=== PATIENT | female | born 1955 | race Asian ===

== ENCOUNTER 2018-01-29 03:28 | Inpatient (IN) | payer MEDICAID, SELFPAY ==
[~2018-01-29] VITALS: Ht 167.6 cm; Wt 48.1 kg
[2018-01-29] VITALS (7 sets, daily range): BP systolic 131–184; BP diastolic 51–85
[~2018-01-29 03:28] MED LIST: GLIPIZIDE5 MG ORAL; IBUPROFEN600 MG ORAL; LANTUS5 UNITS SUBQ; NORCO 5-325 TA1 EACH ORAL; NORVASC2.5 MG ORAL; TENORMIN25 MG ORAL
[2018-01-29] MEDS ORDERED: NS 250 ML IVPB ONE (03:30)
[2018-01-29] MEDS ORDERED: BISACODYL5 MG ORAL (04:06)
[2018-01-29] MEDS ORDERED: LISINOPRIL20 MG ORAL (04:06)
[2018-01-29] MEDS ORDERED: FAMOTIDINE20 MG ORAL (04:06)
[2018-01-29] MEDS ORDERED: ASPIR 8181 MG ORAL (04:06)
[2018-01-29] MEDS ORDERED: TRAMADOL HCL50 MG ORAL (04:06)
[2018-01-29] MEDS ORDERED: GLIPIZIDE5 MG ORAL (04:06)
[2018-01-29] MEDS ORDERED: LIPITOR80 MG ORAL (04:06)
[2018-01-29] MEDS ORDERED: DOCUSATE SODIU100 MG ORAL (04:06)
[2018-01-29] MEDS ORDERED: RENAGEL800 MG ORAL (04:06)
[2018-01-29] MEDS ORDERED: METOPROLOL-HCT1 EAC3 ORAL (04:06)
[2018-01-29] MEDS ORDERED: WARFARIN SODIUM1 MG ORAL (04:06)
[2018-01-29] MEDS ORDERED: CLOPIDOGREL75 MG ORAL (04:06)
[2018-01-29] MEDS ORDERED: SENSIPAR30 MG ORAL (04:06)
[2018-01-29] MEDS ORDERED: ZOFRAN4 M3 ORAL (04:06)
[2018-01-29] MEDS ORDERED: TYLENOL EXTRA500 MG ORAL (04:06)
[2018-01-29] MEDS ORDERED: ZOLPIDEM TARTRAT5 MG ORAL (04:06)
[2018-01-29 04:32] LABS: HEMATOCRIT 25.8 % (37.0-47.0); HEMOGLOBIN 8.1 G/DL (12.0-16.0); MEAN CORPUSCULAR VOLUME 93 FL (80-99); PLATELET COUNT 325 K/UL (150-450); RED BLOOD COUNT 2.77 M/UL (4.20-5.40); RED CELL DISTRIBUTION WIDTH 14.9 % (11.6-14.8)
[2018-01-29 04:33] LABS: WHITE BLOOD COUNT 31.3 K/UL (4.8-10.8)
--- NOTE | 2018-01-29 04:36 | Diagnostic Imaging Report ---
EXAM: XR Chest, 1 View CLINICAL HISTORY: COUGH TECHNIQUE: Frontal view of the chest. COMPARISON: No relevant prior studies available. FINDINGS: Lungs: Pulmonary vessel markings are mildly prominent. No acute consolidation. Pleural space: Unremarkable. No pneumothorax. Heart: Cardiac size is enlarged. The thoracic aorta is mildly tortuous. Mediastinum: Unremarkable. Bones/joints: Unremarkable. IMPRESSION: Cardiomegaly with prominence of pulmonary interstitial markings. Findings may represent underlying mild pulmonary vascular congestion.
[2018-01-29 04:43] LABS: ANION GAP 16 mmol/L (5-15); BLOOD UREA NITROGEN 49 mg/dL (7-18); CALCIUM 8.3 MG/DL (8.5-10.1); CARBON DIOXIDE 23 MMOL/L (21-32); CHLORIDE 96 MMOL/L (98-107); CREATININE 8.5 MG/DL (0.55-1.30); POTASSIUM 5.4 MMOL/L (3.5-5.1); SODIUM 135 MMOL/L (136-145)
[2018-01-29 04:45] LABS: INR 1.3 (0.9-1.1)
[2018-01-29] MEDS ORDERED: Morphine Sulfate 4mg/ml Inj (IV/IM USE ONLY) IVP ONE (04:45)
[2018-01-29] MEDS ORDERED: Acetaminophen 500mg (ES) tab ORAL ONE (04:45)
[2018-01-29 04:56] LABS: ALANINE AMINOTRANSFERASE 11 U/L (12-78); ALBUMIN 2.9 G/DL (3.4-5.0); ALBUMIN/GLOBULIN RATIO 0.6 (1.0-2.7); ALKALINE PHOSPHATASE 205 U/L (46-116); ASPARTATE AMINO TRANSFERASE 61 U/L (15-37); BILIRUBIN,TOTAL 0.6 MG/DL (0.2-1.0); CKMB 0.5 NG/ML (0.0-3.6); CREATINE KINASE 58 U/L (26-308)
--- NOTE | 2018-01-29 04:56 | Emergency Room Report ---
History of Present Illness General Chief Complaint: Fever Source: Patient Present Illness HPI 62-year-old female presents ED for evaluation. Patient brought in by EMS for fever. Started today. Temp 103.1 per EMS. Patient is tremulous. Patient denies cough. Denies sore throat or earache. She was recently discharged from [facility] for treatment of a infection. Patient is unclear where the infection was. history of end-stage renal disease gets dialysis Wednesday. Got dialysis on . Denies chest pain or shortness of breath. No other aggravating relieving factors. Denies any other associated symptoms Allergies: Coded Allergies: NO KNOWN DRUG ALLERGIES (Verified Allergy, Unknown, 01/29/18) Patient History Past Medical History: DM, HTN, renal disease, dialysis Past Surgical History: none Pertinent Family History: none Social History: Denies: smoking, alcohol use, drug use Last Menstrual Period: 2 decades ago Now: No Immunizations: UTD Reviewed Nursing Documentation: PMH: Agreed; PSxH: Agreed Nursing Documentation-PMH Hx Cardiac Problems: No Hx Hypertension: Yes Hx Pacemaker: No Hx Asthma: No Hx COPD: No Hx Diabetes: Yes Hx Cancer: No Hx Gastrointestinal Problems: No Hx Dialysis: Yes - wed, , wed Hx Neurological Problems: No Hx Cerebrovascular Accident: No Hx Seizures: No Review of Systems All Other Systems: negative except mentioned in HPI Physical Exam Vital Signs Date Time Temp Pulse Resp B/P (MAP) Pulse Ox O2 Delivery O2 Flow Rate FiO2 01/29/18 03:18 103.1 118 34 202/100 97 Room Air Sp02 EP Interpretation: reviewed, normal General Appearance: no apparent distress, alert, GCS 15, non-toxic Head: normocephalic, atraumatic Eyes: bilateral eye normal inspection, bilateral eye PERRL ENT: hearing grossly normal, normal pharynx, no angioedema, normal voice Neck: full range of motion, supple/symm/no masses Respiratory: chest non-tender, lungs clear, normal breath sounds, speaking full sentences Cardiovascular #1: regular rate, rhythm, no edema Cardiovascular #2: 2+ carotid (R), 2+ carotid (L), 2+ radial (R), 2+ radial (L) , 2+ dorsalis pedis (R), 2+ dorsalis pedis (L) Gastrointestinal: normal bowel sounds, non tender, soft, non-distended, no guarding, no rebound Rectal: deferred Genitourinary: normal inspection, no CVA tenderness Musculoskeletal: back normal, gait/station normal, normal range of motion, non- tender Neurologic: alert, oriented x3, responsive, motor strength/tone normal, sensory intact, speech normal Psychiatric: judgement/insight normal, memory normal, mood/affect normal, no suicidal/homicidal ideation Reflexes: 3+ bicep (R), 3+ bicep (L), 3+ tricep (R), 3+ tricep (L), 3+ knee (R) , 3+ knee (L) Skin: normal color, no rash, warm/dry, well hydrated, other - AV Fistula LUE with bruit. Lymphatic: no adenopathy Procedures Critical Care Time Critical Care Time i. I feel this is a highly complex case requiring extensive working including EKG/Rhythm strip, Xray/CT/US, Blood/urine lab work, repeat exams while in ED, and administration of strong opiates/narcotics for pain control, admission to hospital or close patient follow up. Total time: 30 min bedside evaluation and treatment excludes procedures (EKG). Reason for critical care: sepsis, high WBC. Possible complications: hypotension, hypertension, DE, shock, arrhythmias, metabolic acidosis, end organ damage, respiratory failure. Interventions: labs, EKG, CXR tylenol, pain meds. IVFs. broad spectrum abx Course: Patient presenting with fever. Tachycardic. History of end-stage renal disease on dialysis. WBC > 30. Troponin is indeterminate. BNP high. lactate > 3. given small bolus NS. given tylenol. given pain meds. given broad spectrum abx Consultations: nursing staff, EMS, family Performed by: Dr Aquino Tolerated well condition = serious j. because of unstable vital signs this patient had a condition that could potentially threaten life or limb. I feel this is a critical patient who required my full attention while patient was considered critical. Total Critical Care Time excluding procedures was greater than 35 minutes Medical Decision Making Diagnostic Impression: Primary Impression: Fever Qualified Codes: R50.9 - Fever, unspecified Additional Impressions: Sepsis Qualified Codes: A41.9 - Sepsis, unspecified organism ESRD (end stage renal disease) on dialysis ER Course Hospital Course 62 yo F presents with fever Differential diagnoses include: Pneumonia, UTI, sepsis, dehydration, DE/ unstable angina Clinical course Patient placed on stretcher. 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 After initial history and physical, I ordered labs, EKG, chest x-ray, blood cultures, UA. Labs - BUN/Cr elevated, signficant leukocytosis, troponins 0.089, K 5.4 EKG - sinus tachycardia, no acute ischemic changes interpreted by me CXR - cardiomegaly, no acute process Given Tylenol. Given broad-spectrum Abx. Patient cannot be given 30 mL per KG fluid bolus as patient is a dialysis patient Patient came with paperwork [facility] but unable to determine source of infection during recent hospitalization. Tachycardia resolving after Tylenol and small fluid bolus. maintenance fluid ordered Case discussed with Dr Warren and they agreed to admit patient to their service for further care and support I feel this is a highly complex case requiring extensive working including EKG/ Rhythm strip, Xray/CT/US, Blood/urine lab work, repeat exams while in ED, and administration of strong opiates/narcotics for pain control, admission to hospital or close patient follow up. Diagnosis - fever, sepsis, ESRD on dialysis Patient admitted to telemetry in serious condition Labs Test 01/29/18 04:25 White Blood Count 31.3 K/UL (4.8-10.8) Red Blood Count 2.77 M/UL (4.20-5.40) Hemoglobin 8.1 G/DL (12.0-16.0) Hematocrit 25.8 % (37.0-47.0) Mean Corpuscular Volume 93 FL (80-99) Mean Corpuscular Hemoglobin 29.1 PG (27.0-31.0) Mean Corpuscular Hemoglobin Concent 31.3 G/DL (32.0-36.0) Red Cell Distribution Width 14.9 % (11.6-14.8) Platelet Count 325 K/UL (150-450) Mean Platelet Volume 6.3 FL (6.5-10.1) Neutrophils (%) (Auto) % (45.0-75.0) Lymphocytes (%) (Auto) % (20.0-45.0) Monocytes (%) (Auto) % (1.0-10.0) Eosinophils (%) (Auto) % (0.0-3.0) Basophils (%) (Auto) % (0.0-2.0) Prothrombin Time 13.7 SEC (9.30-11.50) Prothromb Time International Ratio 1.3 (0.9-1.1) Activated Partial Thromboplast Time 25 SEC (23-33) Sodium Level 135 MMOL/L (136-145) Potassium Level 5.4 MMOL/L (3.5-5.1) Chloride Level 96 MMOL/L (98-107) Carbon Dioxide Level 23 MMOL/L (21-32) Anion Gap 16 mmol/L (5-15) Blood Urea Nitrogen 49 mg/dL (7-18) Creatinine 8.5 MG/DL (0.55-1.30) Estimat Glomerular Filtration Rate 4.7 mL/min (>60) Glucose Level 242 MG/DL (74-106) Lactic Acid Level 3.50 mmol/L (0.4-2.0) Calcium Level 8.3 MG/DL (8.5-10.1) Total Bilirubin 0.6 MG/DL (0.2-1.0) Aspartate Amino Transf (AST/SGOT) 61 U/L (15-37) Alanine Aminotransferase (ALT/SGPT) 11 U/L (12-78) Alkaline Phosphatase 205 U/L (46-116) Total Creatine Kinase 58 U/L (26-308) Creatine Kinase MB 0.5 NG/ML (0.0-3.6) Creatine Kinase MB Relative Index 0.8 Troponin I 0.089 ng/mL (0.000-0.056) Pro-B-Type Natriuretic Peptide > 25392 pg/mL (0-125) Total Protein 7.8 G/DL (6.4-8.2) Albumin 2.9 G/DL (3.4-5.0) Globulin 4.9 g/dL Albumin/Globulin Ratio 0.6 (1.0-2.7) EKG Diagnostic Results Rate: tachycardiac Rhythm: NSR ST Segments: no acute changes ASA given to the pt in ED: No Rhythm Strip Diag. Results EP Interpretation: yes Rhythm: NSR, no PVC's, no ectopy Chest X-Ray Diagnostic Results Chest X-Ray Diagnostic Results : Chest X-Ray Ordered: Yes # of Views/Limited/Complete: 1 View Indication: Other - fever EP Interpretation: Yes Interpretation: no consolidation, no effusion, no pneumothorax, no acute cardiopulmonary disease Impression: Other - bilateral interstitial congestion Electronically Signed by: Electronically signed by Ricco Aquino MD Last Vital Signs Date Time Temp Pulse Resp B/P (MAP) Pulse Ox O2 Delivery O2 Flow Rate FiO2 01/29/18 03:18 103.1 118 34 202/100 97 Room Air Status: improved Disposition: ADMITTED INPATIENT Condition: Serious Referrals: NOT CHOSEN IPA/,REFERRING (PCP) Ricco Aquino MD Jan 29, 2018 04:56
[2018-01-29] MEDS ORDERED: Piperacillin/Tazobactam 3.375 GM in NS 110 ML IVPB ONE (05:00)
[2018-01-29] MEDS ORDERED: Vancomycin 1 GM in NS 275 ML IV ONE (05:00)
[2018-01-29] MEDS ORDERED: Vancomycin 1gm inj IVPB ONE (06:05)
[2018-01-29] MEDS: Atenolol 25mg tab ORAL SCH (09:15)
[2018-01-29] MEDS ORDERED: Lisinopril 20mg tab ORAL SCH (09:15)
[2018-01-29] MEDS ORDERED: Aspirin EC 81mg tab ORAL SCH (09:15)
--- NOTE | 2018-01-29 09:19 | History and Physical ---
History of Present Illness General Date patient seen: Jan 29, 2018 Time patient seen: 09:03 Reason for Hospitalization: Fever Present Illness HPI 62 yo female with h/o dm, htn, cad, esrd on hd ,sat presents with complaints of fever. Noted to have temp of 103.1 per EMS. Patient denies any chest pain, sob, coughs, headaches, sore throat, earaches. Admits to fevers but no chills. Feels very weak. Patient states she was recently at [facility] for treatment of an infection, does not know where the infection was from. Patient noted to be in septic shock, ID and nephro consulted and started on broad spectrum abx Social hx reviewed, denies smoking, alcohol use, drug use fam hx reviewed, denies any sig past fam hx code status FULL Allergies: Coded Allergies: NO KNOWN DRUG ALLERGIES (Verified Allergy, Unknown, 01/29/18) Medication History Scheduled Amlodipine Besylate (Norvasc), 2.5 MG ORAL DAILY, (Reported) Aspirin* (Aspir 81*), 81 MG ORAL DAILY, (Reported) Atenolol (Tenormin), 25 MG ORAL DAILY, (Reported) Atorvastatin (Lipitor), 80 MG ORAL BEDTIME, (Reported) Bisacodyl* (Dulcolax*), 5 MG ORAL DAILY, (Reported) Cinacalcet* (Sensipar*), 30 MG ORAL DAILY, (Reported) Clopidogrel* (Clopidogrel*), 75 MG ORAL DAILY, (Reported) Docusate Sodium* (Docusate Sodium*), 100 MG ORAL TWICE A DAY, (Reported) Famotidine (Famotidine), 20 MG ORAL DAILY, (Reported) Glipizide* (Glipizide*), 5 MG ORAL BIDAC, (Reported) Glipizide* (Glipizide*), 5 MG ORAL BIDAC, (Reported) Ibuprofen* (Motrin*), 600 MG ORAL THREE TIMES A DAY Insulin Glargine (Lantus), 0 SUBQ BEDTIME, (Reported) Lisinopril (Lisinopril*), 20 MG ORAL DAILY, (Reported) Metoprolol/Hydrochlorothiazide (Metoprolol-Hctz 50-25 Mg Tab), 1 TAB ORAL DAILY, (Reported) Sevelamer Hcl (Renagel), 800 MG ORAL THREE TIMES A DAY, (Reported) Warfarin Sod* (Warfarin Sod*), 0.5 MG ORAL DAILY, (Reported) Scheduled PRN Acetaminophen* (Tylenol Extra Strength*), 500 MG ORAL Q6H PRN for Mild Pain/ Temp > 100.5, (Reported) Hydrocodone Bit/Acetaminophen 5-325* ([place] 5-325*), 1 TAB ORAL Q6H PRN for For Pain Ondansetron* (Zofran*), 4 MG ORAL Q6H PRN for Nausea & Vomiting, (Reported) Tramadol Hcl* (Ultram*), 50 MG ORAL Q6H PRN for For Pain, (Reported) Zolpidem Tartrate* (Zolpidem Tartrate*), 5 MG ORAL BEDTIME PRN for Insomnia, ( Reported) Patient History Healthcare decision maker Resuscitation status Advanced Directive on File Review of Systems ROS Narrative 14 point ros negative except per documented in HPI Physical Exam General Appearance: no apparent distress, alert Lines, tubes and drains: peripheral HEENT: normocephalic, atraumatic Neck: non-tender, normal alignment, supple, normal inspection Respiratory/Chest: chest wall non-tender, lungs clear, normal breath sounds, no respiratory distress, no accessory muscle use Cardiovascular/Chest: normal peripheral pulses, normal rate, regular rhythm Abdomen: normal bowel sounds, non tender, soft Extremities: normal range of motion, non-tender, normal inspection, no calf tenderness Skin Exam: normal pigmentation, warm/dry 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, no motor/sensory deficits, alert, oriented x 3, responsive, normal mood/affect Last 24 Hour Vital Signs Date Time Temp Pulse Resp B/P (MAP) Pulse Ox O2 Delivery O2 Flow Rate FiO2 01/29/18 07:48 99.1 90 18 134/59 98 Room Air 01/29/18 06:30 99.1 95 21 137/53 96 Room Air 01/29/18 05:30 99.6 97 26 131/51 96 Room Air 01/29/18 05:22 103.1 01/29/18 05:20 103.1 01/29/18 04:00 103.1 113 26 184/81 97 Room Air 01/29/18 03:45 118 34 Room Air 01/29/18 03:18 103.1 118 34 202/100 97 Room Air Laboratory Tests Test 01/29/18 04:25 01/29/18 05:35 White Blood Count 31.3 K/UL (4.8-10.8) *H Red Blood Count 2.77 M/UL (4.20-5.40) L Hemoglobin 8.1 G/DL (12.0-16.0) L Hematocrit 25.8 % (37.0-47.0) L Mean Corpuscular Volume 93 FL (80-99) Mean Corpuscular Hemoglobin 29.1 PG (27.0-31.0) Mean Corpuscular Hemoglobin Concent 31.3 G/DL (32.0-36.0) L Red Cell Distribution Width 14.9 % (11.6-14.8) H Platelet Count 325 K/UL (150-450) Mean Platelet Volume 6.3 FL (6.5-10.1) L Neutrophils (%) (Auto) % (45.0-75.0) Lymphocytes (%) (Auto) % (20.0-45.0) Monocytes (%) (Auto) % (1.0-10.0) Eosinophils (%) (Auto) % (0.0-3.0) Basophils (%) (Auto) % (0.0-2.0) Neutrophils % (Manual) Pending Lymphocytes % (Manual) Pending Platelet Estimate Pending Platelet Morphology Pending Prothrombin Time 13.7 SEC (9.30-11.50) H Prothromb Time International Ratio 1.3 (0.9-1.1) H Activated Partial Thromboplast Time 25 SEC (23-33) Sodium Level 135 MMOL/L (136-145) L Potassium Level 5.4 MMOL/L (3.5-5.1) H Chloride Level 96 MMOL/L (98-107) L Carbon Dioxide Level 23 MMOL/L (21-32) Anion Gap 16 mmol/L (5-15) H Blood Urea Nitrogen 49 mg/dL (7-18) H Creatinine 8.5 MG/DL (0.55-1.30) H Estimat Glomerular Filtration Rate 4.7 mL/min (>60) Glucose Level 242 MG/DL (74-106) H Lactic Acid Level 3.50 mmol/L (0.4-2.0) H 2.40 mmol/L (0.66-2.22) H Calcium Level 8.3 MG/DL (8.5-10.1) L Total Bilirubin 0.6 MG/DL (0.2-1.0) Aspartate Amino Transf (AST/SGOT) 61 U/L (15-37) H Alanine Aminotransferase (ALT/SGPT) 11 U/L (12-78) L Alkaline Phosphatase 205 U/L (46-116) H Total Creatine Kinase 58 U/L (26-308) Creatine Kinase MB 0.5 NG/ML (0.0-3.6) Creatine Kinase MB Relative Index 0.8 Troponin I 0.089 ng/mL (0.000-0.056) Pro-B-Type Natriuretic Peptide > 16997 pg/mL (0-125) H Total Protein 7.8 G/DL (6.4-8.2) Albumin 2.9 G/DL (3.4-5.0) L Globulin 4.9 g/dL Albumin/Globulin Ratio 0.6 (1.0-2.7) L Microbiology Date/Time Source Procedure Growth Status 01/29/18 04:30 Nasal Nares Influenza Types A,B Antigen (TORIBIO) - Final Complete 01/29/18 05:45 Rectum Received Height (Feet): 5 Height (Inches): 6.00 Weight (Pounds): 110 Medications Current Medications Medications (Trade) Dose Ordered Sig/Juliocesar Route PRN Reason Start Time Stop Time Status Last Admin Dose Admin Sodium Chloride 1,000 ml @ 100 mls/hr Q10H IV 01/29/18 05:00 02/28/18 04:59 01/29/18 06:46 Assessment/Plan Problem List: (1) Septic shock Assessment & Plan: wbc 31.3, temp 103.1, HR 103 esrd elevated trop with concerns for nstemi LA 3.5 on admit bolus IVF given, caution with hydration vanco, zosyn started bcx x 2 sent cxr reviewed, pulm edema noted, no consolidations ID consulted Nephro consulted recheck LA tele ICD Codes: A41.9 - Sepsis, unspecified organism; R65.21 - Severe sepsis with septic shock SNOMED: 51551223 (2) NSTEMI (non-ST elevated myocardial infarction) Assessment & Plan: type II nstemi demand ischemia due to esrd and septic shock no chest pain ekg reviewed, nsr no acut st t wave changes noted ICD Codes: I21.4 - Non-ST elevation (NSTEMI) myocardial infarction SNOMED: 243356295 (3) ESRD (end stage renal disease) on dialysis Assessment & Plan: Nephro consulted HD per nephro usualy T, Th, St ICD Codes: N18.6 - End stage renal disease; Z99.2 - Dependence on renal dialysis SNOMED: 468555621 (4) Poor historian Assessment & Plan: very poor historian does not know much of her medical history of medications ICD Codes: Z78.9 - Other specified health status SNOMED: 175358231 (5) CAD (coronary artery disease) Assessment & Plan: asa plavix resume home meds patient unsure of what procedures shes underwent however seems like she's had stents in the past statin tele stable ICD Codes: I25.10 - Atherosclerotic heart disease of [place] coronary artery without angina pectoris SNOMED: 17234901 Qualifiers: (6) Diabetes type 2, controlled Assessment & Plan: iss accuchecks [id number] ICD Codes: E11.9 - Type 2 diabetes mellitus without complications SNOMED: 44770779 Qualifiers: Qualified Codes: E11.22 - Type 2 diabetes mellitus with diabetic chronic kidney disease; N18.6 - End stage renal disease; Z99.2 - Dependence on renal dialysis Status: stable, unchanged Assessment/Plan Diet: renal diet DVT Prophylaxis: SCD, continue home coumadin Code Status: Full Admit to Inpatient Hospital Classification Declaration: Based on this initial evaluation, and depending on the patient's clinical course, I anticipate that this patient will require hospitalization for 2-3midnights for septic shock and close respiratory/ hemodynamic monitoring. Disposition: Once the patient is stable to leave the hospital, I anticipate the patient will likely be discharged to the following environment: home with HH vs SNF I spent 77 minutes on this patient's case, and 39 minutes were dedicated to counseling and/or care coordination. Discussed with patient/family, nursing staff, SW/CM regarding clinical status, treatment course, and disposition planning. Time of note may not reflect time of encounter. Jesús Low MD Jan 29, 2018 09:19
--- NOTE | 2018-01-29 11:24 | Consultation ---
Consult Note Consult Note asked to eval for dialysis management HPI 62-year-old female presents ED for evaluation. Patient brought in by EMS for fever. Started today. Temp 103.1 per EMS. Patient is tremulous. Patient denies cough. Denies sore throat or earache. She was recently discharged from [facility] for treatment of a infection. Patient is unclear where the infection was. history of end-stage renal disease gets dialysis Wednesday. Got dialysis on . Denies chest pain or shortness of breath. No other aggravating relieving factors. 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
[2018-01-29] MEDS ORDERED: Sodium Polystyrene Sulfonate 15gm Powder ORAL SCH (11:45)
[2018-01-29] MEDS: NovoLOG Insulin Flexpen SUBQ SCH ×3 (12:05→22:21)
--- NOTE | 2018-01-29 13:48 | Cardiology Report ---
APPROVED REPORT EXAM: Two-dimensional and M-mode echocardiogram with Doppler and color Doppler. INDICATION Congestive Heart Failure M-Mode DIMENSIONS IVSd1.2 (0.7-1.1cm)Left Atrium (MM)3.2 (1.6-4.0cm) LVDd6.3 (3.5-5.6cm)Aortic Root3.4 (2.0-3.7cm) PWd0.8 (0.7-1.1cm)Aortic Cusp Exc.1.7 (1.5-2.0cm) IVSs1.6 cm LVDs5.4 (2.5-4.0cm) PWs1.2 cm Mild left ventricular enlargement . Global LV hypokinesis. Anterior septum basal to distal hypokinesis . Left ventricular ejection fraction estimated to be 20-25 %. No evidencce of left ventricular hypertrophy. No evidence of pericardial effusion. All other cardiac chamber sizes are within normal limits. Focal aortic valve sclerosis with adequate cusp excursion. Thickened mitral valve leaflets with normal excursion. Mitral annulus and aortic root calcification. Pulmonic valve not well visualized. Normal tricuspid valve structure. IVC dilated at 2.2 cm without physiologic collapse suggestive of increased RA pressure. A color flow and spectral Doppler study was performed and revealed: Mild aortic regurgitation. Moderate mitral regurgitation. Mitral diastolic velocities suggest reduced left ventricular relaxation c/w mild LV diastolic dysfunction (Grade I ). Mild tricuspid regurgitation. Tricuspid systolic velocities suggests peak right ventricular systolic pressure of 49 mmHg,consistent with moderate pulmonary hypertension. Mild pulmonic regurgitation present.
[2018-01-29] MEDS: Piperacillin/Tazobactam 2.25 GM in NS 55 ML IV SCH ×2 (14:24→22:19)
[2018-01-29] MEDS ORDERED: Warfarin Sodium 3mg ORAL SCH (17:00)
--- NOTE | 2018-01-29 18:19 | Infectious Diseases Prog Note ---
Assessment/Plan Assessment/Plan Full consult dictated: A) 1) sepsis, fevers, leukocytosis, hx mssa infection, + c.diff. risk 2) pmh noted 3) allergies - nkda P) 1) vancomycin and zosyn, po vancomycin 2) check cultures, labs, ct scan, c.diff. 3) thank you Subjective Allergies: Coded Allergies: NO KNOWN DRUG ALLERGIES (Verified Allergy, Unknown, 01/29/18) Objective Vital Signs Last 24 Hour Vital Signs Date Time Temp Pulse Resp B/P (MAP) Pulse Ox O2 Delivery O2 Flow Rate FiO2 01/29/18 17:15 89 142/77 01/29/18 16:00 97.9 89 20 142/77 (98) 99 01/29/18 16:00 83 01/29/18 12:00 97.7 85 20 154/85 (108) 100 01/29/18 12:00 89 01/29/18 09:22 Room Air 01/29/18 09:15 139/72 01/29/18 09:15 92 139/72 01/29/18 09:15 92 139/72 01/29/18 08:00 88 01/29/18 08:00 98.6 91 20 139/72 (94) 98 01/29/18 07:48 99.1 90 18 134/59 98 Room Air 01/29/18 06:30 99.1 95 21 137/53 96 Room Air 01/29/18 05:30 99.6 97 26 131/51 96 Room Air 01/29/18 05:22 103.1 01/29/18 05:20 103.1 01/29/18 04:00 103.1 113 26 184/81 97 Room Air 01/29/18 03:45 118 34 Room Air 01/29/18 03:18 103.1 118 34 202/100 97 Room Air Height (Feet): 5 Height (Inches): 6.00 Weight (Pounds): 110 Microbiology Date/Time Source Procedure Growth Status 01/29/18 04:30 Nasal Nares Influenza Types A,B Antigen (TORIBIO) - Final Complete 01/29/18 05:45 Rectum Received Laboratory Tests Test 01/29/18 04:25 01/29/18 05:35 01/29/18 09:54 01/29/18 12:02 White Blood Count 31.3 K/UL (4.8-10.8) *H Red Blood Count 2.77 M/UL (4.20-5.40) L Hemoglobin 8.1 G/DL (12.0-16.0) L Hematocrit 25.8 % (37.0-47.0) L Mean Corpuscular Volume 93 FL (80-99) Mean Corpuscular Hemoglobin 29.1 PG (27.0-31.0) Mean Corpuscular Hemoglobin Concent 31.3 G/DL (32.0-36.0) L Red Cell Distribution Width 14.9 % (11.6-14.8) H Platelet Count 325 K/UL (150-450) Mean Platelet Volume 6.3 FL (6.5-10.1) L Neutrophils (%) (Auto) % (45.0-75.0) Lymphocytes (%) (Auto) % (20.0-45.0) Monocytes (%) (Auto) % (1.0-10.0) Eosinophils (%) (Auto) % (0.0-3.0) Basophils (%) (Auto) % (0.0-2.0) Differential Total Cells Counted 100 Neutrophils % (Manual) 93 % (45-75) H Lymphocytes % (Manual) 1 % (20-45) L Monocytes % (Manual) 5 % (1-10) Eosinophils % (Manual) 0 % (0-3) Basophils % (Manual) 0 % (0-2) Band Neutrophils 1 % (0-8) Platelet Estimate Adequate Platelet Morphology Normal Polychromasia 1+ Hypochromasia 1+ Anisocytosis 1+ Prothrombin Time 13.7 SEC (9.30-11.50) H Prothromb Time International Ratio 1.3 (0.9-1.1) H Activated Partial Thromboplast Time 25 SEC (23-33) Sodium Level 135 MMOL/L (136-145) L Potassium Level 5.4 MMOL/L (3.5-5.1) H Chloride Level 96 MMOL/L (98-107) L Carbon Dioxide Level 23 MMOL/L (21-32) Anion Gap 16 mmol/L (5-15) H Blood Urea Nitrogen 49 mg/dL (7-18) H Creatinine 8.5 MG/DL (0.55-1.30) H Estimat Glomerular Filtration Rate 4.7 mL/min (>60) Glucose Level 242 MG/DL (74-106) H Lactic Acid Level 3.50 mmol/L (0.4-2.0) H 2.40 mmol/L (0.66-2.22) H 2.40 mmol/L (0.4-2.0) H 3.00 mmol/L (0.66-2.22) H Calcium Level 8.3 MG/DL (8.5-10.1) L Total Bilirubin 0.6 MG/DL (0.2-1.0) Aspartate Amino Transf (AST/SGOT) 61 U/L (15-37) H Alanine Aminotransferase (ALT/SGPT) 11 U/L (12-78) L Alkaline Phosphatase 205 U/L (46-116) H Total Creatine Kinase 58 U/L (26-308) Creatine Kinase MB 0.5 NG/ML (0.0-3.6) Creatine Kinase MB Relative Index 0.8 Troponin I 0.089 ng/mL (0.000-0.056) Pro-B-Type Natriuretic Peptide > 23508 pg/mL (0-125) H Total Protein 7.8 G/DL (6.4-8.2) Albumin 2.9 G/DL (3.4-5.0) L Globulin 4.9 g/dL Albumin/Globulin Ratio 0.6 (1.0-2.7) L C-Reactive Protein, Quantitative 5.7 mg/dL (0.00-0.90) H Test 01/29/18 17:35 Lactic Acid Level Pending Current Medications Medications (Trade) Dose Ordered Sig/Juliocesar Route PRN Reason Start Time Stop Time Status Last Admin Dose Admin Amlodipine Besylate (Norvasc) 2.5 mg BID ORAL 01/29/18 18:00 02/28/18 09:14 01/29/18 17:15 Aspirin (Ecotrin) 81 mg DAILY ORAL 01/29/18 09:15 02/28/18 09:14 01/29/18 10:06 Atenolol (Tenormin) 25 mg DAILY ORAL 01/29/18 09:15 02/28/18 09:14 Atorvastatin Calcium (Lipitor) 80 mg BEDTIME ORAL 01/29/18 21:00 02/28/18 20:59 Clonidine HCl (Catapres Tab) 0.1 mg Q4H PRN ORAL bp over 165 syst 01/29/18 11:45 02/28/18 11:44 Clopidogrel Bisulfate (Plavix) 75 mg DAILY ORAL 01/29/18 09:15 02/28/18 09:14 01/29/18 10:06 Dextrose (Dextrose 50%) 25 ml Q30M PRN IV Hypoglycemia 01/29/18 10:00 02/28/18 09:59 Dextrose (Dextrose 50%) 50 ml Q30M PRN IV Hypoglycemia 01/29/18 10:00 02/28/18 09:59 Insulin Aspart (NovoLOG) BEFORE MEALS AND HS SUBQ 01/29/18 11:30 02/28/18 11:29 01/29/18 17:16 Ondansetron HCl (Zofran) 4 mg Q6H PRN IVP Nausea & Vomiting 01/29/18 09:30 02/28/18 09:29 01/29/18 14:53 Pantoprazole (Protonix) 40 mg BID ORAL 01/29/18 11:30 02/28/18 11:29 01/29/18 17:18 Piperacillin Sod/ Tazobactam Sod 2.25 gm/Sodium Chloride 55 ml @ 110 mls/hr EVERY 8 HOURS IV 01/29/18 14:00 02/05/18 13:59 01/29/18 14:24 Vancomycin HCl (Firvanq) 125 mg FOUR TIMES A DAY ORAL 01/29/18 21:00 02/05/18 20:59 Vancomycin HCl (Vanco rx to dose) 1 ea DAILY PRN MISC Per rx protocol 01/29/18 09:00 02/28/18 08:59 Warfarin Sodium (Coumadin per pharmacy) 1 ea DAILY PRN MISC Per rx protocol 01/29/18 09:15 02/28/18 09:14 Yudy Obando MD Jan 29, 2018 18:19
[2018-01-29] MEDS: Atorvastatin 80mg tab ORAL SCH (20:11)
[2018-01-29] MEDS: Vancomycin oral 125mg/2.5ml ORAL SCH (22:18)
[2018-01-30] VITALS (7 sets, daily range): BP systolic 120–153; BP diastolic 57–81
--- NOTE | 2018-01-30 01:30 | Consultation ---
DATE OF CONSULTATION: 01/29/2018 INFECTIOUS DISEASE CONSULTATION CONSULTING PHYSICIAN: Yudy Obando M.D. ATTENDING PHYSICIAN: Jaime Levine M.D. REFERRING PHYSICIAN: Dr. Jesús Low. REASON FOR CONSULTATION: Sepsis, leukocytosis, and fevers. CHIEF COMPLAINT: The patient's chief complaint coming in to the hospital is sepsis, leukocytosis, and fevers. HISTORY OF PRESENT ILLNESS: This is a 62-year-old female, who comes in to [facility] with white count of over 30,000, febrile to 103, and sepsis. The patient meets SIRS criteria and also had elevated lactic acid level. The patient was started on broad-spectrum antibiotics, vancomycin and Zosyn. The patient was recently at [facility] and it looks like, was treated for a Staph aureus infection. I do not know the details of that treatment, modality, or course. Infectious Disease consultation is requested for antibiotic management. The patient is at high risk for C. diff, because I believe she has been on recent antibiotics based on the records for these infection treatment at [facility]. The patient has multiple medical problems that will be outlined. The patient will be continued on vancomycin and Zosyn. It is questionable, she has loose stools. I will add p.o. vancomycin. CT scan, cultures, and C. diff have been ordered. The patient does produce some that the CT scan will be without contrast. MAR was noted. Orders were noted. Notes and records were reviewed. REVIEW OF SYSTEMS: CONSTITUTIONAL: The patient comes in with generalized fatigue, but no focal weakness. She is alert and responsive. She has fever and chills. HEAD AND NECK: No head pain or neck pain. No neck stiffness or change in vision. CARDIAC: No chest pain. GASTROINTESTINAL: Possible loose stools and diarrhea. May be some abdominal discomfort. GENITOURINARY: No Cabrera. She is on hemodialysis. The patient has left arm fistula. No Cabrera. No CVA tenderness per se. SKIN: No rash. EXTREMITIES: No extremity pain. NEUROLOGIC: No seizures. Again, she does have some loose stools. She has had abdominal discomfort. PULMONARY: No cough, congestion, or shortness of breath. No secretions. PAST MEDICAL HISTORY: The patient's past medical history includes the following. The patient has a past history of sepsis, history of diabetes, history of hyperlipidemia, hypertension, end-stage renal disease, history of MSSA bacteremia, past history of infection treated at [facility] in the past per the records, history of anticoagulation, history of anemia, history of pancreatitis in the past, history of non-STEMI myocardial infarction. She has a left arm fistula for end-stage renal disease, hemodialysis. MEDICATIONS: Upon reviewing the MAR, she is on following medications. She is on atorvastatin, vancomycin, and Zosyn. I put her on p.o. and intravenous vancomycin. She is on amlodipine. She is on intravenous Zosyn, clonidine, insulin, and pantoprazole. She is on Zofran, aspirin, atenolol, Clopidogrel, and warfarin. Outside medications noted and reconciliated. ALLERGIES: No known drug allergies. SOCIAL HISTORY: Negative for smoking, alcohol, or drug abuse. FAMILY DOCTOR: Noncontributory and negative for tuberculosis or cancer. PHYSICAL EXAM: VITAL SIGNS: Temperature 97.9, pulse rate 89, respiratory rate 20, blood pressure 142/77, and saturation 99%. T-max 103.1. Heart rate has been as high as 118 and respiratory rate as high as 34 on admission. GENERAL: Alert and responsive. She looks weak, but is responsive and oriented x3. HEAD AND NECK: Oral exam, no thrush. Eye exam, no icterus. Neck is supple. No JVD. Normocephalic. HEART: Regular. No gallop or murmur. ABDOMEN: Soft. Positive bowel sounds. Some discomfort. No rebound. LUNGS: Fairly clear. Bilateral possible rhonchi, rales, and crackles. SKIN: No rash or dermatitis. MUSCULOSKELETAL: No effusion or contractures. Septic arthritis. EXTREMITIES: Lower extremities are without cellulitis PERIPHERAL VASCULAR: No cyanosis or gangrene. GENITOURINARY: No Cabrera. No CVA tenderness. She has left arm fistula site, which looks clean and dry. No CVA tenderness. NEUROLOGIC: Intact and nonfocal. LABORATORY DATA: Laboratory data is as follows. Lactic acid level is 2.4 now and most recently, it was 1.7. It has as been as high as 3.5. CBC, white count 31.3, hemoglobin 8.1, and platelet count is 325,000. Creatinine is 8.5. Sodium 135. LFTs were noted. Cultures are pending. UA, C and S are pending. Influenza screen is negative. Chest x-ray shows cardiomegaly with pulmonary vascular congestion that is mild. No consolidation mentioned. CT scan of the abdomen and pelvis has been ordered. Cultures are pending. ASSESSMENT AND PLAN: 1. The patient has sepsis, fevers, leukocytosis, SIRS criteria, and elevated lactic acid level. The patient was recently at [facility] and treated for infection per the records. She does have history of methicillin-sensitive Staph aureus bacteremia per the records. The patient has left arm fistula. At this time, we will continue broad-spectrum antibiotics, vancomycin and Zosyn for MRSA gram-negative coverage. Check cultures and laboratories. Check CT scan of the abdomen and pelvis without contrast. We will also check for C. diff. She is at risk for C. diff and there is a question if she has diarrhea and abdominal discomfort. Also, give her p.o. vancomycin in addition to vancomycin and Zosyn. Continue treatment for sepsis, leukocytosis, and fevers pending workup with vancomycin, Zosyn, and p.o. vancomycin and intravenous vancomycin. Of note, she also has history of pancreatitis. We will check amylase and lipase also. Check imaging including CT scan, chest x-ray, and laboratories. 2. The patient has end-stage renal disease, on hemodialysis, left arm fistula. 3. History of Staph aureus bacteremia, unclear how long she was treated for that. 4. Diabetes. 5. Hyperlipidemia. 6. Hypertension. 7. End-stage renal disease. 8. Anemia. 9. Hemodialysis. 10. History of anticoagulation. 11. History of pancreatitis. 12. History of non-STEMI. 13. No known allergies. 14. Social history is negative. 15. MAR was noted 16. Case was discussed with RN. 17. Family history is noncontributory. 18. Social history is negative. 19. Continue treatment per primary consultants. 20. Orders were entered and noted. Yudy Obando M.D. DR: EVY JOB#: [id number] CC:
[2018-01-30 04:07] LABS: APPEARANCE,URINE SLIGHTLY CLOUDY; BILIRUBIN, URINE NEGATIVE (NEGATIVE); GLUCOSE, URINE (UA) 2+ (NEGATIVE); KETONES,URINE NEGATIVE (NEGATIVE); LEUKOCYTE ESTERASE ,URINE NEGATIVE (NEGATIVE); NITRITE,URINE NEGATIVE (NEGATIVE); PH,URINE 8 (4.5-8.0); PROTEIN,URINE 4+ (NEGATIVE); UROBILINOGEN,URINE NORMAL MG/DL (0.0-1.0)
[2018-01-30 04:20] LABS: COLOR,URINE YELLOW
[2018-01-30] MEDS: Piperacillin/Tazobactam 2.25 GM in NS 55 ML IV SCH ×3 (05:31→23:44)
[2018-01-30] MEDS: NovoLOG Insulin Flexpen SUBQ SCH ×4 (05:48→20:33)
[2018-01-30 07:51] LABS: HEMATOCRIT 21.6 % (37.0-47.0); MEAN CORPUSCULAR VOLUME 93 FL (80-99); PLATELET COUNT 266 K/UL (150-450); RED BLOOD COUNT 2.33 M/UL (4.20-5.40); RED CELL DISTRIBUTION WIDTH 14.9 % (11.6-14.8)
[2018-01-30 07:58] LABS: INR 2.2 (0.9-1.1)
[2018-01-30 07:59] LABS: HEMOGLOBIN 6.7 G/DL (12.0-16.0); WHITE BLOOD COUNT 31.4 K/UL (4.8-10.8)
[2018-01-30] MEDS: Atenolol 25mg tab ORAL SCH (09:00)
--- NOTE | 2018-01-30 09:13 | General Progress Note ---
Assessment/Plan Problem List: (1) Septic shock Assessment & Plan: wbc still very elevated at 31.4 cont abx per ID, IV and PO vanco, zosyn pending cultures, bcx ngtd, cdiff sent per ID elevated trop with concerns for nstemi LA 3.5 on admit, resolved now bolus IVF given, caution with hydration vanco, zosyn started cxr reviewed, pulm edema noted, no consolidations Nephro consulted tele ICD Codes: A41.9 - Sepsis, unspecified organism; R65.21 - Severe sepsis with septic shock SNOMED: 98097064 (2) NSTEMI (non-ST elevated myocardial infarction) Assessment & Plan: type II nstemi demand ischemia due to esrd and septic shock no chest pain ekg reviewed, nsr no acut st t wave changes noted ICD Codes: I21.4 - Non-ST elevation (NSTEMI) myocardial infarction SNOMED: 860797099 (3) ESRD (end stage renal disease) on dialysis Assessment & Plan: Nephro consulted HD per nephro usualy , , St ICD Codes: N18.6 - End stage renal disease; Z99.2 - Dependence on renal dialysis SNOMED: 024415334 (4) Poor historian Assessment & Plan: very poor historian does not know much of her medical history of medications ICD Codes: Z78.9 - Other specified health status SNOMED: 930647037 (5) CAD (coronary artery disease) Assessment & Plan: asa plavix resume home meds patient unsure of what procedures shes underwent however seems like she's had stents in the past statin tele stable ICD Codes: I25.10 - Atherosclerotic heart disease of [place] coronary artery without angina pectoris SNOMED: 80083713 Qualifiers: (6) Diabetes type 2, controlled Assessment & Plan: iss accuchecks [id number] ICD Codes: E11.9 - Type 2 diabetes mellitus without complications SNOMED: 36140242 Qualifiers: Qualified Codes: E11.22 - Type 2 diabetes mellitus with diabetic chronic kidney disease; N18.6 - End stage renal disease; Z99.2 - Dependence on renal dialysis (7) Anemia in chronic kidney disease Assessment & Plan: hgb 6.7 now will require 1U PRBC lethargic, weak denies any blood BMs no acute blood loss ICD Codes: N18.9 - Chronic kidney disease, unspecified; D63.1 - Anemia in chronic kidney disease SNOMED: 069949607, 410641014 Qualifiers: Qualified Codes: N18.6 - End stage renal disease; D63.1 - Anemia in chronic kidney disease; Z99.2 - Dependence on renal dialysis (8) Acute systolic (congestive) heart failure Assessment & Plan: TTE done on admit, with EF 20-25% cardiology consulted, appreciate recs meds per cards patient unsure of home meds ICD Codes: I50.21 - Acute systolic (congestive) heart failure SNOMED: 83742880, 761774350 Status: stable, not improved Assessment/Plan Diet: renal diet DVT Prophylaxis: SCD, continue home coumadin Code Status: Full Inpatient Hospital Classification Declaration: Based on this initial evaluation, and depending on the patient's clinical course, I anticipate that this patient will require hospitalization for 2-3midnights for septic shock and close respiratory/ hemodynamic monitoring. Disposition: Once the patient is stable to leave the hospital, I anticipate the patient will likely be discharged to the following environment: home with HH vs SNF I spent 60 minutes on this patient's case, and 35 minutes were dedicated to counseling and/or care coordination. Discussed with patient/family, nursing staff, SW/CM regarding clinical status, treatment course, and disposition planning. Time of note may not reflect time of encounter. Subjective Date patient seen: Jan 30, 2018 Time patient seen: 09:04 Allergies: Coded Allergies: NO KNOWN DRUG ALLERGIES (Verified Allergy, Unknown, 01/29/18) Subjective f/u nstemi, septic shock, esrd, anemia patient noted to have hgb 6.7 today planned transfusion 1U PRBC today HD planned for today patient feeling weak and sleepy, denies MCCLURE or dizziness or vision changes denies any chest pain or sob, no dysuria or abd pain admits to diarrhea occasionally ROS: 14 point ROS reviewed and negative except per above subjective Objective Last 24 Hour Vital Signs Date Time Temp Pulse Resp B/P (MAP) Pulse Ox O2 Delivery O2 Flow Rate FiO2 01/30/18 04:00 84 01/30/18 03:54 98.3 88 19 120/77 (91) 99 01/30/18 00:00 83 01/30/18 00:00 98.7 86 19 135/65 (88) 96 01/29/18 21:00 Room Air 01/29/18 20:00 98.6 102 19 148/84 (105) 98 01/29/18 20:00 96 18 17:15 89 142/77 01/29/18 16:00 97.9 89 20 142/77 (98) 99 01/29/18 16:00 83 01/29/18 12:00 97.7 85 20 154/85 (108) 100 01/29/18 12:00 89 01/29/18 09:22 Room Air 01/29/18 09:15 139/72 01/29/18 09:15 92 139/72 01/29/18 09:15 92 139/72 Intake and Output 01/29/18 01/30/18 19:00 07:00 Intake Total 240 ml Balance 240 ml Intake Oral 240 ml # Voids 6 2 # Bowel Movements 1 Laboratory Tests 01/29/18 09:54: Lactic Acid Level 2.40H 01/29/18 12:02: Lactic Acid Level 3.00H, C-Reactive Protein, Quantitative 5.7H 01/29/18 17:35: Lactic Acid Level 1.70 01/30/18 02:40: Urine Color Yellow, Urine Appearance Slightly cloudy, Urine pH 8, Urine Specific [place] 1.015, Urine Protein 4+H, Urine Glucose (UA) 2+H, Urine Ketones Negative, Urine Blood 1+H, Urine Nitrite Negative, Urine Bilirubin Negative, Urine Urobilinogen Normal, Urine Leukocyte Esterase Negative, Urine RBC 2-4H, Urine WBC 0-2, Urine Squamous Epithelial Cells ModerateH, Urine Bacteria Few 01/30/18 06:42: White Blood Count 31.4*H, Red Blood Count 2.33L, Hemoglobin 6.7*L, Hematocrit 21.6L, Mean Corpuscular Volume 93, Mean Corpuscular Hemoglobin 29.0, Mean Corpuscular Hemoglobin Concent 31.2L, Red Cell Distribution Width 14.9H, Platelet Count 266, Mean Platelet Volume 6.2L, Neutrophils (%) (Auto) , Lymphocytes (%) (Auto) , Monocytes (%) (Auto) , Eosinophils (%) (Auto) , Basophils (%) (Auto) , Neutrophils % (Manual) [Pending], Lymphocytes % (Manual) [Pending], Platelet Estimate [Pending], Platelet Morphology [Pending], Prothrombin Time 22.7H, Prothromb Time International Ratio 2.2H, Sodium Level [ Pending], Potassium Level [Pending], Chloride Level [Pending], Carbon Dioxide Level [Pending], Blood Urea Nitrogen [Pending], Creatinine [Pending], Estimat Glomerular Filtration Rate [Pending], Glucose Level [Pending], Uric Acid [ Pending], Calcium Level [Pending], Phosphorus Level [Pending], Magnesium Level [ Pending], Iron Level [Pending], Unsaturated Iron Binding [Pending], Ferritin [ Pending], Total Bilirubin [Pending], Gamma Glutamyl Transpeptidase [Pending], Aspartate Amino Transf (AST/SGOT) [Pending], Alanine Aminotransferase (ALT/SGPT ) [Pending], Alkaline Phosphatase [Pending], Troponin I 1.049H, Pro-B-Type Natriuretic Peptide [Pending], Total Protein [Pending], Albumin [Pending], Globulin [Pending], Triglycerides Level [Pending], Cholesterol Level [Pending], LDL Cholesterol [Pending], HDL Cholesterol [Pending], Cholesterol/HDL Ratio [ Pending], Vitamin B12 Level [Pending], Folate [Pending], Thyroid Stimulating Hormone (TSH) [Pending] Height (Feet): 5 Height (Inches): 6.00 Weight (Pounds): 110 General Appearance: no apparent distress, alert, lethargic EENT: PERRL/EOMI, normal ENT inspection, TMs normal, pharynx normal Neck: non-tender, normal alignment, supple, normal inspection, abnormal alignment Cardiovascular: normal peripheral pulses, normal rate, regular rhythm Respiratory/Chest: chest wall non-tender, lungs clear, normal breath sounds, no respiratory distress, no accessory muscle use Abdomen: normal bowel sounds, non tender, soft, no organomegaly, no mass Extremities: normal range of motion, non-tender, normal inspection Neurologic: tire maker II-XII grossly normal, no motor/sensory deficits, alert, oriented x 3 Skin: normal pigmentation, warm/dry Jesús Low MD Jan 30, 2018 09:13
[2018-01-30 09:19] LABS: % IRON SATURATION 9 % (15-50); IRON 14 ug/dL (50-175); TOTAL IRON BINDING CAPACITY 159 ug/dL (250-450)
[2018-01-30 09:37] LABS: ALANINE AMINOTRANSFERASE 50 U/L (12-78); ALBUMIN 2.3 G/DL (3.4-5.0); ALBUMIN/GLOBULIN RATIO 0.5 (1.0-2.7); ALKALINE PHOSPHATASE 161 U/L (46-116); ANION GAP 15 mmol/L (5-15); ASPARTATE AMINO TRANSFERASE 84 U/L (15-37); BILIRUBIN,TOTAL 0.5 MG/DL (0.2-1.0); BLOOD UREA NITROGEN 64 mg/dL (7-18); CALCIUM 8.1 MG/DL (8.5-10.1); CARBON DIOXIDE 26 MMOL/L (21-32); CHLORIDE 99 MMOL/L (98-107); CHOLESTEROL < 50 MG/DL (< 200); CREATININE 10.9 MG/DL (0.55-1.30); FERRITIN 729 NG/ML (8-388); GAMMA GLUTAMYL TRANSPEPTIDASE 152 U/L (5-85); HDL CHOLESTEROL 25 MG/DL (40-60); PHOSPHORUS 6.1 MG/DL (2.5-4.9); POTASSIUM 3.8 MMOL/L (3.5-5.1); SODIUM 140 MMOL/L (136-145); TRIGLYCERIDES 60 MG/DL (30-150)
[2018-01-30] MEDS: Vancomycin oral 125mg/2.5ml ORAL SCH ×4 (09:47→20:32)
--- NOTE | 2018-01-30 11:30 | Consultation ---
History of Present Illness General Chief Complaint: Fever Present Illness Allergies: Coded Allergies: NO KNOWN DRUG ALLERGIES (Verified Allergy, Unknown, 01/29/18) Medication History Scheduled Amlodipine Besylate (Norvasc), 2.5 MG ORAL DAILY, (Reported) Aspirin* (Aspir 81*), 81 MG ORAL DAILY, (Reported) Atenolol (Tenormin), 25 MG ORAL DAILY, (Reported) Atorvastatin (Lipitor), 80 MG ORAL BEDTIME, (Reported) Bisacodyl* (Dulcolax*), 5 MG ORAL DAILY, (Reported) Cinacalcet* (Sensipar*), 30 MG ORAL DAILY, (Reported) Clopidogrel* (Clopidogrel*), 75 MG ORAL DAILY, (Reported) Docusate Sodium* (Docusate Sodium*), 100 MG ORAL TWICE A DAY, (Reported) Famotidine (Famotidine), 20 MG ORAL DAILY, (Reported) Glipizide* (Glipizide*), 5 MG ORAL BIDAC, (Reported) Glipizide* (Glipizide*), 5 MG ORAL BIDAC, (Reported) Ibuprofen* (Motrin*), 600 MG ORAL THREE TIMES A DAY Insulin Glargine (Lantus), 0 SUBQ BEDTIME, (Reported) Lisinopril (Lisinopril*), 20 MG ORAL DAILY, (Reported) Metoprolol/Hydrochlorothiazide (Metoprolol-Hctz 50-25 Mg Tab), 1 TAB ORAL DAILY, (Reported) Sevelamer Hcl (Renagel), 800 MG ORAL THREE TIMES A DAY, (Reported) Warfarin Sod* (Warfarin Sod*), 0.5 MG ORAL DAILY, (Reported) Scheduled PRN Acetaminophen* (Tylenol Extra Strength*), 500 MG ORAL Q6H PRN for Mild Pain/ Temp > 100.5, (Reported) Hydrocodone Bit/Acetaminophen 5-325* ([place] 5-325*), 1 TAB ORAL Q6H PRN for For Pain Ondansetron* (Zofran*), 4 MG ORAL Q6H PRN for Nausea & Vomiting, (Reported) Tramadol Hcl* (Ultram*), 50 MG ORAL Q6H PRN for For Pain, (Reported) Zolpidem Tartrate* (Zolpidem Tartrate*), 5 MG ORAL BEDTIME PRN for Insomnia, ( Reported) Patient History Healthcare decision maker Resuscitation status Full Code Advanced Directive on File Physical Exam Last 24 Hour Vital Signs Date Time Temp Pulse Resp B/P (MAP) Pulse Ox O2 Delivery O2 Flow Rate FiO2 01/30/18 09:00 Room Air 01/30/18 09:00 83 135/74 01/30/18 09:00 80 135/74 01/30/18 08:00 97.0 80 19 135/74 (94) 100 01/30/18 08:00 73 01/30/18 04:00 84 01/30/18 03:54 98.3 88 19 120/77 (91) 99 01/30/18 00:00 83 01/30/18 00:00 98.7 86 19 135/65 (88) 96 01/29/18 21:00 Room Air 01/29/18 20:00 98.6 102 19 148/84 (105) 98 01/29/18 20:00 96 01/29/18 17:15 89 142/77 01/29/18 16:00 97.9 89 20 142/77 (98) 99 01/29/18 16:00 83 01/29/18 12:00 97.7 85 20 154/85 (108) 100 01/29/18 12:00 89 Intake and Output 01/29/18 01/30/18 18:59 06:59 Intake Total 240 ml Balance 240 ml Intake Oral 240 ml # Voids 6 2 # Bowel Movements 1 Laboratory Tests Test 01/29/18 12:02 01/29/18 17:35 01/30/18 02:40 01/30/18 06:42 Lactic Acid Level 3.00 mmol/L (0.66-2.22) H 1.70 mmol/L (0.4-2.0) C-Reactive Protein, Quantitative 5.7 mg/dL (0.00-0.90) H Urine Color Yellow Urine Appearance Slightly cloudy Urine pH 8 (4.5-8.0) Urine Specific [place] 1.015 (1.005-1.035) Urine Protein 4+ (NEGATIVE) H Urine Glucose (UA) 2+ (NEGATIVE) H Urine Ketones Negative (NEGATIVE) Urine Blood 1+ (NEGATIVE) H Urine Nitrite Negative (NEGATIVE) Urine Bilirubin Negative (NEGATIVE) Urine Urobilinogen Normal MG/DL (0.0-1.0) Urine Leukocyte Esterase Negative (NEGATIVE) Urine RBC 2-4 /HPF (0 - 2) H Urine WBC 0-2 /HPF (0 - 2) Urine Squamous Epithelial Cells Moderate /LPF (NONE/OCC) H Urine Bacteria Few /HPF (NONE) White Blood Count 31.4 K/UL (4.8-10.8) *H Red Blood Count 2.33 M/UL (4.20-5.40) L Hemoglobin 6.7 G/DL (12.0-16.0) *L Hematocrit 21.6 % (37.0-47.0) L Mean Corpuscular Volume 93 FL (80-99) Mean Corpuscular Hemoglobin 29.0 PG (27.0-31.0) Mean Corpuscular Hemoglobin Concent 31.2 G/DL (32.0-36.0) L Red Cell Distribution Width 14.9 % (11.6-14.8) H Platelet Count 266 K/UL (150-450) Mean Platelet Volume 6.2 FL (6.5-10.1) L Neutrophils (%) (Auto) % (45.0-75.0) Lymphocytes (%) (Auto) % (20.0-45.0) Monocytes (%) (Auto) % (1.0-10.0) Eosinophils (%) (Auto) % (0.0-3.0) Basophils (%) (Auto) % (0.0-2.0) Differential Total Cells Counted 100 Neutrophils % (Manual) 92 % (45-75) H Lymphocytes % (Manual) 3 % (20-45) L Monocytes % (Manual) 5 % (1-10) Eosinophils % (Manual) 0 % (0-3) Basophils % (Manual) 0 % (0-2) Band Neutrophils 0 % (0-8) Platelet Estimate Adequate Platelet Morphology Normal Hypochromasia 2+ Anisocytosis 1+ Prothrombin Time 22.7 SEC (9.30-11.50) H Prothromb Time International Ratio 2.2 (0.9-1.1) H Sodium Level 140 MMOL/L (136-145) Potassium Level 3.8 MMOL/L (3.5-5.1) Chloride Level 99 MMOL/L (98-107) Carbon Dioxide Level 26 MMOL/L (21-32) Anion Gap 15 mmol/L (5-15) Blood Urea Nitrogen 64 mg/dL (7-18) H Creatinine 10.9 MG/DL (0.55-1.30) H Estimat Glomerular Filtration Rate 3.6 mL/min (>60) Glucose Level 151 MG/DL (74-106) H Uric Acid 9.8 MG/DL (2.6-7.2) H Calcium Level 8.1 MG/DL (8.5-10.1) L Phosphorus Level 6.1 MG/DL (2.5-4.9) H Magnesium Level 2.2 MG/DL (1.8-2.4) Iron Level 14 ug/dL (50-175) L Total Iron Binding Capacity 159 ug/dL (250-450) L Percent Iron Saturation 9 % (15-50) L Unsaturated Iron Binding 145 ug/dL (112-346) Ferritin 729 NG/ML (8-388) H Total Bilirubin 0.5 MG/DL (0.2-1.0) Gamma Glutamyl Transpeptidase 152 U/L (5-85) H Aspartate Amino Transf (AST/SGOT) 84 U/L (15-37) H Alanine Aminotransferase (ALT/SGPT) 50 U/L (12-78) Alkaline Phosphatase 161 U/L (46-116) H Troponin I 1.049 ng/mL (0.000-0.056) Pro-B-Type Natriuretic Peptide > 32249 pg/mL (0-125) H Total Protein 6.8 G/DL (6.4-8.2) Albumin 2.3 G/DL (3.4-5.0) L Globulin 4.5 g/dL Albumin/Globulin Ratio 0.5 (1.0-2.7) L Triglycerides Level 60 MG/DL (30-150) Cholesterol Level < 50 MG/DL (< 200) LDL Cholesterol 20 mg/dL (<100) HDL Cholesterol 25 MG/DL (40-60) L Cholesterol/HDL Ratio 2.0 (3.3-4.4) L Vitamin B12 Level 656 PG/ML (193-986) Folate 41.9 NG/ML (8.6-58.9) Thyroid Stimulating Hormone (TSH) 0.599 uiU/mL (0.358-3.740) Test 01/30/18 10:00 Stool Occult Blood Pending Microbiology Date/Time Source Procedure Growth Status 01/30/18 02:40 Stool Clostridium difficile Toxin Assay - Final Complete Height (Feet): 5 Height (Inches): 6.00 Weight (Pounds): 110 Medications Current Medications Medications (Trade) Dose Ordered Sig/Juliocesar Route PRN Reason Start Time Stop Time Status Last Admin Dose Admin Acetaminophen (Tylenol) 650 mg Q6H PRN ORAL Fever/Headache/Mild Pain 01/29/18 19:30 02/28/18 19:29 01/29/18 20:12 Amlodipine Besylate (Norvasc) 2.5 mg BID ORAL 01/29/18 18:00 02/28/18 09:14 01/29/18 17:15 Atenolol (Tenormin) 25 mg DAILY ORAL 01/29/18 09:15 02/28/18 09:14 Atorvastatin Calcium (Lipitor) 80 mg BEDTIME ORAL 01/29/18 21:00 02/28/18 20:59 01/29/18 20:11 Clonidine HCl (Catapres Tab) 0.1 mg Q4H PRN ORAL bp over 165 syst 01/29/18 11:45 02/28/18 11:44 Dextrose (Dextrose 50%) 25 ml Q30M PRN IV Hypoglycemia 01/29/18 10:00 02/28/18 09:59 Dextrose (Dextrose 50%) 50 ml Q30M PRN IV Hypoglycemia 01/29/18 10:00 02/28/18 09:59 01/30/18 05:41 Furosemide (Lasix) 40 mg EVERY 12 HOURS IV 01/30/18 09:00 03/01/18 08:59 Insulin Aspart (NovoLOG) BEFORE MEALS AND HS SUBQ 01/29/18 11:30 02/28/18 11:29 01/29/18 22:21 Ondansetron HCl (Zofran) 4 mg Q6H PRN IVP Nausea & Vomiting 01/29/18 09:30 02/28/18 09:29 01/29/18 14:53 Pantoprazole (Protonix) 40 mg BID ORAL 01/29/18 11:30 02/28/18 11:29 01/30/18 09:46 Piperacillin Sod/ Tazobactam Sod 2.25 gm/Sodium Chloride 55 ml @ 110 mls/hr EVERY 8 HOURS IV 01/29/18 14:00 02/05/18 13:59 01/30/18 05:31 Vancomycin HCl (Firvanq) 125 mg FOUR TIMES A DAY ORAL 01/29/18 21:00 02/05/18 20:59 01/30/18 09:47 Vancomycin HCl (Vanco rx to dose) 1 ea DAILY PRN MISC Per rx protocol 01/29/18 09:00 02/28/18 08:59 Assessment/Plan Status Narrative Hematology Consult REQ MD: Maranda Levine RFC: Leukocytosis and Anemia DOS: 01/30/18 Chief Complaint: Fever HPI 62-year-old female presents ED for evaluation. Patient brought in by EMS for fever. Started today. Temp 103.1 per EMS. Patient is tremulous. Patient denies cough. Denies sore throat or earache. She was recently discharged from [facility] for treatment of a infection. Patient is unclear where the infection was. history of end-stage renal disease gets dialysis Wednesday. Got dialysis on . Denies chest pain or shortness of breath. No other aggravating relieving factors. Denies any other associated symptoms. Leukocytosis was noted, is on abx and hematology was consulted to r/o leukemia/ lymphoma and noted to have anameia as well. Coded Allergies: NO KNOWN DRUG ALLERGIES (Verified Allergy, Unknown, 01/29/18) Past Medical History: DM, HTN, renal disease, dialysis Past Surgical History: none Pertinent Family History: none Social History: Denies: smoking, alcohol use, drug use Last Menstrual Period: 2 decades ago Now: No Immunizations: UTD Hx Cardiac Problems: No Hx Hypertension: Yes Hx Pacemaker: No Hx Asthma: No Hx COPD: No Hx Diabetes: Yes Hx Cancer: No Hx Gastrointestinal Problems: No Hx Dialysis: Yes - wed, , wed Hx Neurological Problems: No Hx Cerebrovascular Accident: No Hx Seizures: No Review of Systems: negative except mentioned in HPI PE: Last 24 Hour Vital Signs Date Time Temp Pulse Resp B/P (MAP) Pulse Ox O2 Delivery O2 Flow Rate FiO2 01/30/18 09:00 Room Air 01/30/18 09:00 83 135/74 01/30/18 09:00 80 135/74 01/30/18 08:00 97.0 80 19 135/74 (94) 100 01/30/18 08:00 73 01/30/18 04:00 84 01/30/18 03:54 98.3 88 19 120/77 (91) 99 01/30/18 00:00 83 01/30/18 00:00 98.7 86 19 135/65 (88) 96 01/29/18 21:00 Room Air 01/29/18 20:00 98.6 102 19 148/84 (105) 98 01/29/18 20:00 96 01/29/18 17:15 89 142/77 01/29/18 16:00 97.9 89 20 142/77 (98) 99 01/29/18 16:00 83 01/29/18 12:00 97.7 85 20 154/85 (108) 100 01/29/18 12:00 89 Vitals: reviewed, normal General Appearance: no apparent distress, alert, non-toxic Head: normocephalic, atraumatic Eyes: bilateral eye normal inspection, bilateral eye PERRL ENT: hearing grossly normal, normal pharynx, no angioedema Neck: full range of motion, supple/symm/no masses Respiratory: chest non-tender, lungs clear, normal breath sounds CV: regular rate, rhythm, no edema Gastrointestinal: normal bowel sounds, non tender, soft, non-distended, no guarding, no rebound Rectal: deferred Gu: normal inspection, no CVA tenderness Musculoskeletal: back normal, gait/station normal, normal range of motion, non- tender Neurologic: alert, oriented x3, responsive, motor strength/tone normal, sensory intact, speech normal Skin: normal color, no rash, warm/dry- AV Fistula LUE with bruit. Lymphatic: no adenopathy Current Medications Medications (Trade) Dose Ordered Sig/Juliocesar Route PRN Reason Start Time Stop Time Status Last Admin Dose Admin Acetaminophen (Tylenol) 650 mg Q6H PRN ORAL Fever/Headache/Mild Pain 01/29/18 19:30 02/28/18 19:29 01/29/18 20:12 Amlodipine Besylate (Norvasc) 2.5 mg BID ORAL 01/29/18 18:00 02/28/18 09:14 01/29/18 17:15 Atenolol (Tenormin) 25 mg DAILY ORAL 01/29/18 09:15 02/28/18 09:14 Atorvastatin Calcium (Lipitor) 80 mg BEDTIME ORAL 01/29/18 21:00 02/28/18 20:59 01/29/18 20:11 Clonidine HCl (Catapres Tab) 0.1 mg Q4H PRN ORAL bp over 165 syst 01/29/18 11:45 02/28/18 11:44 Dextrose (Dextrose 50%) 25 ml Q30M PRN IV Hypoglycemia 01/29/18 10:00 02/28/18 09:59 Dextrose (Dextrose 50%) 50 ml Q30M PRN IV Hypoglycemia 01/29/18 10:00 02/28/18 09:59 01/30/18 05:41 Furosemide (Lasix) 40 mg EVERY 12 HOURS IV 01/30/18 09:00 03/01/18 08:59 Insulin Aspart (NovoLOG) BEFORE MEALS AND HS SUBQ 01/29/18 11:30 02/28/18 11:29 01/29/18 22:21 Ondansetron HCl (Zofran) 4 mg Q6H PRN IVP Nausea & Vomiting 01/29/18 09:30 02/28/18 09:29 01/29/18 14:53 Pantoprazole (Protonix) 40 mg BID ORAL 01/29/18 11:30 02/28/18 11:29 01/30/18 09:46 Piperacillin Sod/ Tazobactam Sod 2.25 gm/Sodium Chloride 55 ml @ 110 mls/hr EVERY 8 HOURS IV 01/29/18 14:00 02/05/18 13:59 01/30/18 05:31 Vancomycin HCl (Firvanq) 125 mg FOUR TIMES A DAY ORAL 01/29/18 21:00 02/05/18 20:59 01/30/18 09:47 Vancomycin HCl (Vanco rx to dose) 1 ea DAILY PRN MISC Per rx protocol 01/29/18 09:00 02/28/18 08:59 Laboratory Tests Test 01/29/18 12:02 01/29/18 17:35 01/30/18 02:40 01/30/18 06:42 Lactic Acid Level 3.00 mmol/L (0.66-2.22) H 1.70 mmol/L (0.4-2.0) C-Reactive Protein, Quantitative 5.7 mg/dL (0.00-0.90) H Urine Color Yellow Urine Appearance Slightly cloudy Urine pH 8 (4.5-8.0) Urine Specific [place] 1.015 (1.005-1.035) Urine Protein 4+ (NEGATIVE) H Urine Glucose (UA) 2+ (NEGATIVE) H Urine Ketones Negative (NEGATIVE) Urine Blood 1+ (NEGATIVE) H Urine Nitrite Negative (NEGATIVE) Urine Bilirubin Negative (NEGATIVE) Urine Urobilinogen Normal MG/DL (0.0-1.0) Urine Leukocyte Esterase Negative (NEGATIVE) Urine RBC 2-4 /HPF (0 - 2) H Urine WBC 0-2 /HPF (0 - 2) Urine Squamous Epithelial Cells Moderate /LPF (NONE/OCC) H Urine Bacteria Few /HPF (NONE) White Blood Count 31.4 K/UL (4.8-10.8) *H Red Blood Count 2.33 M/UL (4.20-5.40) L Hemoglobin 6.7 G/DL (12.0-16.0) *L Hematocrit 21.6 % (37.0-47.0) L Mean Corpuscular Volume 93 FL (80-99) Mean Corpuscular Hemoglobin 29.0 PG (27.0-31.0) Mean Corpuscular Hemoglobin Concent 31.2 G/DL (32.0-36.0) L Red Cell Distribution Width 14.9 % (11.6-14.8) H Platelet Count 266 K/UL (150-450) Mean Platelet Volume 6.2 FL (6.5-10.1) L Neutrophils (%) (Auto) % (45.0-75.0) Lymphocytes (%) (Auto) % (20.0-45.0) Monocytes (%) (Auto) % (1.0-10.0) Eosinophils (%) (Auto) % (0.0-3.0) Basophils (%) (Auto) % (0.0-2.0) Differential Total Cells Counted 100 Neutrophils % (Manual) 92 % (45-75) H Lymphocytes % (Manual) 3 % (20-45) L Monocytes % (Manual) 5 % (1-10) Eosinophils % (Manual) 0 % (0-3) Basophils % (Manual) 0 % (0-2) Band Neutrophils 0 % (0-8) Platelet Estimate Adequate Platelet Morphology Normal Hypochromasia 2+ Anisocytosis 1+ Prothrombin Time 22.7 SEC (9.30-11.50) H Prothromb Time International Ratio 2.2 (0.9-1.1) H Sodium Level 140 MMOL/L (136-145) Potassium Level 3.8 MMOL/L (3.5-5.1) Chloride Level 99 MMOL/L (98-107) Carbon Dioxide Level 26 MMOL/L (21-32) Anion Gap 15 mmol/L (5-15) Blood Urea Nitrogen 64 mg/dL (7-18) H Creatinine 10.9 MG/DL (0.55-1.30) H Estimat Glomerular Filtration Rate 3.6 mL/min (>60) Glucose Level 151 MG/DL (74-106) H Uric Acid 9.8 MG/DL (2.6-7.2) H Calcium Level 8.1 MG/DL (8.5-10.1) L Phosphorus Level 6.1 MG/DL (2.5-4.9) H Magnesium Level 2.2 MG/DL (1.8-2.4) Iron Level 14 ug/dL (50-175) L Total Iron Binding Capacity 159 ug/dL (250-450) L Percent Iron Saturation 9 % (15-50) L Unsaturated Iron Binding 145 ug/dL (112-346) Ferritin 729 NG/ML (8-388) H Total Bilirubin 0.5 MG/DL (0.2-1.0) Gamma Glutamyl Transpeptidase 152 U/L (5-85) H Aspartate Amino Transf (AST/SGOT) 84 U/L (15-37) H Alanine Aminotransferase (ALT/SGPT) 50 U/L (12-78) Alkaline Phosphatase 161 U/L (46-116) H Troponin I 1.049 ng/mL (0.000-0.056) Pro-B-Type Natriuretic Peptide > 17271 pg/mL (0-125) H Total Protein 6.8 G/DL (6.4-8.2) Albumin 2.3 G/DL (3.4-5.0) L Globulin 4.5 g/dL Albumin/Globulin Ratio 0.5 (1.0-2.7) L Triglycerides Level 60 MG/DL (30-150) Cholesterol Level < 50 MG/DL (< 200) LDL Cholesterol 20 mg/dL (<100) HDL Cholesterol 25 MG/DL (40-60) L Cholesterol/HDL Ratio 2.0 (3.3-4.4) L Vitamin B12 Level 656 PG/ML (193-986) Folate 41.9 NG/ML (8.6-58.9) Thyroid Stimulating Hormone (TSH) 0.599 uiU/mL (0.358-3.740) Test 01/30/18 10:00 Stool Occult Blood Pending Assessment and Recs: # Leukocytosis is due to Sepsis, high Lactic acid - concern for c.diff --> cultures are pending --> is on zosyn and vanc, broad spectrum abx --> have ordered for a peripheral flow cytometry r/o leukemia --> peripheral smear has been ordered # Anemia of ESRD --> workup has been ordered --> peripheral smear has been ordered --> anemia panel pending # ESRD on HD for 2 years, has left arm fistula --> epogen as per neprho --> HD as required # DM --> a1c goal <7 # CAD, elevated Troponin --> per cards eval, appreciate recs # NSTEMI Greatly appreciate consultation! Toribio Suárez MD Jan 30, 2018 11:30
--- NOTE | 2018-01-30 12:20 | Diagnostic Imaging Report ---
EXAM: CT Abdomen and Pelvis Without Intravenous Contrast CLINICAL HISTORY: ABSCESS TECHNIQUE: Axial computed tomography images of the abdomen and pelvis without intravenous contrast. CTDI is 10.21 mGy and DLP is 515 mGy-cm. One or more of the following dose reduction techniques were used: automated exposure control, adjustment of the mA and/or kV according to patient size, use of iterative reconstruction technique. COMPARISON: No relevant prior studies available. FINDINGS: Lung bases: Unremarkable. Pleural space: Small bilateral pleural effusions. Heart: Cardiomegaly. ABDOMEN: Liver: Unremarkable Gallbladder and bile ducts: Pericholecystic edema. No radiodense of gallstones. Pancreas: Unremarkable. Spleen: Unremarkable. Adrenals: Unremarkable. Kidneys and ureters: Atrophic kidneys. Probable combination of renal vascular calcifications and stones. No hydronephrosis. Stomach and bowel: Thickening in the anorectal region. PELVIS: Appendix: No findings to suggest acute appendicitis. Bladder: Unremarkable. Reproductive: Hysterectomy. ABDOMEN and PELVIS: Intraperitoneal space: Unremarkable. Bones/joints: Chronic appearing compression deformity of T9 Soft tissues: Unremarkable. Vasculature: Unremarkable. No abdominal aortic aneurysm. Lymph nodes: No enlarged lymph nodes. IMPRESSION: 1. Pericholecystic edema. No radiodense of gallstones. Ultrasound/HIDA scan can further assess for cholecystitis. 2. Thickening in the anorectal region. Could be mass, inflammatory process, hemorrhoids or other.
[2018-01-30 13:57] LABS: INR 2.9 (0.9-1.1)
--- NOTE | 2018-01-30 16:15 | Nephrology Progress Note ---
Assessment/Plan Problem List: (1) ESRD (end stage renal disease) on dialysis (2) CAD (coronary artery disease) (3) DM hyperosmolarity type II (4) Acute systolic (congestive) heart failure (5) Anemia in chronic kidney disease (6) Diabetes type 2, controlled (7) Cardiomyopathy (8) Sepsis Assessment Sepsis, high Lactic acid ESRD on HD for 2 years, has left arm fistula Anemia of CKD worsened DM CAD, elevated Troponin Plan HD today & Transfusion Antibiotics Adjust BS and BP meds Gastric support 2D echo Global LV hypokinesis. Anterior septum basal to distal hypokinesis . Left ventricular ejection fraction estimated to be 20-25 %. Subjective ROS Limited/Unobtainable: No Constitutional: Reports: malaise, weakness Objective Objective Last 24 Hour Vital Signs Date Time Temp Pulse Resp B/P (MAP) Pulse Ox O2 Delivery O2 Flow Rate FiO2 01/30/18 12:00 97.7 81 19 143/81 (101) 100 01/30/18 12:00 90 01/30/18 09:00 Room Air 01/30/18 09:00 83 135/74 01/30/18 09:00 80 135/74 01/30/18 08:00 97.0 80 19 135/74 (94) 100 01/30/18 08:00 73 01/30/18 04:00 84 01/30/18 03:54 98.3 88 19 120/77 (91) 99 01/30/18 00:00 83 01/30/18 00:00 98.7 86 19 135/65 (88) 96 01/29/18 21:00 Room Air 01/29/18 20:00 98.6 102 19 148/84 (105) 98 01/29/18 20:00 96 01/29/18 17:15 89 142/77 Intake and Output 01/29/18 01/30/18 18:59 06:59 Intake Total 240 ml Balance 240 ml Intake Oral 240 ml # Voids 6 2 # Bowel Movements 1 Laboratory Tests 01/29/18 17:35: Lactic Acid Level 1.70 01/30/18 02:40: Urine Color Yellow, Urine Appearance Slightly cloudy, Urine pH 8, Urine Specific [place] 1.015, Urine Protein 4+H, Urine Glucose (UA) 2+H, Urine Ketones Negative, Urine Blood 1+H, Urine Nitrite Negative, Urine Bilirubin Negative, Urine Urobilinogen Normal, Urine Leukocyte Esterase Negative, Urine RBC 2-4H, Urine WBC 0-2, Urine Squamous Epithelial Cells ModerateH, Urine Bacteria Few 01/30/18 06:42: White Blood Count 31.4*H, Red Blood Count 2.33L, Hemoglobin 6.7*L, Hematocrit 21.6L, Mean Corpuscular Volume 93, Mean Corpuscular Hemoglobin 29.0, Mean Corpuscular Hemoglobin Concent 31.2L, Red Cell Distribution Width 14.9H, Platelet Count 266, Mean Platelet Volume 6.2L, Neutrophils (%) (Auto) , Lymphocytes (%) (Auto) , Monocytes (%) (Auto) , Eosinophils (%) (Auto) , Basophils (%) (Auto) , Differential Total Cells Counted 100, Neutrophils % ( Manual) 92H, Lymphocytes % (Manual) 3L, Monocytes % (Manual) 5, Eosinophils % ( Manual) 0, Basophils % (Manual) 0, Band Neutrophils 0, Platelet Estimate Adequate, Platelet Morphology Normal, Hypochromasia 2+, Anisocytosis 1+, Prothrombin Time 22.7H, Prothromb Time International Ratio 2.2H, Sodium Level 140, Potassium Level 3.8, Chloride Level 99, Carbon Dioxide Level 26, Anion Gap 15, Blood Urea Nitrogen 64H, Creatinine 10.9H, Estimat Glomerular Filtration Rate 3.6, Glucose Level 151H, Uric Acid 9.8H, Calcium Level 8.1L, Phosphorus Level 6.1H, Magnesium Level 2.2, Iron Level 14L, Total Iron Binding Capacity 159L, Percent Iron Saturation 9L, Unsaturated Iron Binding 145, Ferritin 729H, Total Bilirubin 0.5, Gamma Glutamyl Transpeptidase 152H, Aspartate Amino Transf (AST/SGOT) 84H, Alanine Aminotransferase (ALT/SGPT) 50, Alkaline Phosphatase 161H, Troponin I 1.049H, Pro-B-Type Natriuretic Peptide > 02408Q, Total Protein 6.8, Albumin 2.3L, Globulin 4.5, Albumin/Globulin Ratio 0.5L, Triglycerides Level 60, Cholesterol Level < 50, LDL Cholesterol 20, HDL Cholesterol 25L, Cholesterol/HDL Ratio 2.0L, Vitamin B12 Level 656, Folate 41.9, Thyroid Stimulating Hormone (TSH) 0.599 01/30/18 10:00: Stool Occult Blood Negative 01/30/18 13:22: Haptoglobin [Pending], Prothrombin Time 29.1H, Prothromb Time International Ratio 2.9H, Fibrinogen 398, Lactate Dehydrogenase 290H Height (Feet): 5 Height (Inches): 6.00 Weight (Pounds): 110 General Appearance: no apparent distress, lethargic Cardiovascular: normal rate Respiratory/Chest: decreased breath sounds Abdomen: distended Washington Pavon MD Jan 30, 2018 16:15
[2018-01-30] MEDS ORDERED: Warfarin Sodium 1mg ORAL SCH (17:00)
[2018-01-30] MEDS ORDERED: Lisinopril 2.5mg tab ORAL SCH (18:00)
--- NOTE | 2018-01-30 18:58 | Consultation ---
History of Present Illness General Date patient seen: Jan 30, 2018 Chief Complaint: Fever Present Illness HPI 62 year old female presents with fever abdominal pain vomiting, hx of ESRD on dialysis with left arm shunt, T//, no missed appointments, hx of infected shunt. NO chest pain or shortness of breath at this time but patient has increased respiratory rate. She has a pmh of CAD, HTN, ESRD. Tmax was 103.1. She was recently treated for infection at [facility]. She reports feeling weak. Patient started on broad spectrum antibiotics. Allergies: Coded Allergies: NO KNOWN DRUG ALLERGIES (Verified Allergy, Unknown, 01/29/18) Medication History Scheduled Amlodipine Besylate (Norvasc), 2.5 MG ORAL DAILY, (Reported) Aspirin* (Aspir 81*), 81 MG ORAL DAILY, (Reported) Atenolol (Tenormin), 25 MG ORAL DAILY, (Reported) Atorvastatin (Lipitor), 80 MG ORAL BEDTIME, (Reported) Bisacodyl* (Dulcolax*), 5 MG ORAL DAILY, (Reported) Cinacalcet* (Sensipar*), 30 MG ORAL DAILY, (Reported) Clopidogrel* (Clopidogrel*), 75 MG ORAL DAILY, (Reported) Docusate Sodium* (Docusate Sodium*), 100 MG ORAL TWICE A DAY, (Reported) Famotidine (Famotidine), 20 MG ORAL DAILY, (Reported) Glipizide* (Glipizide*), 5 MG ORAL BIDAC, (Reported) Glipizide* (Glipizide*), 5 MG ORAL BIDAC, (Reported) Ibuprofen* (Motrin*), 600 MG ORAL THREE TIMES A DAY Insulin Glargine (Lantus), 0 SUBQ BEDTIME, (Reported) Lisinopril (Lisinopril*), 20 MG ORAL DAILY, (Reported) Metoprolol/Hydrochlorothiazide (Metoprolol-Hctz 50-25 Mg Tab), 1 TAB ORAL DAILY, (Reported) Sevelamer Hcl (Renagel), 800 MG ORAL THREE TIMES A DAY, (Reported) Warfarin Sod* (Warfarin Sod*), 0.5 MG ORAL DAILY, (Reported) Scheduled PRN Acetaminophen* (Tylenol Extra Strength*), 500 MG ORAL Q6H PRN for Mild Pain/ Temp > 100.5, (Reported) Hydrocodone Bit/Acetaminophen 5-325* ([place] 5-325*), 1 TAB ORAL Q6H PRN for For Pain Ondansetron* (Zofran*), 4 MG ORAL Q6H PRN for Nausea & Vomiting, (Reported) Tramadol Hcl* (Ultram*), 50 MG ORAL Q6H PRN for For Pain, (Reported) Zolpidem Tartrate* (Zolpidem Tartrate*), 5 MG ORAL BEDTIME PRN for Insomnia, ( Reported) Patient History Healthcare decision maker Resuscitation status Full Code Advanced Directive on File Physical Exam Last 24 Hour Vital Signs Date Time Temp Pulse Resp B/P (MAP) Pulse Ox O2 Delivery O2 Flow Rate FiO2 01/30/18 17:18 153/76 01/30/18 17:05 153/76 01/30/18 16:00 81 01/30/18 16:00 98.4 82 20 153/76 (101) 98 01/30/18 12:00 97.7 81 19 143/81 (101) 100 01/30/18 12:00 90 01/30/18 09:00 Room Air 01/30/18 09:00 83 135/74 01/30/18 09:00 80 135/74 01/30/18 08:00 97.0 80 19 135/74 (94) 100 01/30/18 08:00 73 01/30/18 04:00 84 01/30/18 03:54 98.3 88 19 120/77 (91) 99 01/30/18 00:00 83 01/30/18 00:00 98.7 86 19 135/65 (88) 96 01/29/18 21:00 Room Air 01/29/18 20:00 98.6 102 19 148/84 (105) 98 01/29/18 20:00 96 Intake and Output 01/29/18 01/30/18 19:00 07:00 Intake Total 240 ml Balance 240 ml Intake Oral 240 ml # Voids 6 2 # Bowel Movements 1 Laboratory Tests Test 01/30/18 02:40 01/30/18 06:42 01/30/18 10:00 01/30/18 13:22 Urine Color Yellow Urine Appearance Slightly cloudy Urine pH 8 (4.5-8.0) Urine Specific [place] 1.015 (1.005-1.035) Urine Protein 4+ (NEGATIVE) H Urine Glucose (UA) 2+ (NEGATIVE) H Urine Ketones Negative (NEGATIVE) Urine Blood 1+ (NEGATIVE) H Urine Nitrite Negative (NEGATIVE) Urine Bilirubin Negative (NEGATIVE) Urine Urobilinogen Normal MG/DL (0.0-1.0) Urine Leukocyte Esterase Negative (NEGATIVE) Urine RBC 2-4 /HPF (0 - 2) H Urine WBC 0-2 /HPF (0 - 2) Urine Squamous Epithelial Cells Moderate /LPF (NONE/OCC) H Urine Bacteria Few /HPF (NONE) White Blood Count 31.4 K/UL (4.8-10.8) *H Red Blood Count 2.33 M/UL (4.20-5.40) L Hemoglobin 6.7 G/DL (12.0-16.0) *L Hematocrit 21.6 % (37.0-47.0) L Mean Corpuscular Volume 93 FL (80-99) Mean Corpuscular Hemoglobin 29.0 PG (27.0-31.0) Mean Corpuscular Hemoglobin Concent 31.2 G/DL (32.0-36.0) L Red Cell Distribution Width 14.9 % (11.6-14.8) H Platelet Count 266 K/UL (150-450) Mean Platelet Volume 6.2 FL (6.5-10.1) L Neutrophils (%) (Auto) % (45.0-75.0) Lymphocytes (%) (Auto) % (20.0-45.0) Monocytes (%) (Auto) % (1.0-10.0) Eosinophils (%) (Auto) % (0.0-3.0) Basophils (%) (Auto) % (0.0-2.0) Differential Total Cells Counted 100 Neutrophils % (Manual) 92 % (45-75) H Lymphocytes % (Manual) 3 % (20-45) L Monocytes % (Manual) 5 % (1-10) Eosinophils % (Manual) 0 % (0-3) Basophils % (Manual) 0 % (0-2) Band Neutrophils 0 % (0-8) Platelet Estimate Adequate Platelet Morphology Normal Hypochromasia 2+ Anisocytosis 1+ Prothrombin Time 22.7 SEC (9.30-11.50) H 29.1 SEC (9.30-11.50) H Prothromb Time International Ratio 2.2 (0.9-1.1) H 2.9 (0.9-1.1) H Sodium Level 140 MMOL/L (136-145) Potassium Level 3.8 MMOL/L (3.5-5.1) Chloride Level 99 MMOL/L (98-107) Carbon Dioxide Level 26 MMOL/L (21-32) Anion Gap 15 mmol/L (5-15) Blood Urea Nitrogen 64 mg/dL (7-18) H Creatinine 10.9 MG/DL (0.55-1.30) H Estimat Glomerular Filtration Rate 3.6 mL/min (>60) Glucose Level 151 MG/DL (74-106) H Uric Acid 9.8 MG/DL (2.6-7.2) H Calcium Level 8.1 MG/DL (8.5-10.1) L Phosphorus Level 6.1 MG/DL (2.5-4.9) H Magnesium Level 2.2 MG/DL (1.8-2.4) Iron Level 14 ug/dL (50-175) L Total Iron Binding Capacity 159 ug/dL (250-450) L Percent Iron Saturation 9 % (15-50) L Unsaturated Iron Binding 145 ug/dL (112-346) Ferritin 729 NG/ML (8-388) H Total Bilirubin 0.5 MG/DL (0.2-1.0) Gamma Glutamyl Transpeptidase 152 U/L (5-85) H Aspartate Amino Transf (AST/SGOT) 84 U/L (15-37) H Alanine Aminotransferase (ALT/SGPT) 50 U/L (12-78) Alkaline Phosphatase 161 U/L (46-116) H Troponin I 1.049 ng/mL (0.000-0.056) Pro-B-Type Natriuretic Peptide > 26695 pg/mL (0-125) H Total Protein 6.8 G/DL (6.4-8.2) Albumin 2.3 G/DL (3.4-5.0) L Globulin 4.5 g/dL Albumin/Globulin Ratio 0.5 (1.0-2.7) L Triglycerides Level 60 MG/DL (30-150) Cholesterol Level < 50 MG/DL (< 200) LDL Cholesterol 20 mg/dL (<100) HDL Cholesterol 25 MG/DL (40-60) L Cholesterol/HDL Ratio 2.0 (3.3-4.4) L Vitamin B12 Level 656 PG/ML (193-986) Folate 41.9 NG/ML (8.6-58.9) Thyroid Stimulating Hormone (TSH) 0.599 uiU/mL (0.358-3.740) Stool Occult Blood Negative (NEGATIVE) Haptoglobin Pending Fibrinogen 398 mg/dL (200-400) Lactate Dehydrogenase 290 U/L (81-234) H Microbiology Date/Time Source Procedure Growth Status 01/30/18 02:40 Stool Clostridium difficile Toxin Assay - Final Complete Height (Feet): 5 Height (Inches): 6.00 Weight (Pounds): 110 Medications Current Medications Medications (Trade) Dose Ordered Sig/Juliocesar Route PRN Reason Start Time Stop Time Status Last Admin Dose Admin Acetaminophen (Tylenol) 650 mg Q6H PRN ORAL Fever/Headache/Mild Pain 01/29/18 19:30 02/28/18 19:29 01/30/18 14:13 Amlodipine Besylate (Norvasc) 2.5 mg DAILY ORAL 01/31/18 09:00 02/28/18 09:14 Atorvastatin Calcium (Lipitor) 80 mg BEDTIME ORAL 01/29/18 21:00 02/28/18 20:59 01/29/18 20:11 Carvedilol (Coreg) 12.5 mg EVERY 12 HOURS ORAL 01/30/18 21:00 03/01/18 20:59 Clonidine HCl (Catapres Tab) 0.1 mg Q4H PRN ORAL bp over 165 syst 01/29/18 11:45 02/28/18 11:44 Dextrose (Dextrose 50%) 25 ml Q30M PRN IV Hypoglycemia 01/29/18 10:00 02/28/18 09:59 Dextrose (Dextrose 50%) 50 ml Q30M PRN IV Hypoglycemia 01/29/18 10:00 02/28/18 09:59 01/30/18 05:41 Insulin Aspart (NovoLOG) BEFORE MEALS AND HS SUBQ 01/29/18 11:30 02/28/18 11:29 01/29/18 22:21 Isosorbide Dinitrate (Isordil) 10 mg QID ORAL 01/30/18 21:00 03/01/18 20:59 Lisinopril (Zestril) 5 mg BID ORAL 01/30/18 18:00 03/01/18 17:59 01/30/18 17:18 Ondansetron HCl (Zofran) 4 mg Q6H PRN IVP Nausea & Vomiting 01/29/18 09:30 02/28/18 09:29 01/30/18 14:11 Pantoprazole (Protonix) 40 mg BID ORAL 01/29/18 11:30 02/28/18 11:29 01/30/18 17:18 Piperacillin Sod/ Tazobactam Sod 2.25 gm/Sodium Chloride 55 ml @ 110 mls/hr Q8H IV 01/30/18 16:00 02/06/18 15:59 01/30/18 17:05 Sevelamer Carbonate (Renvela) 800 mg THREE TIMES A DAY ORAL 01/30/18 18:00 03/01/18 17:59 01/30/18 17:18 Vancomycin HCl (Firvanq) 125 mg FOUR TIMES A DAY ORAL 01/29/18 21:00 02/05/18 20:59 01/30/18 17:17 Vancomycin HCl (Vanco rx to dose) 1 ea DAILY PRN MISC Per rx protocol 01/29/18 09:00 02/28/18 08:59 Assessment/Plan Status: stable Assessment/Plan Assessment/Plan Problem List: (1) Septic shock (2) NSTEMI (3) ESRD (4) CAD (5) HTN (6) DM Monitor WBC Broad spectrum Abx Maintain HD Mild IV fluid hydration Follow up cultures Trend EKG/Troponin NO indication for cardiac cath Outpatient stress test Aspirin/Plavix Statin Nitro prn chest pain Transfuse PRBC <7 Mikhail Lr MD Jan 30, 2018 18:58
[2018-01-30] MEDS: Atorvastatin 80mg tab ORAL SCH (20:32)
[2018-01-30] MEDS: Carvedilol 12.5mg tab ORAL SCH (20:32)
[2018-01-30] MEDS: HydrALAZINE 50mg tab ORAL SCH (22:50)
[2018-01-31 04:00] VITALS: BP 136/67
[2018-01-31] MEDS: HydrALAZINE 50mg tab ORAL SCH ×3 (05:20→22:12)
[2018-01-31] MEDS: NovoLOG Insulin Flexpen SUBQ SCH ×4 (05:31→21:00)
[2018-01-31 06:29] LABS: HEMATOCRIT 29.1 % (37.0-47.0); HEMOGLOBIN 9.5 G/DL (12.0-16.0); MEAN CORPUSCULAR VOLUME 92 FL (80-99); PLATELET COUNT 247 K/UL (150-450); RED BLOOD COUNT 3.17 M/UL (4.20-5.40); RED CELL DISTRIBUTION WIDTH 14.8 % (11.6-14.8); WHITE BLOOD COUNT 19.8 K/UL (4.8-10.8)
[2018-01-31 07:09] LABS: ALANINE AMINOTRANSFERASE 8 U/L (12-78); ALBUMIN 2.4 G/DL (3.4-5.0); ALBUMIN/GLOBULIN RATIO 0.5 (1.0-2.7); ALKALINE PHOSPHATASE 148 U/L (46-116); ANION GAP 11 mmol/L (5-15); ASPARTATE AMINO TRANSFERASE 65 U/L (15-37); BILIRUBIN,TOTAL 3.7 MG/DL (0.2-1.0); BLOOD UREA NITROGEN 41 mg/dL (7-18); CARBON DIOXIDE 28 MMOL/L (21-32); CHLORIDE 98 MMOL/L (98-107); CREATININE 7.4 MG/DL (0.55-1.30); POTASSIUM 3.8 MMOL/L (3.5-5.1); SODIUM 137 MMOL/L (136-145)
[2018-01-31 07:10] LABS: BILIRUBIN,DIRECT 0.6 MG/DL (0.0-0.3)
[2018-01-31 07:18] LABS: PHOSPHORUS 5.3 MG/DL (2.5-4.9)
[2018-01-31 08:00] VITALS: BP 139/56
--- NOTE | 2018-01-31 08:16 | General Progress Note ---
Assessment/Plan Problem List: (1) Septic shock Assessment & Plan: WBC starting to improve slowly, currently at 19 from 31 cont abx per ID, IV and PO vanco, zosyn pending cultures, bcx ngtd, cdiff neg elevated trop with concerns for nstemi LA 3.5 on admit, resolved now cxr reviewed, pulm edema noted, no consolidations CT abd/pelvis showing thickening at anorectal region, likely infectious cause, cont abx per ID recs Nephro consulted tele ICD Codes: A41.9 - Sepsis, unspecified organism; R65.21 - Severe sepsis with septic shock SNOMED: 04573671 (2) NSTEMI (non-ST elevated myocardial infarction) Assessment & Plan: type II nstemi demand ischemia due to esrd and septic shock no chest pain ekg reviewed, nsr no acut st t wave changes noted stable ICD Codes: I21.4 - Non-ST elevation (NSTEMI) myocardial infarction SNOMED: 423225359 (3) ESRD (end stage renal disease) on dialysis Assessment & Plan: Nephro consulted HD per nephro usualy , , St ICD Codes: N18.6 - End stage renal disease; Z99.2 - Dependence on renal dialysis SNOMED: 294425758 (4) Poor historian Assessment & Plan: very poor historian does not know much of her medical history of medications ICD Codes: Z78.9 - Other specified health status SNOMED: 018350184 (5) CAD (coronary artery disease) Assessment & Plan: asa plavix resume home meds patient unsure of what procedures shes underwent however seems like she's had stents in the past statin tele stable ICD Codes: I25.10 - Atherosclerotic heart disease of [place] coronary artery without angina pectoris SNOMED: 69810184 Qualifiers: (6) Diabetes type 2, controlled Assessment & Plan: iss accuchecks hgba1c ICD Codes: E11.9 - Type 2 diabetes mellitus without complications SNOMED: 26029472 Qualifiers: Qualified Codes: E11.22 - Type 2 diabetes mellitus with diabetic chronic kidney disease; N18.6 - End stage renal disease; Z99.2 - Dependence on renal dialysis (7) Anemia in chronic kidney disease Assessment & Plan: hgb 6.7 now will require 1U PRBC lethargic, weak denies any blood BMs no acute blood loss ICD Codes: N18.9 - Chronic kidney disease, unspecified; D63.1 - Anemia in chronic kidney disease SNOMED: 300352718, 396246706 Qualifiers: Qualified Codes: N18.6 - End stage renal disease; D63.1 - Anemia in chronic kidney disease; Z99.2 - Dependence on renal dialysis (8) Acute systolic (congestive) heart failure Assessment & Plan: TTE done on admit, with EF 20-25% cardiology consulted, appreciate recs meds per cards patient unsure of home meds ICD Codes: I50.21 - Acute systolic (congestive) heart failure SNOMED: 91579177, 961371755 Status: stable Assessment/Plan Diet: renal diet DVT Prophylaxis: SCD, continue home coumadin Code Status: Full Inpatient Hospital Classification Declaration: Based on this initial evaluation, and depending on the patient's clinical course, I anticipate that this patient will require hospitalization for 2-3midnights for septic shock and close respiratory/ hemodynamic monitoring. Disposition: Once the patient is stable to leave the hospital, I anticipate the patient will likely be discharged to the following environment: home with HH vs SNF I spent 55 minutes on this patient's case, and 30 minutes were dedicated to counseling and/or care coordination. Discussed with patient/family, nursing staff, SW/CM regarding clinical status, treatment course, and disposition planning. Time of note may not reflect time of encounter. Subjective Date patient seen: Jan 31, 2018 Time patient seen: 08:10 Allergies: Coded Allergies: NO KNOWN DRUG ALLERGIES (Verified Allergy, Unknown, 01/29/18) Subjective f/u nstemi, septic shock, esrd, anemia hgb improved and stable s/p 2U PRBC transfused yesterday HD done yesterday feeling much better, much more alert and awake, Denies any MCCLURE or dizziness, no vision changes No chest pain or sob still having diarrhea with mild left upper quandrant abd pain ROS: 14 point ROS reviewed and negative except per above subjective Objective Last 24 Hour Vital Signs Date Time Temp Pulse Resp B/P (MAP) Pulse Ox O2 Delivery O2 Flow Rate FiO2 01/31/18 05:20 136/67 01/31/18 04:00 98.3 77 18 136/67 (90) 97 01/31/18 04:00 73 01/31/18 00:00 81 01/30/18 23:55 98.5 76 18 120/57 (78) 97 01/30/18 22:50 127/64 01/30/18 21:00 Room Air 01/30/18 20:32 92 152/78 01/30/18 20:00 98.6 92 18 152/78 (102) 98 01/30/18 20:00 88 01/30/18 17:18 153/76 01/30/18 17:05 153/76 01/30/18 16:00 81 01/30/18 16:00 98.4 82 20 153/76 (101) 98 01/30/18 12:00 97.7 81 19 143/81 (101) 100 01/30/18 12:00 90 01/30/18 09:00 Room Air 01/30/18 09:00 83 135/74 01/30/18 09:00 80 135/74 Intake and Output 01/30/18 01/31/18 19:00 07:00 Output Total 900 ml 800 ml Balance -900 ml -800 ml Output Urine Total 900 ml 800 ml # Voids 3 # Bowel Movements 1 2 Laboratory Tests 01/30/18 10:00: Stool Occult Blood Negative 01/30/18 13:22: Haptoglobin [Pending], Prothrombin Time 29.1H, Prothromb Time International Ratio 2.9H, Fibrinogen 398, Lactate Dehydrogenase 290H 01/31/18 05:30: White Blood Count 19.8H, Red Blood Count 3.17L, Hemoglobin 9.5#L, Hematocrit 29.1#L, Mean Corpuscular Volume 92, Mean Corpuscular Hemoglobin 30.0, Mean Corpuscular Hemoglobin Concent 32.6, Red Cell Distribution Width 14.8, Platelet Count 247, Mean Platelet Volume 7.1, Neutrophils (%) (Auto) , Lymphocytes (%) ( Auto) , Monocytes (%) (Auto) , Eosinophils (%) (Auto) , Basophils (%) (Auto) , Differential Total Cells Counted 100, Neutrophils % (Manual) 92H, Lymphocytes % (Manual) 5L, Monocytes % (Manual) 2, Eosinophils % (Manual) 1, Basophils % ( Manual) 0, Band Neutrophils 0, Platelet Estimate Adequate, Platelet Morphology Normal, Sodium Level 137, Potassium Level 3.8, Chloride Level 98, Carbon Dioxide Level 28, Anion Gap 11, Blood Urea Nitrogen 41H, Creatinine 7.4H, Estimat Glomerular Filtration Rate 5.6, Glucose Level 95, Lactic Acid Level 0.90 , Uric Acid 5.1, Calcium Level 8.0L, Phosphorus Level 5.3H, Magnesium Level 2.2 , Total Bilirubin 3.7H, Direct Bilirubin 0.6H, Aspartate Amino Transf (AST/SGOT ) 65H, Alanine Aminotransferase (ALT/SGPT) 8L, Alkaline Phosphatase 148H, C- Reactive Protein, Quantitative 11.2H, Total Protein 7.2, Albumin 2.4L, Globulin 4.8, Albumin/Globulin Ratio 0.5L, Random Vancomycin Level 5.0 Height (Feet): 5 Height (Inches): 6.00 Weight (Pounds): 110 General Appearance: WD/WN, no apparent distress, alert EENT: PERRL/EOMI, normal ENT inspection, TMs normal, pharynx normal Neck: non-tender, normal alignment, supple, normal inspection Cardiovascular: normal peripheral pulses, normal rate, regular rhythm Respiratory/Chest: chest wall non-tender, lungs clear, normal breath sounds, no respiratory distress, no accessory muscle use Abdomen: normal bowel sounds, non tender, soft, no organomegaly, no mass Extremities: normal range of motion, non-tender, normal inspection Neurologic: shingle packer II-XII grossly normal, no motor/sensory deficits, alert, oriented x 3, responsive, normal mood/affect Skin: normal pigmentation, warm/dry Jesús Low MD Jan 31, 2018 08:16
[2018-01-31] MEDS: Vancomycin oral 125mg/2.5ml ORAL SCH ×3 (08:34→18:10)
[2018-01-31] MEDS: Piperacillin/Tazobactam 2.25 GM in NS 55 ML IV SCH ×2 (08:34→16:00)
[2018-01-31] MEDS: Carvedilol 12.5mg tab ORAL SCH ×2 (08:35→22:17)
--- NOTE | 2018-01-31 09:00 | Nephrology Progress Note ---
Assessment/Plan Problem List: (1) ESRD (end stage renal disease) on dialysis (2) CAD (coronary artery disease) (3) DM hyperosmolarity type II (4) Acute systolic (congestive) heart failure (5) Anemia in chronic kidney disease (6) Diabetes type 2, controlled (7) Cardiomyopathy (8) Sepsis Assessment Sepsis, high Lactic acid ESRD on HD for 2 years, has left arm fistula Anemia of CKD worsened DM CAD, elevated Troponin Plan HD 01/30 & Transfusion- done next HD 02/01 Antibiotics Adjust BS and BP meds Gastric support optimize cardiac meds 2D echo Global LV hypokinesis. Anterior septum basal to distal hypokinesis . Left ventricular ejection fraction estimated to be 20-25 %. Subjective ROS Limited/Unobtainable: No Objective Objective Last 24 Hour Vital Signs Date Time Temp Pulse Resp B/P (MAP) Pulse Ox O2 Delivery O2 Flow Rate FiO2 01/31/18 08:36 144/72 01/31/18 08:35 82 144/72 01/31/18 05:20 136/67 01/31/18 04:00 98.3 77 18 136/67 (90) 97 01/31/18 04:00 73 01/31/18 00:00 81 01/30/18 23:55 98.5 76 18 120/57 (78) 97 01/30/18 22:50 127/64 01/30/18 21:00 Room Air 01/30/18 20:32 92 152/78 01/30/18 20:00 98.6 92 18 152/78 (102) 98 01/30/18 20:00 88 01/30/18 17:18 153/76 01/30/18 17:05 153/76 01/30/18 16:00 81 01/30/18 16:00 98.4 82 20 153/76 (101) 98 01/30/18 12:00 97.7 81 19 143/81 (101) 100 01/30/18 12:00 90 01/30/18 09:00 Room Air 01/30/18 09:00 83 135/74 01/30/18 09:00 80 135/74 Intake and Output 01/30/18 01/31/18 19:00 07:00 Output Total 900 ml 800 ml Balance -900 ml -800 ml Output Urine Total 900 ml 800 ml # Voids 3 # Bowel Movements 1 2 Laboratory Tests 01/30/18 10:00: Stool Occult Blood Negative 01/30/18 13:22: Haptoglobin [Pending], Prothrombin Time 29.1H, Prothromb Time International Ratio 2.9H, Fibrinogen 398, Lactate Dehydrogenase 290H 01/31/18 05:30: White Blood Count 19.8H, Red Blood Count 3.17L, Hemoglobin 9.5#L, Hematocrit 29.1#L, Mean Corpuscular Volume 92, Mean Corpuscular Hemoglobin 30.0, Mean Corpuscular Hemoglobin Concent 32.6, Red Cell Distribution Width 14.8, Platelet Count 247, Mean Platelet Volume 7.1, Neutrophils (%) (Auto) , Lymphocytes (%) ( Auto) , Monocytes (%) (Auto) , Eosinophils (%) (Auto) , Basophils (%) (Auto) , Differential Total Cells Counted 100, Neutrophils % (Manual) 92H, Lymphocytes % (Manual) 5L, Monocytes % (Manual) 2, Eosinophils % (Manual) 1, Basophils % ( Manual) 0, Band Neutrophils 0, Platelet Estimate Adequate, Platelet Morphology Normal, Sodium Level 137, Potassium Level 3.8, Chloride Level 98, Carbon Dioxide Level 28, Anion Gap 11, Blood Urea Nitrogen 41H, Creatinine 7.4H, Estimat Glomerular Filtration Rate 5.6, Glucose Level 95, Lactic Acid Level 0.90 , Uric Acid 5.1, Calcium Level 8.0L, Phosphorus Level 5.3H, Magnesium Level 2.2 , Total Bilirubin 3.7H, Direct Bilirubin 0.6H, Aspartate Amino Transf (AST/SGOT ) 65H, Alanine Aminotransferase (ALT/SGPT) 8L, Alkaline Phosphatase 148H, C- Reactive Protein, Quantitative 11.2H, Total Protein 7.2, Albumin 2.4L, Globulin 4.8, Albumin/Globulin Ratio 0.5L, Random Vancomycin Level 5.0 Height (Feet): 5 Height (Inches): 6.00 Weight (Pounds): 110 General Appearance: no apparent distress Cardiovascular: normal rate Respiratory/Chest: decreased breath sounds Abdomen: tender - left base Washington Pavon MD Jan 31, 2018 09:00
[2018-01-31] MEDS ORDERED: Vancomycin 1gm/D5W 275ml IVPB ONE ×2 (09:30)
[2018-01-31] MEDS ORDERED: Lisinopril 10mg tab ORAL SCH (10:00)
[2018-01-31 16:01] VITALS: BP 137/64
--- NOTE | 2018-01-31 17:54 | General Progress Note ---
Assessment/Plan Assessment/Plan # Leukocytosis is due to Septic shock, high Lactic acid, has vre --> cultures are pending, sensitivities --> is on zosyn and vanc, broad spectrum abx --> have ordered for a peripheral flow cytometry r/o leukemia --> peripheral smear has been ordered --> imaging reviewed and shows anorectal thickening --> cea was ordered --> wbc trend 31k-->20k # Anemia RULE OUT hemolysis with unconjugated biliribin --> workup has been ordered, retic, ldh, bili repeat --> peripheral smear has been ordered --> anemia panel indicated acd # Coagulopathy that has worsened with inr 2.9 --> mixing study ordered --> rule out dic # ESRD on HD for 2 years, has left arm fistula --> epogen as per neprho --> HD as required # DM --> a1c goal <7 # CAD, elevated Troponin --> per cards eval, appreciate recs # NSTEMI, 2d echo shows 15-20% hypokinesis --> repeat trop Greatly appreciate consultation! Subjective Constitutional: Denies: no symptoms, chills, diaphoresis, fever, malaise, weakness, other HEENT: Denies: no symptoms, eye pain, blurred vision, tearing, double vision, ear pain, ear discharge, nose pain, nose congestion, throat pain, throat swelling, mouth pain, mouth swelling, other Cardiovascular: Denies: no symptoms, chest pain, edema, irregular heart rate, lightheadedness, palpitations, syncope, other Respiratory: Denies: no symptoms, cough, orthopnea, shortness of breath, SOB with excertion, SOB at rest, sputum, stridor, wheezing, other Gastrointestinal/Abdominal: Denies: no symptoms, abdomen distended, abdominal pain, black stools, tarry stools, blood in stool, constipated, diarrhea, difficulty swallowing, nausea, poor appetite, poor fluid intake, rectal bleeding , vomiting, other Genitourinary: Denies: no symptoms, burning, discharge, frequency, flank pain, hematuria, incontinence, pain, urgency, other Neurologic/Psychiatric: Denies: no symptoms, anxiety, depressed, emotional problems, headache, numbness, paresthesia, pre-existing deficit, seizure, tingling, tremors, weakness, other Endocrine: Denies: no symptoms, excessive sweating, flushing, intolerance to cold, intolerance to heat, increased hunger, increased thirst, increased urine, unexplained weight gain, unexplained weight loss, other Allergies: Coded Allergies: NO KNOWN DRUG ALLERGIES (Verified Allergy, Unknown, 01/29/18) Subjective some back pain, s/p transfusion Objective Last 24 Hour Vital Signs Date Time Temp Pulse Resp B/P (MAP) Pulse Ox O2 Delivery O2 Flow Rate FiO2 01/31/18 16:01 97.7 75 18 137/64 (88) 99 01/31/18 16:00 79 01/31/18 14:24 133/68 01/31/18 12:25 142/72 01/31/18 12:00 80 01/31/18 09:00 Room Air 01/31/18 08:36 144/72 01/31/18 08:35 82 144/72 01/31/18 08:00 80 01/31/18 08:00 97.7 82 18 139/56 (83) 98 01/31/18 05:20 136/67 01/31/18 04:00 98.3 77 18 136/67 (90) 97 01/31/18 04:00 73 01/31/18 00:00 81 01/30/18 23:55 98.5 76 18 120/57 (78) 97 01/30/18 22:50 127/64 01/30/18 21:00 Room Air 01/30/18 20:32 92 152/78 01/30/18 20:00 98.6 92 18 152/78 (102) 98 01/30/18 20:00 88 Intake and Output 01/30/18 01/31/18 18:59 06:59 Output Total 900 ml 800 ml Balance -900 ml -800 ml Output Urine Total 900 ml 800 ml # Voids 3 # Bowel Movements 1 2 Laboratory Tests 01/31/18 05:30: White Blood Count 19.8H, Red Blood Count 3.17L, Hemoglobin 9.5#L, Hematocrit 29.1#L, Mean Corpuscular Volume 92, Mean Corpuscular Hemoglobin 30.0, Mean Corpuscular Hemoglobin Concent 32.6, Red Cell Distribution Width 14.8, Platelet Count 247, Mean Platelet Volume 7.1, Neutrophils (%) (Auto) , Lymphocytes (%) ( Auto) , Monocytes (%) (Auto) , Eosinophils (%) (Auto) , Basophils (%) (Auto) , Differential Total Cells Counted 100, Neutrophils % (Manual) 92H, Lymphocytes % (Manual) 5L, Monocytes % (Manual) 2, Eosinophils % (Manual) 1, Basophils % ( Manual) 0, Band Neutrophils 0, Platelet Estimate Adequate, Platelet Morphology Normal, Sodium Level 137, Potassium Level 3.8, Chloride Level 98, Carbon Dioxide Level 28, Anion Gap 11, Blood Urea Nitrogen 41H, Creatinine 7.4H, Estimat Glomerular Filtration Rate 5.6, Glucose Level 95, Lactic Acid Level 0.90 , Uric Acid 5.1, Calcium Level 8.0L, Phosphorus Level 5.3H, Magnesium Level 2.2 , Total Bilirubin 3.7H, Direct Bilirubin 0.6H, Aspartate Amino Transf (AST/SGOT ) 65H, Alanine Aminotransferase (ALT/SGPT) 8L, Alkaline Phosphatase 148H, C- Reactive Protein, Quantitative 11.2H, Total Protein 7.2, Albumin 2.4L, Globulin 4.8, Albumin/Globulin Ratio 0.5L, Random Vancomycin Level 5.0 Height (Feet): 5 Height (Inches): 6.00 Weight (Pounds): 110 General Appearance: alert EENT: TMs normal Neck: supple Cardiovascular: regular rhythm Respiratory/Chest: chest wall non-tender Abdomen: no organomegaly Extremities: non-tender Edema: 1+ Leg (L), 1+ Leg (R) Edema: mild edema Neurologic: abnormal gait Skin: warm/dry Toribio Suárez MD Jan 31, 2018 17:54
--- NOTE | 2018-01-31 18:47 | Infectious Diseases Prog Note ---
Assessment/Plan Assessment/Plan ASSESSMENT AND PLAN: 1. sepsis, fevers, leukocytosis, ? cholecystitis, elevated lft's noted, CT abdomen and pelvis noted - zosyn and vancomycin iv - c.diff. negative - discontinue po vancomycin - blood cultures negative to date - leukocytosis and fevers better - monitor labs, check abdominal US, check f/u chest -x-ray - consider GI evaluation 2. The patient has end-stage renal disease, on hemodialysis, left arm fistula. 3. History of Staph aureus bacteremia, unclear how long she was treated for that. 4. Diabetes. 5. Hyperlipidemia. 6. Hypertension. 7. End-stage renal disease. 8. Anemia. 9. Hemodialysis. 10. History of anticoagulation. 11. History of pancreatitis. 12. History of non-STEMI. 13. No known allergies. 14. Social history is negative. 15. MAR was noted 16. Case was discussed with RN. 17. Family history is noncontributory. 18. Social history is negative. 19. Continue treatment per primary consultants. 20. Orders were entered and noted. Subjective Constitutional: Reports: fatigue, other - feels better; Denies: fever HEENT: Denies: congestion Respiratory: Denies: shortness of breath Cardiovascular: Denies: chest pain, palpitations Gastrointestinal/Abdominal: Reports: other - some abdominal pain ; Denies: nausea, vomiting, diarrhea Genitourinary: Reports: other - no truong Psychiatric: Denies: depression Skin: Denies: rash Hematologic: Denies: bleeding Musculoskeletal: Reports: pain Allergies: Coded Allergies: NO KNOWN DRUG ALLERGIES (Verified Allergy, Unknown, 01/29/18) Objective Vital Signs Last 24 Hour Vital Signs Date Time Temp Pulse Resp B/P (MAP) Pulse Ox O2 Delivery O2 Flow Rate FiO2 01/31/18 18:09 150/80 01/31/18 16:01 97.7 75 18 137/64 (88) 99 01/31/18 16:00 79 01/31/18 14:24 133/68 01/31/18 12:25 142/72 01/31/18 12:00 80 01/31/18 09:00 Room Air 01/31/18 08:36 144/72 01/31/18 08:35 82 144/72 01/31/18 08:00 80 01/31/18 08:00 97.7 82 18 139/56 (83) 98 01/31/18 05:20 136/67 01/31/18 04:00 98.3 77 18 136/67 (90) 97 01/31/18 04:00 73 01/31/18 00:00 81 01/30/18 23:55 98.5 76 18 120/57 (78) 97 01/30/18 22:50 127/64 01/30/18 21:00 Room Air 01/30/18 20:32 92 152/78 01/30/18 20:00 98.6 92 18 152/78 (102) 98 01/30/18 20:00 88 Height (Feet): 5 Height (Inches): 6.00 Weight (Pounds): 110 General Appearance: no acute distress HEENT: normocephalic, atraumatic, anicteric, mucous membranes moist Respiratory/Chest: lungs clear, normal breath sounds, no respiratory distress, no accessory muscle use Cardiovascular: normal rate, regular rhythm, no gallop/murmur, no JVD Abdomen: normal bowel sounds, soft, non tender, no organomegaly, non distended , other - some discomfort, no rebound Genitourinary: other - no truong Extremities: no cyanosis Skin: no rash 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 Pericholecystic edema. No radiodense of gallstones. Ultrasound/HIDA scan can further assess for cholecystitis. 2. Thickening in the anorectal region. Could be mass, inflammatory process, hemorrhoids or other. Chest x-ray -n 01/29/18: IMPRESSION: Cardiomegaly with prominence of pulmonary interstitial markings. Findings may represent underlying mild pulmonary vascular congestion. Microbiology Date/Time Source Procedure Growth Status 01/29/18 04:20 Blood Blood Culture - Preliminary NO GROWTH AFTER 48 HOURS Resulted 01/29/18 04:05 Blood Blood Culture - Preliminary NO GROWTH AFTER 48 HOURS Resulted 01/29/18 05:45 Nasal Nares MRSA Culture - Final NO METHICILLIN RESISTANT STAPH AUREUS... Complete 01/29/18 04:30 Nasal Nares Influenza Types A,B Antigen (TORIBIO) - Final Complete 01/30/18 02:40 Stool Clostridium difficile Toxin Assay - Final Complete 01/29/18 05:45 Rectum - Final NO CARBAPENEM-RESISTANT ENTEROBACTERI... Complete 01/29/18 05:45 Rectum VRE Culture - Final Enterococcus Faecium - Vre Complete Laboratory Tests Test 01/31/18 05:30 White Blood Count 19.8 K/UL (4.8-10.8) H Red Blood Count 3.17 M/UL (4.20-5.40) L Hemoglobin 9.5 G/DL (12.0-16.0) #L Hematocrit 29.1 % (37.0-47.0) #L Mean Corpuscular Volume 92 FL (80-99) Mean Corpuscular Hemoglobin 30.0 PG (27.0-31.0) Mean Corpuscular Hemoglobin Concent 32.6 G/DL (32.0-36.0) Red Cell Distribution Width 14.8 % (11.6-14.8) Platelet Count 247 K/UL (150-450) Mean Platelet Volume 7.1 FL (6.5-10.1) Neutrophils (%) (Auto) % (45.0-75.0) Lymphocytes (%) (Auto) % (20.0-45.0) Monocytes (%) (Auto) % (1.0-10.0) Eosinophils (%) (Auto) % (0.0-3.0) Basophils (%) (Auto) % (0.0-2.0) Differential Total Cells Counted 100 Neutrophils % (Manual) 92 % (45-75) H Lymphocytes % (Manual) 5 % (20-45) L Monocytes % (Manual) 2 % (1-10) Eosinophils % (Manual) 1 % (0-3) Basophils % (Manual) 0 % (0-2) Band Neutrophils 0 % (0-8) Platelet Estimate Adequate Platelet Morphology Normal Sodium Level 137 MMOL/L (136-145) Potassium Level 3.8 MMOL/L (3.5-5.1) Chloride Level 98 MMOL/L (98-107) Carbon Dioxide Level 28 MMOL/L (21-32) Anion Gap 11 mmol/L (5-15) Blood Urea Nitrogen 41 mg/dL (7-18) H Creatinine 7.4 MG/DL (0.55-1.30) H Estimat Glomerular Filtration Rate 5.6 mL/min (>60) Glucose Level 95 MG/DL (74-106) Lactic Acid Level 0.90 mmol/L (0.4-2.0) Uric Acid 5.1 MG/DL (2.6-7.2) Calcium Level 8.0 MG/DL (8.5-10.1) L Phosphorus Level 5.3 MG/DL (2.5-4.9) H Magnesium Level 2.2 MG/DL (1.8-2.4) Total Bilirubin 3.7 MG/DL (0.2-1.0) H Direct Bilirubin 0.6 MG/DL (0.0-0.3) H Aspartate Amino Transf (AST/SGOT) 65 U/L (15-37) H Alanine Aminotransferase (ALT/SGPT) 8 U/L (12-78) L Alkaline Phosphatase 148 U/L (46-116) H C-Reactive Protein, Quantitative 11.2 mg/dL (0.00-0.90) H Total Protein 7.2 G/DL (6.4-8.2) Albumin 2.4 G/DL (3.4-5.0) L Globulin 4.8 g/dL Albumin/Globulin Ratio 0.5 (1.0-2.7) L Random Vancomycin Level 5.0 ug/mL Current Medications Medications (Trade) Dose Ordered Sig/Juliocesar Route PRN Reason Start Time Stop Time Status Last Admin Dose Admin Acetaminophen (Tylenol) 650 mg Q6H PRN ORAL Fever/Headache/Mild Pain 01/29/18 19:30 02/28/18 19:29 01/31/18 08:35 Atorvastatin Calcium (Lipitor) 80 mg BEDTIME ORAL 01/29/18 21:00 02/28/18 20:59 01/30/18 20:32 Carvedilol (Coreg) 12.5 mg EVERY 12 HOURS ORAL 01/30/18 21:00 03/01/18 20:59 01/31/18 08:35 Clonidine HCl (Catapres Tab) 0.1 mg Q4H PRN ORAL bp over 165 syst 01/29/18 11:45 02/28/18 11:44 Dextrose (Dextrose 50%) 25 ml Q30M PRN IV Hypoglycemia 01/29/18 10:00 02/28/18 09:59 Dextrose (Dextrose 50%) 50 ml Q30M PRN IV Hypoglycemia 01/29/18 10:00 02/28/18 09:59 01/30/18 05:41 Hydralazine HCl (Apresoline) 50 mg Q8HR ORAL 01/30/18 22:00 03/01/18 21:59 01/31/18 14:24 Insulin Aspart (NovoLOG) BEFORE MEALS AND HS SUBQ 01/29/18 11:30 02/28/18 11:29 01/31/18 16:44 Isosorbide Dinitrate (Isordil) 10 mg TID ORAL 01/31/18 09:00 03/01/18 20:59 01/31/18 18:09 Lisinopril (Zestril) 5 mg DAILY ORAL 02/01/18 09:00 03/03/18 08:59 Ondansetron HCl (Zofran) 4 mg Q6H PRN IVP Nausea & Vomiting 01/29/18 09:30 02/28/18 09:29 01/30/18 22:49 Pantoprazole (Protonix) 40 mg BID ORAL 01/29/18 11:30 02/28/18 11:29 01/31/18 18:09 Piperacillin Sod/ Tazobactam Sod 2.25 gm/Sodium Chloride 55 ml @ 110 mls/hr Q8H IV 01/30/18 16:00 02/06/18 15:59 01/31/18 08:34 Sevelamer Carbonate (Renvela) 800 mg THREE TIMES A DAY ORAL 01/30/18 18:00 03/01/18 17:59 01/31/18 18:09 Vancomycin HCl (Firvanq) 125 mg FOUR TIMES A DAY ORAL 01/29/18 21:00 02/05/18 20:59 01/31/18 18:10 Vancomycin HCl (Vanco rx to dose) 1 ea DAILY PRN MISC Per rx protocol 01/29/18 09:00 02/28/18 08:59 Yudy Obando MD Jan 31, 2018 18:47
[2018-01-31 20:00] VITALS: BP 142/75
[2018-01-31 20:33] LABS: BILIRUBIN,TOTAL 0.8 MG/DL (0.2-1.0)
--- NOTE | 2018-01-31 21:27 | Cardiology Progress Note ---
Assessment/Plan Status: stable Assessment/Plan Assessment/Plan Problem List: (1) Septic shock (2) NSTEMI (3) ESRD (4) CAD (5) HTN (6) DM Monitor WBC Broad spectrum Abx Maintain HD Mild IV fluid hydration Follow up cultures Trend EKG/Troponin NO indication for cardiac cath Outpatient stress test Aspirin/Plavix Statin Nitro prn chest pain Transfuse PRBC <7 Subjective Cardiovascular: Reports: no symptoms Respiratory: Reports: no symptoms Gastrointestinal/Abdominal: Reports: no symptoms Genitourinary: Reports: no symptoms Subjective No acute events vitals stable, poor historian, no distress, WBC coming down Objective Last 24 Hour Vital Signs Date Time Temp Pulse Resp B/P (MAP) Pulse Ox O2 Delivery O2 Flow Rate FiO2 01/31/18 20:00 97.3 75 17 100 01/31/18 20:00 78 01/31/18 18:09 150/80 01/31/18 16:01 97.7 75 18 137/64 (88) 99 01/31/18 16:00 79 01/31/18 14:24 133/68 01/31/18 12:25 142/72 01/31/18 12:00 80 01/31/18 09:00 Room Air 01/31/18 08:36 144/72 01/31/18 08:35 82 144/72 01/31/18 08:00 80 01/31/18 08:00 97.7 82 18 139/56 (83) 98 01/31/18 05:20 136/67 01/31/18 04:00 98.3 77 18 136/67 (90) 97 01/31/18 04:00 73 01/31/18 00:00 81 01/30/18 23:55 98.5 76 18 120/57 (78) 97 01/30/18 22:50 127/64 General Appearance: no apparent distress, alert EENT: PERRL/EOMI, normal ENT inspection, TMs normal, pharynx normal Neck: non-tender, normal alignment, supple, normal inspection, no JVD Rhythm: NSR Cardiovascular: normal peripheral pulses, normal rate, regular rhythm Respiratory/Chest: chest wall non-tender, lungs clear, normal breath sounds, no accessory muscle use Abdomen: normal bowel sounds, non tender, soft, no organomegaly, no mass Extremities: normal range of motion, non-tender 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, no motor/sensory deficits Intake and Output 01/30/18 01/31/18 19:00 07:00 Output Total 900 ml 800 ml Balance -900 ml -800 ml Output Urine Total 900 ml 800 ml # Voids 3 # Bowel Movements 1 2 Laboratory Tests Test 01/31/18 05:30 01/31/18 19:35 White Blood Count 19.8 K/UL (4.8-10.8) H Red Blood Count 3.17 M/UL (4.20-5.40) L Hemoglobin 9.5 G/DL (12.0-16.0) #L Hematocrit 29.1 % (37.0-47.0) #L Mean Corpuscular Volume 92 FL (80-99) Mean Corpuscular Hemoglobin 30.0 PG (27.0-31.0) Mean Corpuscular Hemoglobin Concent 32.6 G/DL (32.0-36.0) Red Cell Distribution Width 14.8 % (11.6-14.8) Platelet Count 247 K/UL (150-450) Mean Platelet Volume 7.1 FL (6.5-10.1) Neutrophils (%) (Auto) % (45.0-75.0) Lymphocytes (%) (Auto) % (20.0-45.0) Monocytes (%) (Auto) % (1.0-10.0) Eosinophils (%) (Auto) % (0.0-3.0) Basophils (%) (Auto) % (0.0-2.0) Differential Total Cells Counted 100 Neutrophils % (Manual) 92 % (45-75) H Lymphocytes % (Manual) 5 % (20-45) L Monocytes % (Manual) 2 % (1-10) Eosinophils % (Manual) 1 % (0-3) Basophils % (Manual) 0 % (0-2) Band Neutrophils 0 % (0-8) Platelet Estimate Adequate Platelet Morphology Normal Sodium Level 137 MMOL/L (136-145) Potassium Level 3.8 MMOL/L (3.5-5.1) Chloride Level 98 MMOL/L (98-107) Carbon Dioxide Level 28 MMOL/L (21-32) Anion Gap 11 mmol/L (5-15) Blood Urea Nitrogen 41 mg/dL (7-18) H Creatinine 7.4 MG/DL (0.55-1.30) H Estimat Glomerular Filtration Rate 5.6 mL/min (>60) Glucose Level 95 MG/DL (74-106) Lactic Acid Level 0.90 mmol/L (0.4-2.0) Uric Acid 5.1 MG/DL (2.6-7.2) Calcium Level 8.0 MG/DL (8.5-10.1) L Phosphorus Level 5.3 MG/DL (2.5-4.9) H Magnesium Level 2.2 MG/DL (1.8-2.4) Total Bilirubin 3.7 MG/DL (0.2-1.0) H 0.8 MG/DL (0.2-1.0) Direct Bilirubin 0.6 MG/DL (0.0-0.3) H Aspartate Amino Transf (AST/SGOT) 65 U/L (15-37) H Alanine Aminotransferase (ALT/SGPT) 8 U/L (12-78) L Alkaline Phosphatase 148 U/L (46-116) H C-Reactive Protein, Quantitative 11.2 mg/dL (0.00-0.90) H Total Protein 7.2 G/DL (6.4-8.2) Albumin 2.4 G/DL (3.4-5.0) L Globulin 4.8 g/dL Albumin/Globulin Ratio 0.5 (1.0-2.7) L Random Vancomycin Level 5.0 ug/mL Reticulocyte Count Pending Haptoglobin Pending PTT Mixing Study Pending APTT Patient/Control Mix Pending Mix PTT Incubation Time Pending Mix PTT Normal/Saline 1:1 Immediate Pending Thrombin Time Normal Plasma Pending Troponin I 0.342 ng/mL (0.000-0.056) Carcinoembryonic Antigen Pending Thyroid Stimulating Hormone (TSH) 1.329 uiU/mL (0.358-3.740) Rheumatoid Factor Screen Pending Microbiology Date/Time Source Procedure Growth Status 01/29/18 04:20 Blood Blood Culture - Preliminary NO GROWTH AFTER 48 HOURS Resulted 01/29/18 04:05 Blood Blood Culture - Preliminary NO GROWTH AFTER 48 HOURS Resulted 01/29/18 05:45 Nasal Nares MRSA Culture - Final NO METHICILLIN RESISTANT STAPH AUREUS... Complete 01/29/18 04:30 Nasal Nares Influenza Types A,B Antigen (TORIBIO) - Final Complete 01/30/18 02:40 Stool Clostridium difficile Toxin Assay - Final Complete 01/29/18 05:45 Rectum - Final NO CARBAPENEM-RESISTANT ENTEROBACTERI... Complete 01/29/18 05:45 Rectum VRE Culture - Final Enterococcus Faecium - Vre Complete Mikhail Lr MD Jan 31, 2018 21:27
[2018-01-31] MEDS: Atorvastatin 80mg tab ORAL SCH (22:13)
[2018-02-01] VITALS (7 sets, daily range): BP systolic 128–161; BP diastolic 63–77
[2018-02-01] MEDS: Piperacillin/Tazobactam 2.25 GM in NS 55 ML IV SCH ×3 (00:48→16:23)
[2018-02-01 06:07] LABS: BASOPHILS % (AUTO) 1.1 % (0.0-2.0); EOSINOPHILS % (AUTO) 4.8 % (0.0-3.0); HEMATOCRIT 27.1 % (37.0-47.0); HEMOGLOBIN 8.8 G/DL (12.0-16.0); LYMPHOCYTES % (AUTO) 13.5 % (20.0-45.0); MEAN CORPUSCULAR VOLUME 92 FL (80-99); MONOCYTES % (AUTO) 6.9 % (1.0-10.0); NEUTROPHILS % (AUTO) 73.7 % (45.0-75.0); PLATELET COUNT 242 K/UL (150-450); RED BLOOD COUNT 2.94 M/UL (4.20-5.40); RED CELL DISTRIBUTION WIDTH 14.5 % (11.6-14.8); WHITE BLOOD COUNT 11.4 K/UL (4.8-10.8)
[2018-02-01] MEDS: HydrALAZINE 50mg tab ORAL SCH ×2 (06:13→14:17)
[2018-02-01 06:23] LABS: ANION GAP 14 mmol/L (5-15); CARBON DIOXIDE 25 MMOL/L (21-32); CHLORIDE 97 MMOL/L (98-107); POTASSIUM 3.7 MMOL/L (3.5-5.1); SODIUM 136 MMOL/L (136-145)
[2018-02-01] MEDS: NovoLOG Insulin Flexpen SUBQ SCH ×5 (06:30→20:52)
[2018-02-01 07:01] LABS: ALANINE AMINOTRANSFERASE 42 U/L (12-78); ALBUMIN 2.4 G/DL (3.4-5.0); ALBUMIN/GLOBULIN RATIO 0.5 (1.0-2.7); ALKALINE PHOSPHATASE 144 U/L (46-116); ASPARTATE AMINO TRANSFERASE 48 U/L (15-37); BILIRUBIN,TOTAL 0.7 MG/DL (0.2-1.0); BLOOD UREA NITROGEN 58 mg/dL (7-18); CALCIUM 7.6 MG/DL (8.5-10.1); CREATININE 9.4 MG/DL (0.55-1.30); PHOSPHORUS 5.6 MG/DL (2.5-4.9)
--- NOTE | 2018-02-01 07:37 | General Progress Note ---
Assessment/Plan Problem List: (1) Septic shock Assessment & Plan: WBC starting to improve slowly, trending down cont abx per ID, IV vanco and zosyn, dc'd po vanco per id recs, us abd pending pending cultures, bcx ngtd, cdiff neg LA 3.5 on admit, resolved now cxr reviewed, pulm edema noted, no consolidations CT abd/pelvis showing thickening at anorectal region, likely infectious cause, cont abx per ID recs Nephro consulted tele ICD Codes: A41.9 - Sepsis, unspecified organism; R65.21 - Severe sepsis with septic shock SNOMED: 05938621 (2) NSTEMI (non-ST elevated myocardial infarction) Assessment & Plan: type II nstemi demand ischemia due to esrd and septic shock no chest pain ekg reviewed, nsr no acut st t wave changes noted stable ICD Codes: I21.4 - Non-ST elevation (NSTEMI) myocardial infarction SNOMED: 533484217 (3) ESRD (end stage renal disease) on dialysis Assessment & Plan: Nephro consulted HD per nephro usualy , , St ICD Codes: N18.6 - End stage renal disease; Z99.2 - Dependence on renal dialysis SNOMED: 508763257 (4) Poor historian Assessment & Plan: very poor historian does not know much of her medical history of medications ICD Codes: Z78.9 - Other specified health status SNOMED: 089623240 (5) CAD (coronary artery disease) Assessment & Plan: asa plavix resume home meds patient unsure of what procedures shes underwent however seems like she's had stents in the past statin tele stable ICD Codes: I25.10 - Atherosclerotic heart disease of [place] coronary artery without angina pectoris SNOMED: 39243501 Qualifiers: (6) Diabetes type 2, controlled Assessment & Plan: iss accuchecks hgba1c ICD Codes: E11.9 - Type 2 diabetes mellitus without complications SNOMED: 64765164 Qualifiers: Qualified Codes: E11.22 - Type 2 diabetes mellitus with diabetic chronic kidney disease; N18.6 - End stage renal disease; Z99.2 - Dependence on renal dialysis (7) Anemia in chronic kidney disease Assessment & Plan: hgb 6.7 now will require 1U PRBC lethargic, weak denies any blood BMs no acute blood loss ICD Codes: N18.9 - Chronic kidney disease, unspecified; D63.1 - Anemia in chronic kidney disease SNOMED: 108574526, 770338991 Qualifiers: Qualified Codes: N18.6 - End stage renal disease; D63.1 - Anemia in chronic kidney disease; Z99.2 - Dependence on renal dialysis (8) Acute systolic (congestive) heart failure Assessment & Plan: TTE done on admit, with EF 20-25% cardiology consulted, appreciate recs meds per cards patient unsure of home meds ICD Codes: I50.21 - Acute systolic (congestive) heart failure SNOMED: 10541043, 715705071 Status: stable Assessment/Plan Diet: renal diet DVT Prophylaxis: SCD, continue home coumadin Code Status: Full Inpatient Hospital Classification Declaration: Based on this initial evaluation, and depending on the patient's clinical course, I anticipate that this patient will require hospitalization for 2-3midnights for septic shock and close respiratory/ hemodynamic monitoring. Disposition: Once the patient is stable to leave the hospital, I anticipate the patient will likely be discharged to the following environment: home with HH vs SNF I spent 48 minutes on this patient's case, and 31 minutes were dedicated to counseling and/or care coordination. Discussed with patient/family, nursing staff, SW/CM regarding clinical status, treatment course, and disposition planning. Time of note may not reflect time of encounter. Subjective Date patient seen: Feb 01, 2018 Time patient seen: 07:34 Allergies: Coded Allergies: NO KNOWN DRUG ALLERGIES (Verified Allergy, Unknown, 01/29/18) Subjective f/u nstemi, septic shock, esrd, anemia hgb improved since transfusion however downtrending denies any fevers/chills, no nausea/vomiting or headaches/dizziness admits to some diarrhea, states abd pain is improving ROS: 14 point ROS reviewed and negative except per above subjective Objective Last 24 Hour Vital Signs Date Time Temp Pulse Resp B/P (MAP) Pulse Ox O2 Delivery O2 Flow Rate FiO2 02/01/18 06:13 138/76 02/01/18 04:00 96.9 76 17 138/76 (96) 02/01/18 04:00 71 02/01/18 01:35 75 02/01/18 01:32 97.5 75 18 148/77 (100) 02/01/18 01:31 97.5 02/01/18 01:27 97.3 75 17 148/77 (100) 100 02/01/18 00:00 97.5 75 18 148/77 (100) 01/31/18 22:17 142 75/75 18 22:12 142/75 01/31/18 21:00 Room Air 01/31/18 20:00 97.3 75 17 100 01/31/18 20:00 142/75 (97) 01/31/18 20:00 78 01/31/18 18:09 150/80 01/31/18 16:01 97.7 75 18 137/64 (88) 99 01/31/18 16:00 79 01/31/18 14:24 133/68 01/31/18 12:25 142/72 01/31/18 12:00 80 01/31/18 09:00 Room Air 01/31/18 08:36 144/72 01/31/18 08:35 82 144/72 01/31/18 08:00 80 01/31/18 08:00 97.7 82 18 139/56 (83) 98 Intake and Output 01/31/18 02/01/18 19:00 07:00 Output Total 600 ml Balance -600 ml Output Urine Total 600 ml # Voids 2 # Bowel Movements 2 Laboratory Tests 01/31/18 19:35: Reticulocyte Count 2.2H, Haptoglobin [Pending], PTT Mixing Study [Pending], APTT Patient/Control Mix [Pending], Mix PTT Incubation Time [Pending], Mix PTT Normal/Saline 1:1 Immediate [Pending], Thrombin Time Normal Plasma [Pending], Total Bilirubin 0.8, Troponin I 0.342H, Carcinoembryonic Antigen [Pending], Thyroid Stimulating Hormone (TSH) 1.329, Rheumatoid Factor Screen [Pending] 02/01/18 05:20: Total Bilirubin 0.7, Troponin I 0.437H, White Blood Count 11.4H, Red Blood Count 2.94L, Hemoglobin 8.8L, Hematocrit 27.1L, Mean Corpuscular Volume 92, Mean Corpuscular Hemoglobin 30.0, Mean Corpuscular Hemoglobin Concent 32.6, Red Cell Distribution Width 14.5, Platelet Count 242, Mean Platelet Volume 6.7, Neutrophils (%) (Auto) 73.7, Lymphocytes (%) (Auto) 13.5L, Monocytes (%) (Auto) 6.9, Eosinophils (%) (Auto) 4.8H, Basophils (%) (Auto) 1.1, Sodium Level 136, Potassium Level 3.7, Chloride Level 97L, Carbon Dioxide Level 25, Anion Gap 14, Blood Urea Nitrogen 58H, Creatinine 9.4H, Estimat Glomerular Filtration Rate 4.2 , Glucose Level 87, Uric Acid 7.7H, Calcium Level 7.6L, Phosphorus Level 5.6H, Magnesium Level 2.1, Aspartate Amino Transf (AST/SGOT) 48H, Alanine Aminotransferase (ALT/SGPT) 42, Alkaline Phosphatase 144H, Total Protein 7.1, Albumin 2.4L, Globulin 4.7, Albumin/Globulin Ratio 0.5L Height (Feet): 5 Height (Inches): 6.00 Weight (Pounds): 110 General Appearance: WD/WN, no apparent distress, alert EENT: PERRL/EOMI, normal ENT inspection, TMs normal, pharynx normal Neck: non-tender, normal alignment, supple, normal inspection Cardiovascular: normal peripheral pulses, normal rate, regular rhythm Respiratory/Chest: chest wall non-tender, lungs clear, normal breath sounds Abdomen: normal bowel sounds, non tender, soft, no organomegaly, no mass Extremities: normal range of motion, non-tender, normal inspection 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
[2018-02-01] MEDS ORDERED: Lisinopril 10mg tab ORAL SCH (09:00)
[2018-02-01] MEDS: Carvedilol 12.5mg tab ORAL SCH ×2 (09:16→20:53)
--- NOTE | 2018-02-01 10:30 | Diagnostic Imaging Report ---
Indication: Chest pain Technique: One view of the chest Comparison: 01/29/2018 Findings: Cardiomegaly persists. Previously demonstrated interstitial edema has improved. The pleural spaces are clear. The heart is enlarged. A calcification is again demonstrated in the left breast Impression: Improved interstitial edema, over 3 days
--- NOTE | 2018-02-01 12:19 | General Progress Note ---
Assessment/Plan Status: stable Assessment/Plan # Leukocytosis is due to Septic shock, high Lactic acid, has vre --> ID is following, appreciate recs. --> cultures are negative --> is on zosyn and vanc, broad spectrum abx --> have ordered for a peripheral flow cytometry r/o leukemia - pending --> peripheral smear has been reviewed, no blasts --> imaging reviewed and shows anorectal thickening --> cea was ordered - pending --> wbc trend 31k-->20k-->11.4 # Anemia RULE OUT hemolysis with unconjugated bilirubin --> workup has been ordered, retic, ldh, bili repeat - pending --> peripheral smear has been reviewed, no blasts --> Hgb goal >7, transfuse prn. # Coagulopathy that has worsened with inr 2.9 --> mixing study ordered - pending --> rule out dic # ESRD on HD for 2 years, has left arm fistula --> epogen as per neprho --> HD as required # DM. Monitor BS levels. --> A1C goal <7 # CAD, elevated Troponin --> per cards eval, appreciate recs # NSTEMI, 2d echo shows 15-20% hypokinesis --> repeat trop Greatly appreciate consultation! Subjective Date patient seen: Feb 01, 2018 Hematologic/Lymphatic: Reports: anemia Allergies: Coded Allergies: NO KNOWN DRUG ALLERGIES (Verified Allergy, Unknown, 01/29/18) All Systems: reviewed and negative except above Subjective Pt awake and alert. No acute events. CXR shows improved interstitial edema, over 3 days. H/H stable. Objective Last 24 Hour Vital Signs Date Time Temp Pulse Resp B/P (MAP) Pulse Ox O2 Delivery O2 Flow Rate FiO2 02/01/18 09:16 149/68 02/01/18 09:16 79 149/68 02/01/18 09:15 149/68 02/01/18 09:00 Room Air 02/01/18 08:00 78 02/01/18 08:00 97.9 79 20 149/68 (95) 02/01/18 06:13 138/76 02/01/18 04:00 96.9 76 17 138/76 (96) 02/01/18 04:00 71 02/01/18 01:35 75 02/01/18 01:32 97.5 75 18 148/77 (100) 02/01/18 01:31 97.5 02/01/18 01:27 97.3 75 17 148/77 (100) 100 02/01/18 00:00 97.5 75 18 148/77 (100) 01/31/18 22:17 142 75/75 01/31/18 22:12 142/75 01/31/18 21:00 Room Air 01/31/18 20:00 97.3 75 17 100 01/31/18 20:00 142/75 (97) 01/31/18 20:00 78 01/31/18 18:09 150/80 01/31/18 16:01 97.7 75 18 137/64 (88) 99 01/31/18 16:00 79 01/31/18 14:24 133/68 01/31/18 12:25 142/72 01/31/18 12:00 80 Intake and Output 01/31/18 02/01/18 19:00 07:00 Output Total 600 ml Balance -600 ml Output Urine Total 600 ml # Voids 2 # Bowel Movements 2 Laboratory Tests 01/31/18 19:35: Reticulocyte Count 2.2H, Haptoglobin [Pending], PTT Mixing Study [Pending], APTT Patient/Control Mix [Pending], Mix PTT Incubation Time [Pending], Mix PTT Normal/Saline 1:1 Immediate [Pending], Thrombin Time Normal Plasma [Pending], Total Bilirubin 0.8, Troponin I 0.342H, Carcinoembryonic Antigen [Pending], Thyroid Stimulating Hormone (TSH) 1.329, Rheumatoid Factor Screen [Pending] 02/01/18 05:20: Total Bilirubin 0.7, Troponin I 0.437H, White Blood Count 11.4H, Red Blood Count 2.94L, Hemoglobin 8.8L, Hematocrit 27.1L, Mean Corpuscular Volume 92, Mean Corpuscular Hemoglobin 30.0, Mean Corpuscular Hemoglobin Concent 32.6, Red Cell Distribution Width 14.5, Platelet Count 242, Mean Platelet Volume 6.7, Neutrophils (%) (Auto) 73.7, Lymphocytes (%) (Auto) 13.5L, Monocytes (%) (Auto) 6.9, Eosinophils (%) (Auto) 4.8H, Basophils (%) (Auto) 1.1, Sodium Level 136, Potassium Level 3.7, Chloride Level 97L, Carbon Dioxide Level 25, Anion Gap 14, Blood Urea Nitrogen 58H, Creatinine 9.4H, Estimat Glomerular Filtration Rate 4.2 , Glucose Level 87, Uric Acid 7.7H, Calcium Level 7.6L, Phosphorus Level 5.6H, Magnesium Level 2.1, Aspartate Amino Transf (AST/SGOT) 48H, Alanine Aminotransferase (ALT/SGPT) 42, Alkaline Phosphatase 144H, Total Protein 7.1, Albumin 2.4L, Globulin 4.7, Albumin/Globulin Ratio 0.5L Height (Feet): 5 Height (Inches): 6.00 Weight (Pounds): 110 Toribio Suárez MD Feb 01, 2018 12:19
--- NOTE | 2018-02-01 12:20 | Nephrology Progress Note ---
Assessment/Plan Problem List: (1) ESRD (end stage renal disease) on dialysis (2) CAD (coronary artery disease) (3) DM hyperosmolarity type II (4) Acute systolic (congestive) heart failure (5) Anemia in chronic kidney disease (6) Diabetes type 2, controlled (7) Cardiomyopathy (8) Sepsis Assessment Sepsis, high Lactic acid ESRD on HD for 2 years, has left arm fistula Anemia of CKD worsened DM CAD, elevated Troponin Plan HD 01/30 & Transfusion- done next HD 02/02 increase dose of Isordil and Zestril Antibiotics Adjust BS and BP meds Gastric support optimize cardiac meds 2D echo Global LV hypokinesis. Anterior septum basal to distal hypokinesis . Left ventricular ejection fraction estimated to be 20-25 %. Subjective ROS Limited/Unobtainable: No Constitutional: Reports: malaise Objective Objective Last 24 Hour Vital Signs Date Time Temp Pulse Resp B/P (MAP) Pulse Ox O2 Delivery O2 Flow Rate FiO2 02/01/18 09:16 149/68 02/01/18 09:16 79 149/68 02/01/18 09:15 149/68 02/01/18 09:00 Room Air 02/01/18 08:00 78 02/01/18 08:00 97.9 79 20 149/68 (95) 02/01/18 06:13 138/76 02/01/18 04:00 96.9 76 17 138/76 (96) 02/01/18 04:00 71 02/01/18 01:35 75 02/01/18 01:32 97.5 75 18 148/77 (100) 02/01/18 01:31 97.5 02/01/18 01:27 97.3 75 17 148/77 (100) 100 02/01/18 00:00 97.5 75 18 148/77 (100) 01/31/18 22:17 142 75/75 01/31/18 22:12 142/75 01/31/18 21:00 Room Air 01/31/18 20:00 97.3 75 17 100 01/31/18 20:00 142/75 (97) 01/31/18 20:00 78 01/31/18 18:09 150/80 01/31/18 16:01 97.7 75 18 137/64 (88) 99 01/31/18 16:00 79 01/31/18 14:24 133/68 01/31/18 12:25 142/72 Intake and Output 01/31/18 02/01/18 19:00 07:00 Output Total 600 ml Balance -600 ml Output Urine Total 600 ml # Voids 2 # Bowel Movements 2 Laboratory Tests 01/31/18 19:35: Reticulocyte Count 2.2H, Haptoglobin [Pending], PTT Mixing Study [Pending], APTT Patient/Control Mix [Pending], Mix PTT Incubation Time [Pending], Mix PTT Normal/Saline 1:1 Immediate [Pending], Thrombin Time Normal Plasma [Pending], Total Bilirubin 0.8, Troponin I 0.342H, Carcinoembryonic Antigen [Pending], Thyroid Stimulating Hormone (TSH) 1.329, Rheumatoid Factor Screen [Pending] 02/01/18 05:20: Total Bilirubin 0.7, Troponin I 0.437H, White Blood Count 11.4H, Red Blood Count 2.94L, Hemoglobin 8.8L, Hematocrit 27.1L, Mean Corpuscular Volume 92, Mean Corpuscular Hemoglobin 30.0, Mean Corpuscular Hemoglobin Concent 32.6, Red Cell Distribution Width 14.5, Platelet Count 242, Mean Platelet Volume 6.7, Neutrophils (%) (Auto) 73.7, Lymphocytes (%) (Auto) 13.5L, Monocytes (%) (Auto) 6.9, Eosinophils (%) (Auto) 4.8H, Basophils (%) (Auto) 1.1, Sodium Level 136, Potassium Level 3.7, Chloride Level 97L, Carbon Dioxide Level 25, Anion Gap 14, Blood Urea Nitrogen 58H, Creatinine 9.4H, Estimat Glomerular Filtration Rate 4.2 , Glucose Level 87, Uric Acid 7.7H, Calcium Level 7.6L, Phosphorus Level 5.6H, Magnesium Level 2.1, Aspartate Amino Transf (AST/SGOT) 48H, Alanine Aminotransferase (ALT/SGPT) 42, Alkaline Phosphatase 144H, Total Protein 7.1, Albumin 2.4L, Globulin 4.7, Albumin/Globulin Ratio 0.5L Height (Feet): 5 Height (Inches): 6.00 Weight (Pounds): 110 General Appearance: no apparent distress Cardiovascular: normal rate Respiratory/Chest: decreased breath sounds Abdomen: soft, distended Objective no change Washington Pavon MD Feb 01, 2018 12:20
--- NOTE | 2018-02-01 14:49 | Cardiology Report ---
APPROVED REPORT EKG Measurement Heart [id number] Sinus tachycardia Abnormal ECG
--- NOTE | 2018-02-01 15:29 | Diagnostic Imaging Report ---
Indication: Abdominal pain, abnormal liver function tests and renal function tests. Doppler interrogation of the pancreatic and hepatic vessels Technique: Quevedo-scale and duplex images of the upper abdomen were obtained Comparison: Reference made to abdomen pelvis CT 01/30/2018 Findings: Gallbladder demonstrates mild wall thickening, gallbladder wall measuring 3 mm thick. There is a 4 mm wall adherent polyp near the neck, but no definite gallstones. Sonographic Redding's sign is negative. Common bile duct measures 4 mm in diameter. No intrahepatic biliary ductal dilatation. Liver demonstrates normal echogenicity, no focal abnormality. Portal vein and hepatic veins are patent. Pancreas is unremarkable. Spleen is unremarkable. Left kidney measures 9.2 cm in length. Right kidney measures 8.4 cm length. Both kidneys demonstrate normal echogenicity. There is no hydronephrosis. There is a small right upper pole renal cyst. Echogenic focus is seen in the right upper pole, corresponding to a calculus demonstrated on recent CT scan. A calculus is also seen in the right upper pole collecting system, likewise demonstrated on recent CT as well. . Nonaneurysmal abdominal aorta. Bilateral pleural fluid is incidentally noted Impression: Small gallbladder polyp. Negative for gallstones Gallbladder wall thickening. In the absence of gallstones, significance uncertain, could indicate acalculous acute cholecystitis, or acute cholecystitis due to occult stone disease. More likely on the basis of hemodynamic derangements, however. Correlate with clinical findings, consider hepatobiliary nuclear scan for better characterization if there is high clinical suspicion Negative for dilated ducts Bilateral nonobstructive intrarenal calculi, also described on recent CT scan Bilateral pleural effusions Incidental finding right renal cyst
[2018-02-01] MEDS ORDERED: Tubing IV Secondary IV ONE (17:18)
[2018-02-01 19:05] LABS: BILIRUBIN,DIRECT 0.3 MG/DL (0.0-0.3); FERRITIN 1256 NG/ML (8-388); LACTATE DEHYDROGENASE 277 U/L (81-234)
[2018-02-01 20:06] LABS: IRON 36 ug/dL (50-175); TOTAL IRON BINDING CAPACITY 195 ug/dL (250-450)
[2018-02-01 20:11] LABS: % IRON SATURATION 18 % (15-50)
--- NOTE | 2018-02-01 20:28 | Cardiology Progress Note ---
Assessment/Plan Status: stable Assessment/Plan Assessment/Plan Problem List: (1) Septic shock (2) NSTEMI (3) ESRD (4) CAD (5) HTN (6) DM Monitor WBC -> normal Broad spectrum Abx Maintain HD Mild IV fluid hydration Follow up cultures Trend EKG/Troponin NO indication for cardiac cath Outpatient stress test Aspirin/Plavix Statin Nitro prn chest pain Transfuse PRBC <7 Goal directed medical therapy: Hydralazine/isordil Life vest ordered for systolic dysfunction Subjective Cardiovascular: Reports: no symptoms Respiratory: Reports: no symptoms Gastrointestinal/Abdominal: Reports: no symptoms Genitourinary: Reports: no symptoms Subjective No acute events vitals stable, poor historian, no distress, WBC coming down, BP elevated Objective Last 24 Hour Vital Signs Date Time Temp Pulse Resp B/P (MAP) Pulse Ox O2 Delivery O2 Flow Rate FiO2 02/01/18 17:22 161/63 02/01/18 16:00 78 02/01/18 16:00 97.7 78 20 161/63 (95) 02/01/18 14:17 132/58 02/01/18 12:29 149/68 02/01/18 11:45 74 02/01/18 09:16 149/68 02/01/18 09:16 79 149/68 02/01/18 09:15 149/68 02/01/18 09:00 Room Air 02/01/18 08:00 78 02/01/18 08:00 97.9 79 20 149/68 (95) 02/01/18 06:13 138/76 02/01/18 04:00 96.9 76 17 138/76 (96) 02/01/18 04:00 71 02/01/18 01:35 75 02/01/18 01:32 97.5 75 18 148/77 (100) 02/01/18 01:31 97.5 02/01/18 01:27 97.3 75 17 148/77 (100) 100 02/01/18 00:00 97.5 75 18 148/77 (100) 01/31/18 22:17 142 75/75 01/31/18 22:12 142/75 01/31/18 21:00 Room Air General Appearance: no apparent distress EENT: PERRL/EOMI, normal ENT inspection, pharynx normal Neck: non-tender, normal inspection, no JVD Rhythm: NSR Cardiovascular: normal peripheral pulses, normal rate, regular rhythm Respiratory/Chest: chest wall non-tender, lungs clear, normal breath sounds Abdomen: normal bowel sounds, non tender, soft Extremities: normal range of motion, non-tender 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 Intake and Output 01/31/18 02/01/18 18:59 06:59 Output Total 600 ml Balance -600 ml Output Urine Total 600 ml # Voids 2 # Bowel Movements 2 Laboratory Tests Test 02/01/18 05:20 02/01/18 17:39 02/01/18 18:00 White Blood Count 11.4 K/UL (4.8-10.8) H Red Blood Count 2.94 M/UL (4.20-5.40) L Hemoglobin 8.8 G/DL (12.0-16.0) L Hematocrit 27.1 % (37.0-47.0) L Mean Corpuscular Volume 92 FL (80-99) Mean Corpuscular Hemoglobin 30.0 PG (27.0-31.0) Mean Corpuscular Hemoglobin Concent 32.6 G/DL (32.0-36.0) Red Cell Distribution Width 14.5 % (11.6-14.8) Platelet Count 242 K/UL (150-450) Mean Platelet Volume 6.7 FL (6.5-10.1) Neutrophils (%) (Auto) 73.7 % (45.0-75.0) Lymphocytes (%) (Auto) 13.5 % (20.0-45.0) L Monocytes (%) (Auto) 6.9 % (1.0-10.0) Eosinophils (%) (Auto) 4.8 % (0.0-3.0) H Basophils (%) (Auto) 1.1 % (0.0-2.0) Sodium Level 136 MMOL/L (136-145) Potassium Level 3.7 MMOL/L (3.5-5.1) Chloride Level 97 MMOL/L (98-107) L Carbon Dioxide Level 25 MMOL/L (21-32) Anion Gap 14 mmol/L (5-15) Blood Urea Nitrogen 58 mg/dL (7-18) H Creatinine 9.4 MG/DL (0.55-1.30) H Estimat Glomerular Filtration Rate 4.2 mL/min (>60) Glucose Level 87 MG/DL (74-106) Uric Acid 7.7 MG/DL (2.6-7.2) H Calcium Level 7.6 MG/DL (8.5-10.1) L Phosphorus Level 5.6 MG/DL (2.5-4.9) H Magnesium Level 2.1 MG/DL (1.8-2.4) Total Bilirubin 0.7 MG/DL (0.2-1.0) Aspartate Amino Transf (AST/SGOT) 48 U/L (15-37) H Alanine Aminotransferase (ALT/SGPT) 42 U/L (12-78) Alkaline Phosphatase 144 U/L (46-116) H Troponin I 0.437 ng/mL (0.000-0.056) Total Protein 7.1 G/DL (6.4-8.2) Albumin 2.4 G/DL (3.4-5.0) L Globulin 4.7 g/dL Albumin/Globulin Ratio 0.5 (1.0-2.7) L Stool Occult Blood Pending Prothrombin Time 20.0 SEC (9.30-11.50) H Prothromb Time International Ratio 2.0 (0.9-1.1) H Fibrinogen 437 mg/dL (200-400) H Iron Level 36 ug/dL (50-175) L Total Iron Binding Capacity 195 ug/dL (250-450) L Percent Iron Saturation 18 % (15-50) Unsaturated Iron Binding 159 ug/dL (112-346) Ferritin 1256 NG/ML (8-388) H Direct Bilirubin 0.3 MG/DL (0.0-0.3) Lactate Dehydrogenase 277 U/L (81-234) H Folate 46.1 NG/ML (8.6-58.9) Random Vancomycin Level 21.7 ug/mL Anti-Nuclear Antibody Screen Pending Microbiology Date/Time Source Procedure Growth Status 01/30/18 02:40 Stool Clostridium difficile Toxin Assay - Final Complete FilsoMikhail catalan MD Feb 01, 2018 20:28
[2018-02-01] MEDS: Lisinopril 2.5mg tab ORAL SCH (20:53)
[2018-02-01] MEDS: Atorvastatin 80mg tab ORAL SCH (20:53)
[2018-02-01] MEDS: Zolpidem 5mg tab ORAL PRN (20:53)
[2018-02-01] MEDS: HydrALAZINE 25mg tab ORAL SCH (22:46)
[2018-02-02] VITALS: BP 140/67
[2018-02-02 04:00] VITALS: BP 131/60
[2018-02-02] MEDS: HydrALAZINE 25mg tab ORAL SCH ×2 (06:38→13:38)
[2018-02-02] MEDS: NovoLOG Insulin Flexpen SUBQ SCH ×4 (07:36→21:54)
--- NOTE | 2018-02-02 07:36 | General Progress Note ---
Assessment/Plan Problem List: (1) Septic shock Assessment & Plan: WBC starting to improve slowly, trending down cont abx per ID, IV vanco and zosyn, dc'd po vanco per id recs pending cultures, bcx ngtd, cdiff neg LA 3.5 on admit, resolved now cxr reviewed, pulm edema noted, no consolidations CT abd/pelvis showing thickening at anorectal region, likely infectious cause, cont abx per ID recs Nephro consulted tele ICD Codes: A41.9 - Sepsis, unspecified organism; R65.21 - Severe sepsis with septic shock SNOMED: 22249159 (2) NSTEMI (non-ST elevated myocardial infarction) Assessment & Plan: type II nstemi demand ischemia due to esrd and septic shock no chest pain ekg reviewed, nsr no acut st t wave changes noted stable ICD Codes: I21.4 - Non-ST elevation (NSTEMI) myocardial infarction SNOMED: 926792491 (3) ESRD (end stage renal disease) on dialysis Assessment & Plan: Nephro consulted HD per nephro HD today, will monitor h/h post hd ICD Codes: N18.6 - End stage renal disease; Z99.2 - Dependence on renal dialysis SNOMED: 962492669 (4) Poor historian Assessment & Plan: very poor historian does not know much of her medical history of medications ICD Codes: Z78.9 - Other specified health status SNOMED: 466865829 (5) CAD (coronary artery disease) Assessment & Plan: asa plavix resume home meds patient unsure of what procedures shes underwent however seems like she's had stents in the past statin tele stable ICD Codes: I25.10 - Atherosclerotic heart disease of [place] coronary artery without angina pectoris SNOMED: 42367190 Qualifiers: (6) Diabetes type 2, controlled Assessment & Plan: iss accuchecks hgba1c ICD Codes: E11.9 - Type 2 diabetes mellitus without complications SNOMED: 38747092 Qualifiers: Qualified Codes: E11.22 - Type 2 diabetes mellitus with diabetic chronic kidney disease; N18.6 - End stage renal disease; Z99.2 - Dependence on renal dialysis (7) Anemia in chronic kidney disease Assessment & Plan: hgb 6.7 now will require 1U PRBC lethargic, weak denies any blood BMs no acute blood loss discussed with hematology who will eval if patient still needs to continue home coumadin, unsure of why she is on it, no afib, patient denies knowing of any hx of afib or dvt. US LE neg for dvt.. pending further eval ICD Codes: N18.9 - Chronic kidney disease, unspecified; D63.1 - Anemia in chronic kidney disease SNOMED: 101678229, [id number] Qualifiers: Qualified Codes: N18.6 - End stage renal disease; D63.1 - Anemia in chronic kidney disease; Z99.2 - Dependence on renal dialysis (8) Acute systolic (congestive) heart failure Assessment & Plan: TTE done on admit, with EF 20-25% cardiology consulted, appreciate recs meds per cards patient unsure of home meds ICD Codes: I50.21 - Acute systolic (congestive) heart failure SNOMED: 00325699, [id number] Assessment/Plan Diet: renal diet DVT Prophylaxis: SCD, OFF HOME COUMADIN DUE TO ANEMIA, PENDING HEMATOLOGY RECS Code Status: Full Inpatient I HAVE REVIEWED ALL IMAGING, LABS, AND MEDICATIONS AND DISCUSSED CASE AT LENGTH WITH ID, NEPHRO AND HEMATOLOGY PLAN DISCHARGE TOMORROW IF REMAINS STABLE POST HD BASED ON CONSULTANTS RECS Hospital Classification Declaration: Based on this initial evaluation, and depending on the patient's clinical course, I anticipate that this patient will require hospitalization for 2-3midnights for septic shock and close respiratory/ hemodynamic monitoring. Disposition: Once the patient is stable to leave the hospital, I anticipate the patient will likely be discharged to the following environment: home with HH vs SNF I spent 45 minutes on this patient's case, and 30 minutes were dedicated to counseling and/or care coordination. Discussed with patient/family, nursing staff, SW/CM regarding clinical status, treatment course, and disposition planning. Time of note may not reflect time of encounter. Subjective Date patient seen: Feb 02, 2018 Time patient seen: 07:30 Allergies: Coded Allergies: NO KNOWN DRUG ALLERGIES (Verified Allergy, Unknown, 01/29/18) Subjective f/u nstemi, septic shock, esrd, anemia hgb improved since transfusion however downtrending denies any fevers/chills, no nausea/vomiting or headaches/dizziness, states diarrhea has been improving no acute events overnight planned for HD today, monitor h/h after hd pending eval from hematology to decide if patient should be restarted on her home coumadin or now, US LE neg, no sx of afib ROS: 14 point ROS reviewed and negative except per above subjective Objective Last 24 Hour Vital Signs Date Time Temp Pulse Resp B/P (MAP) Pulse Ox O2 Delivery O2 Flow Rate FiO2 02/02/18 06:38 138/62 02/02/18 04:20 71 02/02/18 04:00 97.2 76 20 131/60 (83) 97 02/02/18 00:00 73 02/02/18 00:00 97.9 78 20 140/67 (91) 97 02/01/18 22:46 129/60 02/01/18 21:00 Room Air 02/01/18 20:53 128/63 02/01/18 20:53 78 128/63 02/01/18 20:00 98.4 78 18 128/63 (84) 97 02/01/18 19:52 79 02/01/18 17:22 161/63 02/01/18 16:00 78 02/01/18 16:00 97.7 78 20 161/63 (95) 02/01/18 14:17 132/58 02/01/18 12:29 149/68 02/01/18 11:45 74 02/01/18 09:16 149/68 02/01/18 09:16 79 149/68 02/01/18 09:15 149/68 02/01/18 09:00 Room Air 02/01/18 08:00 78 02/01/18 08:00 97.9 79 20 149/68 (95) Intake and Output 02/01/18 02/02/18 19:00 07:00 Intake Total 500 ml Balance 500 ml Intake Oral 500 ml # Voids 3 3 # Bowel Movements 1 Laboratory Tests 02/01/18 17:39: Stool Occult Blood [Pending] 02/01/18 18:00: Prothrombin Time 20.0H, Prothromb Time International Ratio 2.0H, Fibrinogen 437H , Iron Level 36L, Total Iron Binding Capacity 195L, Percent Iron Saturation 18, Unsaturated Iron Binding 159, Ferritin 1256H, Direct Bilirubin 0.3, Lactate Dehydrogenase 277H, Folate 46.1, Random Vancomycin Level 21.7, Anti-Nuclear Antibody Screen [Pending] Height (Feet): 5 Height (Inches): 6.00 Weight (Pounds): 106 General Appearance: no apparent distress, alert EENT: PERRL/EOMI, normal ENT inspection, TMs normal, pharynx normal Neck: non-tender, normal alignment, supple Cardiovascular: normal peripheral pulses, normal rate, regular rhythm Respiratory/Chest: chest wall non-tender, lungs clear, normal breath sounds, no respiratory distress, no accessory muscle use Abdomen: normal bowel sounds, non tender, soft, no organomegaly, no mass Extremities: normal range of motion, non-tender, normal inspection, no calf tenderness 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
--- NOTE | 2018-02-02 07:37 | General Progress Note ---
Subjective Allergies: Coded Allergies: NO KNOWN DRUG ALLERGIES (Verified Allergy, Unknown, 01/29/18) Subjective Date of Discussion: 02/02/18 A [id number] discussion with the PATIENT regarding the patient's advanced care planning took place during this hospitalization on the above date. The discussion included the explanation and discussion of advance directives and associated forms/documents, as well as the patient's current code status. We also discussed at length the patient's medical conditions (both acute and chronic), general prognosis, treatment options, and goals of care. The following summarizes the discussion: Advance Care Planning/Goals of Care: - Will attempt to fill out an AD and/or POLST with the patient prior to discharge, if not already completed - Continue current evaluation and management of any acute and chronic medical issues - Will continue to support the patient/family - Will continue to discuss both short- and long-term goals of care DPOA-HC/Surrogate Decision Maker: None currently appointed Code Status: Full Code AD Forms/Documents Completed: Deferred A total of 35 minutes was spent on this discussion, including counseling, answering questions, and completing, if any, pertinent advanced care planning forms/documents. Jesús Low MD Feb 02, 2018 07:37
[2018-02-02 07:57] LABS: BASOPHILS % (AUTO) 0.7 % (0.0-2.0); EOSINOPHILS % (AUTO) 4.2 % (0.0-3.0); HEMOGLOBIN 9.2 G/DL (12.0-16.0); LYMPHOCYTES % (AUTO) 10.3 % (20.0-45.0); MEAN CORPUSCULAR VOLUME 95 FL (80-99); NEUTROPHILS % (AUTO) 77.8 % (45.0-75.0); PLATELET COUNT 274 K/UL (150-450); RED BLOOD COUNT 3.06 M/UL (4.20-5.40); RED CELL DISTRIBUTION WIDTH 14.5 % (11.6-14.8)
[2018-02-02 08:00] VITALS: BP 150/70
[2018-02-02 08:09] LABS: ANION GAP 18 mmol/L (5-15); BLOOD UREA NITROGEN 73 mg/dL (7-18); CARBON DIOXIDE 23 MMOL/L (21-32); CHLORIDE 95 MMOL/L (98-107); CREATININE 11.1 MG/DL (0.55-1.30); SODIUM 136 MMOL/L (136-145)
[2018-02-02] MEDS: Carvedilol 12.5mg tab ORAL SCH ×2 (08:20→21:47)
[2018-02-02] MEDS: Piperacillin/Tazobactam 2.25 GM in NS 55 ML IV SCH ×4 (08:20→15:54)
[2018-02-02] MEDS: Lisinopril 2.5mg tab ORAL SCH ×2 (08:21→21:46)
[2018-02-02 11:51] VITALS: BP 154/75
--- NOTE | 2018-02-02 15:00 | Nephrology Progress Note ---
Assessment/Plan Problem List: (1) ESRD (end stage renal disease) on dialysis (2) CAD (coronary artery disease) (3) DM hyperosmolarity type II (4) Acute systolic (congestive) heart failure (5) Anemia in chronic kidney disease (6) Diabetes type 2, controlled (7) Cardiomyopathy (8) Sepsis Assessment Sepsis, high Lactic acid ESRD on HD for 2 years, has left arm fistula Anemia of CKD worsened DM CAD, elevated Troponin Plan HD 01/30 & Transfusion- done next HD 02/02 increase dose of Isordil and Zestril Antibiotics Adjust BS and BP meds Gastric support optimize cardiac meds 2D echo Global LV hypokinesis. Anterior septum basal to distal hypokinesis . Left ventricular ejection fraction estimated to be 20-25 %. Subjective ROS Limited/Unobtainable: No Constitutional: Reports: malaise Objective Objective Last 24 Hour Vital Signs Date Time Temp Pulse Resp B/P (MAP) Pulse Ox O2 Delivery O2 Flow Rate FiO2 02/02/18 12:00 79 02/02/18 11:51 97.6 73 20 154/75 (101) 98 02/02/18 09:00 Room Air 02/02/18 08:00 97.8 75 20 150/70 (96) 99 02/02/18 08:00 82 02/02/18 06:38 138/62 02/02/18 04:20 71 02/02/18 04:00 97.2 76 20 131/60 (83) 97 02/02/18 00:00 73 02/02/18 00:00 97.9 78 20 140/67 (91) 97 02/01/18 22:46 129/60 02/01/18 21:00 Room Air 02/01/18 20:53 128/63 02/01/18 20:53 78 128/63 02/01/18 20:00 98.4 78 18 128/63 (84) 97 02/01/18 19:52 79 02/01/18 17:22 161/63 02/01/18 16:00 78 02/01/18 16:00 97.7 78 20 161/63 (95) Intake and Output 02/01/18 02/02/18 19:00 07:00 Intake Total 500 ml Balance 500 ml Intake Oral 500 ml # Voids 3 3 # Bowel Movements 1 Laboratory Tests 02/01/18 17:39: Stool Occult Blood Positive 02/01/18 18:00: Prothrombin Time 20.0H, Prothromb Time International Ratio 2.0H, Fibrinogen 437H , Iron Level 36L, Total Iron Binding Capacity 195L, Percent Iron Saturation 18, Unsaturated Iron Binding 159, Ferritin 1256H, Direct Bilirubin 0.3, Lactate Dehydrogenase 277H, Folate 46.1, Random Vancomycin Level 21.7, Anti-Nuclear Antibody Screen [Pending] 02/02/18 06:54: White Blood Count 11.0H, Red Blood Count 3.06L, Hemoglobin 9.2L, Hematocrit 29.0L, Mean Corpuscular Volume 95, Mean Corpuscular Hemoglobin 30.0, Mean Corpuscular Hemoglobin Concent 31.6L, Red Cell Distribution Width 14.5, Platelet Count 274, Mean Platelet Volume 6.9, Neutrophils (%) (Auto) 77.8H, Lymphocytes (%) (Auto) 10.3L, Monocytes (%) (Auto) 7.0, Eosinophils (%) (Auto) 4.2H, Basophils (%) (Auto) 0.7, Sodium Level 136, Potassium Level 4.0, Chloride Level 95L, Carbon Dioxide Level 23, Anion Gap 18H, Blood Urea Nitrogen 73H, Creatinine 11.1H, Estimat Glomerular Filtration Rate 3.5, Glucose Level 127H, Calcium Level 8.0L Height (Feet): 5 Height (Inches): 6.00 Weight (Pounds): 106 General Appearance: no apparent distress Cardiovascular: normal rate Respiratory/Chest: decreased breath sounds Abdomen: soft Objective no change Washington Pavon MD Feb 02, 2018 15:00
[2018-02-02 16:00] VITALS: BP 160/75
--- NOTE | 2018-02-02 17:37 | Infectious Diseases Prog Note ---
Assessment/Plan Assessment/Plan ASSESSMENT AND PLAN: 1. sepsis, fevers, leukocytosis, ? cholecystitis, elevated lft's noted, CT abdomen and pelvis noted, us noted - zosyn, discontinue vancomycin - c.diff. negative - discontinue po vancomycin - blood cultures negative to date - leukocytosis and fevers better - monitor labs, check abdominal US, check f/u chest -x-ray - will order hida scan 2. The patient has end-stage renal disease, on hemodialysis, left arm fistula. 3. History of Staph aureus bacteremia, unclear how long she was treated for that. 4. Diabetes. 5. Hyperlipidemia. 6. Hypertension. 7. End-stage renal disease. 8. Anemia. 9. Hemodialysis. 10. History of anticoagulation. 11. History of pancreatitis. 12. History of non-STEMI. 13. No known allergies. 14. Social history is negative. 15. MAR was noted 16. Case was discussed with RN. 17. Family history is noncontributory. 18. Social history is negative. 19. Continue treatment per primary consultants. 20. Orders were entered and noted. Subjective Constitutional: Denies: fever HEENT: Denies: congestion Respiratory: Denies: shortness of breath Cardiovascular: Denies: chest pain Gastrointestinal/Abdominal: Denies: nausea, vomiting, diarrhea Genitourinary: Reports: other - no truong, no cva pain Neurologic: Reports: headache Psychiatric: Denies: depression Skin: Denies: rash Hematologic: Denies: bleeding Musculoskeletal: Denies: pain Allergies: Coded Allergies: NO KNOWN DRUG ALLERGIES (Verified Allergy, Unknown, 01/29/18) Objective Vital Signs Last 24 Hour Vital Signs Date Time Temp Pulse Resp B/P (MAP) Pulse Ox O2 Delivery O2 Flow Rate FiO2 02/02/18 16:58 160/75 02/02/18 16:00 87 02/02/18 16:00 98.8 89 20 160/75 (103) 95 02/02/18 12:00 79 02/02/18 11:51 97.6 73 20 154/75 (101) 98 02/02/18 09:00 Room Air 02/02/18 08:00 97.8 75 20 150/70 (96) 99 02/02/18 08:00 82 02/02/18 06:38 138/62 12/19/18 04:20 71 02/02/18 04:00 97.2 76 20 131/60 (83) 97 02/02/18 00:00 73 02/02/18 00:00 97.9 78 20 140/67 (91) 97 02/01/18 22:46 129/60 02/01/18 21:00 Room Air 02/01/18 20:53 128/63 02/01/18 20:53 78 128/63 02/01/18 20:00 98.4 78 18 128/63 (84) 97 02/01/18 19:52 79 02/01/18 17:22 161/63 Height (Feet): 5 Height (Inches): 6.00 Weight (Pounds): 106 General Appearance: no acute distress HEENT: normocephalic, atraumatic, anicteric, mucous membranes moist Respiratory/Chest: lungs clear, normal breath sounds, no respiratory distress, no accessory muscle use Cardiovascular: normal rate, regular rhythm, no gallop/murmur, no JVD Abdomen: normal bowel sounds, soft, non tender, no organomegaly, non distended Genitourinary: other - + truong Extremities: no cyanosis Skin: no rash 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 Pericholecystic edema. No radiodense of gallstones. Ultrasound/HIDA scan can further assess for cholecystitis. 2. Thickening in the anorectal region. Could be mass, inflammatory process, hemorrhoids or other. Chest x-ray -n 01/29/18: IMPRESSION: Cardiomegaly with prominence of pulmonary interstitial markings. Findings may represent underlying mild pulmonary vascular congestion. US - abdomen: Impression: Small gallbladder polyp. Negative for gallstones Gallbladder wall thickening. In the absence of gallstones, significance uncertain, could indicate acalculous acute cholecystitis, or acute cholecystitis due to occult stone disease. More likely on the basis of hemodynamic derangements, however. Correlate with clinical findings, consider hepatobiliary nuclear scan for better characterization if there is high clinical suspicion Negative for dilated ducts Bilateral nonobstructive intrarenal calculi, also described on recent CT scan Bilateral pleural effusions Incidental finding right renal cyst Microbiology Date/Time Source Procedure Growth Status 01/29/18 04:20 Blood Blood Culture - Preliminary NO GROWTH AFTER 4 DAYS Resulted 01/29/18 05:45 Nasal Nares MRSA Culture - Final NO METHICILLIN RESISTANT STAPH AUREUS... Complete 01/30/18 02:40 Stool Clostridium difficile Toxin Assay - Final Complete 01/29/18 05:45 Rectum - Final NO CARBAPENEM-RESISTANT ENTEROBACTERI... Complete Laboratory Tests Test 02/01/18 17:39 02/01/18 18:00 02/02/18 06:54 Stool Occult Blood Positive (NEGATIVE) Prothrombin Time 20.0 SEC (9.30-11.50) H Prothromb Time International Ratio 2.0 (0.9-1.1) H Fibrinogen 437 mg/dL (200-400) H Iron Level 36 ug/dL (50-175) L Total Iron Binding Capacity 195 ug/dL (250-450) L Percent Iron Saturation 18 % (15-50) Unsaturated Iron Binding 159 ug/dL (112-346) Ferritin 1256 NG/ML (8-388) H Direct Bilirubin 0.3 MG/DL (0.0-0.3) Lactate Dehydrogenase 277 U/L (81-234) H Folate 46.1 NG/ML (8.6-58.9) Random Vancomycin Level 21.7 ug/mL Anti-Nuclear Antibody Screen Negative (Negative) White Blood Count 11.0 K/UL (4.8-10.8) H Red Blood Count 3.06 M/UL (4.20-5.40) L Hemoglobin 9.2 G/DL (12.0-16.0) L Hematocrit 29.0 % (37.0-47.0) L Mean Corpuscular Volume 95 FL (80-99) Mean Corpuscular Hemoglobin 30.0 PG (27.0-31.0) Mean Corpuscular Hemoglobin Concent 31.6 G/DL (32.0-36.0) L Red Cell Distribution Width 14.5 % (11.6-14.8) Platelet Count 274 K/UL (150-450) Mean Platelet Volume 6.9 FL (6.5-10.1) Neutrophils (%) (Auto) 77.8 % (45.0-75.0) H Lymphocytes (%) (Auto) 10.3 % (20.0-45.0) L Monocytes (%) (Auto) 7.0 % (1.0-10.0) Eosinophils (%) (Auto) 4.2 % (0.0-3.0) H Basophils (%) (Auto) 0.7 % (0.0-2.0) Sodium Level 136 MMOL/L (136-145) Potassium Level 4.0 MMOL/L (3.5-5.1) Chloride Level 95 MMOL/L (98-107) L Carbon Dioxide Level 23 MMOL/L (21-32) Anion Gap 18 mmol/L (5-15) H Blood Urea Nitrogen 73 mg/dL (7-18) H Creatinine 11.1 MG/DL (0.55-1.30) H Estimat Glomerular Filtration Rate 3.5 mL/min (>60) Glucose Level 127 MG/DL (74-106) H Calcium Level 8.0 MG/DL (8.5-10.1) L Current Medications Medications (Trade) Dose Ordered Sig/Juliocesar Route PRN Reason Start Time Stop Time Status Last Admin Dose Admin Acetaminophen (Tylenol) 650 mg Q6H PRN ORAL Fever/Headache/Mild Pain 01/29/18 19:30 02/28/18 19:29 02/02/18 12:05 Atorvastatin Calcium (Lipitor) 80 mg BEDTIME ORAL 01/29/18 21:00 02/28/18 20:59 02/01/18 20:53 Carvedilol (Coreg) 12.5 mg EVERY 12 HOURS ORAL 01/30/18 21:00 03/01/18 20:59 02/01/18 20:53 Clonidine HCl (Catapres Tab) 0.1 mg Q4H PRN ORAL bp over 165 syst 01/29/18 11:45 02/28/18 11:44 Dextrose (Dextrose 50%) 25 ml Q30M PRN IV Hypoglycemia 01/29/18 10:00 02/28/18 09:59 Dextrose (Dextrose 50%) 50 ml Q30M PRN IV Hypoglycemia 01/29/18 10:00 02/28/18 09:59 01/30/18 05:41 Epoetin Flo (Procrit (for ESRD on dialysis)) 10,000 units WED-WED-WED SUBQ 02/02/18 21:00 03/04/18 20:59 Hydralazine HCl (Apresoline) 75 mg Q8HR ORAL 02/01/18 22:00 03/01/18 21:59 Insulin Aspart (NovoLOG) BEFORE MEALS AND HS SUBQ 01/29/18 11:30 02/28/18 11:29 02/02/18 17:00 Isosorbide Dinitrate (Isordil) 20 mg TID ORAL 02/01/18 18:00 03/01/18 20:59 02/02/18 16:58 Lisinopril (Zestril) 5 mg Q12HR ORAL 02/01/18 21:00 03/03/18 20:59 02/01/18 20:53 Ondansetron HCl (Zofran) 4 mg Q6H PRN IVP Nausea & Vomiting 01/29/18 09:30 02/28/18 09:29 02/01/18 20:54 Pantoprazole (Protonix) 40 mg BID ORAL 01/29/18 11:30 02/28/18 11:29 02/02/18 16:59 Piperacillin Sod/ Tazobactam Sod 2.25 gm/Sodium Chloride 55 ml @ 110 mls/hr Q8H IV 01/30/18 16:00 02/06/18 15:59 02/02/18 15:54 Sevelamer Carbonate (Renvela) 800 mg THREE TIMES A DAY ORAL 01/30/18 18:00 03/01/18 17:59 02/02/18 16:59 Vancomycin HCl (Vanco rx to dose) 1 ea DAILY PRN MISC Per rx protocol 01/29/18 09:00 02/28/18 08:59 Vancomycin/Sodium Chloride 250 ml @ 166.667 mls/hr ONCE ONCE IVPB 02/02/18 22:00 02/02/18 23:29 Zolpidem Tartrate (Ambien) 5 mg HSPRN PRN ORAL Insomnia 02/01/18 20:45 02/08/18 20:44 02/01/18 20:53 Yudy Obando MD Feb 02, 2018 17:37
[2018-02-02 20:00] VITALS: BP 152/70
--- NOTE | 2018-02-02 20:37 | Cardiology Progress Note ---
Assessment/Plan Status: stable Assessment/Plan Assessment/Plan Problem List: (1) Septic shock (2) NSTEMI (3) ESRD (4) CAD (5) HTN (6) DM Monitor WBC -> normal Broad spectrum Abx Maintain HD Mild IV fluid hydration Follow up cultures Trend EKG/Troponin NO indication for cardiac cath Outpatient stress test Aspirin/Plavix Statin Nitro prn chest pain Transfuse PRBC <7 Goal directed medical therapy: Hydralazine/isordil Life vest ordered for systolic dysfunction Subjective Cardiovascular: Reports: no symptoms Respiratory: Reports: no symptoms Gastrointestinal/Abdominal: Reports: no symptoms Genitourinary: Reports: no symptoms Subjective No acute events vitals stable, poor historian, no distress, WBC coming down, BP elevated, plan for d/c in AM, life vest ordered Objective Last 24 Hour Vital Signs Date Time Temp Pulse Resp B/P (MAP) Pulse Ox O2 Delivery O2 Flow Rate FiO2 02/02/18 16:58 160/75 02/02/18 16:00 87 02/02/18 16:00 98.8 89 20 160/75 (103) 95 02/02/18 12:00 79 02/02/18 11:51 97.6 73 20 154/75 (101) 98 02/02/18 09:00 Room Air 02/02/18 08:00 97.8 75 20 150/70 (96) 99 02/02/18 08:00 82 02/02/18 06:38 138/62 02/02/18 04:20 71 02/02/18 04:00 97.2 76 20 131/60 (83) 97 02/02/18 00:00 73 02/02/18 00:00 97.9 78 20 140/67 (91) 97 02/01/18 22:46 129/60 02/01/18 21:00 Room Air 02/01/18 20:53 128/63 02/01/18 20:53 78 128/63 General Appearance: no apparent distress, alert EENT: PERRL/EOMI, normal ENT inspection, TMs normal, pharynx normal Neck: normal alignment, supple, normal inspection, no JVD Rhythm: NSR Cardiovascular: normal peripheral pulses, normal rate Respiratory/Chest: chest wall non-tender, lungs clear, normal breath sounds, no respiratory distress, no accessory muscle use Abdomen: normal bowel sounds, non tender, soft, no organomegaly, no mass Extremities: normal range of motion, non-tender, normal inspection 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, no motor/sensory deficits Intake and Output 02/01/18 02/02/18 18:59 06:59 Intake Total 500 ml Balance 500 ml Intake Oral 500 ml # Voids 3 3 # Bowel Movements 1 Laboratory Tests Test 02/02/18 06:54 White Blood Count 11.0 K/UL (4.8-10.8) H Red Blood Count 3.06 M/UL (4.20-5.40) L Hemoglobin 9.2 G/DL (12.0-16.0) L Hematocrit 29.0 % (37.0-47.0) L Mean Corpuscular Volume 95 FL (80-99) Mean Corpuscular Hemoglobin 30.0 PG (27.0-31.0) Mean Corpuscular Hemoglobin Concent 31.6 G/DL (32.0-36.0) L Red Cell Distribution Width 14.5 % (11.6-14.8) Platelet Count 274 K/UL (150-450) Mean Platelet Volume 6.9 FL (6.5-10.1) Neutrophils (%) (Auto) 77.8 % (45.0-75.0) H Lymphocytes (%) (Auto) 10.3 % (20.0-45.0) L Monocytes (%) (Auto) 7.0 % (1.0-10.0) Eosinophils (%) (Auto) 4.2 % (0.0-3.0) H Basophils (%) (Auto) 0.7 % (0.0-2.0) Sodium Level 136 MMOL/L (136-145) Potassium Level 4.0 MMOL/L (3.5-5.1) Chloride Level 95 MMOL/L (98-107) L Carbon Dioxide Level 23 MMOL/L (21-32) Anion Gap 18 mmol/L (5-15) H Blood Urea Nitrogen 73 mg/dL (7-18) H Creatinine 11.1 MG/DL (0.55-1.30) H Estimat Glomerular Filtration Rate 3.5 mL/min (>60) Glucose Level 127 MG/DL (74-106) H Calcium Level 8.0 MG/DL (8.5-10.1) L Filsoof,Mikhail M. MD Feb 02, 2018 20:37
[2018-02-02] MEDS ORDERED: Epogen (for ESRD on dialysis) SUBQ SCH (21:00)
[2018-02-02] MEDS: Atorvastatin 80mg tab ORAL SCH (21:46)
[2018-02-02] MEDS: Zolpidem 5mg tab ORAL PRN (21:58)
[2018-02-02] MEDS ORDERED: Vancomycin 750mg/NS 250ml IVPB ONE (22:00)
[2018-02-03] MEDS: Piperacillin/Tazobactam 2.25 GM in NS 55 ML IV SCH ×3 (00:07→16:20)
[2018-02-03] MEDS: HydrALAZINE 25mg tab ORAL SCH ×4 (00:07→22:19)
[2018-02-03 04:00] VITALS: BP 150/69
[2018-02-03] MEDS: NovoLOG Insulin Flexpen SUBQ SCH ×4 (06:02→20:58)
[2018-02-03 06:39] LABS: BASOPHILS % (AUTO) 1.3 % (0.0-2.0); EOSINOPHILS % (AUTO) 5.7 % (0.0-3.0); HEMATOCRIT 28.2 % (37.0-47.0); HEMOGLOBIN 9.1 G/DL (12.0-16.0); LYMPHOCYTES % (AUTO) 16.8 % (20.0-45.0); MEAN CORPUSCULAR VOLUME 95 FL (80-99); MONOCYTES % (AUTO) 11.9 % (1.0-10.0); NEUTROPHILS % (AUTO) 64.3 % (45.0-75.0); PLATELET COUNT 222 K/UL (150-450); RED BLOOD COUNT 2.96 M/UL (4.20-5.40); RED CELL DISTRIBUTION WIDTH 14.6 % (11.6-14.8); WHITE BLOOD COUNT 6.5 K/UL (4.8-10.8)
[2018-02-03 06:56] LABS: ANION GAP 15 mmol/L (5-15); BLOOD UREA NITROGEN 50 mg/dL (7-18); CARBON DIOXIDE 25 MMOL/L (21-32); CHLORIDE 100 MMOL/L (98-107); CREATININE 9.2 MG/DL (0.55-1.30); SODIUM 139 MMOL/L (136-145)
[2018-02-03 07:41] LABS: ALANINE AMINOTRANSFERASE 17 U/L (12-78); ALBUMIN 2.5 G/DL (3.4-5.0); ALKALINE PHOSPHATASE 127 U/L (46-116); ASPARTATE AMINO TRANSFERASE 37 U/L (15-37); BILIRUBIN,DIRECT 0.2 MG/DL (0.0-0.3); BILIRUBIN,TOTAL 0.6 MG/DL (0.2-1.0)
[2018-02-03 08:25] VITALS: BP 166/78
[2018-02-03] MEDS: Lisinopril 2.5mg tab ORAL SCH ×2 (08:41→20:57)
[2018-02-03] MEDS: Carvedilol 12.5mg tab ORAL SCH ×2 (08:41→20:56)
[2018-02-03] MEDS ORDERED: Morphine Sulfate 2mg/ml Inj IVP SCH (10:00)
[2018-02-03 12:00] VITALS: BP 149/64
--- NOTE | 2018-02-03 12:14 | Diagnostic Imaging Report ---
Indication: Abdominal Pain Technique: 5.2 mCi of technetium 99 m-Choletec was injected intravenously. Planar imaging of the abdomen was then performed every 3 minutes up to 60 minutes. Lateral and oblique views also obtained. Findings: There is prompt uptake within the liver with expected washout of radiotracer from the liver on subsequent imaging. There is excretion into the biliary ducts. Gallbladder activity is present in a timely fashion indicating patency of the cystic duct. Bowel activity is demonstrated in a timely fashion indicating patency of the common bile duct. IMPRESSION: Negative HIDA scan. No evidence of cholecystitis.
--- NOTE | 2018-02-03 13:23 | Nephrology Progress Note ---
Assessment/Plan Problem List: (1) ESRD (end stage renal disease) on dialysis (2) CAD (coronary artery disease) (3) DM hyperosmolarity type II (4) Acute systolic (congestive) heart failure (5) Anemia in chronic kidney disease (6) Diabetes type 2, controlled (7) Cardiomyopathy (8) Sepsis Assessment Sepsis, high Lactic acid ESRD on HD for 2 years, has left arm fistula Anemia of CKD worsened DM CAD, elevated Troponin Plan HD 01/30 & Transfusion- done next HD done 02/02 and will do 02/04 increase dose of Isordil and Zestril Antibiotics Adjust BS and BP meds Gastric support optimize cardiac meds 2D echo Global LV hypokinesis. Anterior septum basal to distal hypokinesis . Left ventricular ejection fraction estimated to be 20-25 %. Subjective ROS Limited/Unobtainable: No Constitutional: Reports: malaise Objective Objective Last 24 Hour Vital Signs Date Time Temp Pulse Resp B/P (MAP) Pulse Ox O2 Delivery O2 Flow Rate FiO2 02/03/18 12:00 99.1 74 18 149/64 (92) 98 02/03/18 10:10 Room Air 02/03/18 08:41 166/78 02/03/18 08:41 166/78 02/03/18 08:41 84 166/78 02/03/18 08:25 98.3 84 18 166/78 (107) 98 02/03/18 07:41 88 02/03/18 05:29 150/69 02/03/18 04:00 75 02/03/18 04:00 98.3 78 18 150/69 (96) 98 02/03/18 00:07 148/82 02/03/18 00:00 02/03/18 00:00 83 02/02/18 21:47 100 152/70 02/02/18 21:46 152/70 02/02/18 21:00 Room Air 02/02/18 20:00 98.1 81 18 152/70 (97) 100 02/02/18 20:00 84 02/02/18 16:58 160/75 02/02/18 16:00 87 02/02/18 16:00 98.8 89 20 160/75 (103) 95 Intake and Output 02/02/18 02/03/18 19:00 07:00 Intake Total 760 ml 100 ml Balance 760 ml 100 ml Intake Oral 760 ml 100 ml Laboratory Tests 02/03/18 05:20: White Blood Count 6.5, Red Blood Count 2.96L, Hemoglobin 9.1L, Hematocrit 28.2L , Mean Corpuscular Volume 95, Mean Corpuscular Hemoglobin 30.6, Mean Corpuscular Hemoglobin Concent 32.1, Red Cell Distribution Width 14.6, Platelet Count 222, Mean Platelet Volume 7.2, Neutrophils (%) (Auto) 64.3, Lymphocytes (% ) (Auto) 16.8L, Monocytes (%) (Auto) 11.9H, Eosinophils (%) (Auto) 5.7H, Basophils (%) (Auto) 1.3, Sodium Level 139, Potassium Level 4.0, Chloride Level 100, Carbon Dioxide Level 25, Anion Gap 15, Blood Urea Nitrogen 50H, Creatinine 9.2H, Estimat Glomerular Filtration Rate 4.3, Glucose Level 128H, Calcium Level 8.0L, Total Bilirubin 0.6, Direct Bilirubin 0.2, Aspartate Amino Transf (AST/ SGOT) 37, Alanine Aminotransferase (ALT/SGPT) 17, Alkaline Phosphatase 127H, Total Protein 7.0, Albumin 2.5L Height (Feet): 5 Height (Inches): 6.00 Weight (Pounds): 106 General Appearance: no apparent distress Cardiovascular: normal rate Respiratory/Chest: decreased breath sounds Objective no change Washington Pavon MD Feb 03, 2018 13:23
--- NOTE | 2018-02-03 13:34 | General Progress Note ---
Assessment/Plan Problem List: (1) Septic shock Assessment & Plan: WBC improving cont abx per ID,cont with zosyn, dc vanco bcx ngtd, cdiff neg LA 3.5 on admit, resolved now cxr reviewed, pulm edema noted, no consolidations CT abd/pelvis showing thickening at anorectal region, likely infectious cause, cont abx per ID recs pending HIDA results Nephro consulted tele ICD Codes: A41.9 - Sepsis, unspecified organism; R65.21 - Severe sepsis with septic shock SNOMED: 23799160 (2) NSTEMI (non-ST elevated myocardial infarction) Assessment & Plan: type II nstemi demand ischemia due to esrd and septic shock no chest pain ekg reviewed, nsr no acut st t wave changes noted stable ICD Codes: I21.4 - Non-ST elevation (NSTEMI) myocardial infarction SNOMED: 593549082 (3) ESRD (end stage renal disease) on dialysis Assessment & Plan: Nephro consulted HD per nephro HD today, will monitor h/h post hd ICD Codes: N18.6 - End stage renal disease; Z99.2 - Dependence on renal dialysis SNOMED: 039045793 (4) Poor historian Assessment & Plan: very poor historian does not know much of her medical history of medications ICD Codes: Z78.9 - Other specified health status SNOMED: 914163035 (5) CAD (coronary artery disease) Assessment & Plan: asa plavix resume home meds patient unsure of what procedures shes underwent however seems like she's had stents in the past statin tele stable ICD Codes: I25.10 - Atherosclerotic heart disease of [place] coronary artery without angina pectoris SNOMED: 26408877 Qualifiers: (6) Diabetes type 2, controlled Assessment & Plan: iss accuchecks hgba1c ICD Codes: E11.9 - Type 2 diabetes mellitus without complications SNOMED: 05659922 Qualifiers: Qualified Codes: E11.22 - Type 2 diabetes mellitus with diabetic chronic kidney disease; N18.6 - End stage renal disease; Z99.2 - Dependence on renal dialysis (7) Anemia in chronic kidney disease Assessment & Plan: hgb 6.7 now will require 1U PRBC lethargic, weak denies any blood BMs no acute blood loss discussed with hematology no need to continue home coumadin, unsure of why she is on it, no afib, patient denies knowing of any hx of afib or dvt. US LE neg for dvt. ICD Codes: N18.9 - Chronic kidney disease, unspecified; D63.1 - Anemia in chronic kidney disease SNOMED: 396228392, 588282503 Qualifiers: Qualified Codes: N18.6 - End stage renal disease; D63.1 - Anemia in chronic kidney disease; Z99.2 - Dependence on renal dialysis (8) Acute systolic (congestive) heart failure Assessment & Plan: TTE done on admit, with EF 20-25% cardiology consulted, appreciate recs meds per cards patient unsure of home meds ICD Codes: I50.21 - Acute systolic (congestive) heart failure SNOMED: 58383274, 063127478 Status: stable Assessment/Plan Diet: renal diet DVT Prophylaxis: SCD Code Status: Full Inpatient I HAVE REVIEWED ALL IMAGING, LABS, AND MEDICATIONS AND DISCUSSED CASE AT LENGTH WITH ID, NEPHRO AND HEMATOLOGY PLAN DISCHARGE TOMORROW IF REMAINS STABLE POST HD BASED ON CONSULTANTS RECS Hospital Classification Declaration: Based on this initial evaluation, and depending on the patient's clinical course, I anticipate that this patient will require hospitalization for 2-3midnights for septic shock and close respiratory/ hemodynamic monitoring. Disposition: Once the patient is stable to leave the hospital, I anticipate the patient will likely be discharged to the following environment: home with HH vs SNF I spent 45 minutes on this patient's case, and 30 minutes were dedicated to counseling and/or care coordination. Discussed with patient/family, nursing staff, SW/CM regarding clinical status, treatment course, and disposition planning. Time of note may not reflect time of encounter. Subjective Date patient seen: Feb 03, 2018 Time patient seen: 13:29 Allergies: Coded Allergies: NO KNOWN DRUG ALLERGIES (Verified Allergy, Unknown, 01/29/18) Subjective f/u nstemi, septic shock, esrd, anemia hgb improved and stable after transfusion no acute events overnight planned for HD today, monitor h/h after hd US LE neg, no sx of afib, no need to resume coumadin on pt per hematology recs HIDA scan pending wbc improved patient feeling much better denies fevers/chills/nausea/vomiting/MCCLURE/dizziness/diarrhea still has some left abdominal pain ROS: 14 point ROS reviewed and negative except per above subjective Objective Last 24 Hour Vital Signs Date Time Temp Pulse Resp B/P (MAP) Pulse Ox O2 Delivery O2 Flow Rate FiO2 02/03/18 13:23 149/64 02/03/18 13:23 149/64 02/03/18 12:00 99.1 74 18 149/64 (92) 98 02/03/18 10:10 Room Air 02/03/18 08:41 166/78 02/03/18 08:41 166/78 02/03/18 08:41 84 166/78 02/03/18 08:25 98.3 84 18 166/78 (107) 98 02/03/18 07:41 88 02/03/18 05:29 150/69 02/03/18 04:00 75 02/03/18 04:00 98.3 78 18 150/69 (96) 98 02/03/18 00:07 148/82 02/03/18 00:00 02/03/18 00:00 83 02/02/18 21:47 100 152/70 02/02/18 21:46 152/70 02/02/18 21:00 Room Air 02/02/18 20:00 98.1 81 18 152/70 (97) 100 02/02/18 20:00 84 02/02/18 16:58 160/75 02/02/18 16:00 87 02/02/18 16:00 98.8 89 20 160/75 (103) 95 Intake and Output 02/02/18 02/03/18 19:00 07:00 Intake Total 760 ml 100 ml Balance 760 ml 100 ml Intake Oral 760 ml 100 ml Laboratory Tests 02/03/18 05:20: White Blood Count 6.5, Red Blood Count 2.96L, Hemoglobin 9.1L, Hematocrit 28.2L , Mean Corpuscular Volume 95, Mean Corpuscular Hemoglobin 30.6, Mean Corpuscular Hemoglobin Concent 32.1, Red Cell Distribution Width 14.6, Platelet Count 222, Mean Platelet Volume 7.2, Neutrophils (%) (Auto) 64.3, Lymphocytes (% ) (Auto) 16.8L, Monocytes (%) (Auto) 11.9H, Eosinophils (%) (Auto) 5.7H, Basophils (%) (Auto) 1.3, Sodium Level 139, Potassium Level 4.0, Chloride Level 100, Carbon Dioxide Level 25, Anion Gap 15, Blood Urea Nitrogen 50H, Creatinine 9.2H, Estimat Glomerular Filtration Rate 4.3, Glucose Level 128H, Calcium Level 8.0L, Total Bilirubin 0.6, Direct Bilirubin 0.2, Aspartate Amino Transf (AST/ SGOT) 37, Alanine Aminotransferase (ALT/SGPT) 17, Alkaline Phosphatase 127H, Total Protein 7.0, Albumin 2.5L Height (Feet): 5 Height (Inches): 6.00 Weight (Pounds): 106 Objective General Appearance: no apparent distress, alert EENT: PERRL/EOMI, normal ENT inspection, TMs normal, pharynx normal Neck: non-tender, normal alignment, supple Cardiovascular: normal peripheral pulses, normal rate, regular rhythm Respiratory/Chest: chest wall non-tender, lungs clear, normal breath sounds, no respiratory distress, no accessory muscle use Abdomen: normal bowel sounds, non tender, soft, no organomegaly, no mass Extremities: normal range of motion, non-tender, normal inspection, no calf tenderness 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
[2018-02-03 17:05] VITALS: BP 139/65
[2018-02-03 20:00] VITALS: BP 144/57
[2018-02-03] MEDS: Atorvastatin 80mg tab ORAL SCH (20:56)
[2018-02-03] MEDS: Zolpidem 5mg tab ORAL PRN (22:19)
--- NOTE | 2018-02-03 23:19 | Cardiology Progress Note ---
Assessment/Plan Status: doing well, stable Assessment/Plan Assessment/Plan Problem List: (1) Septic shock (2) NSTEMI (3) ESRD (4) CAD (5) HTN (6) DM Monitor WBC -> normal Broad spectrum Abx Maintain HD Mild IV fluid hydration Follow up cultures Trend EKG/Troponin NO indication for cardiac cath Outpatient stress test Aspirin/Plavix Statin Nitro prn chest pain Transfuse PRBC <7 Goal directed medical therapy: Hydralazine/isordil Life vest ordered for systolic dysfunction HIDA scan Subjective Cardiovascular: Reports: no symptoms Respiratory: Reports: no symptoms Gastrointestinal/Abdominal: Reports: no symptoms Genitourinary: Reports: no symptoms Subjective No acute events vitals stable, poor historian, no distress, WBC coming down, BP elevated, life vest ordered, HIDA scan pending Objective Last 24 Hour Vital Signs Date Time Temp Pulse Resp B/P (MAP) Pulse Ox O2 Delivery O2 Flow Rate FiO2 02/03/18 22:19 142/72 02/03/18 21:00 Room Air 02/03/18 20:57 140/64 02/03/18 20:56 82 140/64 02/03/18 20:00 79 02/03/18 20:00 97.5 82 17 144/57 (86) 98 02/03/18 17:20 139/65 02/03/18 17:05 97.9 83 18 139/65 (89) 98 02/03/18 15:37 77 02/03/18 13:23 149/64 02/03/18 13:23 149/64 02/03/18 12:00 99.1 74 18 149/64 (92) 98 02/03/18 11:34 72 02/03/18 10:10 Room Air 02/03/18 08:41 166/78 02/03/18 08:41 166/78 02/03/18 08:41 84 166/78 02/03/18 08:25 98.3 84 18 166/78 (107) 98 02/03/18 07:41 88 02/03/18 05:29 150/69 02/03/18 04:00 75 02/03/18 04:00 98.3 78 18 150/69 (96) 98 02/03/18 00:07 148/82 02/03/18 00:00 02/03/18 00:00 83 General Appearance: no apparent distress, alert EENT: PERRL/EOMI, normal ENT inspection, TMs normal, pharynx normal Neck: non-tender, normal alignment, supple, normal inspection, no JVD Rhythm: NSR Cardiovascular: normal rate, regular rhythm, regularly irregular Respiratory/Chest: chest wall non-tender, lungs clear, no respiratory distress Abdomen: normal bowel sounds, soft, no organomegaly Extremities: normal range of motion, non-tender Neurologic: interactive developer II-XII grossly normal Intake and Output 02/02/18 02/03/18 19:00 07:00 Intake Total 760 ml 100 ml Balance 760 ml 100 ml Intake Oral 760 ml 100 ml Laboratory Tests Test 02/03/18 05:20 White Blood Count 6.5 K/UL (4.8-10.8) Red Blood Count 2.96 M/UL (4.20-5.40) L Hemoglobin 9.1 G/DL (12.0-16.0) L Hematocrit 28.2 % (37.0-47.0) L Mean Corpuscular Volume 95 FL (80-99) Mean Corpuscular Hemoglobin 30.6 PG (27.0-31.0) Mean Corpuscular Hemoglobin Concent 32.1 G/DL (32.0-36.0) Red Cell Distribution Width 14.6 % (11.6-14.8) Platelet Count 222 K/UL (150-450) Mean Platelet Volume 7.2 FL (6.5-10.1) Neutrophils (%) (Auto) 64.3 % (45.0-75.0) Lymphocytes (%) (Auto) 16.8 % (20.0-45.0) L Monocytes (%) (Auto) 11.9 % (1.0-10.0) H Eosinophils (%) (Auto) 5.7 % (0.0-3.0) H Basophils (%) (Auto) 1.3 % (0.0-2.0) Sodium Level 139 MMOL/L (136-145) Potassium Level 4.0 MMOL/L (3.5-5.1) Chloride Level 100 MMOL/L (98-107) Carbon Dioxide Level 25 MMOL/L (21-32) Anion Gap 15 mmol/L (5-15) Blood Urea Nitrogen 50 mg/dL (7-18) H Creatinine 9.2 MG/DL (0.55-1.30) H Estimat Glomerular Filtration Rate 4.3 mL/min (>60) Glucose Level 128 MG/DL (74-106) H Calcium Level 8.0 MG/DL (8.5-10.1) L Total Bilirubin 0.6 MG/DL (0.2-1.0) Direct Bilirubin 0.2 MG/DL (0.0-0.3) Aspartate Amino Transf (AST/SGOT) 37 U/L (15-37) Alanine Aminotransferase (ALT/SGPT) 17 U/L (12-78) Alkaline Phosphatase 127 U/L (46-116) H Total Protein 7.0 G/DL (6.4-8.2) Albumin 2.5 G/DL (3.4-5.0) L Mikhail Lr MD Feb 03, 2018 23:19
[2018-02-04] MEDS: Piperacillin/Tazobactam 2.25 GM in NS 55 ML IV SCH ×2 (00:05→08:00)
[2018-02-04 04:00] VITALS: BP 144/88
[2018-02-04] MEDS: NovoLOG Insulin Flexpen SUBQ SCH ×3 (05:16→15:43)
[2018-02-04] MEDS: HydrALAZINE 25mg tab ORAL SCH ×2 (05:16→14:00)
[2018-02-04 08:00] VITALS: BP 155/73
[2018-02-04] MEDS ORDERED: HYDRALAZINE HCL25 M1 ORAL (08:32)
[2018-02-04] MEDS ORDERED: LIPITOR80 MG ORAL (08:32)
[2018-02-04] MEDS ORDERED: ISOSORBIDE DINI10 MG ORAL (08:32)
[2018-02-04] MEDS ORDERED: LISINOPRIL5 MG ORAL (08:32)
[2018-02-04] MEDS ORDERED: COREG12.5 MG ORAL (08:32)
[2018-02-04] MEDS ORDERED: LEVOFLOXACIN750 MG ORAL (08:32)
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
[2018-02-04] MEDS: Carvedilol 12.5mg tab ORAL SCH (09:00)
[2018-02-04] MEDS: Lisinopril 2.5mg tab ORAL SCH (09:00)
[2018-02-04 12:00] VITALS: BP 173/81
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
--- NOTE | 2018-02-04 17:49 | Nephrology Progress Note ---
Assessment/Plan Problem List: (1) ESRD (end stage renal disease) on dialysis (2) CAD (coronary artery disease) (3) DM hyperosmolarity type II (4) Acute systolic (congestive) heart failure (5) Anemia in chronic kidney disease (6) Diabetes type 2, controlled (7) Cardiomyopathy (8) Sepsis Assessment Sepsis, high Lactic acid ESRD on HD for 2 years, has left arm fistula Anemia of CKD worsened DM CAD, elevated Troponin Plan HD 01/30 & Transfusion- done next HD done 02/02 and will do 02/04 increase dose of Isordil and Zestril Antibiotics Adjust BS and BP meds Gastric support optimize cardiac meds 2D echo Global LV hypokinesis. Anterior septum basal to distal hypokinesis . Left ventricular ejection fraction estimated to be 20-25 %. Subjective ROS Limited/Unobtainable: No Interval Events/Complaints seen at 8 am- late entery Objective Objective Last 24 Hour Vital Signs Date Time Temp Pulse Resp B/P (MAP) Pulse Ox O2 Delivery O2 Flow Rate FiO2 02/04/18 12:00 87 02/04/18 12:00 98.4 87 24 173/81 (111) 98 02/04/18 09:00 Room Air 02/04/18 08:00 86 02/04/18 08:00 98.0 89 20 155/73 (100) 98 02/04/18 05:16 138/68 02/04/18 04:00 76 02/04/18 04:00 97.3 79 19 144/88 (106) 95 02/04/18 00:00 77 02/04/18 00:00 02/03/18 22:19 142/72 02/03/18 21:00 Room Air 02/03/18 20:57 140/64 02/03/18 20:56 82 140/64 02/03/18 20:00 79 02/03/18 20:00 97.5 82 17 144/57 (86) 98 Intake and Output 02/03/18 02/04/18 19:00 07:00 Intake Total 240 ml 140 ml Balance 240 ml 140 ml Intake Oral 240 ml 140 ml # Voids 2 2 Height (Feet): 5 Height (Inches): 6.00 Weight (Pounds): 106 General Appearance: no apparent distress Objective no change Washington Pavon MD Feb 04, 2018 17:49
== END 2018-02-04 15:50 | disposition home or self-care (01) | DRG 720 ==
LOC: EDBD 03:28 → EMR 03:36 → 2E 03:55 → EDBEDREQ 05:59 → 2E 01-30 17:53
PROC: 5A1D70Z Performance of Urinary Filtration, Intermittent, Less than 6 Hours Per Day (ICD-10-PCS; principal; 2018-01-30)
PROC: 30233N1 Transfusion of Nonautologous Red Blood Cells into Peripheral Vein, Percutaneous Approach (ICD-10-PCS; 2018-01-30)
DX: A41.9 Sepsis, unspecified organism (principal); I21.4 Non-ST elevation (NSTEMI) myocardial infarction; R65.21 Severe sepsis with septic shock; I13.2 Hypertensive heart and chronic kidney disease with heart failure and with stage 5 chronic kidney disease, or end stage renal disease; N18.6 End stage renal disease; E11.22 Type 2 diabetes mellitus with diabetic chronic kidney disease; I42.9 Cardiomyopathy, unspecified; I50.21 Acute systolic (congestive) heart failure; Z99.2 Dependence on renal dialysis; I25.10 Atherosclerotic heart disease of native coronary artery without angina pectoris; D63.1 Anemia in chronic kidney disease; Z79.84 Long term (current) use of oral hypoglycemic drugs
CPT/HCPCS: 36415; 51701; 71045; 74176; 76700; 78266; 80048; 80053; 80061; 80076; 80202; 81003; 82247; 82248; 82270; 82378; 82550; 82553; 82607; 82728; 82746; 82962; 82977; 83010; 83540; 83550; 83605; 83615; 83735; 83880; 84100; 84443; 84484; 84550; 85007; 85025; 85044; 85060; 85384; 85610; 85730; 86039; 86140; 86431; 86710; 86850; 86900; 86901; 86920; 87040; 87081; 87324; 93005; 93306; 93970; 96361; 96365; 96367; 96375; 99291; J1815; J2405

== ENCOUNTER 2018-02-11 08:49 | Inpatient (IN) | payer MEDICAID ==
[~2018-02-11] VITALS: Ht 152.4 cm; Wt 57.2 kg
[~2018-02-11 08:49] MED LIST changes: +ASPIR 8181 MG ORAL; +BISACODYL5 MG ORAL; +CLOPIDOGREL75 MG ORAL; +COREG12.5 MG ORAL; +DOCUSATE SODIU100 MG ORAL; +FAMOTIDINE20 MG ORAL; +HYDRALAZINE HCL25 M1 ORAL; +ISOSORBIDE DINI10 MG ORAL; +LEVOFLOXACIN750 MG ORAL; +LIPITOR80 MG ORAL; +LISINOPRIL20 MG ORAL; +LISINOPRIL5 MG ORAL; +METOPROLOL-HCT1 EAC3 ORAL; +RENAGEL800 MG ORAL; +SENSIPAR30 MG ORAL; +TRAMADOL HCL50 MG ORAL; +TYLENOL EXTRA500 MG ORAL; +WARFARIN SODIUM1 MG ORAL; +ZOFRAN4 M3 ORAL; +ZOLPIDEM TARTRAT5 MG ORAL
[2018-02-11 09:05] VITALS: BP 121/74
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
[2018-02-11 10:09] LABS: HEMATOCRIT 35.4 % (37.0-47.0); HEMOGLOBIN 11.1 G/DL (12.0-16.0); MEAN CORPUSCULAR VOLUME 100 FL (80-99); PLATELET COUNT 236 K/UL (150-450); RED BLOOD COUNT 3.54 M/UL (4.20-5.40); WHITE BLOOD COUNT 18.2 K/UL (4.8-10.8)
[2018-02-11] MEDS ORDERED: Calcium Gluconate 1gm/10ml vial IVP ONE (10:30)
--- NOTE | 2018-02-11 10:30 | Diagnostic Imaging Report ---
Indication: Chest pain Technique: One view of the chest Comparison: 02/01/2018 Findings: The heart is enlarged. The lungs and pleural spaces are clear. The aorta is tortuous and calcified Impression: Cardiomegaly. No acute process
[2018-02-11 10:35] LABS: ALANINE AMINOTRANSFERASE 608 U/L (12-78); ALBUMIN 3.7 G/DL (3.4-5.0); ALBUMIN/GLOBULIN RATIO 0.8 (1.0-2.7); ALKALINE PHOSPHATASE 179 U/L (46-116); ANION GAP 32 mmol/L (5-15); ASPARTATE AMINO TRANSFERASE 1717 U/L (15-37); BILIRUBIN,TOTAL 1.9 MG/DL (0.2-1.0); BLOOD UREA NITROGEN 88 mg/dL (7-18); CALCIUM 7.2 MG/DL (8.5-10.1); CARBON DIOXIDE 14 MMOL/L (21-32); CHLORIDE 94 MMOL/L (98-107); CKMB 2.2 NG/ML (0.0-3.6); CREATINE KINASE 223 U/L (26-308); CREATININE 14.5 MG/DL (0.55-1.30); SODIUM 140 MMOL/L (136-145)
[2018-02-11 10:42] LABS: POTASSIUM 6.1 MMOL/L (3.5-5.1)
[2018-02-11 11:00] VITALS: BP 154/70
[2018-02-11] MEDS ORDERED: Insulin Human Regular 100units/ml 3ml IV ONE (11:00)
--- NOTE | 2018-02-11 11:35 | Emergency Room Report ---
History of Present Illness General Chief Complaint: Nausea Source: Patient Present Illness HPI 62-year-old female presents ED for evaluation. Patient complaining of shortness breath and feeling weak. Started a few days ago. States that she was supposed to dialysis yesterday but missed it because she wasn't feeling well. Denies fevers or chills. Denies cough. Denies chest pain. Denies sick contacts or recent travel. No other aggravating relieving factors. Denies any other associated symptoms Allergies: Coded Allergies: NO KNOWN DRUG ALLERGIES (Verified Allergy, Unknown, 01/29/18) Patient History Past Medical History: DM, HTN, renal disease, dialysis Past Surgical History: none Pertinent Family History: none Social History: Denies: smoking, alcohol use, drug use Now: No Immunizations: UTD Reviewed Nursing Documentation: PMH: Agreed; PSxH: Agreed Nursing Documentation-PMH Past Medical History: No History, Except For Hx Cardiac Problems: No Hx Hypertension: Yes Hx Pacemaker: No Hx Asthma: No Hx COPD: No Hx Diabetes: Yes Hx Cancer: No Hx Gastrointestinal Problems: No Hx Dialysis: Yes - sarah, saravanan, sat Hx Neurological Problems: No Hx Cerebrovascular Accident: No Hx Seizures: No Review of Systems All Other Systems: negative except mentioned in HPI Physical Exam Vital Signs Date Time Temp Pulse Resp B/P (MAP) Pulse Ox O2 Delivery O2 Flow Rate FiO2 02/11/18 09:00 97.2 62 23 171/62 97 Room Air Sp02 EP Interpretation: reviewed, normal General Appearance: no apparent distress, alert, GCS 15, non-toxic Head: normocephalic, atraumatic Eyes: bilateral eye normal inspection, bilateral eye PERRL ENT: hearing grossly normal, normal pharynx, no angioedema, normal voice Neck: full range of motion, supple/symm/no masses Respiratory: chest non-tender, lungs clear, normal breath sounds, speaking full sentences Cardiovascular #1: regular rate, rhythm, no edema Cardiovascular #2: 2+ carotid (R), 2+ carotid (L), 2+ radial (R), 2+ radial (L) , 2+ dorsalis pedis (R), 2+ dorsalis pedis (L) Gastrointestinal: normal bowel sounds, non tender, soft, non-distended, no guarding, no rebound Rectal: deferred Genitourinary: normal inspection, no CVA tenderness Musculoskeletal: back normal, gait/station normal, normal range of motion, non- tender Neurologic: alert, oriented x3, responsive, motor strength/tone normal, sensory intact, speech normal Psychiatric: judgement/insight normal, memory normal, mood/affect normal, no suicidal/homicidal ideation Reflexes: 3+ bicep (R), 3+ bicep (L), 3+ tricep (R), 3+ tricep (L), 3+ knee (R) , 3+ knee (L) Skin: normal color, no rash, warm/dry, well hydrated Lymphatic: no adenopathy Procedures Critical Care Time Critical Care Time i. I feel this is a highly complex case requiring extensive working including EKG/Rhythm strip, Xray/CT/US, Blood/urine lab work, repeat exams while in ED, and administration of strong opiates/narcotics for pain control, admission to hospital or close patient follow up. Total time: 30 min bedside evaluation and treatment excludes procedures (EKG). Reason for critical care: hyperkalemia, dyspnea, ESRD Possible complications: hypotension, hypertension, IL, shock, arrhythmias, metabolic acidosis, end organ damage, respiratory failure. Interventions: labs, ekg, cxr, calcium, insulin/D50, aspirin Course: Presenting to the ED with weakness, missed dialysis yesterday. EKG shows some PACs. No acute ischemic changes. Patient had episodes of bradycardia down to the 40s but then back to normal. Patient given calcium initially. Labs show leukocytosis however improved from prior visits. Potassium 6.1. Troponin 0.09. BNP elevated. Given insulin/D50. Given aspirin. No indication for emergent dialysis at this moment Consultations: nursing staff, EMS, family Performed by: Dr Aquino Tolerated well condition = serious j. because of unstable vital signs this patient had a condition that could potentially threaten life or limb. I feel this is a critical patient who required my full attention while patient was considered critical. Total Critical Care Time excluding procedures was greater than 35 minutes Medical Decision Making Diagnostic Impression: Primary Impression: Hyperkalemia, diminished renal excretion Additional Impressions: ESRD on dialysis Dyspnea Qualified Codes: R06.00 - Dyspnea, unspecified ER Course Hospital Course 62 yo F presents with SOB. missed dialysis Differential diagnoses include: IL/unstable angina, V. 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 After initial history and physical I ordered labs, EKG labs reviewed- potassium 6.1. BUN/Cr elevated. leukocytosis, Hemoglobin/ hematocrit normal. EKG - NSR, no acute ischemic changes interpreted by me CXR - cardiomegaly I saw this patient on previous admission. Leukocytosis was significantly higher at that time. No obvious source of infection Given insulin/D50 and calcium. given aspirin Case discussed with Dr. Warren and he agreed to accept the patient to his service for further care and support Dr Zurita will be consulted I. I feel this is a highly complex case requiring extensive working including EKG/Rhythm strip, Xray/CT/US, Blood/urine lab work, repeat exams while in ED, and administration of strong opiates/narcotics for pain control, admission to hospital or close patient follow up. Diagnosis - hyperkalemia, ESRD on dilaysis, dyspnea admitted to telemetry in serious condition Labs Test 02/11/18 09:35 White Blood Count 18.2 K/UL (4.8-10.8) Red Blood Count 3.54 M/UL (4.20-5.40) Hemoglobin 11.1 G/DL (12.0-16.0) Hematocrit 35.4 % (37.0-47.0) Mean Corpuscular Volume 100 FL (80-99) Mean Corpuscular Hemoglobin 31.4 PG (27.0-31.0) Mean Corpuscular Hemoglobin Concent 31.4 G/DL (32.0-36.0) Red Cell Distribution Width 17.0 % (11.6-14.8) Platelet Count 236 K/UL (150-450) Mean Platelet Volume 8.9 FL (6.5-10.1) Neutrophils (%) (Auto) % (45.0-75.0) Lymphocytes (%) (Auto) % (20.0-45.0) Monocytes (%) (Auto) % (1.0-10.0) Eosinophils (%) (Auto) % (0.0-3.0) Basophils (%) (Auto) % (0.0-2.0) Differential Total Cells Counted 100 Neutrophils % (Manual) 95 % (45-75) Lymphocytes % (Manual) 3 % (20-45) Monocytes % (Manual) 2 % (1-10) Eosinophils % (Manual) 0 % (0-3) Basophils % (Manual) 0 % (0-2) Band Neutrophils 0 % (0-8) Nucleated Red Blood Cells 1 /100 WBC Platelet Estimate Adequate Platelet Morphology Normal Polychromasia 1+ Anisocytosis 2+ Macrocytosis 1+ Sodium Level 140 MMOL/L (136-145) Potassium Level 6.1 MMOL/L (3.5-5.1) Chloride Level 94 MMOL/L (98-107) Carbon Dioxide Level 14 MMOL/L (21-32) Anion Gap 32 mmol/L (5-15) Blood Urea Nitrogen 88 mg/dL (7-18) Creatinine 14.5 MG/DL (0.55-1.30) Estimat Glomerular Filtration Rate 2.5 mL/min (>60) Glucose Level 123 MG/DL (74-106) Calcium Level 7.2 MG/DL (8.5-10.1) Total Bilirubin 1.9 MG/DL (0.2-1.0) Direct Bilirubin 1.0 MG/DL (0.0-0.3) Aspartate Amino Transf (AST/SGOT) 1717 U/L (15-37) Alanine Aminotransferase (ALT/SGPT) 608 U/L (12-78) Alkaline Phosphatase 179 U/L (46-116) Total Creatine Kinase 223 U/L (26-308) Creatine Kinase MB 2.2 NG/ML (0.0-3.6) Creatine Kinase MB Relative Index 0.9 Troponin I 0.098 ng/mL (0.000-0.056) Pro-B-Type Natriuretic Peptide > 25188 pg/mL (0-125) Total Protein 8.5 G/DL (6.4-8.2) Albumin 3.7 G/DL (3.4-5.0) Globulin 4.8 g/dL Albumin/Globulin Ratio 0.8 (1.0-2.7) EKG Diagnostic Results Rate: normal Rhythm: NSR ST Segments: no acute changes ASA given to the pt in ED: Yes Rhythm Strip Diag. Results EP Interpretation: yes Rhythm: NSR, no PVC's, no ectopy Chest X-Ray Diagnostic Results Chest X-Ray Diagnostic Results : Chest X-Ray Ordered: Yes # of Views/Limited/Complete: 1 View Indication: Shortness of Breath EP Interpretation: Yes Interpretation: no consolidation, no effusion, no pneumothorax, no acute cardiopulmonary disease, other - cardiomegaly Impression: No acute disease Electronically Signed by: Electronically signed by Ricco Aquino MD Last Vital Signs Date Time Temp Pulse Resp B/P (MAP) Pulse Ox O2 Delivery O2 Flow Rate FiO2 02/11/18 11:00 63 16 154/70 99 Room Air 02/11/18 09:05 97.2 Status: improved Disposition: ADMITTED INPATIENT Condition: Serious Referrals: NOT CHOSEN IPA/,REFERRING (PCP) Ricco Aquino MD Feb 11, 2018 11:35
--- NOTE | 2018-02-11 11:35 | NUR ---
ED Nurse Note: attempted to give report to MARCIN humphrey. unable to give report at this time, was told to call back in 10 min
--- NOTE | 2018-02-11 11:46 | NUR ---
ED Nurse Note: report given to MARCIN humphrey Addendum: 02/11/18 at 1152 by PDELEON ED Nurse Note: telephone report given to MARCIN humphrey pt transferred to [facility] assisted by MARCIN Hendrickson and Stephani EMT. pt on school lunch monitor. all belongings given to pt, no sign of distress, ao x 4, skin intact
[2018-02-11 12:11] VITALS: BP 169/77
--- NOTE | 2018-02-11 12:20 | NUR ---
NURSE NOTES: Received pt from CN since pt was brought from ER on [facility]. Pt still complaining of chest pain 6/10 and is very fatigued. IV site intact and saline locked. VSS taken. Pt on room air, pt belongings list signed and reviewed. Tele monitor applied by CN. Pt is ambulatory, A&O x4 with AV shunt in left arm and skin intact. Will call MD Low for admission orders once pt assessed.
--- NOTE | 2018-02-11 15:14 | NUR ---
NURSE NOTES: studio technician notified that pt was having 2nd degree heart block Type II with heart rate going as low as 34. MD Low was notified. New orders noted and carried out.
[2018-02-11 16:00] VITALS: BP 159/82
--- NOTE | 2018-02-11 16:00 | NUR ---
NURSE NOTES: RECEIVED PT VIA BED AWAKE AND ALERT ORIENTED X4 ,DENIES CP USING O2 @ 2L/MINTS VIA N/C O2 SAT 98%.RECEIVED REPORT FROM RALPH BURCH STAFF OF [facility].PT ADMITTED WITH DX OF ESRD ,DYSPNEA .PT ON SCHEDULE FOR H.D T,TH SAT.PT UNABLE TO HAVE H.D TODAY.PT WITH HIGH K+ 6.9. PLACED A TELEPHONE CALL TO DR TIERNEY AND LEFT MESSAGE ON EMERGENCY VOICE MAIL REGARDING NEW PT WITH ESRD AND K+ LEVEL IS CRITICAL HIGH 6.9.A WAITING FOR M.D TO CALL ME BACK .WILL CONT TO MONITOR.
--- NOTE | 2018-02-11 16:25 | History and Physical ---
History of Present Illness General Date patient seen: Feb 11, 2018 Time patient seen: 15:55 Reason for Hospitalization: Nausea Present Illness HPI 62 yo female with h/o dm, htn, cad, esrd on hd ,sat presents with complaint of shortness breath and feeling weak that started a few days ago. Missed her last HD yesterday because she wasnt feeling well. Denies fevers or chills, denies chest pain or coughs, has mild sob. Denies sick contacts or recent travel. No other aggravating relieving factors. Denies any other associated symptoms social hx reviewed, denies smoking , alchol use or drug us past fam hx reviewed, denies any sig past fam hx code status reviewed, full code Allergies: Coded Allergies: NO KNOWN DRUG ALLERGIES (Verified Allergy, Unknown, 01/29/18) Medication History Scheduled Aspirin* (Aspir 81*), 81 MG ORAL DAILY, (Reported) Atorvastatin (Lipitor), 80 MG ORAL BEDTIME Bisacodyl* (Dulcolax*), 5 MG ORAL DAILY, (Reported) Carvedilol (Coreg), 12.5 MG ORAL EVERY 12 HOURS Cinacalcet* (Sensipar*), 30 MG ORAL DAILY, (Reported) Clopidogrel* (Clopidogrel*), 75 MG ORAL DAILY, (Reported) Docusate Sodium* (Docusate Sodium*), 100 MG ORAL TWICE A DAY, (Reported) Famotidine (Famotidine), 20 MG ORAL DAILY, (Reported) Glipizide* (Glipizide*), 5 MG ORAL BIDAC, (Reported) Hydralazine Hcl* (Hydralazine Hcl*), 75 MG ORAL Q8HR Insulin Glargine (Lantus), 0 SUBQ BEDTIME, (Reported) Isosorbide Dinitrate* (Isordil*), 20 MG ORAL TID Levofloxacin* (Levofloxacin*), 750 MG ORAL DAILY Lisinopril (Lisinopril*), 20 MG ORAL DAILY, (Reported) Lisinopril (Lisinopril*), 5 MG ORAL Q12HR Sevelamer Hcl (Renagel), 800 MG ORAL THREE TIMES A DAY, (Reported) Scheduled PRN Ondansetron* (Zofran*), 4 MG ORAL Q6H PRN for Nausea & Vomiting, (Reported) Discontinued Medications Acetaminophen* (Tylenol Extra Strength*), 500 MG ORAL Q6H PRN for Mild Pain/ Temp > 100.5, (Reported) Discontinued Reason: MD discontinued med Amlodipine Besylate (Norvasc), 2.5 MG ORAL DAILY, (Reported) Discontinued Reason: MD discontinued med Atenolol (Tenormin), 25 MG ORAL DAILY, (Reported) Discontinued Reason: MD discontinued med Atorvastatin (Lipitor), 80 MG ORAL BEDTIME, (Reported) Discontinued Reason: Medication dose changed Glipizide* (Glipizide*), 5 MG ORAL BIDAC, (Reported) Discontinued Reason: Medication dose changed Hydrocodone Bit/Acetaminophen 5-325* (Levelock 5-325*), 1 TAB ORAL Q6H PRN for For Pain Discontinued Reason: MD discontinued med Ibuprofen* (Motrin*), 600 MG ORAL THREE TIMES A DAY Discontinued Reason: MD discontinued med Metoprolol/Hydrochlorothiazide (Metoprolol-Hctz 50-25 Mg Tab), 1 TAB ORAL DAILY, (Reported) Discontinued Reason: MD discontinued med Tramadol Hcl* (Ultram*), 50 MG ORAL Q6H PRN for For Pain, (Reported) Discontinued Reason: MD discontinued med Warfarin Sod* (Warfarin Sod*), 0.5 MG ORAL DAILY, (Reported) Discontinued Reason: MD discontinued med Zolpidem Tartrate* (Zolpidem Tartrate*), 5 MG ORAL BEDTIME PRN for Insomnia, ( Reported) Discontinued Reason: MD discontinued med Patient History History Provided By: Patient, Medical Record Healthcare decision maker Resuscitation status Advanced Directive on File Review of Systems ROS Narrative 14 point ROS negative except per the above HPI Physical Exam General Appearance: no apparent distress, alert Lines, tubes and drains: peripheral HEENT: normocephalic, atraumatic, anicteric Neck: non-tender, normal alignment, supple, normal inspection Respiratory/Chest: chest wall non-tender, lungs clear, normal breath sounds, no respiratory distress, no accessory muscle use Cardiovascular/Chest: normal peripheral pulses, normal rate, regular rhythm Abdomen: normal bowel sounds, non tender, soft, no organomegaly, no mass Extremities: normal range of motion, non-tender, normal inspection, no calf tenderness Skin Exam: normal pigmentation, warm/dry Neurologic: 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 II-XII grossly normal, no motor/sensory deficits, alert, oriented x 3, responsive, normal mood/affect Last 24 Hour Vital Signs Date Time Temp Pulse Resp B/P (MAP) Pulse Ox O2 Delivery O2 Flow Rate FiO2 02/11/18 12:36 Room Air 02/11/18 12:11 96.6 67 18 169/77 (107) 02/11/18 12:00 64 02/11/18 11:53 66 16 174/60 100 Room Air 02/11/18 11:00 63 16 154/70 99 Room Air 02/11/18 09:05 97.2 72 20 121/74 99 Room Air 02/11/18 09:00 97.2 62 23 171/62 97 Room Air Laboratory Tests Test 02/11/18 09:35 White Blood Count 18.2 K/UL (4.8-10.8) H Red Blood Count 3.54 M/UL (4.20-5.40) L Hemoglobin 11.1 G/DL (12.0-16.0) L Hematocrit 35.4 % (37.0-47.0) L Mean Corpuscular Volume 100 FL (80-99) H Mean Corpuscular Hemoglobin 31.4 PG (27.0-31.0) H Mean Corpuscular Hemoglobin Concent 31.4 G/DL (32.0-36.0) L Red Cell Distribution Width 17.0 % (11.6-14.8) H Platelet Count 236 K/UL (150-450) Mean Platelet Volume 8.9 FL (6.5-10.1) Neutrophils (%) (Auto) % (45.0-75.0) Lymphocytes (%) (Auto) % (20.0-45.0) Monocytes (%) (Auto) % (1.0-10.0) Eosinophils (%) (Auto) % (0.0-3.0) Basophils (%) (Auto) % (0.0-2.0) Differential Total Cells Counted 100 Neutrophils % (Manual) 95 % (45-75) H Lymphocytes % (Manual) 3 % (20-45) L Monocytes % (Manual) 2 % (1-10) Eosinophils % (Manual) 0 % (0-3) Basophils % (Manual) 0 % (0-2) Band Neutrophils 0 % (0-8) Nucleated Red Blood Cells 1 /100 WBC Platelet Estimate Adequate Platelet Morphology Normal Polychromasia 1+ Anisocytosis 2+ Macrocytosis 1+ Sodium Level 140 MMOL/L (136-145) Potassium Level 6.1 MMOL/L (3.5-5.1) *H Chloride Level 94 MMOL/L (98-107) L Carbon Dioxide Level 14 MMOL/L (21-32) L Anion Gap 32 mmol/L (5-15) H Blood Urea Nitrogen 88 mg/dL (7-18) H Creatinine 14.5 MG/DL (0.55-1.30) H Estimat Glomerular Filtration Rate 2.5 mL/min (>60) Glucose Level 123 MG/DL (74-106) H Calcium Level 7.2 MG/DL (8.5-10.1) L Total Bilirubin 1.9 MG/DL (0.2-1.0) H Direct Bilirubin 1.0 MG/DL (0.0-0.3) H Aspartate Amino Transf (AST/SGOT) 1717 U/L (15-37) H Alanine Aminotransferase (ALT/SGPT) 608 U/L (12-78) H Alkaline Phosphatase 179 U/L (46-116) H Total Creatine Kinase 223 U/L (26-308) Creatine Kinase MB 2.2 NG/ML (0.0-3.6) Creatine Kinase MB Relative Index 0.9 Troponin I 0.098 ng/mL (0.000-0.056) Pro-B-Type Natriuretic Peptide > 13119 pg/mL (0-125) H Total Protein 8.5 G/DL (6.4-8.2) H Albumin 3.7 G/DL (3.4-5.0) Globulin 4.8 g/dL Albumin/Globulin Ratio 0.8 (1.0-2.7) L Microbiology Date/Time Source Procedure Growth Status 02/11/18 09:35 Nasal Nares Influenza Types A,B Antigen (TORIBIO) - Final Complete 02/11/18 10:20 Rectum Received Height (Feet): 5 Height (Inches): 0.00 Weight (Pounds): 120 Medications Current Medications Medications (Trade) Dose Ordered Sig/Juliocesar Route PRN Reason Start Time Stop Time Status Last Admin Dose Admin Aspirin (Ecotrin) 81 mg DAILY ORAL 02/12/18 09:00 03/14/18 08:59 Atorvastatin Calcium (Lipitor) 80 mg BEDTIME ORAL 02/11/18 21:00 03/13/18 20:59 Carvedilol (Coreg) 12.5 mg EVERY 12 HOURS ORAL 02/11/18 21:00 03/13/18 20:59 Cinacalcet (Sensipar) 30 mg DAILY ORAL 02/12/18 09:00 03/14/18 08:59 Clopidogrel Bisulfate (Plavix) 75 mg DAILY ORAL 02/12/18 09:00 03/14/18 08:59 Docusate Sodium (Colace) 100 mg TWICE A DAY ORAL 02/11/18 18:00 03/13/18 17:59 Famotidine (Pepcid) 20 mg DAILY ORAL 02/12/18 09:00 03/14/18 08:59 Heparin Sodium (Porcine) (Heparin 5000 units/ml) 5,000 units EVERY 12 HOURS SUBQ 02/11/18 21:00 03/13/18 20:59 Hydralazine HCl (Apresoline) 75 mg Q8HR ORAL 02/11/18 22:00 03/13/18 21:59 Isosorbide Dinitrate (Isordil) 20 mg TID ORAL 02/11/18 18:00 03/13/18 17:59 Ondansetron HCl (Zofran) 4 mg Q6H PRN ORAL Nausea & Vomiting 02/11/18 15:30 03/13/18 15:29 Assessment/Plan Status: stable Assessment/Plan #Shortness of breath #Missed HD, noncompliance with dialysis #Hyperkalemia #Transaminitis #Elevated troponin in setting of ESRD and fluid overload #ESRD on HD #IDDM #Essential HTN - resume home antihypertensives - iss, resume insulin regiment, accuchecks - K 6.1 on admit, cagluc, duonebs, insulin/d50 given - Nephro consulted, Dr. Pavon, plan for HD - repeat bmp #Abnormal EKG - tele with concerns for type 2 block - ekg done showing nsr - cards consulted, Dr. Lr - atropine at bedside - likely PVCs - trend EKGs q8hr - vitals stable - patient stable #Nausea - prn zofran diet: renal diet DVT Prophylaxis: SCD, HSQ Code Status: Full Hospital Classification Declaration: Based on this initial evaluation, and depending on the patient's clinical course, I anticipate that this patient will require hospitalization for 2-3 days for HD and cardiac workup and close respiratory/hemodynamic monitoring. Disposition: Once the patient is stable to leave the hospital, I anticipate the patient will likely be discharged to the following environment: home with HH vs SNF I spent 71 minutes on this patient's case, and 45 minutes were dedicated to counseling and/or care coordination. Discussed with patient/family, nursing staff, SW/CM regarding clinical status, treatment course, and disposition planning. Time of note may not reflect time of encounter. Date of Discussion: 02/11/18 A [id number] discussion with the patient regarding the patient's advanced care planning took place during this hospitalization on the above date. The discussion included the explanation and discussion of advance directives and associated forms/documents, as well as the patient's current code status. We also discussed at length the patient's medical conditions (both acute and chronic), general prognosis, treatment options, and goals of care. The following summarizes the discussion: Advance Care Planning/Goals of Care: - Will attempt to fill out an AD and/or POLST with the patient prior to discharge, if not already completed - Continue current evaluation and management of any acute and chronic medical issues - Will continue to support the patient/family - Will continue to discuss both short- and long-term goals of care DPOA-HC/Surrogate Decision Maker: None currently appointed Code Status: Full Code AD Forms/Documents Completed: Deferred A total of 31 minutes was spent on this discussion, including counseling, answering questions, and completing, if any, pertinent advanced care planning forms/documents. ---- Jesús Low MD Feb 11, 2018 16:25
[2018-02-11 16:40] VITALS: BP 143/78
[2018-02-11 16:46] LABS: ANION GAP 25 mmol/L (5-15); BLOOD UREA NITROGEN 100 mg/dL (7-18); CARBON DIOXIDE 18 MMOL/L (21-32); CHLORIDE 97 MMOL/L (98-107); CREATININE 14.6 MG/DL (0.55-1.30); SODIUM 139 MMOL/L (136-145)
[2018-02-11 16:48] LABS: POTASSIUM 6.9 MMOL/L (3.5-5.1)
--- NOTE | 2018-02-11 16:49 | NUR ---
TRANSFER TO FLOOR: Patient transferred to [facility], per Dr. Low. Report given to MARCIN Holder. Belongings and medications given to Glory BURCH. Pt stable.
--- NOTE | 2018-02-11 17:06 | NUR ---
NURSE NOTES: Called and left message notifying Dr. Lr of recent heart block event and current status including K increase to 6.9 and [facility] transfer. Endorsed call back to Glory BURCH. AILEEN made aware.
--- NOTE | 2018-02-11 17:50 | NUR ---
5NURSE NOTES: Yennifer ACHARYA CALL ME BACK AND MADE AWARE AND NOTIFIED REGARDING PT K+ 6.9.Yennifer STATED CALL [facility] NOW,I AM ORDERING STAT H.D.PLACED A TELEPHONE CALL TO [facility] AND SPOKE WITH CM Ortiz RN.CM STATING THAT WILL TELL GINO SAMS RN TO PERFORM H.D STAT.WILL CONT TO MONITOR.
--- NOTE | 2018-02-11 17:55 | Consultation ---
Consult Note Consult Note asked to eval for dialysis management- HPI 62-year-old female presents ED for evaluation. Patient complaining of shortness breath and feeling weak. Started a few days ago. States that she was supposed to dialysis yesterday but missed it because she wasn't feeling well. Denies fevers or chills. Denies cough. Denies chest pain. Denies sick contacts or recent travel. No other aggravating relieving factors. Denies any other associated symptoms Allergies: Coded Allergies: NO KNOWN DRUG ALLERGIES (Verified Allergy, Unknown, 01/29/18) Past Medical History: DM, HTN, renal disease, dialysis Social History: Denies: smoking, alcohol use, drug use Now: No Immunizations: UTD Past Medical History: No History, Except For Hx Hypertension: Yes Hx Diabetes: Yes Hx Dialysis: Yes - saravanan smith sat examined data reviewed Assessment/Plan (1) ESRD (end stage renal disease) on dialysis presents with high K (2) CAD (coronary artery disease) (3) DM hyperosmolarity type II (4) Acute systolic (congestive) heart failure (5) Anemia in chronic kidney disease (6) Diabetes type 2, controlled (7) Cardiomyopathy (8) Sepsis Plan HD smita Antibiotics after cultures Adjust BS and BP meds Gastric support optimize cardiac meds 2D echo Global LV hypokinesis. Anterior septum basal to distal hypokinesis . Left ventricular ejection fraction estimated to be 20-25 %. Washington Pavon MD Feb 11, 2018 17:55
[2018-02-11] MEDS ORDERED: Docusate 100mg cap ORAL SCH ×2 (18:00)
[2018-02-11] MEDS ORDERED: HydrALAZINE 25mg tab ORAL PRN (18:15)
[2018-02-11] MEDS: Docusate 100mg cap ORAL SCH (18:28)
--- NOTE | 2018-02-11 18:34 | NUR ---
NURSE NOTES:HELD B/P MEDICATIONS .PT STARTED ON HEMODIALYSIS.GINO BETTS RN PERFORMING H.D. WILL CONT TO MONITOR.
--- NOTE | 2018-02-11 19:16 | NUR ---
HAND-OFF: Report given to .FERNANDEZ BURCH.
--- NOTE | 2018-02-11 19:18 | NUR ---
NURSE NOTES: Received report from Rohan RN at bedside. AOx4, able to make needs known. Pt is receiving hemodialysis. VSS, school lunch monitor showing NSR, room air; no s/s of distress noted. Reports no pain. RIJ 22g patent, asymptomatic. Skin clean, dry, intact. STAT EKG ordered on previous shift noted. Will follow out. Bed locked in lowest position, side rails x3, bed alarm on. Will continue to monitor and follow plan of care.
[2018-02-11 20:00] VITALS: BP 160/82
[2018-02-11] MEDS ORDERED: Heparin 5000 units/ml inj SUBQ SCH (21:00)
[2018-02-11] MEDS ORDERED: NovoLOG Insulin Flexpen SUBQ SCH (21:00)
[2018-02-11] MEDS: NovoLOG Insulin Flexpen SUBQ SCH (21:00)
[2018-02-11] MEDS ORDERED: Carvedilol 12.5mg tab ORAL SCH (21:00)
[2018-02-11] MEDS ORDERED: Atorvastatin 80mg tab ORAL SCH ×2 (21:00)
[2018-02-11] MEDS ORDERED: Vancomycin 1250mg/D5W 250ml 250 ML IVPB SCH (21:00)
[2018-02-11] MEDS: Piperacillin/Tazobactam 3.375 GM in NS 110 ML IVPB SCH (21:34)
[2018-02-11] MEDS: HydrALAZINE 25mg tab ORAL SCH (21:36)
[2018-02-11] MEDS: Carvedilol 12.5mg tab ORAL SCH (21:37)
[2018-02-11] MEDS: Heparin 5000 units/ml inj SUBQ SCH (21:54)
[2018-02-11] MEDS ORDERED: HydrALAZINE 25mg tab ORAL SCH ×2 (22:00)
[2018-02-12] VITALS: BP 135/62
[2018-02-12 04:00] VITALS: BP 127/62
[2018-02-12] MEDS: HydrALAZINE 25mg tab ORAL SCH ×3 (06:07→21:32)
[2018-02-12] MEDS: NovoLOG Insulin Flexpen SUBQ SCH ×4 (06:09→20:37)
--- NOTE | 2018-02-12 07:09 | NUR ---
HAND-OFF: Report given to MARCIN Shoemaker.
--- NOTE | 2018-02-12 07:10 | NUR ---
NURSE NOTES: Report received from Ilia BURCH.Pt awake,alert sitting up on bed noted no distress ,denies any c/o chest pain.,SR on the monitor,skin warm and dry with IV site to RIJ intact,and a HD access AV shunt to VANESSA both intact.Pt ambulates to bathroom with steady gait and verbalized passing diarrhea stools but no abd cramps,will continue to monitor pt.
[2018-02-12 08:00] VITALS: BP_SYST 123; BP_SYST 129; BP_DIAS 61
[2018-02-12] MEDS: Aspirin EC 81mg tab ORAL SCH (08:51)
[2018-02-12] MEDS: Carvedilol 12.5mg tab ORAL SCH ×2 (08:52→20:34)
[2018-02-12] MEDS: Heparin 5000 units/ml inj SUBQ SCH ×2 (08:55→20:36)
[2018-02-12] MEDS: Piperacillin/Tazobactam 3.375 GM in NS 110 ML IVPB SCH (08:56)
[2018-02-12] MEDS: Docusate 100mg cap ORAL SCH ×3 (08:57→17:48)
[2018-02-12] MEDS ORDERED: Sensipar 30mg Tab ORAL SCH ×2 (09:00)
[2018-02-12] MEDS ORDERED: Aspirin EC 81mg tab ORAL SCH (09:00)
[2018-02-12 09:33] LABS: HEMATOCRIT 30.1 % (37.0-47.0); HEMOGLOBIN 9.7 G/DL (12.0-16.0); MEAN CORPUSCULAR VOLUME 96 FL (80-99); PLATELET COUNT 184 K/UL (150-450); RED BLOOD COUNT 3.14 M/UL (4.20-5.40); RED CELL DISTRIBUTION WIDTH 15.9 % (11.6-14.8); WHITE BLOOD COUNT 11.4 K/UL (4.8-10.8)
--- NOTE | 2018-02-12 09:41 | Consultation ---
History of Present Illness General Date patient seen: Feb 12, 2018 Time patient seen: 09:34 Chief Complaint: Nausea Present Illness HPI 62 year old female c/o chest pain and missed dialysis. WBC elevated and potassium elevated upon admission. Cardiology consulted for abnormal heart rhythm. 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 She has a hx of DM, CAD, ESRD on HD T//WED Allergies: Coded Allergies: NO KNOWN DRUG ALLERGIES (Verified Allergy, Unknown, 01/29/18) Medication History Scheduled Aspirin* (Aspir 81*), 81 MG ORAL DAILY, (Reported) Atorvastatin (Lipitor), 80 MG ORAL BEDTIME Bisacodyl* (Dulcolax*), 5 MG ORAL DAILY, (Reported) Carvedilol (Coreg), 12.5 MG ORAL EVERY 12 HOURS Cinacalcet* (Sensipar*), 30 MG ORAL DAILY, (Reported) Clopidogrel* (Clopidogrel*), 75 MG ORAL DAILY, (Reported) Docusate Sodium* (Docusate Sodium*), 100 MG ORAL TWICE A DAY, (Reported) Famotidine (Famotidine), 20 MG ORAL DAILY, (Reported) Glipizide* (Glipizide*), 5 MG ORAL BIDAC, (Reported) Hydralazine Hcl* (Hydralazine Hcl*), 75 MG ORAL Q8HR Insulin Glargine (Lantus), 0 SUBQ BEDTIME, (Reported) Isosorbide Dinitrate* (Isordil*), 20 MG ORAL TID Levofloxacin* (Levofloxacin*), 750 MG ORAL DAILY Lisinopril (Lisinopril*), 20 MG ORAL DAILY, (Reported) Lisinopril (Lisinopril*), 5 MG ORAL Q12HR Sevelamer Hcl (Renagel), 800 MG ORAL THREE TIMES A DAY, (Reported) Scheduled PRN Ondansetron* (Zofran*), 4 MG ORAL Q6H PRN for Nausea & Vomiting, (Reported) Patient History Healthcare decision maker Resuscitation status Advanced Directive on File Review of Systems Constitutional: Reports: no symptoms Eye: Reports: no symptoms ENT: Reports: no symptoms Respiratory: Reports: orthopnea, shortness of breath Cardiovascular: Reports: no symptoms Gastrointestinal: Reports: no symptoms Genitourinary: Reports: no symptoms Musculoskeletal: Reports: no symptoms Skin: Reports: no symptoms Psychiatric: Reports: no symptoms Neurological: Reports: no symptoms Endocrine: Reports: no symptoms Hematologic/Lymphatic: Reports: no symptoms Physical Exam General Appearance: no apparent distress, alert Lines, tubes and drains: peripheral, shunt, dialysis access HEENT: normocephalic, atraumatic, anicteric Neck: non-tender, normal alignment, supple, normal inspection Respiratory/Chest: chest wall non-tender, lungs clear Cardiovascular/Chest: normal peripheral pulses, normal rate, regular rhythm Abdomen: normal bowel sounds, non tender, soft, no organomegaly, no mass Extremities: normal range of motion, non-tender, normal inspection, no calf tenderness Skin Exam: normal pigmentation 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, no motor/sensory deficits Last 24 Hour Vital Signs Date Time Temp Pulse Resp B/P (MAP) Pulse Ox O2 Delivery O2 Flow Rate FiO2 02/12/18 08:52 123/61 02/12/18 08:52 63 123/61 02/12/18 08:00 68 02/12/18 08:00 97.2 63 18 123/61 (81) 96 02/12/18 08:00 97.8 63 18 129/61 (83) 96 02/12/18 06:07 127/62 02/12/18 04:00 62 02/12/18 04:00 98.4 63 20 127/62 (83) 94 02/12/18 00:00 97.8 67 20 135/62 (86) 95 02/12/18 00:00 64 02/11/18 21:37 72 176/82 02/11/18 21:36 176/82 02/11/18 21:00 Room Air 02/11/18 20:49 Room Air 02/11/18 20:47 Room Air 02/11/18 20:00 98.6 63 20 160/82 (108) 98 02/11/18 18:00 143/78 02/11/18 16:40 96.6 67 18 143/78 (99) 98 02/11/18 16:00 65 02/11/18 16:00 96.4 62 18 159/82 (107) 100 02/11/18 12:36 Room Air 02/11/18 12:11 96.6 67 18 169/77 (107) 02/11/18 12:00 64 02/11/18 11:53 66 16 174/60 100 Room Air 02/11/18 11:00 63 16 154/70 99 Room Air Intake and Output 02/11/18 02/12/18 19:00 07:00 Intake Total 120 ml 840.000 ml Output Total 1000 ml Balance 120 ml -160.000 ml Intake Oral 120 ml 480 ml IV Total 360.000 ml Output Hemodialysis UF 1000 ml # Voids 1 # Bowel Movements 1 2 Laboratory Tests Test 02/11/18 09:35 02/11/18 15:50 02/11/18 19:30 02/12/18 09:00 White Blood Count 18.2 K/UL (4.8-10.8) H Pending Red Blood Count 3.54 M/UL (4.20-5.40) L Pending Hemoglobin 11.1 G/DL (12.0-16.0) L Pending Hematocrit 35.4 % (37.0-47.0) L Pending Mean Corpuscular Volume 100 FL (80-99) H Pending Mean Corpuscular Hemoglobin 31.4 PG (27.0-31.0) H Pending Mean Corpuscular Hemoglobin Concent 31.4 G/DL (32.0-36.0) L Pending Red Cell Distribution Width 17.0 % (11.6-14.8) H Pending Platelet Count 236 K/UL (150-450) Pending Mean Platelet Volume 8.9 FL (6.5-10.1) Pending Neutrophils (%) (Auto) % (45.0-75.0) Pending Lymphocytes (%) (Auto) % (20.0-45.0) Pending Monocytes (%) (Auto) % (1.0-10.0) Pending Eosinophils (%) (Auto) % (0.0-3.0) Pending Basophils (%) (Auto) % (0.0-2.0) Pending Differential Total Cells Counted 100 Neutrophils % (Manual) 95 % (45-75) H Lymphocytes % (Manual) 3 % (20-45) L Monocytes % (Manual) 2 % (1-10) Eosinophils % (Manual) 0 % (0-3) Basophils % (Manual) 0 % (0-2) Band Neutrophils 0 % (0-8) Nucleated Red Blood Cells 1 /100 WBC Platelet Estimate Adequate Platelet Morphology Normal Polychromasia 1+ Anisocytosis 2+ Macrocytosis 1+ Sodium Level 140 MMOL/L (136-145) 139 MMOL/L (136-145) Pending Potassium Level 6.1 MMOL/L (3.5-5.1) *H 6.9 MMOL/L (3.5-5.1) *H Pending Chloride Level 94 MMOL/L (98-107) L 97 MMOL/L (98-107) L Pending Carbon Dioxide Level 14 MMOL/L (21-32) L 18 MMOL/L (21-32) L Pending Anion Gap 32 mmol/L (5-15) H 25 mmol/L (5-15) H Blood Urea Nitrogen 88 mg/dL (7-18) H 100 mg/dL (7-18) H Pending Creatinine 14.5 MG/DL (0.55-1.30) H 14.6 MG/DL (0.55-1.30) H Pending Estimat Glomerular Filtration Rate 2.5 mL/min (>60) 2.5 mL/min (>60) Pending Glucose Level 123 MG/DL (74-106) H 144 MG/DL (74-106) H Pending Hemoglobin A1c 6.2 % (4.3-6.0) H Calcium Level 7.2 MG/DL (8.5-10.1) L 7.0 MG/DL (8.5-10.1) L Pending Total Bilirubin 1.9 MG/DL (0.2-1.0) H Pending Direct Bilirubin 1.0 MG/DL (0.0-0.3) H Aspartate Amino Transf (AST/SGOT) 1717 U/L (15-37) H Pending Alanine Aminotransferase (ALT/SGPT) 608 U/L (12-78) H Pending Alkaline Phosphatase 179 U/L (46-116) H Pending Total Creatine Kinase 223 U/L (26-308) Pending Creatine Kinase MB 2.2 NG/ML (0.0-3.6) Creatine Kinase MB Relative Index 0.9 Troponin I 0.098 ng/mL (0.000-0.056) Pending Pro-B-Type Natriuretic Peptide > 19079 pg/mL (0-125) H Pending Total Protein 8.5 G/DL (6.4-8.2) H Pending Albumin 3.7 G/DL (3.4-5.0) Pending Globulin 4.8 g/dL Pending Albumin/Globulin Ratio 0.8 (1.0-2.7) L C-Reactive Protein, Quantitative 3.7 mg/dL (0.00-0.90) H Lactic Acid Level Pending Uric Acid Pending Phosphorus Level Pending Magnesium Level Pending Iron Level Pending Unsaturated Iron Binding Pending Ferritin Pending Gamma Glutamyl Transpeptidase Pending Ammonia Pending Triglycerides Level Pending Cholesterol Level Pending LDL Cholesterol Pending HDL Cholesterol Pending Cholesterol/HDL Ratio Pending Vitamin B12 Level Pending Folate Pending Thyroid Stimulating Hormone (TSH) Pending Random Vancomycin Level Pending Microbiology Date/Time Source Procedure Growth Status 02/11/18 09:35 Nasal Nares Influenza Types A,B Antigen (TORIBIO) - Final Complete 02/11/18 10:20 Rectum Received Height (Feet): 5 Height (Inches): 0.00 Weight (Pounds): 119 Medications Current Medications Medications (Trade) Dose Ordered Sig/Juliocesar Route PRN Reason Start Time Stop Time Status Last Admin Dose Admin Aspirin (Ecotrin) 81 mg DAILY ORAL 02/12/18 09:00 03/14/18 08:59 02/12/18 08:51 Atorvastatin Calcium (Lipitor) 10 mg BEDTIME ORAL 02/11/18 21:00 03/13/18 20:59 02/11/18 21:36 Carvedilol (Coreg) 12.5 mg EVERY 12 HOURS ORAL 02/11/18 21:00 03/13/18 20:59 02/12/18 08:52 Clopidogrel Bisulfate (Plavix) 75 mg DAILY ORAL 02/12/18 09:00 03/14/18 08:59 02/12/18 08:52 Dextrose (Dextrose 50%) 25 ml Q30M PRN IV Hypoglycemia 02/11/18 17:30 03/13/18 16:29 Dextrose (Dextrose 50%) 50 ml Q30M PRN IV Hypoglycemia 02/11/18 17:30 03/13/18 16:29 Docusate Sodium (Colace) 100 mg TID ORAL 02/11/18 18:00 03/13/18 17:59 02/11/18 18:28 Heparin Sodium (Porcine) (Heparin 5000 units/ml) 5,000 units EVERY 12 HOURS SUBQ 02/11/18 21:00 03/13/18 20:59 02/12/18 08:55 Hydralazine HCl (Apresoline) 25 mg Q4H PRN ORAL BP OVER 160 SYST 02/11/18 18:15 03/13/18 18:14 Hydralazine HCl (Apresoline) 75 mg Q8HR ORAL 02/11/18 22:00 03/13/18 21:59 02/12/18 06:07 Insulin Aspart (NovoLOG) BEFORE MEALS AND HS SUBQ 02/11/18 21:00 03/13/18 20:59 02/12/18 06:09 Isosorbide Dinitrate (Isordil) 20 mg TID ORAL 02/11/18 18:00 03/13/18 17:59 02/12/18 08:52 Ondansetron HCl (Zofran) 4 mg Q6H PRN IVP Nausea & Vomiting 02/11/18 17:03 03/13/18 17:02 Pantoprazole (Protonix) 40 mg EVERY 12 HOURS ORAL 02/11/18 21:00 03/13/18 20:59 02/12/18 08:51 Piperacillin Sod/ Tazobactam Sod 3.375 gm/Sodium Chloride 110 ml @ 27.5 mls/hr EVERY 12 HOURS IVPB 02/11/18 21:00 02/16/18 20:59 02/12/18 08:56 Vancomycin HCl/ Dextrose 250 ml @ 166.667 mls/hr Q24H IVPB 02/11/18 21:00 02/13/18 20:59 02/11/18 21:35 Assessment/Plan Status: stable Assessment/Plan Assessment/Plan Hyperkalemia Elevated WBC Chronic systolic heart failure Elevated troponin ESRD DM HTN Plan: urgent dialysis Echo from previous visit reviewed LVEF 20% globally Repeat echo on this admission Start goal directed medical therapy No indication for cardiac cath or stress testing She would benefit from a viability study to evaluate if revascularization is indicated patient does not have heart block - telemetry strips showed NSR with PAC with different P wave morphology that was blocked and PVCs, there was no type II heart block because the PAC came early and there was not a dropped QRS, this is likely from electrolyte abnormality. On repeat EKG she was NSR. No indication for pacemaker, recommend outpatient allisontch Mikhail Lr MD Feb 12, 2018 09:41
[2018-02-12 09:53] LABS: AMMONIA 40 umol/L (11-32)
[2018-02-12 10:06] LABS: ALANINE AMINOTRANSFERASE 498 U/L (12-78); ALBUMIN 2.7 G/DL (3.4-5.0); ALBUMIN/GLOBULIN RATIO 0.7 (1.0-2.7); ALKALINE PHOSPHATASE 146 U/L (46-116); ANION GAP 15 mmol/L (5-15); ASPARTATE AMINO TRANSFERASE 771 U/L (15-37); BILIRUBIN,TOTAL 0.9 MG/DL (0.2-1.0); BLOOD UREA NITROGEN 68 mg/dL (7-18); CALCIUM 6.8 MG/DL (8.5-10.1); CARBON DIOXIDE 25 MMOL/L (21-32); CHLORIDE 95 MMOL/L (98-107); CHOLESTEROL 73 MG/DL (< 200); CREATINE KINASE 132 U/L (26-308); CREATININE 10.5 MG/DL (0.55-1.30); FERRITIN 436 NG/ML (8-388); GAMMA GLUTAMYL TRANSPEPTIDASE 172 U/L (5-85); HDL CHOLESTEROL 29 MG/DL (40-60); PHOSPHORUS 7.2 MG/DL (2.5-4.9); POTASSIUM 4.3 MMOL/L (3.5-5.1); SODIUM 135 MMOL/L (136-145); TRIGLYCERIDES 83 MG/DL (30-150)
[2018-02-12 11:36] LABS: % IRON SATURATION 87 % (15-50); IRON 181 ug/dL (50-175); TOTAL IRON BINDING CAPACITY 207 ug/dL (250-450)
[2018-02-12 12:00] VITALS: BP 127/57
--- NOTE | 2018-02-12 14:00 | NUR ---
NURSE NOTES: Dr Lr notified re Troponin 0.076,no orders given.
--- NOTE | 2018-02-12 14:18 | Nephrology Progress Note ---
Assessment/Plan Problem List: (1) ESRD on dialysis (2) Hyperkalemia, diminished renal excretion (3) Cardiomyopathy (4) Anemia in chronic kidney disease Assessment (1) ESRD (end stage renal disease) on dialysis presents with high K (2) CAD (coronary artery disease) (3) DM hyperosmolarity type II (4) Acute systolic (congestive) heart failure (5) Anemia in chronic kidney disease (6) Diabetes type 2, controlled (7) Cardiomyopathy (8) Sepsis Plan Plan HD done 02/11 - high K improved Antibiotics after cultures Adjust BS and BP meds Gastric support optimize cardiac meds check vanco level 2D echo Global LV hypokinesis. Anterior septum basal to distal hypokinesis . Left ventricular ejection fraction estimated to be 20-25 %. Subjective ROS Limited/Unobtainable: No Constitutional: Reports: malaise Objective Objective Last 24 Hour Vital Signs Date Time Temp Pulse Resp B/P (MAP) Pulse Ox O2 Delivery O2 Flow Rate FiO2 02/12/18 14:07 127/57 02/12/18 12:44 127/57 02/12/18 12:00 Room Air 02/12/18 12:00 62 02/12/18 12:00 97.5 63 20 127/57 (80) 98 02/12/18 08:52 123/61 02/12/18 08:52 63 123/61 02/12/18 08:00 Room Air 02/12/18 08:00 68 02/12/18 08:00 97.2 63 18 123/61 (81) 96 02/12/18 08:00 97.8 63 18 129/61 (83) 96 02/12/18 06:07 127/62 02/12/18 04:00 62 02/12/18 04:00 98.4 63 20 127/62 (83) 94 02/12/18 00:00 97.8 67 20 135/62 (86) 95 02/12/18 00:00 64 02/11/18 21:37 72 176/82 02/11/18 21:36 176/82 02/11/18 21:00 Room Air 02/11/18 20:49 Room Air 02/11/18 20:47 Room Air 02/11/18 20:00 98.6 63 20 160/82 (108) 98 02/11/18 18:00 143/78 02/11/18 16:40 96.6 67 18 143/78 (99) 98 02/11/18 16:00 65 02/11/18 16:00 96.4 62 18 159/82 (107) 100 Intake and Output 02/11/18 02/12/18 19:00 07:00 Intake Total 120 ml 840.000 ml Output Total 1000 ml Balance 120 ml -160.000 ml Intake Oral 120 ml 480 ml IV Total 360.000 ml Output Hemodialysis UF 1000 ml # Voids 1 # Bowel Movements 1 2 Laboratory Tests 02/11/18 15:50: Sodium Level 139, Potassium Level 6.9*H, Chloride Level 97L, Carbon Dioxide Level 18L, Anion Gap 25H, Blood Urea Nitrogen 100H, Creatinine 14.6H, Estimat Glomerular Filtration Rate 2.5, Glucose Level 144H, Calcium Level 7.0L 02/11/18 19:30: C-Reactive Protein, Quantitative 3.7H 02/12/18 09:00: Sodium Level 135L, Potassium Level 4.3, Chloride Level 95L, Carbon Dioxide Level 25, Anion Gap 15, Blood Urea Nitrogen 68H, Creatinine 10.5H, Estimat Glomerular Filtration Rate 3.7, Glucose Level 283#H, Calcium Level 6.8L, White Blood Count 11.4H, Red Blood Count 3.14L, Hemoglobin 9.7L, Hematocrit 30.1L, Mean Corpuscular Volume 96, Mean Corpuscular Hemoglobin 30.8, Mean Corpuscular Hemoglobin Concent 32.1, Red Cell Distribution Width 15.9H, Platelet Count 184, Mean Platelet Volume 7.8, Neutrophils (%) (Auto) , Lymphocytes (%) (Auto) , Monocytes (%) (Auto) , Eosinophils (%) (Auto) , Basophils (%) (Auto) , Differential Total Cells Counted 100, Neutrophils % (Manual) 85H, Lymphocytes % (Manual) 9L, Monocytes % (Manual) 3, Eosinophils % (Manual) 3, Basophils % ( Manual) 0, Band Neutrophils 0, Platelet Estimate Adequate, Platelet Morphology Normal, Hypochromasia 1+, Anisocytosis 1+, Lactic Acid Level 2.40H, Uric Acid 9.0H, Phosphorus Level 7.2H, Magnesium Level 2.3, Iron Level 181H, Total Iron Binding Capacity 207L, Percent Iron Saturation 87H, Unsaturated Iron Binding 26L , Ferritin 436H, Total Bilirubin 0.9, Gamma Glutamyl Transpeptidase 172H, Aspartate Amino Transf (AST/SGOT) 771H, Alanine Aminotransferase (ALT/SGPT) 498H , Alkaline Phosphatase 146H, Ammonia 40H, Total Creatine Kinase 132, Troponin I 0.076H, Pro-B-Type Natriuretic Peptide > 13623Z, Total Protein 6.4, Albumin 2.7L , Globulin 3.7, Albumin/Globulin Ratio 0.7L, Triglycerides Level 83, Cholesterol Level 73, LDL Cholesterol 37, HDL Cholesterol 29L, Cholesterol/HDL Ratio 2.5L, Vitamin B12 Level > 2000H, Folate 38.4, Thyroid Stimulating Hormone (TSH) 0.944, Random Vancomycin Level 27.3 02/12/18 11:00: Lactic Acid Level 2.00 Height (Feet): 5 Height (Inches): 0.00 Weight (Pounds): 119 General Appearance: no apparent distress Objective no change Washington Pavon MD Feb 12, 2018 14:18
--- NOTE | 2018-02-12 15:00 | NUR ---
NURSE NOTES: Dr Velázquez called re EKG orders,informed re pt converting to SR x2 EKG and he ordered it discontinued.
[2018-02-12 16:00] VITALS: BP 107/55
--- NOTE | 2018-02-12 17:02 | General Progress Note ---
Assessment/Plan Status: doing well Assessment/Plan #Shortness of breath due to fluid overload #Missed HD, noncompliance with dialysis #Hyperkalemia #Transaminitis #Elevated troponin in setting of ESRD #ESRD on HD #IDDM #Essential HTN - resume home antihypertensives - iss, resume insulin regiment, accuchecks - K 6.1 improved to 4.3 with urgent HD - Nephro plans for another HD tomorrow - repeat bmp in AM #Abnormal EKG - ekg done showing nsr - cards consult appreciated - repeat TTE this admission - likely PVCs - trend EKGs q8hr - vitals stable - patient stable #Nausea, resolved - prn zofran Subjective Date patient seen: Feb 12, 2018 Time patient seen: 16:00 ROS Limited/Unobtainable: No Constitutional: Denies: chills, fever HEENT: Denies: eye pain, blurred vision Cardiovascular: Denies: chest pain, edema, irregular heart rate Respiratory: Denies: cough, orthopnea, shortness of breath Gastrointestinal/Abdominal: Denies: abdomen distended, abdominal pain Allergies: Coded Allergies: NO KNOWN DRUG ALLERGIES (Verified Allergy, Unknown, 01/29/18) Subjective Medicine follow up for fluid overload due to ESRD due to missed dialysis. She was urgently dialyzed last night with improvement in dyspnea and hyperkalemia. Objective Last 24 Hour Vital Signs Date Time Temp Pulse Resp B/P (MAP) Pulse Ox O2 Delivery O2 Flow Rate FiO2 02/12/18 16:00 63 02/12/18 16:00 Room Air 02/12/18 16:00 97.5 63 20 107/55 (72) 97 02/12/18 14:07 127/57 02/12/18 12:44 127/57 02/12/18 12:00 Room Air 02/12/18 12:00 62 02/12/18 12:00 97.5 63 20 127/57 (80) 98 02/12/18 08:52 123/61 02/12/18 08:52 63 123/61 02/12/18 08:00 Room Air 02/12/18 08:00 68 02/12/18 08:00 97.2 63 18 123/61 (81) 96 02/12/18 08:00 97.8 63 18 129/61 (83) 96 02/12/18 06:07 127/62 12/29/18 04:00 62 02/12/18 04:00 98.4 63 20 127/62 (83) 94 02/12/18 00:00 97.8 67 20 135/62 (86) 95 02/12/18 00:00 64 02/11/18 21:37 72 176/82 02/11/18 21:36 176/82 02/11/18 21:00 Room Air 02/11/18 20:49 Room Air 02/11/18 20:47 Room Air 02/11/18 20:00 98.6 63 20 160/82 (108) 98 02/11/18 18:00 143/78 Intake and Output 02/11/18 02/12/18 19:00 07:00 Intake Total 120 ml 840.000 ml Output Total 1000 ml Balance 120 ml -160.000 ml Intake Oral 120 ml 480 ml IV Total 360.000 ml Output Hemodialysis UF 1000 ml # Voids 1 # Bowel Movements 1 2 Laboratory Tests 02/11/18 19:30: C-Reactive Protein, Quantitative 3.7H 02/12/18 09:00: White Blood Count 11.4H, Red Blood Count 3.14L, Hemoglobin 9.7L, Hematocrit 30.1L, Mean Corpuscular Volume 96, Mean Corpuscular Hemoglobin 30.8, Mean Corpuscular Hemoglobin Concent 32.1, Red Cell Distribution Width 15.9H, Platelet Count 184, Mean Platelet Volume 7.8, Neutrophils (%) (Auto) , Lymphocytes (%) (Auto) , Monocytes (%) (Auto) , Eosinophils (%) (Auto) , Basophils (%) (Auto) , Differential Total Cells Counted 100, Neutrophils % ( Manual) 85H, Lymphocytes % (Manual) 9L, Monocytes % (Manual) 3, Eosinophils % ( Manual) 3, Basophils % (Manual) 0, Band Neutrophils 0, Platelet Estimate Adequate, Platelet Morphology Normal, Hypochromasia 1+, Anisocytosis 1+, Sodium Level 135L, Potassium Level 4.3, Chloride Level 95L, Carbon Dioxide Level 25, Anion Gap 15, Blood Urea Nitrogen 68H, Creatinine 10.5H, Estimat Glomerular Filtration Rate 3.7, Glucose Level 283#H, Lactic Acid Level 2.40H, Uric Acid 9.0H, Calcium Level 6.8L, Phosphorus Level 7.2H, Magnesium Level 2.3, Iron Level 181H, Total Iron Binding Capacity 207L, Percent Iron Saturation 87H, Unsaturated Iron Binding 26L, Ferritin 436H, Total Bilirubin 0.9, Gamma Glutamyl Transpeptidase 172H, Aspartate Amino Transf (AST/SGOT) 771H, Alanine Aminotransferase (ALT/SGPT) 498H, Alkaline Phosphatase 146H, Ammonia 40H, Total Creatine Kinase 132, Troponin I 0.076H, Pro-B-Type Natriuretic Peptide > 86442Q , Total Protein 6.4, Albumin 2.7L, Globulin 3.7, Albumin/Globulin Ratio 0.7L, Triglycerides Level 83, Cholesterol Level 73, LDL Cholesterol 37, HDL Cholesterol 29L, Cholesterol/HDL Ratio 2.5L, Vitamin B12 Level > 2000H, Folate 38.4, Thyroid Stimulating Hormone (TSH) 0.944, Random Vancomycin Level 27.3 02/12/18 11:00: Lactic Acid Level 2.00 Height (Feet): 5 Height (Inches): 0.00 Weight (Pounds): 119 General Appearance: no apparent distress, alert EENT: normal ENT inspection Neck: normal alignment, supple Cardiovascular: normal peripheral pulses, normal rate, regular rhythm Respiratory/Chest: chest wall non-tender, lungs clear Abdomen: normal bowel sounds, non tender Daryn Gill MD Feb 12, 2018 17:02
[2018-02-12] MEDS: Zosyn 2.25 gm in D5W 55ml IV SCH ×2 (17:47→21:32)
[2018-02-12] MEDS: Allopurinol 100mg Tab ORAL SCH (17:48)
--- NOTE | 2018-02-12 19:25 | NUR ---
HAND-OFF: Report given to Kelsie Lane RN.
--- NOTE | 2018-02-12 19:35 | NUR ---
NURSE NOTES: Bedside report received from MARCIN Shoemaker. AOx4, able to make needs known. shelter monitor showing NSR, serial EKG showed NSR and DC'd; no cardiac pacing per RN. Lab OK per RNMD aware and no new orders. Pt is scheduled to receive HD 02/12, VIP already scheduled. RIJ 22g SL; asymptomatic. VANESSA shunt audible bruit, palpable thrill. Skin is clean, dry, intact. Bed locked in lowest position, call flores within reach, side rails, x3, bed alarm on. Will continue to monitor and follow plan of care.
[2018-02-12 20:00] VITALS: BP 126/53
[2018-02-13] VITALS: BP 117/56
--- NOTE | 2018-02-13 | NUR ---
NURSE NOTES: Report received from MARCIN Iglesias. A/Ox4 Denies pain. SR on monitoring coordinator. VSS Afebrile. Rt.IJ Guage 22 intact. Lt. UA shunt w/audible bruit and palpable thrill. Skin dry and intact. In no apparent distress. Bed in lowest position. Call light w/in reach, side rails up x3, Bed alarm on. Will continue POC.
[2018-02-13 04:00] VITALS: BP 129/65
[2018-02-13 05:58] LABS: EOSINOPHILS % (AUTO) 3.9 % (0.0-3.0); HEMATOCRIT 27.6 % (37.0-47.0); HEMOGLOBIN 8.7 G/DL (12.0-16.0); LYMPHOCYTES % (AUTO) 14.2 % (20.0-45.0); MEAN CORPUSCULAR VOLUME 96 FL (80-99); MONOCYTES % (AUTO) 7.3 % (1.0-10.0); NEUTROPHILS % (AUTO) 73.6 % (45.0-75.0); PLATELET COUNT 176 K/UL (150-450); RED BLOOD COUNT 2.86 M/UL (4.20-5.40); RED CELL DISTRIBUTION WIDTH 16.4 % (11.6-14.8); WHITE BLOOD COUNT 9.7 K/UL (4.8-10.8)
[2018-02-13] MEDS: Zosyn 2.25 gm in D5W 55ml IV SCH (06:07)
[2018-02-13] MEDS: HydrALAZINE 25mg tab ORAL SCH ×3 (06:08→21:52)
[2018-02-13] MEDS: NovoLOG Insulin Flexpen SUBQ SCH ×4 (06:30→21:00)
--- NOTE | 2018-02-13 06:30 | NUR ---
NURSE NOTES: Remain A/Ox4 Denies pain. SR on nurse monitoring. VSS Afebrile. Respirations even and unlabored. No distress noted. Bed in lowest position. Call light w/in reach, side rails up x3, Bed alarm on. Will continue POC
--- NOTE | 2018-02-13 07:20 | NUR ---
NURSE NOTES: Report received from David Galeas RN.Pt asleep but easily arouses with verbal command ,noted no resp distress ,denies any c/o chest pain or discomfort,SR on the monitor,Pt complain of numbness to RT side of face and RT arm,skin warm and dry, pt with no IV access, HOANG PIVremoved by sheba RN,will continue to monitor pt.
[2018-02-13 07:34] LABS: ALANINE AMINOTRANSFERASE 543 U/L (12-78); ALBUMIN 2.5 G/DL (3.4-5.0); ALBUMIN/GLOBULIN RATIO 0.7 (1.0-2.7); ALKALINE PHOSPHATASE 131 U/L (46-116); ANION GAP 19 mmol/L (5-15); ASPARTATE AMINO TRANSFERASE 384 U/L (15-37); BILIRUBIN,TOTAL 0.8 MG/DL (0.2-1.0); BLOOD UREA NITROGEN 81 mg/dL (7-18); CALCIUM 6.5 MG/DL (8.5-10.1); CARBON DIOXIDE 24 MMOL/L (21-32); CHLORIDE 97 MMOL/L (98-107); CREATININE 12.6 MG/DL (0.55-1.30); POTASSIUM 4.4 MMOL/L (3.5-5.1); SODIUM 140 MMOL/L (136-145)
[2018-02-13 08:00] VITALS: BP 133/51
--- NOTE | 2018-02-13 08:10 | NUR ---
NURSE NOTES: Seen by Dr Troncoso,pt c/o numbness to rt side of face,stat CT head ordered.
[2018-02-13] MEDS: Docusate 100mg cap ORAL SCH ×3 (09:00→18:00)
--- NOTE | 2018-02-13 09:00 | NUR ---
NURSE NOTES: Pt brought down to CT Scan per bed awake alert oriented in no distress, and back to the unit at 0920.
--- NOTE | 2018-02-13 09:47 | Cardiology Progress Note ---
Assessment/Plan Status: stable Status Narrative Echo from previous visit reviewed LVEF 20% globally Repeat echo on this admission to re-evaluate Continue goal directed medical therapy No indication for cardiac cath or stress testing She would benefit from a viability study to evaluate if revascularization is indicated if LV function remains low - can arrange at [facility] as outpatient patient does not have heart block - telemetry strips showed NSR with PAC with different P wave morphology that was blocked and PVCs, there was no type II heart block because the PAC came early and there was not a dropped QRS, this is likely from electrolyte abnormality. On repeat EKG she was NSR. No indication for pacemaker, recommend outpatient ziopatch Continue statin Continue hydralazine/imdur for heart failure Continue coreg at current dose Hold aldactone due to ESRD and hyperkalemia Aspirin/plavix Patient will need life vest and possible ICD in future - will arrange life vest prior to d/c Subjective Cardiovascular: Reports: no symptoms Respiratory: Reports: no symptoms Gastrointestinal/Abdominal: Reports: no symptoms Genitourinary: Reports: no symptoms Subjective Potassium back to normal, no pain, no further ectopy on monitor, remains in NSR , ok to go to floors Objective Last 24 Hour Vital Signs Date Time Temp Pulse Resp B/P (MAP) Pulse Ox O2 Delivery O2 Flow Rate FiO2 02/13/18 06:08 129/65 02/13/18 04:00 Room Air 02/13/18 04:00 98.6 66 20 129/65 (86) 95 02/13/18 04:00 65 02/13/18 00:00 Room Air 02/13/18 00:00 98.1 65 20 117/56 (76) 95 02/13/18 00:00 66 02/12/18 21:32 126/53 02/12/18 20:34 70 126/53 02/12/18 20:00 Room Air 02/12/18 20:00 97.6 70 20 126/53 (77) 95 02/12/18 20:00 65 02/12/18 17:47 107/55 02/12/18 16:00 63 02/12/18 16:00 Room Air 02/12/18 16:00 97.5 63 20 107/55 (72) 97 02/12/18 14:07 127/57 02/12/18 12:44 127/57 02/12/18 12:00 Room Air 02/12/18 12:00 62 02/12/18 12:00 97.5 63 20 127/57 (80) 98 General Appearance: no apparent distress, alert EENT: PERRL/EOMI, normal ENT inspection, TMs normal Neck: non-tender, normal alignment, supple, normal inspection Rhythm: NSR Cardiovascular: normal peripheral pulses, normal rate, regular rhythm Respiratory/Chest: chest wall non-tender, lungs clear, normal breath sounds Abdomen: normal bowel sounds, non tender, soft, no organomegaly, no mass Extremities: normal range of motion, non-tender 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: 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 grossly normal, no motor/sensory deficits Intake and Output 02/12/18 02/13/18 19:00 07:00 Intake Total 450 ml 55.000 ml Balance 450 ml 55.000 ml Intake Oral 450 ml IV Total 55.000 ml # Voids 2 # Bowel Movements 6 Laboratory Tests Test 02/12/18 11:00 02/13/18 03:20 Lactic Acid Level 2.00 mmol/L (0.66-2.22) White Blood Count 9.7 K/UL (4.8-10.8) Red Blood Count 2.86 M/UL (4.20-5.40) L Hemoglobin 8.7 G/DL (12.0-16.0) L Hematocrit 27.6 % (37.0-47.0) L Mean Corpuscular Volume 96 FL (80-99) Mean Corpuscular Hemoglobin 30.5 PG (27.0-31.0) Mean Corpuscular Hemoglobin Concent 31.7 G/DL (32.0-36.0) L Red Cell Distribution Width 16.4 % (11.6-14.8) H Platelet Count 176 K/UL (150-450) Mean Platelet Volume 7.8 FL (6.5-10.1) Neutrophils (%) (Auto) 73.6 % (45.0-75.0) Lymphocytes (%) (Auto) 14.2 % (20.0-45.0) L Monocytes (%) (Auto) 7.3 % (1.0-10.0) Eosinophils (%) (Auto) 3.9 % (0.0-3.0) H Basophils (%) (Auto) 1.0 % (0.0-2.0) Sodium Level 140 MMOL/L (136-145) Potassium Level 4.4 MMOL/L (3.5-5.1) Chloride Level 97 MMOL/L (98-107) L Carbon Dioxide Level 24 MMOL/L (21-32) Anion Gap 19 mmol/L (5-15) H Blood Urea Nitrogen 81 mg/dL (7-18) H Creatinine 12.6 MG/DL (0.55-1.30) H Estimat Glomerular Filtration Rate 3.0 mL/min (>60) Glucose Level 119 MG/DL (74-106) #H Uric Acid 10.7 MG/DL (2.6-7.2) H Calcium Level 6.5 MG/DL (8.5-10.1) L Phosphorus Level 7.0 MG/DL (2.5-4.9) H Magnesium Level 2.5 MG/DL (1.8-2.4) H Total Bilirubin 0.8 MG/DL (0.2-1.0) Aspartate Amino Transf (AST/SGOT) 384 U/L (15-37) H Alanine Aminotransferase (ALT/SGPT) 543 U/L (12-78) H Alkaline Phosphatase 131 U/L (46-116) H Troponin I 0.065 ng/mL (0.000-0.056) C-Reactive Protein, Quantitative 2.5 mg/dL (0.00-0.90) H Pro-B-Type Natriuretic Peptide > 91324 pg/mL (0-125) H Total Protein 6.0 G/DL (6.4-8.2) L Albumin 2.5 G/DL (3.4-5.0) L Globulin 3.5 g/dL Albumin/Globulin Ratio 0.7 (1.0-2.7) L Random Vancomycin Level 27.3 ug/mL Microbiology Date/Time Source Procedure Growth Status 02/11/18 19:30 Blood Blood Culture - Preliminary NO GROWTH AFTER 24 HOURS Resulted 02/11/18 19:30 Blood Blood Culture - Preliminary NO GROWTH AFTER 24 HOURS Resulted 02/11/18 09:35 Nasal Nares Influenza Types A,B Antigen (TORIBIO) - Final Complete 02/11/18 10:20 Rectum VRE Culture - Final NO VANCOMYCIN RESISTANT ENTEROCOCCUS ... Complete 02/11/18 10:20 Rectum - Final NO CARBAPENEM-RESISTANT ENTEROBACTERI... Complete Mikhail Lr MD Feb 13, 2018 09:47
--- NOTE | 2018-02-13 09:50 | Diagnostic Imaging Report ---
EXAM: CT Head Without Intravenous Contrast CLINICAL HISTORY: WEAK TECHNIQUE: Axial computed tomography images of the head/brain without intravenous contrast. CTDI is 70.38 mGy and DLP is 1382 mGy-cm. One or more of the following dose reduction techniques were used: automated exposure control, adjustment of the mA and/or kV according to patient size, use of iterative reconstruction technique. COMPARISON: No relevant prior studies available. FINDINGS: Brain: No hemorrhage. No edema. Involutional changes with small vessel disease. Old lacune in the left basal ganglia. Ventricles: No ventriculomegaly. Bones/joints: No acute fracture. Soft tissues: Unremarkable. Sinuses: No acute sinusitis. Mastoid air cells: No mastoid effusion. Orbits: Right cataract surgery. IMPRESSION: No acute findings.
--- NOTE | 2018-02-13 10:00 | NUR ---
NURSE NOTES: Seen by Dr Lr,no orders received ,asked to notify him re results of CT Head.
[2018-02-13] MEDS: Carvedilol 12.5mg tab ORAL SCH ×2 (10:40→21:00)
[2018-02-13] MEDS: Allopurinol 100mg Tab ORAL SCH (10:40)
[2018-02-13] MEDS: Aspirin EC 81mg tab ORAL SCH (10:40)
[2018-02-13] MEDS: Heparin 5000 units/ml inj SUBQ SCH ×2 (10:41→21:55)
--- NOTE | 2018-02-13 10:44 | Nephrology Progress Note ---
Assessment/Plan Problem List: (1) ESRD on dialysis (2) Hyperkalemia, diminished renal excretion (3) Cardiomyopathy (4) Anemia in chronic kidney disease Assessment (1) ESRD (end stage renal disease) on dialysis presents with high K (2) CAD (coronary artery disease) (3) DM hyperosmolarity type II (4) Acute systolic (congestive) heart failure (5) Anemia in chronic kidney disease (6) Diabetes type 2, controlled (7) Cardiomyopathy (8) Sepsis Plan Plan HD done 02/11 - high K improved next 02/14 Antibiotics after cultures Adjust BS and BP meds Gastric support optimize cardiac meds check vanco level 2D echo Global LV hypokinesis. Anterior septum basal to distal hypokinesis . Left ventricular ejection fraction estimated to be 20-25 %. Subjective ROS Limited/Unobtainable: No Objective Objective Last 24 Hour Vital Signs Date Time Temp Pulse Resp B/P (MAP) Pulse Ox O2 Delivery O2 Flow Rate FiO2 02/13/18 10:40 72 133/51 02/13/18 08:00 98.0 72 22 133/51 (78) 98 02/13/18 06:08 129/65 02/13/18 04:00 Room Air 02/13/18 04:00 98.6 66 20 129/65 (86) 95 02/13/18 04:00 65 02/13/18 00:00 Room Air 02/13/18 00:00 98.1 65 20 117/56 (76) 95 02/13/18 00:00 66 02/12/18 21:32 126/53 02/12/18 20:34 70 126/53 02/12/18 20:00 Room Air 02/12/18 20:00 97.6 70 20 126/53 (77) 95 02/12/18 20:00 65 02/12/18 17:47 107/55 02/12/18 16:00 63 02/12/18 16:00 Room Air 02/12/18 16:00 97.5 63 20 107/55 (72) 97 02/12/18 14:07 127/57 02/12/18 12:44 127/57 02/12/18 12:00 Room Air 02/12/18 12:00 62 02/12/18 12:00 97.5 63 20 127/57 (80) 98 Intake and Output 02/12/18 02/13/18 19:00 07:00 Intake Total 450 ml 55.000 ml Balance 450 ml 55.000 ml Intake Oral 450 ml IV Total 55.000 ml # Voids 2 # Bowel Movements 6 Laboratory Tests 02/12/18 11:00: Lactic Acid Level 2.00 02/13/18 03:20: White Blood Count 9.7, Red Blood Count 2.86L, Hemoglobin 8.7L, Hematocrit 27.6L , Mean Corpuscular Volume 96, Mean Corpuscular Hemoglobin 30.5, Mean Corpuscular Hemoglobin Concent 31.7L, Red Cell Distribution Width 16.4H, Platelet Count 176, Mean Platelet Volume 7.8, Neutrophils (%) (Auto) 73.6, Lymphocytes (%) (Auto) 14.2L, Monocytes (%) (Auto) 7.3, Eosinophils (%) (Auto) 3.9H, Basophils (%) (Auto) 1.0, Sodium Level 140, Potassium Level 4.4, Chloride Level 97L, Carbon Dioxide Level 24, Anion Gap 19H, Blood Urea Nitrogen 81H, Creatinine 12.6H, Estimat Glomerular Filtration Rate 3.0, Glucose Level 119#H, Uric Acid 10.7H, Calcium Level 6.5L, Phosphorus Level 7.0H, Magnesium Level 2.5H , Total Bilirubin 0.8, Aspartate Amino Transf (AST/SGOT) 384H, Alanine Aminotransferase (ALT/SGPT) 543H, Alkaline Phosphatase 131H, Troponin I 0.065H, C-Reactive Protein, Quantitative 2.5H, Pro-B-Type Natriuretic Peptide > 40595C, Total Protein 6.0L, Albumin 2.5L, Globulin 3.5, Albumin/Globulin Ratio 0.7L, Random Vancomycin Level 27.3 Height (Feet): 5 Height (Inches): 0.00 Weight (Pounds): 118 General Appearance: no apparent distress Objective no change Washington Pavon MD Feb 13, 2018 10:44
--- NOTE | 2018-02-13 10:50 | NUR ---
NURSE NOTES: Dr Pavon at bedside,ordered to transfer pt to [facility].
[2018-02-13 12:00] VITALS: BP 146/64
--- NOTE | 2018-02-13 12:19 | General Progress Note ---
Assessment/Plan Assessment/Plan #Shortness of breath due to fluid overload #Missed HD, noncompliance with dialysis #Hyperkalemia #Transaminitis #Elevated troponin in setting of ESRD #ESRD on HD #IDDM #Essential HTN - resume home antihypertensives - iss, resume insulin regiment, accuchecks - K 6.1 improved to 4.3 with urgent HD - Nephro plans for another HD tomorrow - repeat bmp in AM #Facial numbness, patient had a right neck IV access. CT head negative -Will obtain MRI brain -Patient already on DAPT #Abnormal EKG - ekg done showing nsr - cards consult appreciated - repeat TTE done - likely PVCs - trend EKGs q8hr - vitals stable - patient stable #Nausea, resolved - prn zofran Subjective Date patient seen: Feb 13, 2018 Time patient seen: 09:20 ROS Limited/Unobtainable: No Constitutional: Denies: chills, fever HEENT: Denies: eye pain, blurred vision Cardiovascular: Denies: chest pain, edema Respiratory: Denies: cough, orthopnea Gastrointestinal/Abdominal: Denies: abdomen distended, abdominal pain Genitourinary: Denies: burning Endocrine: Denies: excessive sweating Hematologic/Lymphatic: Denies: anemia Allergies: Coded Allergies: NO KNOWN DRUG ALLERGIES (Verified Allergy, Unknown, 01/29/18) Subjective Medicine follow up for fluid overload due to ESRD due to missed dialysis. She reports right sided facial numbness which started last night. CT brain without contrast negative today. Objective Last 24 Hour Vital Signs Date Time Temp Pulse Resp B/P (MAP) Pulse Ox O2 Delivery O2 Flow Rate FiO2 02/13/18 12:00 Room Air 02/13/18 10:49 133/51 02/13/18 10:40 72 133/51 02/13/18 08:00 98.0 72 22 133/51 (78) 98 02/13/18 08:00 Room Air 02/13/18 08:00 71 02/13/18 06:08 129/65 02/13/18 04:00 Room Air 02/13/18 04:00 98.6 66 20 129/65 (86) 95 02/13/18 04:00 65 02/13/18 00:00 Room Air 02/13/18 00:00 98.1 65 20 117/56 (76) 95 02/13/18 00:00 66 02/12/18 21:32 126/53 02/12/18 20:34 70 126/53 02/12/18 20:00 Room Air 02/12/18 20:00 97.6 70 20 126/53 (77) 95 02/12/18 20:00 65 02/12/18 17:47 107/55 02/12/18 16:00 63 02/12/18 16:00 Room Air 02/12/18 16:00 97.5 63 20 107/55 (72) 97 02/12/18 14:07 127/57 02/12/18 12:44 127/57 Intake and Output 02/12/18 02/13/18 19:00 07:00 Intake Total 450 ml 55.000 ml Balance 450 ml 55.000 ml Intake Oral 450 ml IV Total 55.000 ml # Voids 2 # Bowel Movements 6 Laboratory Tests 02/13/18 03:20: White Blood Count 9.7, Red Blood Count 2.86L, Hemoglobin 8.7L, Hematocrit 27.6L , Mean Corpuscular Volume 96, Mean Corpuscular Hemoglobin 30.5, Mean Corpuscular Hemoglobin Concent 31.7L, Red Cell Distribution Width 16.4H, Platelet Count 176, Mean Platelet Volume 7.8, Neutrophils (%) (Auto) 73.6, Lymphocytes (%) (Auto) 14.2L, Monocytes (%) (Auto) 7.3, Eosinophils (%) (Auto) 3.9H, Basophils (%) (Auto) 1.0, Sodium Level 140, Potassium Level 4.4, Chloride Level 97L, Carbon Dioxide Level 24, Anion Gap 19H, Blood Urea Nitrogen 81H, Creatinine 12.6H, Estimat Glomerular Filtration Rate 3.0, Glucose Level 119#H, Uric Acid 10.7H, Calcium Level 6.5L, Phosphorus Level 7.0H, Magnesium Level 2.5H , Total Bilirubin 0.8, Aspartate Amino Transf (AST/SGOT) 384H, Alanine Aminotransferase (ALT/SGPT) 543H, Alkaline Phosphatase 131H, Troponin I 0.065H, C-Reactive Protein, Quantitative 2.5H, Pro-B-Type Natriuretic Peptide > 78191U, Total Protein 6.0L, Albumin 2.5L, Globulin 3.5, Albumin/Globulin Ratio 0.7L, Random Vancomycin Level 27.3 Height (Feet): 5 Height (Inches): 0.00 Weight (Pounds): 118 General Appearance: no apparent distress, alert EENT: PERRL/EOMI, normal ENT inspection Neck: non-tender Cardiovascular: normal peripheral pulses, normal rate Respiratory/Chest: chest wall non-tender, lungs clear Abdomen: normal bowel sounds, non tender, soft Extremities: normal range of motion, non-tender 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
[2018-02-13 16:00] VITALS: BP 130/55
--- NOTE | 2018-02-13 16:11 | NUR ---
NURSE NOTES: IV insertion to RT hand with no 22 g angiocath done after 4 attempts,pt is a hard stick.Procedure tolerated well.
--- NOTE | 2018-02-13 16:45 | NUR ---
TRANSFER TO FLOOR: Patient transferred to 4E room 408, per beds awake,alert oriented stable,in no distress. Report given to Angie RN. Belongings and Insulin pen given to receiving RN . Family aware of transfer,pt called them by phone.
--- NOTE | 2018-02-13 16:52 | NUR ---
NURSE NOTES: Received pt fro [facility], Pt in bed, awake, calm, no apparent distress, a/o x4, inventoried all belongings, pt has schumacher and will be put into safe, called RN tank storage supervisor. Bed in lowest position, call light within reach.
[2018-02-13] MEDS ORDERED: HydrALAZINE 25mg tab ORAL PRN (17:00)
--- NOTE | 2018-02-13 17:19 | NUR ---
rechecked blood sugar after transfuser at 1719. bs 122 Addendum: 02/13/18 at 1719 by JACQUES CHAUHAN RN Amended: Links added.
--- NOTE | 2018-02-13 17:19 | NUR ---
NURSE NOTES: transfering nurse states she checked bs prior to tranferring pt it was 145, but did not give the insulin. Recheck BS 122. Attempted to give insulin 2 units, but pt not transfered in the system yet. eMAR not showing 1630 insulin due because medications have been discontinued. Contacted pharmacy. will relabel pen and reorder insulin to be given 1800
--- NOTE | 2018-02-13 19:30 | NUR ---
NURSE NOTES: Recieved patient in bed, awake , alert, oriented, patient is ambulatory with steady gate. Bed is in low/locked position, alarm is on, call light is within reach. Will continue to monitor for safety and comfort.
--- NOTE | 2018-02-13 19:31 | NUR ---
HAND-OFF: Report given to MARCIN Payton.
[2018-02-13 20:00] VITALS: BP 136/67
[2018-02-13] MEDS ORDERED: NovoLOG Insulin Flexpen SUBQ SCH ×2 (21:00)
--- NOTE | 2018-02-13 21:03 | NUR ---
CASE MANAGEMENT: INITIAL REVIEW 02/11/2018 62 YO F PRESENTED TO ED FROM HOME CC: MISSED HD PMHx: DM. HTN. HD. SI:ESRD. DYSPNEA. T 97.2 HR 62 RR 23 B/P 171/62 SATS 97% ON RA WBC 18.2 K 6.1 CL 94 CO2 14 BUN 88 CR 14.5 GLU 123 CA 7.2 IS: CALCIUM GLUCONATE IV X1 INSULIN HUMAN REGULAR IV 10 UNITS X1 D50W IV X1 PATIENT ADMITTED TO [facility] 02/11/18 @ 1050 DCP: PATIENT TO BE DISCHARGED TO HOME ONCE MEDICALLY CLEARED. PLAN OF CARE: NEPHRO CONSULT 02/12/2018 SI:ESRD. DYSPNEA. T 97.5 HR 63 RR 20 B/P 107/55 SATS 97% ON RA WBC 11.4 NA 135 CL BUN 68 CR 10.5 GLU 283 AST 77 ALT 498 ALP 146 AMMONIA 40 IS: COREG PO Q12H PROTONIX PO Q12H LIPITOR PO QHS ALLOPURINOL PO QD ASA PO QD NOVOLOG SUBQ AC/HS HYDRALAZINE PO Q8H MED/SURG STATUS DCP: PATIENT TO BE DISCHARGED TO HOME ONCE MEDICALLY CLEARED. PLAN OF CARE: 2D ECHO HD ON 02/1102/13/2018 SI:ESRD. DYSPNEA. T 97.2 HR 68 RR 18 B/P 136/67 SATS 98% ON RA CL 97 BUN 81 CR 12.6 GLUCOSE 119 CA 10.7 AST 384 ALT 543 ALP 131 TROPONIN 0.065 IS: COREG PO Q12H PROTONIX PO Q12H LIPITOR PO QHS ALLOPURINOL PO QD ASA PO QD NOVOLOG SUBQ AC/HS HYDRALAZINE PO Q8H MED/SURG STATUS DCP: PATIENT TO BE DISCHARGED TO HOME ONCE MEDICALLY CLEARED.
--- NOTE | 2018-02-13 22:00 | NUR ---
Patient stated that she felt slightly light headed, VS checked ,administered oxygen via NC 2l/min, sat 98%, VSS stable, blood glucose checked 75, snack given.
[2018-02-14] VITALS (7 sets, daily range): BP systolic 114–160; BP diastolic 56–71
[2018-02-14] MEDS: HydrALAZINE 25mg tab ORAL SCH ×3 (05:39→22:49)
[2018-02-14] MEDS: NovoLOG Insulin Flexpen SUBQ SCH ×4 (06:14→21:00)
--- NOTE | 2018-02-14 06:56 | NUR ---
NURSE NOTES: Received report from MARCIN Payton. Pt in bed, asleep, no apparent distress noted, respirations unlabored, bed in lowest position, call light within reach. Plan for dialysis today.
--- NOTE | 2018-02-14 07:12 | NUR ---
HAND-OFF: Report given to Angie BURCH.
[2018-02-14 07:43] LABS: EOSINOPHILS % (AUTO) 4.1 % (0.0-3.0); HEMATOCRIT 29.8 % (37.0-47.0); HEMOGLOBIN 9.6 G/DL (12.0-16.0); LYMPHOCYTES % (AUTO) 12.7 % (20.0-45.0); MEAN CORPUSCULAR VOLUME 96 FL (80-99); MONOCYTES % (AUTO) 7.4 % (1.0-10.0); NEUTROPHILS % (AUTO) 74.8 % (45.0-75.0); PLATELET COUNT 198 K/UL (150-450); RED BLOOD COUNT 3.12 M/UL (4.20-5.40); WHITE BLOOD COUNT 10.3 K/UL (4.8-10.8)
--- NOTE | 2018-02-14 08:05 | General Progress Note ---
Assessment/Plan Status: stable Assessment/Plan #Shortness of breath due to fluid overload #Missed HD, noncompliance with dialysis #Hyperkalemia #Transaminitis #Elevated troponin in setting of ESRD #ESRD on HD #IDDM #Essential HTN #Facial Numbness - resume home antihypertensives - iss, resume insulin regiment, accuchecks - K 6.1 improved to 4.3 with urgent HD - Nephro plans for another HD today, pending AM labs #Facial numbness -patient had a right neck IV access. -CT head negative -Will obtain MRI brain, pending -Patient already on DAPT #Abnormal EKG - ekg done showing nsr - cards consult appreciated - repeat TTE done - likely PVCs - trend EKGs q8hr - vitals stable - patient stable #Nausea, resolved - prn zofran diet: renal diet DVT Prophylaxis: SCD, HSQ Code Status: Full Hospital Classification Declaration: Based on this initial evaluation, and depending on the patient's clinical course, I anticipate that this patient will require hospitalization for 2-3 days for HD and cardiac workup and close respiratory/hemodynamic monitoring. Disposition: Once the patient is stable to leave the hospital, I anticipate the patient will likely be discharged to the following environment: home with HH vs SNF I spent 55 minutes on this patient's case, and 40 minutes were dedicated to counseling and/or care coordination. Discussed with patient/family, nursing staff, SW/CM regarding clinical status, treatment course, and disposition planning. Time of note may not reflect time of encounter. Date of Discussion: 02/11/18 A [id number] discussion with the patient regarding the patient's advanced care planning took place during this hospitalization on the above date. The discussion included the explanation and discussion of advance directives and associated forms/documents, as well as the patient's current code status. We also discussed at length the patient's medical conditions (both acute and chronic), general prognosis, treatment options, and goals of care. The following summarizes the discussion: Advance Care Planning/Goals of Care: - Will attempt to fill out an AD and/or POLST with the patient prior to discharge, if not already completed - Continue current evaluation and management of any acute and chronic medical issues - Will continue to support the patient/family - Will continue to discuss both short- and long-term goals of care DPOA-HC/Surrogate Decision Maker: None currently appointed Code Status: Full Code AD Forms/Documents Completed: Deferred A total of 31 minutes was spent on this discussion, including counseling, answering questions, and completing, if any, pertinent advanced care planning forms/documents. ---- Subjective Date patient seen: Feb 14, 2018 Time patient seen: 08:02 Allergies: Coded Allergies: NO KNOWN DRUG ALLERGIES (Verified Allergy, Unknown, 01/29/18) Subjective f/u facial numbness, fluid overload due to missed HD, hyperkalemia cth neg pending MRI states she is still feeling on and off right sided facial numbness however does not have any neurological deficits noted, pending mri today, denies vision changes, denies difficulty speaking/eating, denies cp or sob. pending AM labs HD today ROS: 14 point ROS reviewed and negative except for the above subjective Objective Last 24 Hour Vital Signs Date Time Temp Pulse Resp B/P (MAP) Pulse Ox O2 Delivery O2 Flow Rate FiO2 02/14/18 07:33 Nasal Cannula 3.0 02/14/18 07:26 97.3 68 14 149/69 (95) 02/14/18 04:32 98.3 67 18 127/65 (85) 67 02/14/18 03:11 Nasal Cannula 2.0 02/14/18 00:00 98.0 68 18 114/56 (75) 99 68 02/13/18 23:29 Nasal Cannula 2.0 02/13/18 21:52 140/63 02/13/18 21:00 Nasal Cannula 2.0 02/13/18 21:00 80 140/63 02/13/18 20:00 97.2 68 18 136/67 (90) 98 68 02/13/18 17:56 130/55 02/13/18 16:05 Room Air 02/13/18 16:00 67 02/13/18 16:00 97.7 67 21 130/55 (80) 97 02/13/18 13:52 146/64 02/13/18 13:00 146/64 02/13/18 12:00 98.3 67 21 146/64 (91) 97 02/13/18 12:00 68 02/13/18 12:00 Room Air 02/13/18 10:49 133/51 02/13/18 10:40 72 133/51 Intake and Output 02/13/18 02/14/18 18:59 06:59 Intake Total 600 ml 400 ml Balance 600 ml 400 ml Intake Oral 600 ml 400 ml # Voids 2 1 # Bowel Movements 1 Laboratory Tests 02/14/18 06:36: White Blood Count 10.3, Red Blood Count 3.12L, Hemoglobin 9.6L, Hematocrit 29.8L , Mean Corpuscular Volume 96, Mean Corpuscular Hemoglobin 30.8, Mean Corpuscular Hemoglobin Concent 32.2, Red Cell Distribution Width 16.0H, Platelet Count 198, Mean Platelet Volume 9.1, Neutrophils (%) (Auto) 74.8, Lymphocytes (%) (Auto) 12.7L, Monocytes (%) (Auto) 7.4, Eosinophils (%) (Auto) 4.1H, Basophils (%) (Auto) 1.0, Sodium Level [Pending], Potassium Level [Pending ], Chloride Level [Pending], Carbon Dioxide Level [Pending], Blood Urea Nitrogen [Pending], Creatinine [Pending], Estimat Glomerular Filtration Rate [ Pending], Glucose Level [Pending], Calcium Level [Pending] Height (Feet): 5 Height (Inches): 0.00 Weight (Pounds): 118 Objective General Appearance: no apparent distress, alert Lines, tubes and drains: peripheral HEENT: normocephalic, atraumatic, anicteric Neck: non-tender, normal alignment, supple, normal inspection Respiratory/Chest: chest wall non-tender, lungs clear, normal breath sounds, no respiratory distress, no accessory muscle use Cardiovascular/Chest: normal peripheral pulses, normal rate, regular rhythm Abdomen: normal bowel sounds, non tender, soft, no organomegaly, no mass Extremities: normal range of motion, non-tender, normal inspection, no calf tenderness Skin Exam: normal pigmentation, warm/dry 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
[2018-02-14 08:08] LABS: ANION GAP 19 mmol/L (5-15); BLOOD UREA NITROGEN 91 mg/dL (7-18); CALCIUM 6.5 MG/DL (8.5-10.1); CARBON DIOXIDE 22 MMOL/L (21-32); CHLORIDE 94 MMOL/L (98-107); CREATININE 13.5 MG/DL (0.55-1.30); POTASSIUM 5.1 MMOL/L (3.5-5.1); SODIUM 135 MMOL/L (136-145)
[2018-02-14] MEDS: Allopurinol 100mg Tab ORAL SCH (08:27)
[2018-02-14] MEDS: Aspirin EC 81mg tab ORAL SCH (08:28)
[2018-02-14] MEDS: Docusate 100mg cap ORAL SCH ×3 (08:29→17:28)
[2018-02-14] MEDS: Heparin 5000 units/ml inj SUBQ SCH ×2 (08:29→21:00)
[2018-02-14] MEDS: Carvedilol 12.5mg tab ORAL SCH ×2 (08:30→21:23)
--- NOTE | 2018-02-14 10:03 | NUR ---
MRI BRAIN COMPLETED.
--- NOTE | 2018-02-14 10:11 | Cardiology Progress Note ---
Assessment/Plan Status: stable Status Narrative Echo from previous visit reviewed LVEF 20% globally Repeat echo on this admission to re-evaluate Continue goal directed medical therapy No indication for cardiac cath or stress testing She would benefit from a viability study to evaluate if revascularization is indicated if LV function remains low - can arrange at [facility] as outpatient patient does not have heart block - telemetry strips showed NSR with PAC with different P wave morphology that was blocked and PVCs, there was no type II heart block because the PAC came early and there was not a dropped QRS, this is likely from electrolyte abnormality. On repeat EKG she was NSR. No indication for pacemaker, recommend outpatient ziopatch Continue statin Continue hydralazine/imdur for heart failure Continue coreg at current dose Hold aldactone due to ESRD and hyperkalemia Aspirin/plavix Patient will need life vest and possible ICD in future - has been ordered and approved, awaiting delivery Subjective Cardiovascular: Reports: no symptoms Respiratory: Reports: no symptoms Gastrointestinal/Abdominal: Reports: no symptoms Genitourinary: Reports: no symptoms Subjective No acute events, no distress, potassium elevated, no chest pain, vitals stable CT brain negative, MRI brain pending Life vest ordered and approved Objective Last 24 Hour Vital Signs Date Time Temp Pulse Resp B/P (MAP) Pulse Ox O2 Delivery O2 Flow Rate FiO2 02/14/18 08:30 68 149/69 02/14/18 08:27 149/69 02/14/18 07:55 97.3 02/14/18 07:33 Nasal Cannula 3.0 02/14/18 07:26 97.3 68 14 149/69 (95) 02/14/18 04:32 98.3 67 18 127/65 (85) 67 02/14/18 03:11 Nasal Cannula 2.0 02/14/18 00:00 98.0 68 18 114/56 (75) 99 68 02/13/18 23:29 Nasal Cannula 2.0 02/13/18 21:52 140/63 02/13/18 21:00 Nasal Cannula 2.0 02/13/18 21:00 80 140/63 02/13/18 20:00 97.2 68 18 136/67 (90) 98 68 02/13/18 17:56 130/55 02/13/18 16:05 Room Air 02/13/18 16:00 67 02/13/18 16:00 97.7 67 21 130/55 (80) 97 02/13/18 13:52 146/64 02/13/18 13:00 146/64 02/13/18 12:00 98.3 67 21 146/64 (91) 97 02/13/18 12:00 68 02/13/18 12:00 Room Air 02/13/18 10:49 133/51 02/13/18 10:40 72 133/51 General Appearance: no apparent distress, alert EENT: PERRL/EOMI, normal ENT inspection, TMs normal, pharynx normal Neck: non-tender, normal alignment, supple, normal inspection, no JVD Rhythm: NSR Cardiovascular: normal peripheral pulses, normal rate, regular rhythm Respiratory/Chest: chest wall non-tender, lungs clear, normal breath sounds Abdomen: normal bowel sounds, non tender Extremities: normal range of motion, non-tender Neurologic: sap manager II-XII grossly normal, no motor/sensory deficits Intake and Output 02/13/18 02/14/18 18:59 06:59 Intake Total 600 ml 400 ml Balance 600 ml 400 ml Intake Oral 600 ml 400 ml # Voids 2 1 # Bowel Movements 1 Laboratory Tests Test 02/14/18 06:36 White Blood Count 10.3 K/UL (4.8-10.8) Red Blood Count 3.12 M/UL (4.20-5.40) L Hemoglobin 9.6 G/DL (12.0-16.0) L Hematocrit 29.8 % (37.0-47.0) L Mean Corpuscular Volume 96 FL (80-99) Mean Corpuscular Hemoglobin 30.8 PG (27.0-31.0) Mean Corpuscular Hemoglobin Concent 32.2 G/DL (32.0-36.0) Red Cell Distribution Width 16.0 % (11.6-14.8) H Platelet Count 198 K/UL (150-450) Mean Platelet Volume 9.1 FL (6.5-10.1) Neutrophils (%) (Auto) 74.8 % (45.0-75.0) Lymphocytes (%) (Auto) 12.7 % (20.0-45.0) L Monocytes (%) (Auto) 7.4 % (1.0-10.0) Eosinophils (%) (Auto) 4.1 % (0.0-3.0) H Basophils (%) (Auto) 1.0 % (0.0-2.0) Sodium Level 135 MMOL/L (136-145) L Potassium Level 5.1 MMOL/L (3.5-5.1) Chloride Level 94 MMOL/L (98-107) L Carbon Dioxide Level 22 MMOL/L (21-32) Anion Gap 19 mmol/L (5-15) H Blood Urea Nitrogen 91 mg/dL (7-18) H Creatinine 13.5 MG/DL (0.55-1.30) H Estimat Glomerular Filtration Rate 2.7 mL/min (>60) Glucose Level 96 MG/DL (74-106) Calcium Level 6.5 MG/DL (8.5-10.1) L Microbiology Date/Time Source Procedure Growth Status 02/11/18 19:30 Blood Blood Culture - Preliminary NO GROWTH AFTER 48 HOURS Resulted 02/11/18 19:30 Blood Blood Culture - Preliminary NO GROWTH AFTER 48 HOURS Resulted 02/11/18 10:20 Nasal Nares MRSA Culture - Final NO METHICILLIN RESISTANT STAPH AUREUS... Complete 02/11/18 10:20 Rectum VRE Culture - Final NO VANCOMYCIN RESISTANT ENTEROCOCCUS ... Complete 02/11/18 10:20 Rectum - Final NO CARBAPENEM-RESISTANT ENTEROBACTERI... Complete Mikhail Lr MD Feb 14, 2018 10:11
--- NOTE | 2018-02-14 11:53 | Nephrology Progress Note ---
Assessment/Plan Problem List: (1) ESRD on dialysis (2) Hyperkalemia, diminished renal excretion (3) Cardiomyopathy (4) Anemia in chronic kidney disease Assessment (1) ESRD (end stage renal disease) on dialysis presents with high K (2) CAD (coronary artery disease) (3) DM hyperosmolarity type II (4) Acute systolic (congestive) heart failure (5) Anemia in chronic kidney disease (6) Diabetes type 2, controlled (7) Cardiomyopathy (8) Sepsis Plan Plan HD done 02/11 - high K improved next 02/14 Antibiotics after cultures Adjust BS and BP meds Gastric support optimize cardiac meds check vanco level 2D echo Global LV hypokinesis. Anterior septum basal to distal hypokinesis . Left ventricular ejection fraction estimated to be 20-25 %. Subjective ROS Limited/Unobtainable: No Constitutional: Reports: malaise Objective Objective Last 24 Hour Vital Signs Date Time Temp Pulse Resp B/P (MAP) Pulse Ox O2 Delivery O2 Flow Rate FiO2 02/14/18 08:30 68 149/69 02/14/18 08:27 149/69 02/14/18 07:55 97.3 02/14/18 07:33 Nasal Cannula 3.0 02/14/18 07:26 97.3 68 14 149/69 (95) 02/14/18 04:32 98.3 67 18 127/65 (85) 67 02/14/18 03:11 Nasal Cannula 2.0 02/14/18 00:00 98.0 68 18 114/56 (75) 99 68 02/13/18 23:29 Nasal Cannula 2.0 02/13/18 21:52 140/63 02/13/18 21:00 Nasal Cannula 2.0 02/13/18 21:00 80 140/63 02/13/18 20:00 97.2 68 18 136/67 (90) 98 68 02/13/18 17:56 130/55 02/13/18 16:05 Room Air 02/13/18 16:00 67 02/13/18 16:00 97.7 67 21 130/55 (80) 97 02/13/18 13:52 146/64 02/13/18 13:00 146/64 02/13/18 12:00 98.3 67 21 146/64 (91) 97 02/13/18 12:00 68 02/13/18 12:00 Room Air Intake and Output 02/13/18 02/14/18 18:59 06:59 Intake Total 600 ml 400 ml Balance 600 ml 400 ml Intake Oral 600 ml 400 ml # Voids 2 1 # Bowel Movements 1 Laboratory Tests 02/14/18 06:36: White Blood Count 10.3, Red Blood Count 3.12L, Hemoglobin 9.6L, Hematocrit 29.8L , Mean Corpuscular Volume 96, Mean Corpuscular Hemoglobin 30.8, Mean Corpuscular Hemoglobin Concent 32.2, Red Cell Distribution Width 16.0H, Platelet Count 198, Mean Platelet Volume 9.1, Neutrophils (%) (Auto) 74.8, Lymphocytes (%) (Auto) 12.7L, Monocytes (%) (Auto) 7.4, Eosinophils (%) (Auto) 4.1H, Basophils (%) (Auto) 1.0, Sodium Level 135L, Potassium Level 5.1, Chloride Level 94L, Carbon Dioxide Level 22, Anion Gap 19H, Blood Urea Nitrogen 91H, Creatinine 13.5H, Estimat Glomerular Filtration Rate 2.7, Glucose Level 96 , Calcium Level 6.5L Height (Feet): 5 Height (Inches): 0.00 Weight (Pounds): 117 General Appearance: no apparent distress Cardiovascular: normal rate Abdomen: soft Objective no change Washington Pavon MD Feb 14, 2018 11:53
--- NOTE | 2018-02-14 12:48 | Diagnostic Imaging Report ---
Indication: Right-sided facial numbness and dizziness Technique: sagittal T1 fast spin echo, axial T1 FLAIR, axial T2 FLAIR, axial T2 FS PROPELLER, axial T2* GRE, axial diffusion weighted images. ADC and exponential ADC maps generated Comparison: Brain CT dated 02/13/2018 Findings: No abnormal areas of restricted diffusion to suggest acute infarction. No acute hemorrhage or edema. No mass effect nor midline shift. There is mild age-related enlargement of the ventricles and extra axial CSF spaces.. There is evidence of prior cataract surgery on the right. There is a small polyp in the sphenoid sinus . Old lacunar infarcts are seen in the left cerebellar hemisphere and left basal ganglia Impression: Minimal age-related volume loss. Graft negative for acute intracranial bleed, mass effect, or infarct
--- NOTE | 2018-02-14 14:04 | NUR ---
NURSE NOTES: Dialysis nurse, Toribio states AV fistual not working properly and unable to do dialysis. Toribio demonstrated that the fistual was not working properly as he was not able to push blood. There was resistance. Toribio will contact Dr. Zurita for orders
--- NOTE | 2018-02-14 14:49 | NUR ---
NURSE NOTES: Dr. Pavon ordered a stat temporary dialysis catheter. Call radiology, no special procedures today, they will call on-train caller. Obtained consent from pt regarding placement of dialysis catheter. Dr. Pavon said if radiology cannot do it today to contact Dr. Fong. Notified Dr. Fong of situation and will let him know if radiology cannot do procedure.
--- NOTE | 2018-02-14 15:07 | NUR ---
NURSE NOTES: Guille from Radiology is coming in to do temporary dialysis catheter placement, RN Packager [employer]ig[employer] working on getting a nurse to assist. Procedure will be done today according to radiology.
--- NOTE | 2018-02-14 15:32 | Cardiology Report ---
APPROVED REPORT EXAM: Two-dimensional and M-mode echocardiogram with Doppler and color Doppler. INDICATION Ventricular function M-Mode DIMENSIONS IVSd0.8 (0.7-1.1cm)Left Atrium (MM)3.8 (1.6-4.0cm) LVDd5.6 (3.5-5.6cm)Aortic Root3.2 (2.0-3.7cm) PWd0.9 (0.7-1.1cm)Aortic Cusp Exc.1.7 (1.5-2.0cm) LVDs4.4 (2.5-4.0cm) PWs1.1 cm Normal left ventricular chamber size. Mid to apical anterior and anteroseptal wall akinesia. Left ventricular ejection fraction is estimated to be 30-35%. Ischemic cardiomyopathy cannot be excluded. No evidence of left ventricular hypertrophy. No evidence of pericardial effusion. All other cardiac chamber sizes are within normal limits. Mild focal aortic valve sclerosis with adequate cusp excursion. Moderately thickened mitral valve leaflets with normal excursion. Moderate mitral annulus and aortic root calcification. Normal pulmonic valve structure. Normal tricuspid valve structure. IVC dilated at 2.3 cm with physiological collapse, suggestive of increased RA pressure. A color flow and spectral Doppler study was performed and revealed: Mild aortic insufficiency. Moderate mitral regurgitation. Mitral inflow velocities indicates possible pseudo normalization pattern implying significant left ventricular diastolic dysfunction (Grade II). Mild tricuspid regurgitation. Tricuspid systolic velocities suggests peak right ventricular systolic pressure of 47 mmHg, consistent with moderate pulmonary hypertension. Mild to moderate pulmonic regurgitation present.
[2018-02-14] MEDS ORDERED: Heparin 2000 units/Ns 1000ml INJ PRN (15:45)
[2018-02-14] MEDS ORDERED: Lidocaine 1% Plain 30 ml INJ PRN (15:45)
[2018-02-14 16:24] LABS: INR 1.1 (0.9-1.1)
--- NOTE | 2018-02-14 16:30 | Pre-Procedure Note/Attestation ---
Pre-Procedure Note/Attestation Complete Prior to Procedure Planned Procedure: not applicable Procedure Narrative: Dialysis catheter Indications for Procedure Pre-Operative Diagnosis: Renal failure Attestation I attest that I discussed the nature of the procedure; its benefits; risks and complications; and alternatives (and the risks and benefits of such alternatives ), prior to the procedure, with the patient (or the patient's legal quality audit representative). I attest that, if there was a reasonable possibility of needing a blood transfusion, the patient (or the patient's legal quality audit representative) was given the [facility] standardized written summary, pursuant to the [place] Blood Safety Act ([place] Health and Safety Code # 1645, as amended). I attest that I re-evaluated the patient just prior to the surgery and that there has been no change in the patient's H&P, except as documented below: Reilly Crespo MD Feb 14, 2018 16:30
--- NOTE | 2018-02-14 16:31 | Brief Operative Note ---
Immediate Post Operative Note Operative Note Pre-op Diagnosis: Renal failure Procedure: R EJV dialysis catheter Post-op Diagnosis: same as pre-op Surgeon: Donald CRESPO Anesthesia: local Specimen: none Complications: none Condition: stable Fluids: none Implant(s) used?: No Reilly Crespo MD Feb 14, 2018 16:31
--- NOTE | 2018-02-14 16:33 | NUR ---
CASE MANAGEMENT:REVIEW 02/14/18 SI: HYPERKALEMIA. CMPY. ESRD 96.8 69 16 156/65 97% ON RA BUN+91 CR+13.5 LAST TROPONIN(+) 0.065 IS: IVF@100/HR ASA PO QD PLAVIX PO QD HYDRALAZINE PO Q8HRS COREG PO Q12 HEPARIN SQ Q12 ISORDIL PO TID : MED/SURG STATUS 4 EAST DCP; PATIENT IS FROM HOME
--- NOTE | 2018-02-14 17:19 | Diagnostic Imaging Report ---
EXAM: XR Chest, 2 Views CLINICAL HISTORY: CLT GRF. Chest pain. TECHNIQUE: Frontal and lateral views of the chest. COMPARISON: 01/29/2018. FINDINGS: Lungs: Mild pulmonary edema/infiltrates, improved compared to prior. Pleural space: Unremarkable. No pneumothorax. Heart: Cardiomegaly. Mediastinum: Stable. Bones/joints: Unremarkable. Tubes, lines and devices: Right subclavian central line at SVC/atrial junction. IMPRESSION: 1. Mild pulmonary edema/infiltrates, improved compared to prior. 2. Right subclavian central line at SVC/atrial junction.
--- NOTE | 2018-02-14 19:31 | NUR ---
NURSE NOTES: Pt is cleared by Dr. Lr, states that pt needs a Life Vest to go home with and a rep will come deliver and discuss with pt, Rep is Pina [phone]
--- NOTE | 2018-02-14 19:32 | NUR ---
HAND-OFF: Report given to MARCIN Diaz.
--- NOTE | 2018-02-14 19:45 | NUR ---
NURSE NOTES: Received report from MARCIN Adams. Patient currently receiving dialysis. A&Ox4. Currently on room air, no signs of distress or labored breathing. Bed in lowest position with call light in reach. Will continue to monitor.
[2018-02-15] VITALS (7 sets, daily range): BP systolic 122–172; BP diastolic 49–77
[2018-02-15] MEDS: HydrALAZINE 25mg tab ORAL SCH ×3 (06:00→22:00)
[2018-02-15] MEDS: NovoLOG Insulin Flexpen SUBQ SCH ×4 (06:10→20:52)
[2018-02-15 07:01] LABS: HEMATOCRIT 29.9 % (37.0-47.0); HEMOGLOBIN 9.6 G/DL (12.0-16.0); LYMPHOCYTES % (AUTO) 7.5 % (20.0-45.0); MEAN CORPUSCULAR VOLUME 97 FL (80-99); MONOCYTES % (AUTO) 6.9 % (1.0-10.0); NEUTROPHILS % (AUTO) 81.6 % (45.0-75.0); PLATELET COUNT 147 K/UL (150-450); RED BLOOD COUNT 3.08 M/UL (4.20-5.40); RED CELL DISTRIBUTION WIDTH 16.5 % (11.6-14.8); WHITE BLOOD COUNT 11.4 K/UL (4.8-10.8)
[2018-02-15 07:10] LABS: ALANINE AMINOTRANSFERASE 261 U/L (12-78); ALBUMIN 2.6 G/DL (3.4-5.0); ALBUMIN/GLOBULIN RATIO 0.6 (1.0-2.7); ALKALINE PHOSPHATASE 127 U/L (46-116); ANION GAP 13 mmol/L (5-15); ASPARTATE AMINO TRANSFERASE 199 U/L (15-37); BILIRUBIN,TOTAL 0.8 MG/DL (0.2-1.0); BLOOD UREA NITROGEN 43 mg/dL (7-18); CALCIUM 7.4 MG/DL (8.5-10.1); CARBON DIOXIDE 28 MMOL/L (21-32); CHLORIDE 95 MMOL/L (98-107); CREATININE 8.2 MG/DL (0.55-1.30); PHOSPHORUS 5.3 MG/DL (2.5-4.9); POTASSIUM 4.2 MMOL/L (3.5-5.1); SODIUM 136 MMOL/L (136-145)
--- NOTE | 2018-02-15 07:11 | NUR ---
HAND-OFF: Report given to MARCIN Toledo.
--- NOTE | 2018-02-15 07:14 | General Progress Note ---
Assessment/Plan Status: stable Assessment/Plan #Shortness of breath due to fluid overload #Missed HD, noncompliance with dialysis #Hyperkalemia #Transaminitis #Elevated troponin in setting of ESRD #ESRD on HD #IDDM #Essential HTN #Facial Numbness - resume home antihypertensives - iss, resume insulin regiment, accuchecks - K 6.1 improved to 4.3 with urgent HD - HD per neprho, HD cath placed yesterday, cont to monitor labs #Facial numbness -patient had a right neck IV access. -CT head negative -Will obtain MRI brain, pending -Patient already on DAPT #Abnormal EKG #Combined Chronic CHF Echo from previous visit reviewed LVEF 20% globally Repeat echo on this admission to re-evaluate Continue goal directed medical therapy No indication for cardiac cath or stress testing plan for outpt viability study to eval revasc if LV fxn remains low no heart block per ekg, tele strips showing nsr with PAC and diff P wave morph. appreciate cardiology recs recommend outpatient ziopatch Continue statin Continue hydralazine/imdur for heart failure Continue coreg at current dose Hold aldactone due to ESRD and hyperkalemia Aspirin/plavix Patient will need life vest and possible ICD in future - has been ordered and approved, awaiting delivery #Nausea, resolved - prn zofran diet: renal diet DVT Prophylaxis: SCD, HSQ Code Status: Full Hospital Classification Declaration: Based on this initial evaluation, and depending on the patient's clinical course, I anticipate that this patient will require hospitalization for 2-3 days for HD and cardiac workup and close respiratory/hemodynamic monitoring. Disposition: Once the patient is stable to leave the hospital, I anticipate the patient will likely be discharged to the following environment: home with HH vs SNF I spent 50 minutes on this patient's case, and 40 minutes were dedicated to counseling and/or care coordination. Discussed with patient/family, nursing staff, SW/CM regarding clinical status, treatment course, and disposition planning. Time of note may not reflect time of encounter. Date of Discussion: 02/11/18 A [id number] discussion with the patient regarding the patient's advanced care planning took place during this hospitalization on the above date. The discussion included the explanation and discussion of advance directives and associated forms/documents, as well as the patient's current code status. We also discussed at length the patient's medical conditions (both acute and chronic), general prognosis, treatment options, and goals of care. The following summarizes the discussion: Advance Care Planning/Goals of Care: - Will attempt to fill out an AD and/or POLST with the patient prior to discharge, if not already completed - Continue current evaluation and management of any acute and chronic medical issues - Will continue to support the patient/family - Will continue to discuss both short- and long-term goals of care DPOA-HC/Surrogate Decision Maker: None currently appointed Code Status: Full Code AD Forms/Documents Completed: Deferred A total of 31 minutes was spent on this discussion, including counseling, answering questions, and completing, if any, pertinent advanced care planning forms/documents. ---- Subjective Date patient seen: Feb 15, 2018 Time patient seen: 07:10 Allergies: Coded Allergies: NO KNOWN DRUG ALLERGIES (Verified Allergy, Unknown, 01/29/18) Subjective f/u facial numbness, fluid overload due to missed HD, hyperkalemia cth neg mri reviewed, neg acute states she is still feeling on and off right sided facial numbness however does not have any neurological deficits noted, pending mri today, denies vision changes, denies difficulty speaking/eating, denies cp or sob. hd cath placed yesterday pending AM labs live vest pending, ordered ROS: 14 point ROS reviewed and negative except for the above subjective Objective Last 24 Hour Vital Signs Date Time Temp Pulse Resp B/P (MAP) Pulse Ox O2 Delivery O2 Flow Rate FiO2 02/15/18 06:00 154/70 02/15/18 00:00 98.4 84 18 167/65 (99) 96 02/14/18 22:49 160/68 02/14/18 21:23 67 133/57 02/14/18 20:00 98.0 67 18 133/57 (82) 98 02/14/18 17:27 155/71 02/14/18 16:43 Room Air 02/14/18 16:00 97.9 70 16 155/71 (99) 98 02/14/18 14:44 156/65 02/14/18 12:26 156/65 02/14/18 12:00 96.8 69 16 156/65 (95) 97 02/14/18 08:30 68 149/69 02/14/18 08:27 149/69 02/14/18 07:55 97.3 02/14/18 07:33 Nasal Cannula 3.0 02/14/18 07:26 97.3 68 14 149/69 (95) Intake and Output 02/14/18 02/15/18 19:00 07:00 Intake Total 1200 ml 120 ml Output Total 2500 ml Balance 1200 ml -2380 ml Intake Oral 1200 ml 120 ml Output Hemodialysis UF 2500 ml # Voids 4 # Bowel Movements 1 Laboratory Tests 02/14/18 15:50: Prothrombin Time 11.9H, Prothromb Time International Ratio 1.1, Activated Partial Thromboplast Time 34H 02/15/18 04:55: White Blood Count 11.4H, Red Blood Count 3.08L, Hemoglobin 9.6L, Hematocrit 29.9L, Mean Corpuscular Volume 97, Mean Corpuscular Hemoglobin 31.1H, Mean Corpuscular Hemoglobin Concent 32.0, Red Cell Distribution Width 16.5H, Platelet Count 147L, Mean Platelet Volume 8.1, Neutrophils (%) (Auto) 81.6H, Lymphocytes (%) (Auto) 7.5L, Monocytes (%) (Auto) 6.9, Eosinophils (%) (Auto) 3.0, Basophils (%) (Auto) 1.0, Sodium Level [Pending], Potassium Level [Pending] , Chloride Level [Pending], Carbon Dioxide Level [Pending], Blood Urea Nitrogen [Pending], Creatinine [Pending], Estimat Glomerular Filtration Rate [Pending], Glucose Level [Pending], Uric Acid [Pending], Calcium Level [Pending], Phosphorus Level [Pending], Total Bilirubin [Pending], Aspartate Amino Transf ( AST/SGOT) [Pending], Alanine Aminotransferase (ALT/SGPT) [Pending], Alkaline Phosphatase [Pending], Total Protein [Pending], Albumin [Pending], Globulin [ Pending], Random Vancomycin Level [Pending] Height (Feet): 5 Height (Inches): 0.00 Weight (Pounds): 117 Objective General Appearance: no apparent distress, alert Lines, tubes and drains: peripheral HEENT: normocephalic, atraumatic, anicteric Neck: non-tender, normal alignment, supple, normal inspection Respiratory/Chest: chest wall non-tender, lungs clear, normal breath sounds, no respiratory distress, no accessory muscle use Cardiovascular/Chest: normal peripheral pulses, normal rate, regular rhythm Abdomen: normal bowel sounds, non tender, soft, no organomegaly, no mass Extremities: normal range of motion, non-tender, normal inspection, no calf tenderness Skin Exam: normal pigmentation, warm/dry Neurologic: esthetic dermatologist II-XII grossly normal, no motor/sensory deficits, alert, oriented x 3, responsive, normal mood/affect Jesús Low MD Feb 15, 2018 07:14
[2018-02-15] MEDS: Carvedilol 12.5mg tab ORAL SCH (08:07)
[2018-02-15] MEDS: Aspirin EC 81mg tab ORAL SCH (08:07)
[2018-02-15] MEDS: Heparin 5000 units/ml inj SUBQ SCH ×2 (08:08→20:45)
[2018-02-15] MEDS: Allopurinol 100mg Tab ORAL SCH (08:08)
[2018-02-15] MEDS: Docusate 100mg cap ORAL SCH ×4 (08:09→17:19)
--- NOTE | 2018-02-15 10:36 | Cardiology Progress Note ---
Assessment/Plan Status: stable Status Narrative Echo from previous visit reviewed LVEF 20% globally Repeat echo on this admission to re-evaluate Continue goal directed medical therapy No indication for cardiac cath or stress testing She would benefit from a viability study to evaluate if revascularization is indicated if LV function remains low - can arrange at [facility] as outpatient patient does not have heart block - telemetry strips showed NSR with PAC with different P wave morphology that was blocked and PVCs, there was no type II heart block because the PAC came early and there was not a dropped QRS, this is likely from electrolyte abnormality. On repeat EKG she was NSR. No indication for pacemaker, recommend outpatient ziopatch Continue statin Continue hydralazine/imdur for heart failure Continue coreg at current dose Hold aldactone due to ESRD and hyperkalemia Aspirin/plavix Patient will need life vest and possible ICD in future - has been ordered and approved, awaiting delivery Subjective Cardiovascular: Reports: no symptoms Respiratory: Reports: no symptoms Gastrointestinal/Abdominal: Reports: no symptoms Genitourinary: Reports: no symptoms Subjective No acute events, no distress, had HD yesterday after temp catheter placed. Electrolytes normal today CT brain negative, MRI brain negative for CVA/Mass Life vest ordered and approved Objective Last 24 Hour Vital Signs Date Time Temp Pulse Resp B/P (MAP) Pulse Ox O2 Delivery O2 Flow Rate FiO2 02/15/18 08:07 157/71 02/15/18 08:07 82 157/71 02/15/18 08:06 82 157/71 (99) 02/15/18 08:00 Room Air 02/15/18 06:00 154/70 02/15/18 04:00 98.3 76 18 154/70 (98) 98 02/15/18 00:00 98.4 84 18 167/65 (99) 96 02/14/18 22:49 160/68 02/14/18 22:30 160/68 (98) 02/14/18 21:23 67 133/57 02/14/18 20:00 98.0 67 18 133/57 (82) 98 02/14/18 17:27 155/71 02/14/18 16:43 Room Air 02/14/18 16:00 97.9 70 16 155/71 (99) 98 02/14/18 14:44 156/65 02/14/18 12:26 156/65 12/31/18 12:00 96.8 69 16 156/65 (95) 97 General Appearance: no apparent distress, alert EENT: PERRL/EOMI, normal ENT inspection, TMs normal Neck: non-tender, normal alignment, supple, normal inspection, no JVD Rhythm: NSR, ST Cardiovascular: normal peripheral pulses, normal rate, regular rhythm Respiratory/Chest: chest wall non-tender, lungs clear, normal breath sounds Abdomen: normal bowel sounds, non tender, soft Extremities: normal range of motion, non-tender Neurologic: elevator runner II-XII grossly normal Intake and Output 02/14/18 02/15/18 18:59 06:59 Intake Total 1200 ml 120 ml Output Total 2500 ml Balance 1200 ml -2380 ml Intake Oral 1200 ml 120 ml Output Hemodialysis UF 2500 ml # Voids 4 # Bowel Movements 1 Laboratory Tests Test 02/14/18 15:50 02/15/18 04:55 Prothrombin Time 11.9 SEC (9.30-11.50) H Prothromb Time International Ratio 1.1 (0.9-1.1) Activated Partial Thromboplast Time 34 SEC (23-33) H White Blood Count 11.4 K/UL (4.8-10.8) H Red Blood Count 3.08 M/UL (4.20-5.40) L Hemoglobin 9.6 G/DL (12.0-16.0) L Hematocrit 29.9 % (37.0-47.0) L Mean Corpuscular Volume 97 FL (80-99) Mean Corpuscular Hemoglobin 31.1 PG (27.0-31.0) H Mean Corpuscular Hemoglobin Concent 32.0 G/DL (32.0-36.0) Red Cell Distribution Width 16.5 % (11.6-14.8) H Platelet Count 147 K/UL (150-450) L Mean Platelet Volume 8.1 FL (6.5-10.1) Neutrophils (%) (Auto) 81.6 % (45.0-75.0) H Lymphocytes (%) (Auto) 7.5 % (20.0-45.0) L Monocytes (%) (Auto) 6.9 % (1.0-10.0) Eosinophils (%) (Auto) 3.0 % (0.0-3.0) Basophils (%) (Auto) 1.0 % (0.0-2.0) Sodium Level 136 MMOL/L (136-145) Potassium Level 4.2 MMOL/L (3.5-5.1) Chloride Level 95 MMOL/L (98-107) L Carbon Dioxide Level 28 MMOL/L (21-32) Anion Gap 13 mmol/L (5-15) Blood Urea Nitrogen 43 mg/dL (7-18) H Creatinine 8.2 MG/DL (0.55-1.30) H Estimat Glomerular Filtration Rate 4.9 mL/min (>60) Glucose Level 145 MG/DL (74-106) H Uric Acid 5.2 MG/DL (2.6-7.2) Calcium Level 7.4 MG/DL (8.5-10.1) L Phosphorus Level 5.3 MG/DL (2.5-4.9) H Total Bilirubin 0.8 MG/DL (0.2-1.0) Aspartate Amino Transf (AST/SGOT) 199 U/L (15-37) H Alanine Aminotransferase (ALT/SGPT) 261 U/L (12-78) H Alkaline Phosphatase 127 U/L (46-116) H Total Protein 6.8 G/DL (6.4-8.2) Albumin 2.6 G/DL (3.4-5.0) L Globulin 4.2 g/dL Albumin/Globulin Ratio 0.6 (1.0-2.7) L Random Vancomycin Level 18.8 ug/mL Mikhail Lr MD Feb 15, 2018 10:36
--- NOTE | 2018-02-15 11:00 | NUR ---
NURSE NOTES: pt awake alert, no distress. no sob. dialysis access on right ij intact, no bleeding, shunt on left forearm dressing intact. denies pain. call light within reach. will monitor.
--- NOTE | 2018-02-15 13:59 | Nephrology Progress Note ---
Assessment/Plan Problem List: (1) ESRD on dialysis (2) Hyperkalemia, diminished renal excretion (3) Cardiomyopathy (4) Anemia in chronic kidney disease Assessment (1) ESRD (end stage renal disease) on dialysis presents with high K (2) CAD (coronary artery disease) (3) DM hyperosmolarity type II (4) Acute systolic (congestive) heart failure (5) Anemia in chronic kidney disease (6) Diabetes type 2, controlled (7) Cardiomyopathy (8) Sepsis Plan Plan HD next 02/16 now has right jugular dialysis cath Antibiotics after cultures Adjust BS and BP meds Gastric support optimize cardiac meds check vanco level (18 today 02/15/18) 2D echo Global LV hypokinesis. Anterior septum basal to distal hypokinesis . Left ventricular ejection fraction estimated to be 20-25 %. Subjective ROS Limited/Unobtainable: No Constitutional: Reports: malaise Objective Objective Last 24 Hour Vital Signs Date Time Temp Pulse Resp B/P (MAP) Pulse Ox O2 Delivery O2 Flow Rate FiO2 02/15/18 13:35 149/79 02/15/18 12:39 149/79 02/15/18 08:07 157/71 02/15/18 08:07 82 157/71 02/15/18 08:06 82 157/71 (99) 02/15/18 08:00 Room Air 02/15/18 06:00 154/70 02/15/18 04:00 98.3 76 18 154/70 (98) 98 02/15/18 00:00 98.4 84 18 167/65 (99) 96 02/14/18 22:49 160/68 02/14/18 22:30 160/68 (98) 02/14/18 21:23 67 133/57 02/14/18 20:00 98.0 67 18 133/57 (82) 98 02/14/18 17:27 155/71 02/14/18 16:43 Room Air 02/14/18 16:00 97.9 70 16 155/71 (99) 98 02/14/18 14:44 156/65 Intake and Output 02/14/18 02/15/18 18:59 06:59 Intake Total 1200 ml 120 ml Output Total 2500 ml Balance 1200 ml -2380 ml Intake Oral 1200 ml 120 ml Output Hemodialysis UF 2500 ml # Voids 4 # Bowel Movements 1 Laboratory Tests 02/14/18 15:50: Prothrombin Time 11.9H, Prothromb Time International Ratio 1.1, Activated Partial Thromboplast Time 34H 02/15/18 04:55: White Blood Count 11.4H, Red Blood Count 3.08L, Hemoglobin 9.6L, Hematocrit 29.9L, Mean Corpuscular Volume 97, Mean Corpuscular Hemoglobin 31.1H, Mean Corpuscular Hemoglobin Concent 32.0, Red Cell Distribution Width 16.5H, Platelet Count 147L, Mean Platelet Volume 8.1, Neutrophils (%) (Auto) 81.6H, Lymphocytes (%) (Auto) 7.5L, Monocytes (%) (Auto) 6.9, Eosinophils (%) (Auto) 3.0, Basophils (%) (Auto) 1.0, Sodium Level 136, Potassium Level 4.2, Chloride Level 95L, Carbon Dioxide Level 28, Anion Gap 13, Blood Urea Nitrogen 43H, Creatinine 8.2H, Estimat Glomerular Filtration Rate 4.9, Glucose Level 145H, Uric Acid 5.2, Calcium Level 7.4L, Phosphorus Level 5.3H, Total Bilirubin 0.8, Aspartate Amino Transf (AST/SGOT) 199H, Alanine Aminotransferase (ALT/SGPT) 261H , Alkaline Phosphatase 127H, Total Protein 6.8, Albumin 2.6L, Globulin 4.2, Albumin/Globulin Ratio 0.6L, Random Vancomycin Level 18.8 Height (Feet): 5 Height (Inches): 0.00 Weight (Pounds): 117 General Appearance: no apparent distress Cardiovascular: normal rate Respiratory/Chest: decreased breath sounds Abdomen: soft Objective no change Washington Pavon MD Feb 15, 2018 13:59
--- NOTE | 2018-02-15 19:10 | NUR ---
HAND-OFF: Report given to SILVIANO BURCH.
--- NOTE | 2018-02-15 19:20 | NUR ---
NURSE NOTES: attempted to recheck bp as sbp was elevated prior to giving hydralazine but pt refused.
--- NOTE | 2018-02-15 19:21 | NUR ---
NURSE NOTES: pt resting comfortably no c/o pain. call light within reach. will monitor.
--- NOTE | 2018-02-15 19:30 | NUR ---
NURSE NOTES: Received patient in bed. On RA, No SOB, no acute distress noted. Patient c/o 6/10 pain on R neck, will follow up with pain med. LFA dressing for AV shunt intact and dry. AV shunt thrill bruit. R subclavian perma cath intact and patent. Bed in lowest position, locked alarms on. Call light in reach.
[2018-02-15] MEDS: Carvedilol 25mg Tab ORAL SCH (20:35)
--- NOTE | 2018-02-15 22:00 | NUR ---
NURSE NOTES: Spoke to Rita at [facility] dialysis for tomorrow. Dialysis nurse will come in AM.
[2018-02-16] VITALS: BP 121/53
[2018-02-16 04:00] VITALS: BP 141/55
[2018-02-16] MEDS: HydrALAZINE 25mg tab ORAL SCH ×3 (06:29→22:00)
[2018-02-16] MEDS: NovoLOG Insulin Flexpen SUBQ SCH ×4 (06:32→20:23)
--- NOTE | 2018-02-16 07:34 | NUR ---
HAND-OFF: Report given to Charge nurse.
[2018-02-16 08:00] VITALS: BP 159/69
--- NOTE | 2018-02-16 08:06 | General Progress Note ---
Assessment/Plan Assessment/Plan #Shortness of breath due to fluid overload #Missed HD, noncompliance with dialysis #Hyperkalemia #Transaminitis #Elevated troponin in setting of ESRD #ESRD on HD #IDDM #Essential HTN #Facial Numbness - resume home antihypertensives - iss, resume insulin regiment, accuchecks - K 6.1 improved to 4.3 with urgent HD, right IJ placed, HD today - HD per neprhro - cont to monitor labs #Facial numbness - resolved -patient had a right neck IV access. -CT head negative -Will obtain MRI brain, neg -Patient already on DAPT #Abnormal EKG #Combined Chronic CHF Echo from previous visit reviewed LVEF 20% globally Repeat echo on this admission to re-evaluate Continue goal directed medical therapy No indication for cardiac cath or stress testing plan for outpt viability study to eval revasc if LV fxn remains low no heart block per ekg, tele strips showing nsr with PAC and diff P wave morph. appreciate cardiology recs recommend outpatient ziopatch Continue statin Continue hydralazine/imdur for heart failure Continue coreg at current dose Hold aldactone due to ESRD and hyperkalemia Aspirin/plavix Patient will need life vest and possible ICD in future - has been ordered and approved, awaiting delivery #Nausea, resolved - prn zofran diet: renal diet DVT Prophylaxis: SCD, HSQ Code Status: Full Hospital Classification Declaration: Based on this initial evaluation, and depending on the patient's clinical course, I anticipate that this patient will require hospitalization for 2-3 days for HD and cardiac workup and close respiratory/hemodynamic monitoring. Disposition: Once the patient is stable to leave the hospital, I anticipate the patient will likely be discharged to the following environment: home with HH vs SNF I spent 49 minutes on this patient's case, and 35 minutes were dedicated to counseling and/or care coordination. Discussed with patient/family, nursing staff, SW/CM regarding clinical status, treatment course, and disposition planning. Time of note may not reflect time of encounter. Date of Discussion: 02/11/18 A [id number] discussion with the patient regarding the patient's advanced care planning took place during this hospitalization on the above date. The discussion included the explanation and discussion of advance directives and associated forms/documents, as well as the patient's current code status. We also discussed at length the patient's medical conditions (both acute and chronic), general prognosis, treatment options, and goals of care. The following summarizes the discussion: Advance Care Planning/Goals of Care: - Will attempt to fill out an AD and/or POLST with the patient prior to discharge, if not already completed - Continue current evaluation and management of any acute and chronic medical issues - Will continue to support the patient/family - Will continue to discuss both short- and long-term goals of care DPOA-HC/Surrogate Decision Maker: None currently appointed Code Status: Full Code AD Forms/Documents Completed: Deferred A total of 31 minutes was spent on this discussion, including counseling, answering questions, and completing, if any, pertinent advanced care planning forms/documents. ---- Subjective Date patient seen: Feb 16, 2018 Time patient seen: 08:04 Allergies: Coded Allergies: NO KNOWN DRUG ALLERGIES (Verified Allergy, Unknown, 01/29/18) Subjective f/u facial numbness, fluid overload due to missed HD, hyperkalemia cth neg mri reviewed, neg acute denies any facial numbness today denies any cp or sob states she feels generally weak denies fevers/chills hd cath placed right IJ HD today pending AM labs live vest pending, ordered ROS: 14 point ROS reviewed and negative except for the above subjective Objective Last 24 Hour Vital Signs Date Time Temp Pulse Resp B/P (MAP) Pulse Ox O2 Delivery O2 Flow Rate FiO2 02/16/18 06:29 141/55 02/16/18 04:00 98.6 76 18 141/55 (83) 98 02/16/18 00:00 98.3 76 18 121/53 (75) 98 02/15/18 22:00 99.1 79 17 122/49 (73) 98 02/15/18 22:00 122/49 02/15/18 20:35 93 172/77 02/15/18 20:00 99.2 93 18 172/77 (108) 98 02/15/18 17:18 164/80 02/15/18 16:00 98.3 78 18 158/72 (100) 98 02/15/18 14:05 98.3 02/15/18 13:35 149/79 02/15/18 12:39 149/79 02/15/18 12:00 98.3 80 18 147/70 (95) 98 02/15/18 08:07 157/71 02/15/18 08:07 82 157/71 02/15/18 08:06 82 157/71 (99) Intake and Output 02/15/18 02/16/18 19:00 07:00 Intake Total 600 ml Balance 600 ml Intake Oral 600 ml # Voids 2 Height (Feet): 5 Height (Inches): 0.00 Weight (Pounds): 122 Objective General Appearance: no apparent distress, alert Lines, tubes and drains: peripheral HEENT: normocephalic, atraumatic, anicteric Neck: non-tender, normal alignment, supple, normal inspection Respiratory/Chest: chest wall non-tender, lungs clear, normal breath sounds, no respiratory distress, no accessory muscle use Cardiovascular/Chest: normal peripheral pulses, normal rate, regular rhythm Abdomen: normal bowel sounds, non tender, soft, no organomegaly, no mass Extremities: normal range of motion, non-tender, normal inspection, no calf tenderness Skin Exam: normal pigmentation, warm/dry 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
[2018-02-16 08:59] LABS: HEMATOCRIT 29.1 % (37.0-47.0); HEMOGLOBIN 9.3 G/DL (12.0-16.0); MEAN CORPUSCULAR VOLUME 98 FL (80-99); PLATELET COUNT 147 K/UL (150-450); RED BLOOD COUNT 2.98 M/UL (4.20-5.40); RED CELL DISTRIBUTION WIDTH 16.8 % (11.6-14.8); WHITE BLOOD COUNT 15.5 K/UL (4.8-10.8)
[2018-02-16 09:08] LABS: ANION GAP 12 mmol/L (5-15); BLOOD UREA NITROGEN 60 mg/dL (7-18); CALCIUM 7.1 MG/DL (8.5-10.1); CARBON DIOXIDE 29 MMOL/L (21-32); CHLORIDE 95 MMOL/L (98-107); CREATININE 10.5 MG/DL (0.55-1.30); POTASSIUM 4.9 MMOL/L (3.5-5.1); SODIUM 136 MMOL/L (136-145)
--- NOTE | 2018-02-16 09:40 | Cardiology Progress Note ---
Assessment/Plan Status: stable Status Narrative Echo from previous visit reviewed LVEF 20% globally Repeat echo on this admission to re-evaluate 30-35% Continue goal directed medical therapy No indication for cardiac cath or stress testing She would benefit from a viability study to evaluate if revascularization is indicated if LV function remains low - can arrange at [facility] as outpatient patient does not have heart block - telemetry strips showed NSR with PAC with different P wave morphology that was blocked and PVCs, there was no type II heart block because the PAC came early and there was not a dropped QRS, this is likely from electrolyte abnormality. On repeat EKG she was NSR. No indication for pacemaker, recommend outpatient ziopatch Continue statin Continue hydralazine/imdur for heart failure Continue coreg at current dose Hold aldactone due to ESRD and hyperkalemia Aspirin/plavix Patient will need life vest and possible ICD in future - has been ordered and approved, awaiting delivery May need ICD in future Subjective Cardiovascular: Reports: no symptoms Respiratory: Reports: no symptoms Gastrointestinal/Abdominal: Reports: no symptoms Genitourinary: Reports: no symptoms Subjective No acute events, no distress, WBC going up, on vancomycin, no fevers, no complaints, facial numbness gone CT brain negative, MRI brain negative for CVA/Mass Life vest ordered and approved Awaiting outpatient dialysis Objective Last 24 Hour Vital Signs Date Time Temp Pulse Resp B/P (MAP) Pulse Ox O2 Delivery O2 Flow Rate FiO2 02/16/18 06:29 141/55 02/16/18 04:00 98.6 76 18 141/55 (83) 98 02/16/18 00:00 98.3 76 18 121/53 (75) 98 02/15/18 22:00 99.1 79 17 122/49 (73) 98 02/15/18 22:00 122/49 02/15/18 20:35 93 172/77 02/15/18 20:00 99.2 93 18 172/77 (108) 98 02/15/18 17:18 164/80 02/15/18 16:00 98.3 78 18 158/72 (100) 98 02/15/18 14:05 98.3 02/15/18 13:35 149/79 02/15/18 12:39 149/79 02/15/18 12:00 98.3 80 18 147/70 (95) 98 General Appearance: no apparent distress, alert EENT: PERRL/EOMI, normal ENT inspection, TMs normal, pharynx normal Neck: non-tender, normal alignment, supple, no JVD Rhythm: NSR Cardiovascular: normal peripheral pulses, normal rate Abdomen: normal bowel sounds, non tender, soft, no organomegaly Extremities: normal range of motion, non-tender, normal inspection 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, no motor/sensory deficits Intake and Output 02/15/18 02/16/18 19:00 07:00 Intake Total 600 ml Balance 600 ml Intake Oral 600 ml # Voids 2 Laboratory Tests Test 02/16/18 08:25 White Blood Count 15.5 K/UL (4.8-10.8) H Red Blood Count 2.98 M/UL (4.20-5.40) L Hemoglobin 9.3 G/DL (12.0-16.0) L Hematocrit 29.1 % (37.0-47.0) L Mean Corpuscular Volume 98 FL (80-99) Mean Corpuscular Hemoglobin 31.4 PG (27.0-31.0) H Mean Corpuscular Hemoglobin Concent 32.1 G/DL (32.0-36.0) Red Cell Distribution Width 16.8 % (11.6-14.8) H Platelet Count 147 K/UL (150-450) L Mean Platelet Volume 9.3 FL (6.5-10.1) Neutrophils (%) (Auto) % (45.0-75.0) Lymphocytes (%) (Auto) % (20.0-45.0) Monocytes (%) (Auto) % (1.0-10.0) Eosinophils (%) (Auto) % (0.0-3.0) Basophils (%) (Auto) % (0.0-2.0) Neutrophils % (Manual) Pending Lymphocytes % (Manual) Pending Platelet Estimate Pending Platelet Morphology Pending Sodium Level 136 MMOL/L (136-145) Potassium Level 4.9 MMOL/L (3.5-5.1) Chloride Level 95 MMOL/L (98-107) L Carbon Dioxide Level 29 MMOL/L (21-32) Anion Gap 12 mmol/L (5-15) Blood Urea Nitrogen 60 mg/dL (7-18) H Creatinine 10.5 MG/DL (0.55-1.30) H Estimat Glomerular Filtration Rate 3.7 mL/min (>60) Glucose Level 114 MG/DL (74-106) H Calcium Level 7.1 MG/DL (8.5-10.1) L Mikhail Lr MD Feb 16, 2018 09:40
[2018-02-16] MEDS: Carvedilol 25mg Tab ORAL SCH ×2 (09:50→20:13)
[2018-02-16] MEDS: Aspirin EC 81mg tab ORAL SCH (09:54)
[2018-02-16] MEDS: Docusate 100mg cap ORAL SCH ×3 (09:55→17:26)
[2018-02-16] MEDS: Heparin 5000 units/ml inj SUBQ SCH ×3 (10:00→20:19)
--- NOTE | 2018-02-16 10:07 | NUR ---
RD ASSESSMENT & RECOMMENDATIONS SEE CARE ACTIVITY FOR COMPLETE ASSESSMENT DAILY ESTIMATED NEEDS: Needs based on ESRD + HD, DM/ 55.5kg 30-35 kcals/kg 1177-0174 total kcals 1.2-1.8 g protein/kg 67-100 g total protein Fluid per MD/ on HD NUTRITION DIAGNOSIS: Altered nutrition related lab values R/T diabetes and ESRD dx as evidenced by elev POC glu (114-152), elev BNP (>09334), elev phos (5.3), elev creat (10.5) CURRENT DIET: RENAL PO DIET RECOMMENDATIONS: RENAL + CCHO MED/ texture as tolerated + high prot snacks TID ADDITIONAL RECOMMENDATIONS: * OBTAIN A STANDING WEIGHT POST HD -> Pt w/ conflicting weights * Monitor for continued good po intake, need for supplements
[2018-02-16 12:00] VITALS: BP_SYST 130; BP_SYST 136; BP_DIAS 52; BP_DIAS 58
--- NOTE | 2018-02-16 15:46 | Nephrology Progress Note ---
Assessment/Plan Problem List: (1) ESRD on dialysis (2) Hyperkalemia, diminished renal excretion (3) Cardiomyopathy (4) Anemia in chronic kidney disease Assessment (1) ESRD (end stage renal disease) on dialysis presents with high K (2) CAD (coronary artery disease) (3) DM hyperosmolarity type II (4) Acute systolic (congestive) heart failure (5) Anemia in chronic kidney disease (6) Diabetes type 2, controlled (7) Cardiomyopathy (8) Sepsis Plan Plan bleeding from fistula and IV site earlier , stopped check labs in am HD next postponed to 02/17 now has right jugular dialysis cath Antibiotics after cultures Adjust BS and BP meds Gastric support optimize cardiac meds check vanco level (18 today 02/15/18) 2D echo Global LV hypokinesis. Anterior septum basal to distal hypokinesis . Left ventricular ejection fraction estimated to be 20-25 %. Subjective ROS Limited/Unobtainable: No Constitutional: Reports: malaise Objective Objective Last 24 Hour Vital Signs Date Time Temp Pulse Resp B/P (MAP) Pulse Ox O2 Delivery O2 Flow Rate FiO2 02/16/18 14:55 130/52 02/16/18 14:54 130/52 02/16/18 12:00 98.1 74 18 136/58 (84) 95 02/16/18 12:00 98.1 73 20 130/52 (78) 96 02/16/18 10:58 98.1 02/16/18 09:54 159/69 02/16/18 09:50 87 159/69 02/16/18 08:00 98.1 87 18 159/69 (99) 97 02/16/18 08:00 Room Air 02/16/18 06:29 141/55 02/16/18 04:00 98.6 76 18 141/55 (83) 98 02/16/18 00:00 98.3 76 18 121/53 (75) 98 02/15/18 22:00 99.1 79 17 122/49 (73) 98 02/15/18 22:00 122/49 02/15/18 20:35 93 172/77 02/15/18 20:00 99.2 93 18 172/77 (108) 98 02/15/18 17:18 164/80 02/15/18 16:00 98.3 78 18 158/72 (100) 98 Intake and Output 02/15/18 02/16/18 18:59 06:59 Intake Total 600 ml Balance 600 ml Intake Oral 600 ml # Voids 2 Laboratory Tests 02/16/18 08:25: White Blood Count 15.5H, Red Blood Count 2.98L, Hemoglobin 9.3L, Hematocrit 29.1L, Mean Corpuscular Volume 98, Mean Corpuscular Hemoglobin 31.4H, Mean Corpuscular Hemoglobin Concent 32.1, Red Cell Distribution Width 16.8H, Platelet Count 147L, Mean Platelet Volume 9.3, Neutrophils (%) (Auto) , Lymphocytes (%) (Auto) , Monocytes (%) (Auto) , Eosinophils (%) (Auto) , Basophils (%) (Auto) , Differential Total Cells Counted 100, Neutrophils % ( Manual) 87H, Lymphocytes % (Manual) 5L, Monocytes % (Manual) 5, Eosinophils % ( Manual) 2, Basophils % (Manual) 1, Band Neutrophils 0, Platelet Estimate DecreasedL, Platelet Morphology Normal, Hypochromasia 2+, Anisocytosis 1+, Sodium Level 136, Potassium Level 4.9, Chloride Level 95L, Carbon Dioxide Level 29, Anion Gap 12, Blood Urea Nitrogen 60H, Creatinine 10.5H, Estimat Glomerular Filtration Rate 3.7, Glucose Level 114H, Calcium Level 7.1L Height (Feet): 5 Height (Inches): 0.00 Weight (Pounds): 122 General Appearance: no apparent distress Cardiovascular: normal rate Respiratory/Chest: lungs clear Abdomen: soft Objective no change Washington Pavon MD Feb 16, 2018 15:46
[2018-02-16 16:00] VITALS: BP 141/63
--- NOTE | 2018-02-16 19:28 | NUR ---
HAND-OFF: Report given to MARCIN Holland.
--- NOTE | 2018-02-16 19:30 | NUR ---
NURSE NOTES: Recieved patient in bed, awake, alert, oriented x4, ambulatory, in no acute distress at this time, patient has no IV access, MD is aware. Bed is in low position, alarm is on, be dis locked and call light is within reach. Will continue to monitor for safety and comfort.
[2018-02-16 20:00] VITALS: BP 141/65
--- NOTE | 2018-02-16 22:03 | NUR ---
NURSE NOTES: Patients BS is 65 at 1999, gave patient some apple juice and a diabetic snack, rechecked sugar after 30 in BS is 78. Patient stating that she is shaking, feeling s/s of nase[place], Zofran is administered around 1900, patient has no IV access, RN attempts to start an IV, unsuccessful. Blood sugar is rechecked its 99. Will continue to monitor.
[2018-02-17] VITALS: BP 134/50
[2018-02-17 04:00] VITALS: BP 121/59
[2018-02-17] MEDS: HydrALAZINE 25mg tab ORAL SCH ×3 (04:58→22:00)
--- NOTE | 2018-02-17 04:59 | NUR ---
NURSE NOTES: Apresoline is on hold due to patient having a dialysis treatment in am.
[2018-02-17] MEDS: NovoLOG Insulin Flexpen SUBQ SCH ×4 (06:16→21:12)
[2018-02-17 06:39] LABS: HEMATOCRIT 24.7 % (37.0-47.0); HEMOGLOBIN 7.9 G/DL (12.0-16.0); MEAN CORPUSCULAR VOLUME 97 FL (80-99); PLATELET COUNT 120 K/UL (150-450); RED BLOOD COUNT 2.54 M/UL (4.20-5.40); RED CELL DISTRIBUTION WIDTH 16.9 % (11.6-14.8); WHITE BLOOD COUNT 15.1 K/UL (4.8-10.8)
[2018-02-17 06:50] LABS: ALANINE AMINOTRANSFERASE 137 U/L (12-78); ALBUMIN 2.4 G/DL (3.4-5.0); ALBUMIN/GLOBULIN RATIO 0.6 (1.0-2.7); ALKALINE PHOSPHATASE 105 U/L (46-116); ANION GAP 12 mmol/L (5-15); ASPARTATE AMINO TRANSFERASE 64 U/L (15-37); BILIRUBIN,TOTAL 0.6 MG/DL (0.2-1.0); BLOOD UREA NITROGEN 72 mg/dL (7-18); CALCIUM 7.3 MG/DL (8.5-10.1); CARBON DIOXIDE 27 MMOL/L (21-32); CHLORIDE 93 MMOL/L (98-107); POTASSIUM 5.5 MMOL/L (3.5-5.1); SODIUM 132 MMOL/L (136-145)
[2018-02-17 06:58] LABS: PHOSPHORUS 7.4 MG/DL (2.5-4.9)
--- NOTE | 2018-02-17 07:33 | NUR ---
HAND-OFF: Report given to Chuck BURCH .
--- NOTE | 2018-02-17 07:54 | General Progress Note ---
Assessment/Plan Status: unchanged Assessment/Plan #Shortness of breath due to fluid overload #Missed HD, noncompliance with dialysis #Hyperkalemia #Transaminitis #Elevated troponin in setting of ESRD #ESRD on HD #IDDM #Essential HTN #Facial Numbness - resume home antihypertensives - iss, resume insulin regiment, accuchecks - right IJ placed, HD today - K 5.5 - hd cath placed right IJ, bleeding from fistula and IV site yesterday, stopped , am labs with hgb drop to 7.9 from 9, HD was postponed yesterday and planned for today... - HD per neprhro - cont to monitor labs #Facial numbness - resolved -patient had a right neck IV access. -CT head negative -Will obtain MRI brain, neg -Patient already on DAPT #Abnormal EKG #Combined Chronic CHF Echo from previous visit reviewed LVEF 20% globally Repeat echo on this admission to re-evaluate Continue goal directed medical therapy No indication for cardiac cath or stress testing plan for outpt viability study to eval revasc if LV fxn remains low no heart block per ekg, tele strips showing nsr with PAC and diff P wave morph. appreciate cardiology recs recommend outpatient ziopatch Continue statin Continue hydralazine/imdur for heart failure Continue coreg at current dose Hold aldactone due to ESRD and hyperkalemia Aspirin/plavix Patient will need life vest and possible ICD in future - has been ordered and approved, awaiting delivery #Nausea, resolved - prn zofran diet: renal diet DVT Prophylaxis: SCD, HSQ Code Status: Full Hospital Classification Declaration: Based on this initial evaluation, and depending on the patient's clinical course, I anticipate that this patient will require hospitalization for 2-3 days for HD and cardiac workup and close respiratory/hemodynamic monitoring. Disposition: Once the patient is stable to leave the hospital, I anticipate the patient will likely be discharged to the following environment: home with HH vs SNF I spent over 37 minutes on this patient's case, and 25 minutes were dedicated to counseling and/or care coordination. Discussed with patient/family, nursing staff, SW/CM regarding clinical status, treatment course, and disposition planning. Time of note may not reflect time of encounter. Date of Discussion: 02/11/18 A [id number] discussion with the patient regarding the patient's advanced care planning took place during this hospitalization on the above date. The discussion included the explanation and discussion of advance directives and associated forms/documents, as well as the patient's current code status. We also discussed at length the patient's medical conditions (both acute and chronic), general prognosis, treatment options, and goals of care. The following summarizes the discussion: Advance Care Planning/Goals of Care: - Will attempt to fill out an AD and/or POLST with the patient prior to discharge, if not already completed - Continue current evaluation and management of any acute and chronic medical issues - Will continue to support the patient/family - Will continue to discuss both short- and long-term goals of care DPOA-HC/Surrogate Decision Maker: None currently appointed Code Status: Full Code AD Forms/Documents Completed: Deferred A total of 31 minutes was spent on this discussion, including counseling, answering questions, and completing, if any, pertinent advanced care planning forms/documents. ---- Subjective Date patient seen: Feb 17, 2018 Time patient seen: 07:52 Allergies: Coded Allergies: NO KNOWN DRUG ALLERGIES (Verified Allergy, Unknown, 01/29/18) Subjective f/u facial numbness, fluid overload due to missed HD, hyperkalemia cth neg mri reviewed, neg acute denies any facial numbness today denies any cp or sob states she feels generally weak denies fevers/chills hd cath placed right IJ bleeding from fistula and IV site yesterday, stopped, am labs with hgb drop to 7.9 from 9 HD was postponed and planned for today... ROS: 14 point ROS reviewed and negative except for the above subjective Objective Last 24 Hour Vital Signs Date Time Temp Pulse Resp B/P (MAP) Pulse Ox O2 Delivery O2 Flow Rate FiO2 02/17/18 04:58 121/59 02/17/18 04:00 98.2 78 18 121/59 (79) 99 02/17/18 00:00 100.8 86 18 134/50 (78) 18 02/16/18 22:00 146/105 02/16/18 20:13 75 141/64 02/16/18 20:00 98.2 85 20 141/65 (90) 98 85 02/16/18 17:25 141/63 02/16/18 16:00 97.9 72 20 141/63 (89) 99 02/16/18 14:55 130/52 02/16/18 14:54 130/52 02/16/18 12:00 98.1 74 18 136/58 (84) 95 02/16/18 12:00 98.1 73 20 130/52 (78) 96 02/16/18 10:58 98.1 02/16/18 09:54 159/69 02/16/18 09:50 87 159/69 02/16/18 08:00 98.1 87 18 159/69 (99) 97 02/16/18 08:00 Room Air Intake and Output 02/16/18 02/17/18 19:00 07:00 Intake Total 800 ml 400 ml Balance 800 ml 400 ml Intake Oral 800 ml 400 ml # Voids 3 2 # Bowel Movements 1 Laboratory Tests 02/16/18 08:25: White Blood Count 15.5H, Red Blood Count 2.98L, Hemoglobin 9.3L, Hematocrit 29.1L, Mean Corpuscular Volume 98, Mean Corpuscular Hemoglobin 31.4H, Mean Corpuscular Hemoglobin Concent 32.1, Red Cell Distribution Width 16.8H, Platelet Count 147L, Mean Platelet Volume 9.3, Neutrophils (%) (Auto) , Lymphocytes (%) (Auto) , Monocytes (%) (Auto) , Eosinophils (%) (Auto) , Basophils (%) (Auto) , Differential Total Cells Counted 100, Neutrophils % ( Manual) 87H, Lymphocytes % (Manual) 5L, Monocytes % (Manual) 5, Eosinophils % ( Manual) 2, Basophils % (Manual) 1, Band Neutrophils 0, Platelet Estimate DecreasedL, Platelet Morphology Normal, Hypochromasia 2+, Anisocytosis 1+, Sodium Level 136, Potassium Level 4.9, Chloride Level 95L, Carbon Dioxide Level 29, Anion Gap 12, Blood Urea Nitrogen 60H, Creatinine 10.5H, Estimat Glomerular Filtration Rate 3.7, Glucose Level 114H, Calcium Level 7.1L, C-Reactive Protein , Quantitative 3.3H 02/17/18 05:10: White Blood Count 15.1H, Red Blood Count 2.54L, Hemoglobin 7.9L, Hematocrit 24.7L, Mean Corpuscular Volume 97, Mean Corpuscular Hemoglobin 31.2H, Mean Corpuscular Hemoglobin Concent 32.1, Red Cell Distribution Width 16.9H, Platelet Count 120L, Mean Platelet Volume 9.3, Neutrophils (%) (Auto) , Lymphocytes (%) (Auto) , Monocytes (%) (Auto) , Eosinophils (%) (Auto) , Basophils (%) (Auto) , Neutrophils % (Manual) [Pending], Lymphocytes % (Manual) [Pending], Platelet Estimate [Pending], Platelet Morphology [Pending], Sodium Level 132L, Potassium Level 5.5H, Chloride Level 93L, Carbon Dioxide Level 27, Anion Gap 12, Blood Urea Nitrogen 72H, Creatinine 12.0H, Estimat Glomerular Filtration Rate 3.2, Glucose Level 136H, Calcium Level 7.3L, Prothrombin Time 11.0, Prothromb Time International Ratio 1.0, Activated Partial Thromboplast Time 32, Phosphorus Level 7.4H, Magnesium Level 2.3, Total Bilirubin 0.6, Aspartate Amino Transf (AST/SGOT) 64H, Alanine Aminotransferase (ALT/SGPT) 137H , Alkaline Phosphatase 105, Pro-B-Type Natriuretic Peptide > 80127F, Total Protein 6.2L, Albumin 2.4L, Globulin 3.8, Albumin/Globulin Ratio 0.6L, Random Vancomycin Level 16.0 Height (Feet): 5 Height (Inches): 0.00 Weight (Pounds): 112 Objective General Appearance: no apparent distress, alert Lines, tubes and drains: peripheral HEENT: normocephalic, atraumatic, anicteric Neck: non-tender, normal alignment, supple, normal inspection Respiratory/Chest: chest wall non-tender, lungs clear, normal breath sounds, no respiratory distress, no accessory muscle use Cardiovascular/Chest: normal peripheral pulses, normal rate, regular rhythm Abdomen: normal bowel sounds, non tender, soft, no organomegaly, no mass Extremities: normal range of motion, non-tender, normal inspection, no calf tenderness Skin Exam: normal pigmentation, warm/dry 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
[2018-02-17 08:00] VITALS: BP 139/61
[2018-02-17] MEDS: Aspirin EC 81mg tab ORAL SCH ×2 (08:42→08:46)
[2018-02-17] MEDS: Carvedilol 25mg Tab ORAL SCH ×3 (08:42→20:52)
[2018-02-17] MEDS: Docusate 100mg cap ORAL SCH ×3 (08:42→17:03)
[2018-02-17] MEDS: Heparin 5000 units/ml inj SUBQ SCH ×2 (08:44→20:54)
--- NOTE | 2018-02-17 10:45 | NUR ---
NURSE NOTES: pt in bed with no sob nor in any form of distress noted. noted with low h/h 7.9/24.7. informed dr. glasgow and received NNO. no s/s of bleeding at this time. Awaiting to receive HD today. will continue to monitor
[2018-02-17 12:00] VITALS: BP 135/60
--- NOTE | 2018-02-17 12:08 | NUR ---
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 100.8 HR 86 RR 18 B/P 146/105 NA 132 K 5.5 BNP>[id number] IS: COREG PO ALLOPURINOL PO ASA PO PLAVIX PO HEPARIN SUB MED/SURG STATUS
--- NOTE | 2018-02-17 12:57 | Nephrology Progress Note ---
Assessment/Plan Problem List: (1) ESRD on dialysis (2) Hyperkalemia, diminished renal excretion (3) Cardiomyopathy (4) Anemia in chronic kidney disease Assessment anemia worsened partly due to yesterdays ( 02/16/18) fistula bleed- (1) ESRD (end stage renal disease) on dialysis presents with high K (2) CAD (coronary artery disease) (3) DM hyperosmolarity type II (4) Acute systolic (congestive) heart failure (5) Anemia in chronic kidney disease (6) Diabetes type 2, controlled (7) Cardiomyopathy (8) Sepsis Plan Plan bleeding from fistula and IV site earlier 02/16/18 , stopped check labs in am HD next 02/17 now has right jugular dialysis cath Antibiotics after cultures Adjust BS and BP meds Gastric support optimize cardiac meds check vanco level (18 today 02/15/18) 2D echo Global LV hypokinesis. Anterior septum basal to distal hypokinesis . Left ventricular ejection fraction estimated to be 20-25 %. Subjective ROS Limited/Unobtainable: No Constitutional: Reports: malaise Objective Objective Last 24 Hour Vital Signs Date Time Temp Pulse Resp B/P (MAP) Pulse Ox O2 Delivery O2 Flow Rate FiO2 02/17/18 12:00 98.1 74 20 135/60 (85) 99 02/17/18 09:00 Room Air 02/17/18 08:00 98.4 80 18 139/61 (87) 99 02/17/18 04:58 121/59 02/17/18 04:00 98.2 78 18 121/59 (79) 99 02/17/18 00:00 100.8 86 18 134/50 (78) 18 02/16/18 22:00 146/105 02/16/18 20:13 75 141/64 02/16/18 20:00 98.2 85 20 141/65 (90) 98 85 02/16/18 17:25 141/63 02/16/18 16:00 97.9 72 20 141/63 (89) 99 02/16/18 14:55 130/52 02/16/18 14:54 130/52 Intake and Output 02/16/18 02/17/18 19:00 07:00 Intake Total 800 ml 400 ml Balance 800 ml 400 ml Intake Oral 800 ml 400 ml # Voids 3 2 # Bowel Movements 1 Laboratory Tests 02/17/18 05:10: White Blood Count 15.1H, Red Blood Count 2.54L, Hemoglobin 7.9L, Hematocrit 24.7L, Mean Corpuscular Volume 97, Mean Corpuscular Hemoglobin 31.2H, Mean Corpuscular Hemoglobin Concent 32.1, Red Cell Distribution Width 16.9H, Platelet Count 120L, Mean Platelet Volume 9.3, Neutrophils (%) (Auto) , Lymphocytes (%) (Auto) , Monocytes (%) (Auto) , Eosinophils (%) (Auto) , Basophils (%) (Auto) , Differential Total Cells Counted 100, Neutrophils % ( Manual) 88H, Lymphocytes % (Manual) 5L, Monocytes % (Manual) 6, Eosinophils % ( Manual) 0, Basophils % (Manual) 0, Band Neutrophils 1, Platelet Estimate DecreasedL, Platelet Morphology Normal, Hypochromasia 1+, Anisocytosis 1+, Prothrombin Time 11.0, Prothromb Time International Ratio 1.0, Activated Partial Thromboplast Time 32, Sodium Level 132L, Potassium Level 5.5H, Chloride Level 93L, Carbon Dioxide Level 27, Anion Gap 12, Blood Urea Nitrogen 72H, Creatinine 12.0H, Estimat Glomerular Filtration Rate 3.2, Glucose Level 136H, Calcium Level 7.3L, Phosphorus Level 7.4H, Magnesium Level 2.3, Total Bilirubin 0.6, Aspartate Amino Transf (AST/SGOT) 64H, Alanine Aminotransferase (ALT/SGPT) 137H, Alkaline Phosphatase 105, Pro-B-Type Natriuretic Peptide > 27254C, Total Protein 6.2L, Albumin 2.4L, Globulin 3.8, Albumin/Globulin Ratio 0.6L, Random Vancomycin Level 16.0 Height (Feet): 5 Height (Inches): 0.00 Weight (Pounds): 117 General Appearance: no apparent distress Cardiovascular: normal rate Abdomen: soft Objective no change - no further bleed Washington Pavon MD Feb 17, 2018 12:57
[2018-02-17 16:00] VITALS: BP 134/59
--- NOTE | 2018-02-17 17:32 | General Progress Note ---
Progress Note Progress Note Asked by renal Dr Pavon to eval patient Malfunctioning left forearm av shunt with clots HD via right IJ Tony cath Cardiomyopathy DM HTN Obesity Rec Check arm duplex xray Will schedule for revision av shunt and permcath in OR once all cleared d/w pt and nurse at bedside Castro Ge MD Feb 17, 2018 17:32
--- NOTE | 2018-02-17 19:13 | NUR ---
HAND-OFF: Report given to MARCIN Payton.
--- NOTE | 2018-02-17 19:30 | NUR ---
NURSE NOTES: Recieved patient in bed, awake, alert, oriented, on room air, in no acute distress at this time, bed is locked, in low position and alarm is on, call light is within reach. Will continue to monitor for safety and comfort.
[2018-02-17 20:00] VITALS: BP 141/69
[2018-02-18] VITALS: BP 119/67
[2018-02-18 04:00] VITALS: BP 136/70
[2018-02-18] MEDS: HydrALAZINE 25mg tab ORAL SCH ×3 (06:00→21:22)
[2018-02-18 06:10] LABS: BASOPHILS % (AUTO) 1.2 % (0.0-2.0); EOSINOPHILS % (AUTO) 2.1 % (0.0-3.0); HEMATOCRIT 25.9 % (37.0-47.0); HEMOGLOBIN 8.3 G/DL (12.0-16.0); LYMPHOCYTES % (AUTO) 12.4 % (20.0-45.0); MEAN CORPUSCULAR VOLUME 98 FL (80-99); MONOCYTES % (AUTO) 12.1 % (1.0-10.0); NEUTROPHILS % (AUTO) 72.2 % (45.0-75.0); PLATELET COUNT 135 K/UL (150-450); RED BLOOD COUNT 2.64 M/UL (4.20-5.40); RED CELL DISTRIBUTION WIDTH 17.1 % (11.6-14.8); WHITE BLOOD COUNT 10.4 K/UL (4.8-10.8)
[2018-02-18] MEDS: NovoLOG Insulin Flexpen SUBQ SCH ×4 (06:32→20:59)
[2018-02-18 06:42] LABS: % IRON SATURATION 15 % (15-50); IRON 34 ug/dL (50-175); TOTAL IRON BINDING CAPACITY 229 ug/dL (250-450)
[2018-02-18 06:52] LABS: ALANINE AMINOTRANSFERASE 129 U/L (12-78); ALBUMIN 2.6 G/DL (3.4-5.0); ALBUMIN/GLOBULIN RATIO 0.6 (1.0-2.7); ALKALINE PHOSPHATASE 116 U/L (46-116); ANION GAP 9 mmol/L (5-15); ASPARTATE AMINO TRANSFERASE 44 U/L (15-37); BILIRUBIN,TOTAL 0.6 MG/DL (0.2-1.0); BLOOD UREA NITROGEN 44 mg/dL (7-18); CALCIUM 7.7 MG/DL (8.5-10.1); CARBON DIOXIDE 31 MMOL/L (21-32); CHLORIDE 96 MMOL/L (98-107); FERRITIN 1269 NG/ML (8-388); POTASSIUM 4.3 MMOL/L (3.5-5.1); SODIUM 136 MMOL/L (136-145)
--- NOTE | 2018-02-18 07:12 | NUR ---
HAND-OFF: Report given to Sari BURCH.
[2018-02-18 08:00] VITALS: BP 130/71
--- NOTE | 2018-02-18 08:18 | General Progress Note ---
Assessment/Plan Status: stable Assessment/Plan #Shortness of breath due to fluid overload #Missed HD, noncompliance with dialysis #Hyperkalemia #Transaminitis #Elevated troponin in setting of ESRD #ESRD on HD #IDDM #Essential HTN #Facial Numbness - resume home antihypertensives - iss, resume insulin regiment, accuchecks - malfunction av shunt with clots, pending arm duplex, plan for revision av shunt and permcath in OR once all cleared - bleeding from fistula and IV site earlier 02/16/18 , stopped, planned for HD today from Right IJ cath - HD per neprhro - cont to monitor labs #Facial numbness - resolved -patient had a right neck IV access. -CT head negative -Will obtain MRI brain, neg -Patient already on DAPT #Abnormal EKG #Combined Chronic CHF Echo from previous visit reviewed LVEF 20% globally Repeat echo on this admission to re-evaluate Continue goal directed medical therapy No indication for cardiac cath or stress testing plan for outpt viability study to eval revasc if LV fxn remains low no heart block per ekg, tele strips showing nsr with PAC and diff P wave morph. appreciate cardiology recs recommend outpatient ziopatch Continue statin Continue hydralazine/imdur for heart failure Continue coreg at current dose Hold aldactone due to ESRD and hyperkalemia Aspirin/plavix Patient will need life vest and possible ICD in future - has been ordered and approved, awaiting delivery #Nausea, resolved - prn zofran diet: renal diet DVT Prophylaxis: SCD, HSQ Code Status: Full Hospital Classification Declaration: Based on this initial evaluation, and depending on the patient's clinical course, I anticipate that this patient will require hospitalization for 2-3 days for HD and cardiac workup and close respiratory/hemodynamic monitoring. Disposition: Once the patient is stable to leave the hospital, I anticipate the patient will likely be discharged to the following environment: home with HH vs SNF I spent over 40 minutes on this patient's case, and 25 minutes were dedicated to counseling and/or care coordination. Discussed with patient/family, nursing staff, SW/CM regarding clinical status, treatment course, and disposition planning. Time of note may not reflect time of encounter. Date of Discussion: 02/11/18 A [id number]-syqm discussion with the patient regarding the patient's advanced care planning took place during this hospitalization on the above date. The discussion included the explanation and discussion of advance directives and associated forms/documents, as well as the patient's current code status. We also discussed at length the patient's medical conditions (both acute and chronic), general prognosis, treatment options, and goals of care. The following summarizes the discussion: Advance Care Planning/Goals of Care: - Will attempt to fill out an AD and/or POLST with the patient prior to discharge, if not already completed - Continue current evaluation and management of any acute and chronic medical issues - Will continue to support the patient/family - Will continue to discuss both short- and long-term goals of care DPOA-HC/Surrogate Decision Maker: None currently appointed Code Status: Full Code AD Forms/Documents Completed: Deferred A total of 31 minutes was spent on this discussion, including counseling, answering questions, and completing, if any, pertinent advanced care planning forms/documents. ---- Subjective Date patient seen: Feb 18, 2018 Time patient seen: 08:15 Allergies: Coded Allergies: NO KNOWN DRUG ALLERGIES (Verified Allergy, Unknown, 01/29/18) Subjective f/u facial numbness, fluid overload due to missed HD, hyperkalemia cth neg mri reviewed, neg acute denies any facial numbness today denies any cp or sob states she feels generally weak denies fevers/chills states right IJ cath bothers her, but not too painful malfunction av shunt with clots, pending arm duplex, plan for revision av shunt and permcath in OR once all cleared bleeding from fistula and IV site earlier 02/16/18 , stopped, planned for HD today from Right IJ cath ROS: 14 point ROS reviewed and negative except for the above subjective Objective Last 24 Hour Vital Signs Date Time Temp Pulse Resp B/P (MAP) Pulse Ox O2 Delivery O2 Flow Rate FiO2 02/18/18 06:00 141/62 02/18/18 04:00 98.0 82 20 136/70 (92) 96 02/18/18 00:00 98.0 69 20 119/67 (84) 98 02/17/18 22:00 146/85 02/17/18 20:52 80 149/85 02/17/18 20:00 98.2 80 20 141/69 (93) 02/17/18 17:18 134/59 02/17/18 16:00 98.1 77 18 134/59 (84) 99 02/17/18 12:00 98.1 74 20 135/60 (85) 99 02/17/18 09:00 Room Air Intake and Output 02/17/18 02/18/18 19:00 07:00 Intake Total 1550 ml Balance 1550 ml Intake Oral 1550 ml Laboratory Tests 02/18/18 05:45: White Blood Count 10.4, Red Blood Count 2.64L, Hemoglobin 8.3L, Hematocrit 25.9L , Mean Corpuscular Volume 98, Mean Corpuscular Hemoglobin 31.5H, Mean Corpuscular Hemoglobin Concent 32.1, Red Cell Distribution Width 17.1H, Platelet Count 135L, Mean Platelet Volume 7.5, Neutrophils (%) (Auto) 72.2, Lymphocytes (%) (Auto) 12.4L, Monocytes (%) (Auto) 12.1H, Eosinophils (%) (Auto ) 2.1, Basophils (%) (Auto) 1.2, Sodium Level 136, Potassium Level 4.3, Chloride Level 96L, Carbon Dioxide Level 31, Anion Gap 9, Blood Urea Nitrogen 44H, Creatinine 8.0H, Estimat Glomerular Filtration Rate 5.0, Glucose Level 183H , Calcium Level 7.7L, Phosphorus Level 5.0H, Iron Level 34L, Total Iron Binding Capacity 229L, Percent Iron Saturation 15, Unsaturated Iron Binding 195, Ferritin 1269H, Total Bilirubin 0.6, Aspartate Amino Transf (AST/SGOT) 44H, Alanine Aminotransferase (ALT/SGPT) 129H, Alkaline Phosphatase 116, Pro-B-Type Natriuretic Peptide > 01185Z, Total Protein 7.2, Albumin 2.6L, Globulin 4.6, Albumin/Globulin Ratio 0.6L Height (Feet): 5 Height (Inches): 0.00 Weight (Pounds): 117 Objective General Appearance: no apparent distress, alert Lines, tubes and drains: peripheral HEENT: normocephalic, atraumatic, anicteric Neck: non-tender, normal alignment, supple, normal inspection Respiratory/Chest: chest wall non-tender, lungs clear, normal breath sounds, no respiratory distress, no accessory muscle use Cardiovascular/Chest: normal peripheral pulses, normal rate, regular rhythm Abdomen: normal bowel sounds, non tender, soft, no organomegaly, no mass Extremities: normal range of motion, non-tender, normal inspection, no calf tenderness Skin Exam: normal pigmentation, warm/dry 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
[2018-02-18] MEDS: Docusate 100mg cap ORAL SCH ×3 (08:46→17:13)
[2018-02-18] MEDS: Carvedilol 25mg Tab ORAL SCH ×2 (08:48→20:55)
[2018-02-18] MEDS: Heparin 5000 units/ml inj SUBQ SCH ×2 (08:48→20:59)
[2018-02-18] MEDS: Aspirin EC 81mg tab ORAL SCH (08:48)
--- NOTE | 2018-02-18 11:46 | NUR ---
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 MALFUNCTION AV FISTULA T. 98.3 HR 80 RR 20 B/P 141/62 BNP>[id number] IS: COREG PO HEPARIN SUBC PROTONIX PO ASA PO MED/SURG STATUS
[2018-02-18 12:00] VITALS: BP 128/77
--- NOTE | 2018-02-18 12:03 | Cardiology Progress Note ---
Assessment/Plan Status: stable Status Narrative Echo from previous visit reviewed LVEF 20% globally Repeat echo on this admission to re-evaluate 30-35% Continue goal directed medical therapy No indication for cardiac cath or stress testing She would benefit from a viability study to evaluate if revascularization is indicated if LV function remains low - can arrange at [facility] as outpatient patient does not have heart block - telemetry strips showed NSR with PAC with different P wave morphology that was blocked and PVCs, there was no type II heart block because the PAC came early and there was not a dropped QRS, this is likely from electrolyte abnormality. On repeat EKG she was NSR. No indication for pacemaker, recommend outpatient ziopatch Continue statin Continue hydralazine/imdur for heart failure Continue coreg at current dose Hold aldactone due to ESRD and hyperkalemia Aspirin/plavix Patient will need life vest and possible ICD in future - has been ordered and approved, awaiting delivery May need ICD in future Cleared to proceed with AV fistula revision Subjective Cardiovascular: Reports: no symptoms Respiratory: Reports: no symptoms Gastrointestinal/Abdominal: Reports: no symptoms Genitourinary: Reports: no symptoms Subjective No acute events, no distress, WBC going up, on vancomycin, no fevers, no complaints, facial numbness gone CT brain negative, MRI brain negative for CVA/Mass Life vest ordered and approved Will need AV fistula revision - cleared to proceed Objective Last 24 Hour Vital Signs Date Time Temp Pulse Resp B/P (MAP) Pulse Ox O2 Delivery O2 Flow Rate FiO2 02/18/18 09:00 Room Air 02/18/18 08:48 130/71 02/18/18 08:48 80 130/71 02/18/18 08:00 98.3 80 20 130/71 (90) 97 02/18/18 06:00 141/62 02/18/18 04:00 98.0 82 20 136/70 (92) 96 02/18/18 00:00 98.0 69 20 119/67 (84) 98 02/17/18 22:00 146/85 02/17/18 20:52 80 149/85 02/17/18 20:00 98.2 80 20 141/69 (93) 02/17/18 17:18 134/59 02/17/18 16:00 98.1 77 18 134/59 (84) 99 General Appearance: no apparent distress, alert EENT: PERRL/EOMI, normal ENT inspection Neck: non-tender, normal alignment, supple, normal inspection, no JVD Rhythm: NSR Cardiovascular: normal peripheral pulses, normal rate, regular rhythm Respiratory/Chest: chest wall non-tender, lungs clear, normal breath sounds Abdomen: normal bowel sounds, non tender, soft, no organomegaly, no mass Extremities: normal range of motion, non-tender 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, no motor/sensory deficits Intake and Output 02/17/18 02/18/18 19:00 07:00 Intake Total 1550 ml Balance 1550 ml Intake Oral 1550 ml Laboratory Tests Test 02/18/18 05:45 White Blood Count 10.4 K/UL (4.8-10.8) Red Blood Count 2.64 M/UL (4.20-5.40) L Hemoglobin 8.3 G/DL (12.0-16.0) L Hematocrit 25.9 % (37.0-47.0) L Mean Corpuscular Volume 98 FL (80-99) Mean Corpuscular Hemoglobin 31.5 PG (27.0-31.0) H Mean Corpuscular Hemoglobin Concent 32.1 G/DL (32.0-36.0) Red Cell Distribution Width 17.1 % (11.6-14.8) H Platelet Count 135 K/UL (150-450) L Mean Platelet Volume 7.5 FL (6.5-10.1) Neutrophils (%) (Auto) 72.2 % (45.0-75.0) Lymphocytes (%) (Auto) 12.4 % (20.0-45.0) L Monocytes (%) (Auto) 12.1 % (1.0-10.0) H Eosinophils (%) (Auto) 2.1 % (0.0-3.0) Basophils (%) (Auto) 1.2 % (0.0-2.0) Sodium Level 136 MMOL/L (136-145) Potassium Level 4.3 MMOL/L (3.5-5.1) Chloride Level 96 MMOL/L (98-107) L Carbon Dioxide Level 31 MMOL/L (21-32) Anion Gap 9 mmol/L (5-15) Blood Urea Nitrogen 44 mg/dL (7-18) H Creatinine 8.0 MG/DL (0.55-1.30) H Estimat Glomerular Filtration Rate 5.0 mL/min (>60) Glucose Level 183 MG/DL (74-106) H Calcium Level 7.7 MG/DL (8.5-10.1) L Phosphorus Level 5.0 MG/DL (2.5-4.9) H Iron Level 34 ug/dL (50-175) L Total Iron Binding Capacity 229 ug/dL (250-450) L Percent Iron Saturation 15 % (15-50) Unsaturated Iron Binding 195 ug/dL (112-346) Ferritin 1269 NG/ML (8-388) H Total Bilirubin 0.6 MG/DL (0.2-1.0) Aspartate Amino Transf (AST/SGOT) 44 U/L (15-37) H Alanine Aminotransferase (ALT/SGPT) 129 U/L (12-78) H Alkaline Phosphatase 116 U/L (46-116) Pro-B-Type Natriuretic Peptide > 97619 pg/mL (0-125) H Total Protein 7.2 G/DL (6.4-8.2) Albumin 2.6 G/DL (3.4-5.0) L Globulin 4.6 g/dL Albumin/Globulin Ratio 0.6 (1.0-2.7) L Mikhail Lr MD Feb 18, 2018 12:03
--- NOTE | 2018-02-18 12:17 | Nephrology Progress Note ---
Assessment/Plan Problem List: (1) ESRD on dialysis (2) Hyperkalemia, diminished renal excretion (3) Cardiomyopathy (4) Anemia in chronic kidney disease Assessment anemia worsened partly due to yesterdays ( 02/16/18) fistula bleed- (1) ESRD (end stage renal disease) on dialysis presents with high K (2) CAD (coronary artery disease) (3) DM hyperosmolarity type II (4) Acute systolic (congestive) heart failure (5) Anemia in chronic kidney disease (6) Diabetes type 2, controlled (7) Cardiomyopathy (8) Sepsis Plan Plan bleeding from fistula and IV site earlier 02/16/18 , stopped check labs in am vascular surgical eval HD next 02/19 now has right jugular dialysis cath Antibiotics after cultures Adjust BS and BP meds Gastric support optimize cardiac meds check vanco level (18 today 02/15/18) 2D echo Global LV hypokinesis. Anterior septum basal to distal hypokinesis . Left ventricular ejection fraction estimated to be 20-25 %. Subjective ROS Limited/Unobtainable: No Constitutional: Reports: malaise Objective Objective Last 24 Hour Vital Signs Date Time Temp Pulse Resp B/P (MAP) Pulse Ox O2 Delivery O2 Flow Rate FiO2 02/18/18 09:00 Room Air 02/18/18 08:48 130/71 02/18/18 08:48 80 130/71 02/18/18 08:00 98.3 80 20 130/71 (90) 97 02/18/18 06:00 141/62 02/18/18 04:00 98.0 82 20 136/70 (92) 96 02/18/18 00:00 98.0 69 20 119/67 (84) 98 02/17/18 22:00 146/85 02/17/18 20:52 80 149/85 02/17/18 20:00 98.2 80 20 141/69 (93) 02/17/18 17:18 134/59 02/17/18 16:00 98.1 77 18 134/59 (84) 99 Intake and Output 02/17/18 02/18/18 19:00 07:00 Intake Total 1550 ml Balance 1550 ml Intake Oral 1550 ml Laboratory Tests 02/18/18 05:45: White Blood Count 10.4, Red Blood Count 2.64L, Hemoglobin 8.3L, Hematocrit 25.9L , Mean Corpuscular Volume 98, Mean Corpuscular Hemoglobin 31.5H, Mean Corpuscular Hemoglobin Concent 32.1, Red Cell Distribution Width 17.1H, Platelet Count 135L, Mean Platelet Volume 7.5, Neutrophils (%) (Auto) 72.2, Lymphocytes (%) (Auto) 12.4L, Monocytes (%) (Auto) 12.1H, Eosinophils (%) (Auto ) 2.1, Basophils (%) (Auto) 1.2, Sodium Level 136, Potassium Level 4.3, Chloride Level 96L, Carbon Dioxide Level 31, Anion Gap 9, Blood Urea Nitrogen 44H, Creatinine 8.0H, Estimat Glomerular Filtration Rate 5.0, Glucose Level 183H , Calcium Level 7.7L, Phosphorus Level 5.0H, Iron Level 34L, Total Iron Binding Capacity 229L, Percent Iron Saturation 15, Unsaturated Iron Binding 195, Ferritin 1269H, Total Bilirubin 0.6, Aspartate Amino Transf (AST/SGOT) 44H, Alanine Aminotransferase (ALT/SGPT) 129H, Alkaline Phosphatase 116, Pro-B-Type Natriuretic Peptide > 77513V, Total Protein 7.2, Albumin 2.6L, Globulin 4.6, Albumin/Globulin Ratio 0.6L Height (Feet): 5 Height (Inches): 0.00 Weight (Pounds): 117 General Appearance: no apparent distress Objective no change - no further bleed Washington Pavon MD Feb 18, 2018 12:17
--- NOTE | 2018-02-18 13:35 | Anethesia Preoperative Eval ---
Anesthesia Pre-op PMH/ROS General Date of Evaluation: Feb 18, 2018 Anesthesiologist: Robert ASA Score: ASA 3 Mallampati Score Class I : Soft palate, uvula, fauces, pillars visible Class II: Soft palate, uvula, fauces visible Class III: Soft palate, base of uvula visible Class IV: Only hard plate visible Mallampati Classification: Class II Surgeon: Sherron Diagnosis: ESRD Surgical Procedure: AV Shunt revision Anesthesia History: PONV Family History: no anesthesia problems Allergies: Coded Allergies: NO KNOWN DRUG ALLERGIES (Verified Allergy, Unknown, 01/29/18) Medications: see eMAR Patient NPO?: Yes Past Medical History Cardiovascular: Reports: HTN, CAD - s/p stent placement 2 months ago, other - HLD; Denies: NC, valve dz, arrhythmia Pulmonary: Denies: asthma, COPD, RADHA, other Gastrointestinal/Genitourinary: Reports: GERD, ESRD; Denies: CRI, other Neurologic/Psychiatric: Denies: dementia, CVA, depression/anxiety, TIA, other Endocrine: Reports: DM; Denies: hypothyroidism, steroids, other HEENT: Reports: ELEM (R); Denies: cataract (L), cataract (R), glaucoma, ELEM (L), other Hematology/Immune: Denies: anemia, DVT, bleeding disorder, other Musculoskeletal/Integumentary: Denies: OA, RA, DJD, DDD, edema, other PSxH Narrative: LUE Av fistula, DIPESH Anesthesia Pre-op Phys. Exam Physician Exam Last Vital Signs Date Time Temp Pulse Resp B/P (MAP) Pulse Ox O2 Delivery O2 Flow Rate FiO2 02/18/18 12:41 128/77 02/18/18 09:00 Room Air 02/18/18 08:48 80 02/18/18 08:00 98.3 20 97 02/14/18 07:33 3.0 Constitutional: NAD Cardiovascular: RRR Respiratory: CTA Airway Exam Mallampati Score: Class II MO: full ROM: full Teeth: missing, intact Dentures: lower - right bottom, partial, removable Anesthesia Pre-op A/P Labs Hematology Test 02/18/18 05:45 White Blood Count 10.4 K/UL (4.8-10.8) Red Blood Count 2.64 M/UL (4.20-5.40) L Hemoglobin 8.3 G/DL (12.0-16.0) L Hematocrit 25.9 % (37.0-47.0) L Mean Corpuscular Volume 98 FL (80-99) Mean Corpuscular Hemoglobin 31.5 PG (27.0-31.0) H Mean Corpuscular Hemoglobin Concent 32.1 G/DL (32.0-36.0) Red Cell Distribution Width 17.1 % (11.6-14.8) H Platelet Count 135 K/UL (150-450) L Mean Platelet Volume 7.5 FL (6.5-10.1) Neutrophils (%) (Auto) 72.2 % (45.0-75.0) Lymphocytes (%) (Auto) 12.4 % (20.0-45.0) L Monocytes (%) (Auto) 12.1 % (1.0-10.0) H Eosinophils (%) (Auto) 2.1 % (0.0-3.0) Basophils (%) (Auto) 1.2 % (0.0-2.0) Chemistry Test 02/18/18 05:45 Sodium Level 136 MMOL/L (136-145) Potassium Level 4.3 MMOL/L (3.5-5.1) Chloride Level 96 MMOL/L (98-107) L Carbon Dioxide Level 31 MMOL/L (21-32) Anion Gap 9 mmol/L (5-15) Blood Urea Nitrogen 44 mg/dL (7-18) H Creatinine 8.0 MG/DL (0.55-1.30) H Estimat Glomerular Filtration Rate 5.0 mL/min (>60) Glucose Level 183 MG/DL (74-106) H Calcium Level 7.7 MG/DL (8.5-10.1) L Phosphorus Level 5.0 MG/DL (2.5-4.9) H Iron Level 34 ug/dL (50-175) L Total Iron Binding Capacity 229 ug/dL (250-450) L Percent Iron Saturation 15 % (15-50) Unsaturated Iron Binding 195 ug/dL (112-346) Ferritin 1269 NG/ML (8-388) H Total Bilirubin 0.6 MG/DL (0.2-1.0) Aspartate Amino Transf (AST/SGOT) 44 U/L (15-37) H Alanine Aminotransferase (ALT/SGPT) 129 U/L (12-78) H Alkaline Phosphatase 116 U/L (46-116) Pro-B-Type Natriuretic Peptide > 37219 pg/mL (0-125) H Total Protein 7.2 G/DL (6.4-8.2) Albumin 2.6 G/DL (3.4-5.0) L Globulin 4.6 g/dL Albumin/Globulin Ratio 0.6 (1.0-2.7) L Studies Pre-op Studies: EKG - SR with PACs and PVCs, CXR - cardiomegaly, no acute process, echo - LVEF 30-35%, mod MR, peak RVSP=47, mod Pulmonary HTN Risk Assessment & Plan Assessment: ASA III Plan: GA vs MAC Status Change Before Surgery: No Pre-Antibiotics Drug: Alvina Hyman MD Feb 18, 2018 13:35
--- NOTE | 2018-02-18 15:11 | NUR ---
SS note Chart reviewed; no SW needs identified at this time. SW to follow as needed.
[2018-02-18 16:00] VITALS: BP 122/69
--- NOTE | 2018-02-18 18:55 | Consultation ---
History of Present Illness General Date patient seen: Feb 18, 2018 Chief Complaint: Nausea Present Illness Allergies: Coded Allergies: NO KNOWN DRUG ALLERGIES (Verified Allergy, Unknown, 01/29/18) Medication History Scheduled Aspirin* (Aspir 81*), 81 MG ORAL DAILY, (Reported) Atorvastatin (Lipitor), 80 MG ORAL BEDTIME Bisacodyl* (Dulcolax*), 5 MG ORAL DAILY, (Reported) Carvedilol (Coreg), 12.5 MG ORAL EVERY 12 HOURS Cinacalcet* (Sensipar*), 30 MG ORAL DAILY, (Reported) Clopidogrel* (Clopidogrel*), 75 MG ORAL DAILY, (Reported) Docusate Sodium* (Docusate Sodium*), 100 MG ORAL TWICE A DAY, (Reported) Famotidine (Famotidine), 20 MG ORAL DAILY, (Reported) Glipizide* (Glipizide*), 5 MG ORAL BIDAC, (Reported) Hydralazine Hcl* (Hydralazine Hcl*), 75 MG ORAL Q8HR Insulin Glargine (Lantus), 0 SUBQ BEDTIME, (Reported) Isosorbide Dinitrate* (Isordil*), 20 MG ORAL TID Levofloxacin* (Levofloxacin*), 750 MG ORAL DAILY Lisinopril (Lisinopril*), 20 MG ORAL DAILY, (Reported) Lisinopril (Lisinopril*), 5 MG ORAL Q12HR Sevelamer Hcl (Renagel), 800 MG ORAL THREE TIMES A DAY, (Reported) Scheduled PRN Ondansetron* (Zofran*), 4 MG ORAL Q6H PRN for Nausea & Vomiting, (Reported) Patient History Healthcare decision maker Resuscitation status Advanced Directive on File Physical Exam Last 24 Hour Vital Signs Date Time Temp Pulse Resp B/P (MAP) Pulse Ox O2 Delivery O2 Flow Rate FiO2 02/18/18 17:13 128/77 02/18/18 16:00 98.3 78 19 122/69 (86) 97 02/18/18 14:11 128/77 02/18/18 12:41 128/77 02/18/18 12:00 98.7 77 20 128/77 (94) 97 02/18/18 09:00 Room Air 02/18/18 08:48 130/71 02/18/18 08:48 80 130/71 02/18/18 08:00 98.3 80 20 130/71 (90) 97 02/18/18 06:00 141/62 02/18/18 04:00 98.0 82 20 136/70 (92) 96 02/18/18 00:00 98.0 69 20 119/67 (84) 98 02/17/18 22:00 146/85 02/17/18 20:52 80 149/85 02/17/18 20:00 98.2 80 20 141/69 (93) Intake and Output 02/17/18 02/18/18 19:00 07:00 Intake Total 1550 ml Balance 1550 ml Intake Oral 1550 ml Laboratory Tests Test 02/18/18 05:45 White Blood Count 10.4 K/UL (4.8-10.8) Red Blood Count 2.64 M/UL (4.20-5.40) L Hemoglobin 8.3 G/DL (12.0-16.0) L Hematocrit 25.9 % (37.0-47.0) L Mean Corpuscular Volume 98 FL (80-99) Mean Corpuscular Hemoglobin 31.5 PG (27.0-31.0) H Mean Corpuscular Hemoglobin Concent 32.1 G/DL (32.0-36.0) Red Cell Distribution Width 17.1 % (11.6-14.8) H Platelet Count 135 K/UL (150-450) L Mean Platelet Volume 7.5 FL (6.5-10.1) Neutrophils (%) (Auto) 72.2 % (45.0-75.0) Lymphocytes (%) (Auto) 12.4 % (20.0-45.0) L Monocytes (%) (Auto) 12.1 % (1.0-10.0) H Eosinophils (%) (Auto) 2.1 % (0.0-3.0) Basophils (%) (Auto) 1.2 % (0.0-2.0) Sodium Level 136 MMOL/L (136-145) Potassium Level 4.3 MMOL/L (3.5-5.1) Chloride Level 96 MMOL/L (98-107) L Carbon Dioxide Level 31 MMOL/L (21-32) Anion Gap 9 mmol/L (5-15) Blood Urea Nitrogen 44 mg/dL (7-18) H Creatinine 8.0 MG/DL (0.55-1.30) H Estimat Glomerular Filtration Rate 5.0 mL/min (>60) Glucose Level 183 MG/DL (74-106) H Calcium Level 7.7 MG/DL (8.5-10.1) L Phosphorus Level 5.0 MG/DL (2.5-4.9) H Iron Level 34 ug/dL (50-175) L Total Iron Binding Capacity 229 ug/dL (250-450) L Percent Iron Saturation 15 % (15-50) Unsaturated Iron Binding 195 ug/dL (112-346) Ferritin 1269 NG/ML (8-388) H Total Bilirubin 0.6 MG/DL (0.2-1.0) Aspartate Amino Transf (AST/SGOT) 44 U/L (15-37) H Alanine Aminotransferase (ALT/SGPT) 129 U/L (12-78) H Alkaline Phosphatase 116 U/L (46-116) Pro-B-Type Natriuretic Peptide > 65167 pg/mL (0-125) H Total Protein 7.2 G/DL (6.4-8.2) Albumin 2.6 G/DL (3.4-5.0) L Globulin 4.6 g/dL Albumin/Globulin Ratio 0.6 (1.0-2.7) L Height (Feet): 5 Height (Inches): 0.00 Weight (Pounds): 115 Medications Current Medications Medications (Trade) Dose Ordered Sig/Juliocesar Route PRN Reason Start Time Stop Time Status Last Admin Dose Admin Acetaminophen (Tylenol) 650 mg Q6H PRN ORAL Mild Pain/Temp > 100.5 02/13/18 20:30 03/15/18 20:29 02/16/18 10:28 Allopurinol (Allopurinol) 300 mg DAILY ORAL 02/16/18 09:00 03/14/18 14:44 02/18/18 08:47 Aspirin (Ecotrin) 81 mg DAILY ORAL 02/14/18 09:00 03/14/18 08:59 02/16/18 09:54 Atorvastatin Calcium (Lipitor) 10 mg BEDTIME ORAL 02/13/18 21:00 03/13/18 20:59 02/17/18 20:53 Carvedilol (Coreg) 25 mg EVERY 12 HOURS ORAL 02/15/18 21:00 03/13/18 20:59 02/18/18 08:48 Clopidogrel Bisulfate (Plavix) 75 mg DAILY ORAL 02/14/18 09:00 03/14/18 08:59 02/17/18 08:42 Dextrose (Dextrose 50%) 25 ml Q30M PRN IV Hypoglycemia 02/13/18 17:00 03/13/18 16:29 Dextrose (Dextrose 50%) 50 ml Q30M PRN IV Hypoglycemia 02/13/18 17:00 03/13/18 16:29 Docusate Sodium (Colace) 100 mg TID ORAL 02/13/18 18:00 03/13/18 17:59 02/18/18 17:13 Heparin Sodium (Porcine) (Heparin 5000 units/ml) 5,000 units EVERY 12 HOURS SUBQ 02/13/18 21:00 03/13/18 20:59 02/17/18 20:54 Hydralazine HCl (Apresoline) 25 mg Q4H PRN ORAL BP OVER 160 SYST 02/13/18 17:00 03/13/18 16:59 Hydralazine HCl (Apresoline) 75 mg Q8HR ORAL 02/13/18 22:00 03/13/18 21:59 02/18/18 14:11 Insulin Aspart (NovoLOG) BEFORE MEALS AND HS SUBQ 02/13/18 18:04 03/15/18 18:03 02/18/18 16:21 Isosorbide Dinitrate (Isordil) 30 mg TID ORAL 02/15/18 18:00 03/13/18 17:59 02/18/18 17:13 Ondansetron HCl (Zofran ODT) 4 mg Q6H PRN ORAL Nausea & Vomiting 02/16/18 18:45 03/18/18 18:44 02/18/18 15:18 Pantoprazole (Protonix) 40 mg EVERY 12 HOURS ORAL 02/13/18 21:00 03/13/18 20:59 02/18/18 08:48 Sevelamer Carbonate (Renvela) 1,600 mg THREE TIMES A DAY ORAL 02/13/18 18:00 03/14/18 17:59 02/18/18 17:13 Assessment/Plan Status Narrative Hematology Consult REQ MD: Maranda Levine RFC: Leukocytosis and Anemia DOS: 02/18/18 HPI 62-year-old female presents ED for evaluation for sob. Patient brought in by EMS for fever. Started today.. Patient is tremulous. Patient denies cough. Denies sore throat or earache. She was recently discharged from [facility] for treatment of a infection. Patient is unclear where the infection was. history of end-stage renal disease gets dialysis Wednesday. Got dialysis on . Denies chest pain or shortness of breath. No other aggravating relieving factors. Denies any other associated symptoms. Leukocytosis was noted, is on abx and hematology was consulted to r/o leukemia/ lymphoma and noted to have anameia as well. Coded Allergies: NO KNOWN DRUG ALLERGIES (Verified Allergy, Unknown, 01/29/18) Past Medical History: DM, HTN, renal disease, dialysis Past Surgical History: none Pertinent Family History: none Social History: Denies: smoking, alcohol use, drug use Last Menstrual Period: 2 decades ago Now: No Immunizations: UTD Hx Cardiac Problems: No Hx Hypertension: Yes Hx Pacemaker: No Hx Asthma: No Hx COPD: No Hx Diabetes: Yes Hx Cancer: No Hx Gastrointestinal Problems: No Hx Dialysis: Yes - wed, , wed Hx Neurological Problems: No Hx Cerebrovascular Accident: No Hx Seizures: No Review of Systems: negative except mentioned in HPI PE: Gen: NAd Pulm: CTAB, no cwr CV: RRR Abd: soft, nt, nd Ext: no cce Laboratory Tests Test 02/18/18 05:45 White Blood Count 10.4 K/UL (4.8-10.8) Red Blood Count 2.64 M/UL (4.20-5.40) L Hemoglobin 8.3 G/DL (12.0-16.0) L Hematocrit 25.9 % (37.0-47.0) L Mean Corpuscular Volume 98 FL (80-99) Mean Corpuscular Hemoglobin 31.5 PG (27.0-31.0) H Mean Corpuscular Hemoglobin Concent 32.1 G/DL (32.0-36.0) Red Cell Distribution Width 17.1 % (11.6-14.8) H Platelet Count 135 K/UL (150-450) L Mean Platelet Volume 7.5 FL (6.5-10.1) Neutrophils (%) (Auto) 72.2 % (45.0-75.0) Lymphocytes (%) (Auto) 12.4 % (20.0-45.0) L Monocytes (%) (Auto) 12.1 % (1.0-10.0) H Eosinophils (%) (Auto) 2.1 % (0.0-3.0) Basophils (%) (Auto) 1.2 % (0.0-2.0) Sodium Level 136 MMOL/L (136-145) Potassium Level 4.3 MMOL/L (3.5-5.1) Chloride Level 96 MMOL/L (98-107) L Carbon Dioxide Level 31 MMOL/L (21-32) Anion Gap 9 mmol/L (5-15) Blood Urea Nitrogen 44 mg/dL (7-18) H Creatinine 8.0 MG/DL (0.55-1.30) H Estimat Glomerular Filtration Rate 5.0 mL/min (>60) Glucose Level 183 MG/DL (74-106) H Calcium Level 7.7 MG/DL (8.5-10.1) L Phosphorus Level 5.0 MG/DL (2.5-4.9) H Iron Level 34 ug/dL (50-175) L Total Iron Binding Capacity 229 ug/dL (250-450) L Percent Iron Saturation 15 % (15-50) Unsaturated Iron Binding 195 ug/dL (112-346) Ferritin 1269 NG/ML (8-388) H Total Bilirubin 0.6 MG/DL (0.2-1.0) Aspartate Amino Transf (AST/SGOT) 44 U/L (15-37) H Alanine Aminotransferase (ALT/SGPT) 129 U/L (12-78) H Alkaline Phosphatase 116 U/L (46-116) Pro-B-Type Natriuretic Peptide > 77981 pg/mL (0-125) H Total Protein 7.2 G/DL (6.4-8.2) Albumin 2.6 G/DL (3.4-5.0) L Globulin 4.6 g/dL Albumin/Globulin Ratio 0.6 (1.0-2.7) L Assessment/Plan # Anemia of chronic disease due to underlying chronic medical issues, esrd, multifactorial --> Anemia w/u has been ordered --> No evidence of hemolysis is noted, peripheral smear has been reviewed. --> Hgb goal >7. Transfuse prn. --> Epogen given esrd --> fistula bleeding also contributing 1/3 # Leukocytosis is due to Septic shock, high Lactic acid, has vre --> cultures are pending, sensitivities --> is s/p multiple antibiotics, in past seen by ID --> have ordered for a peripheral flow cytometry r/o leukemia --> peripheral smear has been ordered --> imaging reviewed and shows anorectal thickening --> wbc trend 31k-->20k-->9.4 # Coagulopathy that has worsened with inr 2.9 --> mixing study ordered --> rule out dic # ESRD on HD for 2 years, has left arm fistula --> fistula to be revisted --> epogen as per neprho --> HD as required # DM --> a1c goal <7 # CAD, elevated Troponin --> Patient will need life vest and possible ICD in future - has been ordered and approved, awaiting delivery --> May need ICD in future Greatly appreciate consultation! Toribio Suárez MD Feb 18, 2018 18:55
--- NOTE | 2018-02-18 19:32 | NUR ---
HAND-OFF: Report given to MARCIN Jimenez.
[2018-02-18 20:00] VITALS: BP 132/54
--- NOTE | 2018-02-18 21:39 | NUR ---
NURSE NOTES: Patient in bed, awake, alert and verbally responsive. Able to make needs known. No iv site noted. patient refused to have IV insertion. Kept clean and comfortable. Provided safe environment. Bed in low and locked position. Noted with Right chest permacath and left av shunt. No complaint of pain or discomfort noted. Respiration is even and unlabored. call light is at bedside. Will continue plan of care.
[2018-02-19] VITALS: BP 139/63
[2018-02-19 04:00] VITALS: BP 141/57
[2018-02-19] MEDS: HydrALAZINE 25mg tab ORAL SCH ×3 (05:51→22:00)
[2018-02-19] MEDS: NovoLOG Insulin Flexpen SUBQ SCH ×4 (05:53→22:12)
--- NOTE | 2018-02-19 07:11 | NUR ---
HAND-OFF: Report given to MARCIN Cordova.
--- NOTE | 2018-02-19 07:15 | NUR ---
NURSE NOTES: Received patient in bed,awake, alert and oriented x4. Not in acute respiratory/cardiac distress. Denies any pain or discomfort. No IV received. Patient refused IV insertion. Per report MD aware. Bed is in lowest position and locked. Call light and personnel items within reach. will continue plan of care.
[2018-02-19 07:26] LABS: ANION GAP 12 mmol/L (5-15); BLOOD UREA NITROGEN 71 mg/dL (7-18); CALCIUM 7.9 MG/DL (8.5-10.1); CARBON DIOXIDE 28 MMOL/L (21-32); CHLORIDE 95 MMOL/L (98-107); CREATININE 10.7 MG/DL (0.55-1.30); POTASSIUM 4.6 MMOL/L (3.5-5.1); SODIUM 135 MMOL/L (136-145)
[2018-02-19 07:42] LABS: BASOPHILS % (AUTO) 1.1 % (0.0-2.0); EOSINOPHILS % (AUTO) 4.6 % (0.0-3.0); HEMATOCRIT 27.2 % (37.0-47.0); HEMOGLOBIN 8.6 G/DL (12.0-16.0); LYMPHOCYTES % (AUTO) 14.1 % (20.0-45.0); MEAN CORPUSCULAR VOLUME 98 FL (80-99); NEUTROPHILS % (AUTO) 71.2 % (45.0-75.0); PLATELET COUNT 152 K/UL (150-450); RED BLOOD COUNT 2.77 M/UL (4.20-5.40); RED CELL DISTRIBUTION WIDTH 16.5 % (11.6-14.8); WHITE BLOOD COUNT 8.3 K/UL (4.8-10.8)
[2018-02-19 08:00] VITALS: BP 119/53
[2018-02-19] MEDS: Docusate 100mg cap ORAL SCH ×3 (08:28→17:25)
[2018-02-19] MEDS: Carvedilol 25mg Tab ORAL SCH ×2 (08:31→21:00)
[2018-02-19] MEDS: Aspirin EC 81mg tab ORAL SCH (08:41)
[2018-02-19] MEDS: Heparin 5000 units/ml inj SUBQ SCH ×2 (08:42→21:59)
--- NOTE | 2018-02-19 09:00 | NUR ---
NURSE NOTES: Patient refused to take allopurinol, blood pressure meds, Imdur, plavix,heparin,ASA. RN re-educated on meds but patient refused and said " I am going to have dialysis today. I do not think I need it." RN explained the risks and benefits.
--- NOTE | 2018-02-19 09:51 | NUR ---
CASE MANAGEMENT:REVIEW 02/19/18 SI: ESRD. HYPERKALEMIA. CMPY 97.3 72 18 119/53 99% ON RA H/H-8.6/27.2 BUN+71 CR+10.7 IS: COREG PO Q12 ISORDIL PO TID ASA PO QD PLAVIX PO QD HYDRALAZINE PO Q8 HEPARIN SQ Q12 : MED/SURG STATUS 4 EAST DCP: FROM HOME
--- NOTE | 2018-02-19 10:41 | General Progress Note ---
Assessment/Plan Assessment/Plan #Shortness of breath due to fluid overload #Missed HD, noncompliance with dialysis #Hyperkalemia #Transaminitis #Elevated troponin in setting of ESRD #ESRD on HD #IDDM #Essential HTN #Facial Numbness - resume home antihypertensives - iss, resume insulin regiment, accuchecks - malfunction av shunt with clots, pending arm duplex, plan for revision av shunt and permcath in OR once all cleared - bleeding from fistula and IV site earlier 02/16/18 , stopped,HD from Right IJ cath - HD per neprhro - cont to monitor labs #Facial numbness - resolved -patient had a right neck IV access. -CT head negative -Will obtain MRI brain, neg -Patient already on DAPT #Abnormal EKG #Combined Chronic CHF Echo from previous visit reviewed LVEF 20% globally Repeat echo on this admission to re-evaluate Continue goal directed medical therapy No indication for cardiac cath or stress testing plan for outpt viability study to eval revasc if LV fxn remains low no heart block per ekg, tele strips showing nsr with PAC and diff P wave morph. appreciate cardiology recs recommend outpatient ziopatch Continue statin Continue hydralazine/imdur for heart failure Continue coreg at current dose Hold aldactone due to ESRD and hyperkalemia Aspirin/plavix Patient will need life vest and possible ICD in future - has been ordered and approved, awaiting delivery #Nausea, resolved - prn zofran diet: renal diet DVT Prophylaxis: SCD, HSQ Code Status: Full Hospital Classification Declaration: Based on this initial evaluation, and depending on the patient's clinical course, I anticipate that this patient will require hospitalization for 2-3 days for HD and cardiac workup and close respiratory/hemodynamic monitoring. Disposition: Once the patient is stable to leave the hospital, I anticipate the patient will likely be discharged to the following environment: home with HH vs SNF I spent over 42 minutes on this patient's case, and 25 minutes were dedicated to counseling and/or care coordination. Discussed with patient/family, nursing staff, SW/CM regarding clinical status, treatment course, and disposition planning. Time of note may not reflect time of encounter. Date of Discussion: 02/11/18 A [id number]-[id number] discussion with the patient regarding the patient's advanced care planning took place during this hospitalization on the above date. The discussion included the explanation and discussion of advance directives and associated forms/documents, as well as the patient's current code status. We also discussed at length the patient's medical conditions (both acute and chronic), general prognosis, treatment options, and goals of care. The following summarizes the discussion: Advance Care Planning/Goals of Care: - Will attempt to fill out an AD and/or POLST with the patient prior to discharge, if not already completed - Continue current evaluation and management of any acute and chronic medical issues - Will continue to support the patient/family - Will continue to discuss both short- and long-term goals of care DPOA-HC/Surrogate Decision Maker: None currently appointed Code Status: Full Code AD Forms/Documents Completed: Deferred A total of 31 minutes was spent on this discussion, including counseling, answering questions, and completing, if any, pertinent advanced care planning forms/documents. ---- Subjective Date patient seen: Feb 19, 2018 Time patient seen: 10:39 Allergies: Coded Allergies: NO KNOWN DRUG ALLERGIES (Verified Allergy, Unknown, 01/29/18) Subjective f/u facial numbness, fluid overload due to missed HD, hyperkalemia cth neg mri reviewed, neg acute denies any facial numbness today denies any cp or sob states she feels generally weak denies fevers/chills states right IJ cath bothers her, but not too painful malfunction av shunt with clots, pending arm duplex, plan for revision av shunt and permcath in OR once all cleared bleeding from fistula and IV site earlier 02/16/18 , stopped, planned for HD from Right IJ cath ROS: 14 point ROS reviewed and negative except for the above subjective Objective Last 24 Hour Vital Signs Date Time Temp Pulse Resp B/P (MAP) Pulse Ox O2 Delivery O2 Flow Rate FiO2 02/19/18 08:00 Room Air 02/19/18 08:00 97.3 72 18 119/53 (75) 99 02/19/18 05:51 141/57 02/19/18 04:00 98.7 77 18 141/57 (85) 98 02/19/18 00:00 97.5 72 20 139/63 (88) 99 02/18/18 21:22 146/78 02/18/18 20:55 76 132/54 02/18/18 20:42 Room Air 1/4/19 20:00 97.8 76 20 132/54 (80) 96 02/18/18 17:13 128/77 02/18/18 16:00 98.3 78 19 122/69 (86) 97 02/18/18 14:11 128/77 02/18/18 12:41 128/77 02/18/18 12:00 98.7 77 20 128/77 (94) 97 Intake and Output 02/18/18 02/19/18 19:00 07:00 Intake Total 1220 ml Balance 1220 ml Intake Oral 1220 ml # Voids 6 Laboratory Tests 02/19/18 06:10: White Blood Count 8.3, Red Blood Count 2.77L, Hemoglobin 8.6L, Hematocrit 27.2L , Mean Corpuscular Volume 98, Mean Corpuscular Hemoglobin 31.0, Mean Corpuscular Hemoglobin Concent 31.6L, Red Cell Distribution Width 16.5H, Platelet Count 152, Mean Platelet Volume 7.6, Neutrophils (%) (Auto) 71.2, Lymphocytes (%) (Auto) 14.1L, Monocytes (%) (Auto) 9.0, Eosinophils (%) (Auto) 4.6H, Basophils (%) (Auto) 1.1, Sodium Level 135L, Potassium Level 4.6, Chloride Level 95L, Carbon Dioxide Level 28, Anion Gap 12, Blood Urea Nitrogen 71H, Creatinine 10.7H, Estimat Glomerular Filtration Rate 3.6, Glucose Level 183H, Calcium Level 7.9L Height (Feet): 5 Height (Inches): 0.00 Weight (Pounds): 118 Objective General Appearance: no apparent distress, alert Lines, tubes and drains: peripheral HEENT: normocephalic, atraumatic, anicteric Neck: non-tender, normal alignment, supple, normal inspection Respiratory/Chest: chest wall non-tender, lungs clear, normal breath sounds, no respiratory distress, no accessory muscle use Cardiovascular/Chest: normal peripheral pulses, normal rate, regular rhythm Abdomen: normal bowel sounds, non tender, soft, no organomegaly, no mass Extremities: normal range of motion, non-tender, normal inspection, no calf tenderness Skin Exam: normal pigmentation, warm/dry 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
[2018-02-19 12:00] VITALS: BP 147/67
[2018-02-19] MEDS: Artificial Tears 1.4% Op Soln BOTH EYES PRN ×4 (12:29→22:02)
--- NOTE | 2018-02-19 14:05 | Nephrology Progress Note ---
Assessment/Plan Problem List: (1) ESRD on dialysis (2) Hyperkalemia, diminished renal excretion (3) Cardiomyopathy (4) Anemia in chronic kidney disease Assessment anemia worsened partly due to yesterdays ( 02/16/18) fistula bleed- (1) ESRD (end stage renal disease) on dialysis presents with high K (2) CAD (coronary artery disease) (3) DM hyperosmolarity type II (4) Acute systolic (congestive) heart failure (5) Anemia in chronic kidney disease (6) Diabetes type 2, controlled (7) Cardiomyopathy (8) Sepsis Plan Plan bleeding from fistula and IV site earlier 02/16/18 , stopped check labs in am vascular surgical eval HD next 02/19 now has right jugular dialysis cath Antibiotics after cultures Adjust BS and BP meds Gastric support optimize cardiac meds 2D echo Global LV hypokinesis. Anterior septum basal to distal hypokinesis . Left ventricular ejection fraction estimated to be 20-25 %. Subjective ROS Limited/Unobtainable: No Constitutional: Reports: malaise Objective Objective Last 24 Hour Vital Signs Date Time Temp Pulse Resp B/P (MAP) Pulse Ox O2 Delivery O2 Flow Rate FiO2 02/19/18 13:17 Room Air 02/19/18 12:00 97.7 66 18 147/67 (93) 97 02/19/18 08:00 Room Air 02/19/18 08:00 97.3 72 18 119/53 (75) 99 02/19/18 05:51 141/57 02/19/18 04:00 98.7 77 18 141/57 (85) 98 02/19/18 00:00 97.5 72 20 139/63 (88) 99 02/18/18 21:22 146/78 02/18/18 20:55 76 132/54 02/18/18 20:42 Room Air 02/18/18 20:00 97.8 76 20 132/54 (80) 96 02/18/18 17:13 128/77 02/18/18 16:00 98.3 78 19 122/69 (86) 97 02/18/18 14:11 128/77 Intake and Output 02/18/18 02/19/18 19:00 07:00 Intake Total 1220 ml Balance 1220 ml Intake Oral 1220 ml # Voids 6 Laboratory Tests 02/19/18 06:10: White Blood Count 8.3, Red Blood Count 2.77L, Hemoglobin 8.6L, Hematocrit 27.2L , Mean Corpuscular Volume 98, Mean Corpuscular Hemoglobin 31.0, Mean Corpuscular Hemoglobin Concent 31.6L, Red Cell Distribution Width 16.5H, Platelet Count 152, Mean Platelet Volume 7.6, Neutrophils (%) (Auto) 71.2, Lymphocytes (%) (Auto) 14.1L, Monocytes (%) (Auto) 9.0, Eosinophils (%) (Auto) 4.6H, Basophils (%) (Auto) 1.1, Sodium Level 135L, Potassium Level 4.6, Chloride Level 95L, Carbon Dioxide Level 28, Anion Gap 12, Blood Urea Nitrogen 71H, Creatinine 10.7H, Estimat Glomerular Filtration Rate 3.6, Glucose Level 183H, Calcium Level 7.9L Height (Feet): 5 Height (Inches): 0.00 Weight (Pounds): 118 General Appearance: no apparent distress Objective no change - no further bleed Washington Pavon MD Feb 19, 2018 14:05
--- NOTE | 2018-02-19 15:49 | Diagnostic Imaging Report ---
Indication: Arteriovenous graft. Forearm pain Findings: Single view of the left forearm was obtained. There is faint visualization of arterial venous graft within the forearm. No soft tissue gas identified. Surgical clip noted in the proximal forearm. IMPRESSION: Arteriovenous graft noted.
--- NOTE | 2018-02-19 15:49 | Diagnostic Imaging Report ---
Indication: Pain Findings: Single view of the left humerus obtained. Soft tissue in the left upper arm and the humerus appear unremarkable on the single view. IMPRESSION: Unremarkable study
--- NOTE | 2018-02-19 15:51 | Cardiology Report ---
APPROVED REPORT EKG Measurement Heart [id number] [place] 188P34 [id number] Normal sinus rhythm Prolonged QT Abnormal ECG
--- NOTE | 2018-02-19 15:51 | Cardiology Report ---
APPROVED REPORT EKG Measurement Heart [id number] [place] 204P31 [id number] Normal sinus rhythm Cannot rule out Anterior infarct, age undetermined Prolonged QT Abnormal ECG
--- NOTE | 2018-02-19 15:51 | Cardiology Report ---
APPROVED REPORT EKG Measurement Heart [id number] [id number] [id number] Normal sinus rhythm Prolonged QT Abnormal ECG
--- NOTE | 2018-02-19 15:51 | Cardiology Report ---
APPROVED REPORT EKG Measurement Heart [id number] [place] 180P22 [id number] Sinus rhythm with non-conducted APC and non-compensatory pause. Prolonged QT Abnormal ECG
[2018-02-19 16:00] VITALS: BP 147/62
--- NOTE | 2018-02-19 17:00 | NUR ---
NURSE NOTES: Patient is more alert and able to tolerate with his food and use urinal. Addendum: 02/19/18 at 1936 by CRISS TAMAYO RN wrong entry
--- NOTE | 2018-02-19 18:27 | NUR ---
NURSE NOTES: Arterial duplex result is in the chart but no result for venous duplex result.RN tried to contact with Vascular lab to follow up with the venous duplex result but unable to contact with anyone. Will follow up.
--- NOTE | 2018-02-19 18:50 | NUR ---
NURSE NOTES: Patient is alert and oriented x4 and decision maker for herself.RN explained to the patient about the procedure on Wednesday. Patient fully understood the procedure and consented.
--- NOTE | 2018-02-19 19:35 | NUR ---
HAND-OFF: Report given to Merna.
--- NOTE | 2018-02-19 19:56 | NUR ---
NURSE NOTES: Pt received awake and alert, receiving dialysis, with no complaints of pain or signs of distress, pleasant and reminded me that she receives Zofran. Call light within reach
--- NOTE | 2018-02-19 22:04 | General Progress Note ---
Assessment/Plan Assessment/Plan # Anemia of chronic disease due to underlying chronic medical issues, esrd, multifactorial --> Anemia w/u has been ordered --> No evidence of hemolysis is noted, peripheral smear has been reviewed. --> Hgb goal >7. Transfuse prn. --> Epogen given esrd --> fistula bleeding also contributing 1/3 # Leukocytosis is due to Septic shock, high Lactic acid, has vre --> cultures are pending, sensitivities --> is s/p multiple antibiotics, in past seen by ID --> have ordered for a peripheral flow cytometry r/o leukemia --> peripheral smear has been ordered --> imaging reviewed and shows anorectal thickening --> wbc trend 31k-->20k-->9.4 # Coagulopathy that has worsened with inr 2.9 --> mixing study ordered --> rule out dic # ESRD on HD for 2 years, has left arm fistula --> fistula to be revisted --> epogen as per neprho --> HD as required # DM --> a1c goal <7 # CAD, elevated Troponin --> Patient will need life vest and possible ICD in future - has been ordered and approved, awaiting delivery --> May need ICD in future Greatly appreciate consultatio Subjective Constitutional: Denies: no symptoms, chills, diaphoresis, fever, malaise, weakness, other HEENT: Denies: no symptoms, eye pain, blurred vision, tearing, double vision, ear pain, ear discharge, nose pain, nose congestion, throat pain, throat swelling, mouth pain, mouth swelling, other Cardiovascular: Denies: no symptoms, chest pain, edema, irregular heart rate, lightheadedness, palpitations, syncope, other Respiratory: Denies: no symptoms, cough, orthopnea, shortness of breath, SOB with excertion, SOB at rest, sputum, stridor, wheezing, other Gastrointestinal/Abdominal: Denies: no symptoms, abdomen distended, abdominal pain, black stools, tarry stools, blood in stool, constipated, diarrhea, difficulty swallowing, nausea, poor appetite, poor fluid intake, rectal bleeding , vomiting, other Genitourinary: Denies: no symptoms, burning, discharge, frequency, flank pain, hematuria, incontinence, pain, urgency, other Neurologic/Psychiatric: Denies: no symptoms, anxiety, depressed, emotional problems, headache, numbness, paresthesia, pre-existing deficit, seizure, tingling, tremors, weakness, other Endocrine: Denies: no symptoms, excessive sweating, flushing, intolerance to cold, intolerance to heat, increased hunger, increased thirst, increased urine, unexplained weight gain, unexplained weight loss, other Hematologic/Lymphatic: Denies: no symptoms, anemia, easy bleeding, easy bruising, other Allergies: Coded Allergies: NO KNOWN DRUG ALLERGIES (Verified Allergy, Unknown, 01/29/18) Subjective 02/19/18 Pt is seen in the room, has a bleed from fistula and IV site, currently stopped, received HD today Objective Last 24 Hour Vital Signs Date Time Temp Pulse Resp B/P (MAP) Pulse Ox O2 Delivery O2 Flow Rate FiO2 02/19/18 17:28 147/62 02/19/18 16:00 97.2 76 18 147/62 (90) 97 02/19/18 13:17 Room Air 02/19/18 12:00 97.7 66 18 147/67 (93) 97 02/19/18 08:00 Room Air 02/19/18 08:00 97.3 72 18 119/53 (75) 99 02/19/18 05:51 141/57 02/19/18 04:00 98.7 77 18 141/57 (85) 98 02/19/18 00:00 97.5 72 20 139/63 (88) 99 Intake and Output 02/18/18 02/19/18 18:59 06:59 Intake Total 1220 ml Balance 1220 ml Intake Oral 1220 ml # Voids 6 Laboratory Tests 02/19/18 06:10: White Blood Count 8.3, Red Blood Count 2.77L, Hemoglobin 8.6L, Hematocrit 27.2L , Mean Corpuscular Volume 98, Mean Corpuscular Hemoglobin 31.0, Mean Corpuscular Hemoglobin Concent 31.6L, Red Cell Distribution Width 16.5H, Platelet Count 152, Mean Platelet Volume 7.6, Neutrophils (%) (Auto) 71.2, Lymphocytes (%) (Auto) 14.1L, Monocytes (%) (Auto) 9.0, Eosinophils (%) (Auto) 4.6H, Basophils (%) (Auto) 1.1, Sodium Level 135L, Potassium Level 4.6, Chloride Level 95L, Carbon Dioxide Level 28, Anion Gap 12, Blood Urea Nitrogen 71H, Creatinine 10.7H, Estimat Glomerular Filtration Rate 3.6, Glucose Level 183H, Calcium Level 7.9L Height (Feet): 5 Height (Inches): 0.00 Weight (Pounds): 118 Toribio Suárez MD Feb 19, 2018 22:04
--- NOTE | 2018-02-19 22:32 | NUR ---
NURSE NOTES: Pt blood pressure after dialysis was 110/45, 75HR, did not administer blood pressure medication.
[2018-02-20] VITALS: BP 119/71
[2018-02-20] MEDS: Artificial Tears 1.4% Op Soln BOTH EYES PRN ×4 (00:59→10:26)
[2018-02-20 04:00] VITALS: BP 163/64
[2018-02-20] MEDS: HydrALAZINE 25mg tab ORAL SCH ×3 (05:37→21:52)
[2018-02-20] MEDS: NovoLOG Insulin Flexpen SUBQ SCH ×4 (05:39→21:00)
--- NOTE | 2018-02-20 07:44 | NUR ---
NURSE NOTES: Report given to MARCIN Cordova
[2018-02-20 08:00] VITALS: BP 158/61
[2018-02-20] MEDS: Docusate 100mg cap ORAL SCH ×3 (08:37→17:41)
[2018-02-20] MEDS: Carvedilol 25mg Tab ORAL SCH ×2 (08:39→20:24)
[2018-02-20] MEDS: Aspirin EC 81mg tab ORAL SCH (08:41)
[2018-02-20] MEDS: Heparin 5000 units/ml inj SUBQ SCH ×2 (08:41→21:00)
--- NOTE | 2018-02-20 09:00 | NUR ---
NURSE NOTES: Patient refused to take heparin. RN re-educated on meds but patient refused and said " I do not think I need it." RN explained the risks and benefits.
--- NOTE | 2018-02-20 10:11 | NUR ---
NURSE NOTES: RN followed up with duplex results with sigrid. She brought the results of 3 tests and RN faxed to Dr. Hinson's office and spoke to Dr. Hinson about the result and received new order to hold heparin tonight.Fax went through and results in the chart.
--- NOTE | 2018-02-20 10:36 | Nephrology Progress Note ---
Assessment/Plan Problem List: (1) ESRD on dialysis (2) Hyperkalemia, diminished renal excretion (3) Cardiomyopathy (4) Anemia in chronic kidney disease Assessment anemia worsened partly due to yesterdays ( 02/16/18) fistula bleed- (1) ESRD (end stage renal disease) on dialysis presents with high K (2) CAD (coronary artery disease) (3) DM hyperosmolarity type II (4) Acute systolic (congestive) heart failure (5) Anemia in chronic kidney disease (6) Diabetes type 2, controlled (7) Cardiomyopathy (8) Sepsis Plan Plan bleeding from fistula and IV site earlier 02/16/18 , stopped check labs in am vascular surgical eval, due declotting 02/21 last HD 02/19 now has right jugular dialysis cath Antibiotics after cultures Adjust BS and BP meds Gastric support optimize cardiac meds 2D echo Global LV hypokinesis. Anterior septum basal to distal hypokinesis . Left ventricular ejection fraction estimated to be 20-25 %. Subjective ROS Limited/Unobtainable: No Objective Objective Last 24 Hour Vital Signs Date Time Temp Pulse Resp B/P (MAP) Pulse Ox O2 Delivery O2 Flow Rate FiO2 02/20/18 08:39 163/67 02/20/18 08:39 85 163/67 02/20/18 08:00 97.2 87 19 158/61 (93) 99 02/20/18 08:00 Room Air 02/20/18 05:37 163/64 02/20/18 04:00 98.9 85 19 163/64 (97) 98 02/20/18 00:00 98.6 89 17 119/71 (87) 100 02/19/18 22:00 110/45 02/19/18 21:00 75 110/45 02/19/18 17:28 147/62 02/19/18 16:00 97.2 76 18 147/62 (90) 97 02/19/18 13:17 Room Air 02/19/18 12:00 97.7 66 18 147/67 (93) 97 Intake and Output 02/19/18 02/20/18 19:00 07:00 Intake Total 600 ml Balance 600 ml Intake Oral 600 ml Height (Feet): 5 Height (Inches): 0.00 Weight (Pounds): 114 General Appearance: no apparent distress Cardiovascular: normal rate Respiratory/Chest: lungs clear Abdomen: soft Objective no change - no further bleed Washington Pavon MD Feb 20, 2018 10:36
--- NOTE | 2018-02-20 10:38 | General Progress Note ---
Assessment/Plan Status: stable Assessment/Plan #Shortness of breath due to fluid overload #Missed HD, noncompliance with dialysis #Hyperkalemia #Transaminitis #Elevated troponin in setting of ESRD #ESRD on HD #IDDM #Essential HTN #Facial Numbness - cont home antihypertensives - iss, resume insulin regiment, accuchecks - malfunction av shunt with clots, pending arm duplex, plan for revision av shunt and permcath in OR once all cleared - bleeding from fistula and IV site earlier 02/16/18 , stopped,HD from Right IJ cath - HD per neprhro - cont to monitor labs #Facial numbness - resolved -patient had a right neck IV access. -CT head negative -Will obtain MRI brain, neg -Patient already on DAPT #Abnormal EKG #Combined Chronic CHF Echo from previous visit reviewed LVEF 20% globally Repeat echo on this admission to re-evaluate Continue goal directed medical therapy No indication for cardiac cath or stress testing plan for outpt viability study to eval revasc if LV fxn remains low no heart block per ekg, tele strips showing nsr with PAC and diff P wave morph. appreciate cardiology recs recommend outpatient ziopatch Continue statin Continue hydralazine/imdur for heart failure Continue coreg at current dose Hold aldactone due to ESRD and hyperkalemia Aspirin/plavix Patient will need life vest and possible ICD in future - has been ordered and approved, awaiting delivery #Nausea, resolved - prn zofran diet: renal diet DVT Prophylaxis: SCD, HSQ Code Status: Full Hospital Classification Declaration: Based on this initial evaluation, and depending on the patient's clinical course, I anticipate that this patient will require hospitalization for 2-3 days for HD and cardiac workup and close respiratory/hemodynamic monitoring. Disposition: Once the patient is stable to leave the hospital, I anticipate the patient will likely be discharged to the following environment: home with HH vs SNF I spent over 40 minutes on this patient's case, and 25 minutes were dedicated to counseling and/or care coordination. Discussed with patient/family, nursing staff, SW/CM regarding clinical status, treatment course, and disposition planning. Time of note may not reflect time of encounter. Date of Discussion: 02/11/18 A [id number] discussion with the patient regarding the patient's advanced care planning took place during this hospitalization on the above date. The discussion included the explanation and discussion of advance directives and associated forms/documents, as well as the patient's current code status. We also discussed at length the patient's medical conditions (both acute and chronic), general prognosis, treatment options, and goals of care. The following summarizes the discussion: Advance Care Planning/Goals of Care: - Will attempt to fill out an AD and/or POLST with the patient prior to discharge, if not already completed - Continue current evaluation and management of any acute and chronic medical issues - Will continue to support the patient/family - Will continue to discuss both short- and long-term goals of care DPOA-HC/Surrogate Decision Maker: None currently appointed Code Status: Full Code AD Forms/Documents Completed: Deferred A total of 31 minutes was spent on this discussion, including counseling, answering questions, and completing, if any, pertinent advanced care planning forms/documents. ---- Subjective Date patient seen: Feb 20, 2018 Time patient seen: 10:37 Allergies: Coded Allergies: NO KNOWN DRUG ALLERGIES (Verified Allergy, Unknown, 01/29/18) Subjective f/u facial numbness, fluid overload due to missed HD, hyperkalemia cth neg mri reviewed, neg acute denies any facial numbness today denies any cp or sob states she feels generally weak denies fevers/chills states right IJ cath bothers her, but not too painful malfunction av shunt with clots, pending arm duplex, plan for revision av shunt and permcath in OR once all cleared bleeding from fistula and IV site earlier 02/16/18 , stopped, HD from Right IJ cath stable no acute events overnight ROS: 14 point ROS reviewed and negative except for the above subjective Objective Last 24 Hour Vital Signs Date Time Temp Pulse Resp B/P (MAP) Pulse Ox O2 Delivery O2 Flow Rate FiO2 02/20/18 08:39 163/67 02/20/18 08:39 85 163/67 02/20/18 08:00 97.2 87 19 158/61 (93) 99 02/20/18 08:00 Room Air 02/20/18 05:37 163/64 02/20/18 04:00 98.9 85 19 163/64 (97) 98 02/20/18 00:00 98.6 89 17 119/71 (87) 100 02/19/18 22:00 110/45 02/19/18 21:00 75 110/45 02/19/18 17:28 147/62 02/19/18 16:00 97.2 76 18 147/62 (90) 97 02/19/18 13:17 Room Air 02/19/18 12:00 97.7 66 18 147/67 (93) 97 Intake and Output 02/19/18 02/20/18 19:00 07:00 Intake Total 600 ml Balance 600 ml Intake Oral 600 ml Height (Feet): 5 Height (Inches): 0.00 Weight (Pounds): 114 Objective General Appearance: no apparent distress, alert Lines, tubes and drains: peripheral HEENT: normocephalic, atraumatic, anicteric Neck: non-tender, normal alignment, supple, normal inspection Respiratory/Chest: chest wall non-tender, lungs clear, normal breath sounds, no respiratory distress, no accessory muscle use Cardiovascular/Chest: normal peripheral pulses, normal rate, regular rhythm Abdomen: normal bowel sounds, non tender, soft, no organomegaly, no mass Extremities: normal range of motion, non-tender, normal inspection, no calf tenderness Skin Exam: normal pigmentation, warm/dry 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
[2018-02-20 12:00] VITALS: BP 154/68
--- NOTE | 2018-02-20 14:21 | NUR ---
CASE MANAGEMENT:REVIEW 02/20/18 SI: ESRD. HYPERKALEMIA. CMPY 98.3 84 20 154/68 99% ON RA IS: COREG PO Q12 ISORDIL PO TID ASA PO QD PLAVIX PO QD HYDRALAZINE PO Q8 HEPARIN SQ Q12 : MED/SURG STATUS 4 EAST DCP: FROM HOME PLAN: CONSENT FOR LT ARM AV SHUNT REVISION
--- NOTE | 2018-02-20 14:48 | NUR ---
NURSE NOTES: Held hydralazine 75mg due to SBP was 119. Parameter is to hold med if SBP is below 120.
[2018-02-20 16:00] VITALS: BP 141/55
--- NOTE | 2018-02-20 18:00 | NUR ---
NURSE NOTES: RN offered IV insertion for the surgery tomorrow. Patient wants RN to do it later.
--- NOTE | 2018-02-20 19:32 | NUR ---
NURSE NOTES: Rn endorsed to the next shift to follow up with IV insertion.
--- NOTE | 2018-02-20 19:41 | NUR ---
NURSE NOTES: Pt received awake alert talkative, aware that she will have surgery in the morning and NPO at midnight. Bed in lowest position, no signs of pain and no distress at the moment. able to make needs known.
[2018-02-20 20:00] VITALS: BP 151/67
--- NOTE | 2018-02-20 21:45 | NUR ---
NURSE NOTES: Pt blood sugar was 131 and she refused the insulin medication.
--- NOTE | 2018-02-20 22:37 | General Progress Note ---
Assessment/Plan Assessment/Plan # Anemia of chronic disease due to underlying chronic medical issues, esrd, multifactorial --> Anemia w/u has been ordered --> No evidence of hemolysis is noted, peripheral smear has been reviewed. --> Hgb goal >7. Transfuse prn. --> Epogen given esrd --> fistula bleeding also contributing 1/3 # Leukocytosis is due to Septic shock, high Lactic acid, has vre --> cultures are pending, sensitivities --> is s/p multiple antibiotics, in past seen by ID --> have ordered for a peripheral flow cytometry r/o leukemia --> peripheral smear has been ordered --> imaging reviewed and shows anorectal thickening --> wbc trend 31k-->20k-->9.4 # Coagulopathy that has worsened with inr 2.9 --> mixing study ordered --> rule out dic # ESRD on HD for 2 years, has left arm fistula --> fistula to be revisted --> epogen as per neprho --> HD as required # DM --> a1c goal <7 # CAD, elevated Troponin --> Patient will need life vest and possible ICD in future - has been ordered and approved, awaiting delivery --> May need ICD in future Greatly appreciate consultatio Subjective Constitutional: Denies: no symptoms, chills, diaphoresis, fever, malaise, weakness, other HEENT: Denies: no symptoms, eye pain, blurred vision, tearing, double vision, ear pain, ear discharge, nose pain, nose congestion, throat pain, throat swelling, mouth pain, mouth swelling, other Cardiovascular: Denies: no symptoms, chest pain, edema, irregular heart rate, lightheadedness, palpitations, syncope, other Respiratory: Denies: no symptoms, cough, orthopnea, shortness of breath, SOB with excertion, SOB at rest, sputum, stridor, wheezing, other Gastrointestinal/Abdominal: Denies: no symptoms, abdomen distended, abdominal pain, black stools, tarry stools, blood in stool, constipated, diarrhea, difficulty swallowing, nausea, poor appetite, poor fluid intake, rectal bleeding , vomiting, other Genitourinary: Denies: no symptoms, burning, discharge, frequency, flank pain, hematuria, incontinence, pain, urgency, other Neurologic/Psychiatric: Denies: no symptoms, anxiety, depressed, emotional problems, headache, numbness, paresthesia, pre-existing deficit, seizure, tingling, tremors, weakness, other Endocrine: Denies: no symptoms, excessive sweating, flushing, intolerance to cold, intolerance to heat, increased hunger, increased thirst, increased urine, unexplained weight gain, unexplained weight loss, other Hematologic/Lymphatic: Denies: no symptoms, anemia, easy bleeding, easy bruising, other Allergies: Coded Allergies: NO KNOWN DRUG ALLERGIES (Verified Allergy, Unknown, 01/29/18) Subjective 02/19/18 Pt is seen in the room, has a bleed from fistula and IV site, currently stopped, received HD today 02/20/18 Pt is awake and resting in bed, malfunction av shunt with clots, pending arm duplex, plan for revision av shunt and permcath in OR ,CT head negative, plt low, pending labs. Objective Last 24 Hour Vital Signs Date Time Temp Pulse Resp B/P (MAP) Pulse Ox O2 Delivery O2 Flow Rate FiO2 02/20/18 21:52 161/74 02/20/18 20:24 82 151/67 02/20/18 20:00 98.1 82 20 151/67 (95) 100 02/20/18 17:41 141/55 02/20/18 16:00 98.3 77 20 141/55 (83) 99 02/20/18 14:00 119/52 02/20/18 12:20 154/68 02/20/18 12:00 98.3 84 20 154/68 (96) 99 02/20/18 08:39 163/67 02/20/18 08:39 85 163/67 02/20/18 08:00 97.2 87 19 158/61 (93) 99 02/20/18 08:00 Room Air 02/20/18 05:37 163/64 02/20/18 04:00 98.9 85 19 163/64 (97) 98 02/20/18 00:00 98.6 89 17 119/71 (87) 100 Intake and Output 02/19/18 02/20/18 19:00 07:00 Intake Total 600 ml Balance 600 ml Intake Oral 600 ml Height (Feet): 5 Height (Inches): 0.00 Weight (Pounds): 114 Objective General Appearance: no apparent distress, alert Lines, tubes and drains: peripheral HEENT: normocephalic, atraumatic, anicteric Neck: non-tender, normal alignment, supple, normal inspection Respiratory/Chest: chest wall non-tender, lungs clear, normal breath sounds, no respiratory distress, no accessory muscle use Cardiovascular/Chest: normal peripheral pulses, normal rate, regular rhythm Abdomen: normal bowel sounds, non tender, soft, no organomegaly, no mass Extremities: normal range of motion, non-tender, normal inspection, no calf tenderness Skin Exam: normal pigmentation, warm/dry Neurologic: title specialist II-XII grossly normal, no motor/sensory deficits, alert, oriented x 3, responsive, normal mood/affect Toribio Suárez MD Feb 20, 2018 22:37
[2018-02-21] VITALS (10 sets, daily range): BP systolic 123–157; BP diastolic 60–68
[2018-02-21 05:02] LABS: ANION GAP 11 mmol/L (5-15); BLOOD UREA NITROGEN 70 mg/dL (7-18); CARBON DIOXIDE 25 MMOL/L (21-32); CHLORIDE 99 MMOL/L (98-107); CREATININE 8.1 MG/DL (0.55-1.30); SODIUM 135 MMOL/L (136-145)
[2018-02-21 05:03] LABS: BASOPHILS % (AUTO) 2.1 % (0.0-2.0); EOSINOPHILS % (AUTO) 6.9 % (0.0-3.0); HEMOGLOBIN 8.7 G/DL (12.0-16.0); LYMPHOCYTES % (AUTO) 14.3 % (20.0-45.0); MEAN CORPUSCULAR VOLUME 99 FL (80-99); MONOCYTES % (AUTO) 10.7 % (1.0-10.0); PLATELET COUNT 174 K/UL (150-450); RED BLOOD COUNT 2.84 M/UL (4.20-5.40); WHITE BLOOD COUNT 9.1 K/UL (4.8-10.8)
[2018-02-21 05:08] LABS: ALANINE AMINOTRANSFERASE 69 U/L (12-78); ALBUMIN 2.6 G/DL (3.4-5.0); ALKALINE PHOSPHATASE 116 U/L (46-116); ASPARTATE AMINO TRANSFERASE 29 U/L (15-37); BILIRUBIN,DIRECT 0.2 MG/DL (0.0-0.3); BILIRUBIN,TOTAL 0.5 MG/DL (0.2-1.0); PHOSPHORUS 2.6 MG/DL (2.5-4.9)
--- NOTE | 2018-02-21 05:30 | NUR ---
NURSE NOTES: Left voicemail for Dr. Pavon for pt potassium level of 6.0. Will follow up.
[2018-02-21] MEDS: HydrALAZINE 25mg tab ORAL SCH ×3 (06:05→23:07)
[2018-02-21] MEDS: NovoLOG Insulin Flexpen SUBQ SCH ×4 (06:30→21:58)
[2018-02-21] MEDS ORDERED: Neosporin Oint Ud Pkt TOPIC ONE (07:31)
[2018-02-21] MEDS ORDERED: Heparin 5000 units/ml inj ONE (07:31)
[2018-02-21] MEDS ORDERED: Thrombin 5000 units TOPIC ONE (07:31)
[2018-02-21] MEDS ORDERED: Bupivacaine 0.5% Inj 30 ml vial INJ ONE (07:31)
[2018-02-21] MEDS ORDERED: Heparin 1000 units/ml 1ml Vial ONE (07:31)
[2018-02-21] MEDS ORDERED: Bacitracin 50000 Units Vial ONE (07:32)
[2018-02-21] MEDS ORDERED: NeoSporin Gu Irrig 1ml Amp IRRIG ONE (07:32)
[2018-02-21] MEDS ORDERED: Lidocaine 1% Plain 30 ml INJ ONE (07:32)
--- NOTE | 2018-02-21 07:33 | Pre-Procedure Note/Attestation ---
Pre-Procedure Note/Attestation Complete Prior to Procedure Planned Procedure: left Procedure Narrative: Left arm av shunt revision and dialysis catheter replacement Indications for Procedure Pre-Operative Diagnosis: ESRD need for access Malfunctioning av shunt with bleeding Attestation I attest that I discussed the nature of the procedure; its benefits; risks and complications; and alternatives (and the risks and benefits of such alternatives ), prior to the procedure, with the patient (or the patient's legal inside sales account representative). I attest that, if there was a reasonable possibility of needing a blood transfusion, the patient (or the patient's legal inside sales account representative) was given the [facility] standardized written summary, pursuant to the Chapito Sajan Blood Safety Act ([place] Health and Safety Code # 1645, as amended). I attest that I re-evaluated the patient just prior to the surgery and that there has been no change in the patient's H&P, except as documented below: Castro Ge MD Feb 21, 2018 07:33
[2018-02-21] MEDS ORDERED: Insulin Human Regular 100units/ml 3ml IV SCH (07:45)
[2018-02-21] MEDS ORDERED: NS Irrig 1000ml ONE (07:45)
[2018-02-21] MEDS ORDERED: Sterile Water Irrig 1000ml IRRIG ONE (07:45)
[2018-02-21] MEDS ORDERED: Midazolam 2mg/2ml Inj ONE (07:46)
[2018-02-21] MEDS ORDERED: fentaNYL 100 mcg/2 mL IV ONE (07:47)
--- NOTE | 2018-02-21 07:47 | NUR ---
NURSE NOTES: pt off the unit for sx. Called lab and informed about stat potassium lab.
--- NOTE | 2018-02-21 07:50 | NUR ---
HAND-OFF: Report given to MARCIN Guo.
[2018-02-21] MEDS ORDERED: Insulin Human Regular 100units/ml 3ml ONE (07:52)
--- NOTE | 2018-02-21 07:53 | General Progress Note ---
Assessment/Plan Assessment/Plan # Anemia of chronic disease due to underlying chronic medical issues, esrd, multifactorial --> Anemia w/u has been ordered --> No evidence of hemolysis is noted, peripheral smear has been reviewed. --> Hgb goal >7. Transfuse prn. --> Epogen given esrd --> fistula bleeding also contributing 1/3, currently improved/resolved # Leukocytosis is due to Septic shock, high Lactic acid, has vre --> cultures are pending, sensitivities --> is s/p multiple antibiotics, in past seen by ID --> peripheral smear has been reviewed, neg for abnml --> imaging reviewed and shows anorectal thickening --> wbc trend 31k-->20k-->9.4 # Coagulopathy that has worsened with inr 2.9 --> current inr has improved markedly, likely med related # ESRD on HD for 2 years, has left arm fistula --> fistula to be revisted, potentially today in the OR --> epogen as per neprho --> HD as required # DM --> a1c goal <7 # CAD, elevated Troponin --> Patient will need life vest and possible ICD in future - has been ordered and approved, awaiting delivery --> May need ICD in future Greatly appreciate consultation! Subjective Constitutional: Denies: no symptoms, chills, diaphoresis, fever, malaise, weakness, other HEENT: Denies: no symptoms, eye pain, blurred vision, tearing, double vision, ear pain, ear discharge, nose pain, nose congestion, throat pain, throat swelling, mouth pain, mouth swelling, other Cardiovascular: Denies: no symptoms, chest pain, edema, irregular heart rate, lightheadedness, palpitations, syncope, other Respiratory: Denies: no symptoms, cough, orthopnea, shortness of breath, SOB with excertion, SOB at rest, sputum, stridor, wheezing, other Gastrointestinal/Abdominal: Denies: no symptoms, abdomen distended, abdominal pain, black stools, tarry stools, blood in stool, constipated, diarrhea, difficulty swallowing, nausea, poor appetite, poor fluid intake, rectal bleeding , vomiting, other Genitourinary: Denies: no symptoms, burning, discharge, frequency, flank pain, hematuria, incontinence, pain, urgency, other Neurologic/Psychiatric: Denies: no symptoms, anxiety, depressed, emotional problems, headache, numbness, paresthesia, pre-existing deficit, seizure, tingling, tremors, weakness, other Hematologic/Lymphatic: Denies: no symptoms, anemia, easy bleeding, easy bruising, other Allergies: Coded Allergies: NO KNOWN DRUG ALLERGIES (Verified Allergy, Unknown, 01/29/18) Subjective 02/19/18 Pt is seen in the room, has a bleed from fistula and IV site, currently stopped, received HD today 02/20/18 Pt is awake and resting in bed, malfunction av shunt with clots, pending arm duplex, plan for revision av shunt and permcath in OR ,CT head negative, plt low, pending labs. 03/03/18: to have surgery this am, npo after mn, no events otherwise, plan for revision av shunt and permcath in OR once all cleared Objective Last 24 Hour Vital Signs Date Time Temp Pulse Resp B/P (MAP) Pulse Ox O2 Delivery O2 Flow Rate FiO2 02/21/18 06:05 157/68 02/21/18 04:00 97.7 81 20 157/68 (97) 99 02/21/18 00:00 97.9 78 20 136/60 (85) 99 02/20/18 21:52 161/74 02/20/18 20:24 82 151/67 02/20/18 20:00 98.1 82 20 151/67 (95) 100 02/20/18 17:41 141/55 02/20/18 16:00 98.3 77 20 141/55 (83) 99 02/20/18 14:00 119/52 02/20/18 12:20 154/68 02/20/18 12:00 98.3 84 20 154/68 (96) 99 02/20/18 08:39 163/67 02/20/18 08:39 85 163/67 02/20/18 08:00 97.2 87 19 158/61 (93) 99 02/20/18 08:00 Room Air Intake and Output 02/20/18 02/21/18 18:59 06:59 Intake Total 1260 ml Balance 1260 ml Intake Oral 1260 ml # Voids 6 Laboratory Tests 02/21/18 04:35: White Blood Count 9.1, Red Blood Count 2.84L, Hemoglobin 8.7L, Hematocrit 28.0L , Mean Corpuscular Volume 99, Mean Corpuscular Hemoglobin 30.8, Mean Corpuscular Hemoglobin Concent 31.2L, Red Cell Distribution Width 17.0H, Platelet Count 174, Mean Platelet Volume 7.1, Neutrophils (%) (Auto) 66.0, Lymphocytes (%) (Auto) 14.3L, Monocytes (%) (Auto) 10.7H, Eosinophils (%) (Auto ) 6.9H, Basophils (%) (Auto) 2.1H, Prothrombin Time 10.7, Prothromb Time International Ratio 1.0, Activated Partial Thromboplast Time 27, Sodium Level 135L, Potassium Level 6.0*H, Chloride Level 99, Carbon Dioxide Level 25, Anion Gap 11, Blood Urea Nitrogen 70H, Creatinine 8.1H, Estimat Glomerular Filtration Rate 5.0, Glucose Level 152H, Calcium Level 8.0L, Phosphorus Level 2.6, Magnesium Level 2.1, Total Bilirubin 0.5, Direct Bilirubin 0.2, Aspartate Amino Transf (AST/SGOT) 29, Alanine Aminotransferase (ALT/SGPT) 69, Alkaline Phosphatase 116, Total Protein 6.7, Albumin 2.6L Height (Feet): 5 Height (Inches): 0.00 Weight (Pounds): 113 Objective General Appearance: no apparent distress, alert HEENT: normocephalic, atraumatic, anicteric Neck: non-tender, normal alignment, supple, normal inspection Respiratory/Chest: chest wall non-tender, lungs clear, normal breath sounds, no respiratory distress, no accessory muscle use CV: normal peripheral pulses, normal rate, regular rhythm Abdomen: normal bowel sounds, non tender, soft, no organomegaly, no mass Extremities: normal range of motion, non-tender, normal inspection, no calf tenderness, plan for revision av shunt and permcath in OR once all cleared Skin Exam: normal pigmentation, warm/dry Neurologic: saas architect II-XII grossly normal, no motor/sensory deficits, alert, oriented x 3, responsive, normal mood/affect Toribio Suárez MD Feb 21, 2018 07:53
[2018-02-21] MEDS ORDERED: Lidocaine 1% MPF 10mg/ml 5ml ONE (08:25)
[2018-02-21] MEDS ORDERED: Propofol 200mg/20ml IV ONE ×2 (08:25→09:42)
[2018-02-21] MEDS ORDERED: ePHEDrine 50mg/ml Inj ONE (08:31)
[2018-02-21] MEDS: Docusate 100mg cap ORAL SCH ×3 (09:00→17:02)
[2018-02-21] MEDS: Aspirin EC 81mg tab ORAL SCH ×2 (09:00→09:10)
[2018-02-21] MEDS: Heparin 5000 units/ml inj SUBQ SCH ×2 (09:00→21:59)
[2018-02-21] MEDS: Carvedilol 25mg Tab ORAL SCH ×2 (09:00→21:56)
[2018-02-21 09:08] LABS: ANION GAP 8 mmol/L (5-15); BLOOD UREA NITROGEN 71 mg/dL (7-18); CALCIUM 7.9 MG/DL (8.5-10.1); CARBON DIOXIDE 29 MMOL/L (21-32); CHLORIDE 99 MMOL/L (98-107); CREATININE 8.4 MG/DL (0.55-1.30); POTASSIUM 5.5 MMOL/L (3.5-5.1); SODIUM 136 MMOL/L (136-145)
--- NOTE | 2018-02-21 09:13 | Immediate Post-Op Evaluation ---
Immediate Post-Op Evalulation Immediate Post-Op Evalulation Procedure: A-V shunt revision left upper extremity, catheter exchange. Date of Evaluation: Feb 21, 2018 Time of Evaluation: 11:15 IV Fluids: 300 Estimated Blood Loss: 50 Blood Pressure Systolic: 123 Blood Pressure Diastolic: 61 Pulse Rate: 81 Respiratory Rate: 19 O2 Sat by Pulse Oximetry: 100 Temperature (Fahrenheit): 97.8 Pain Score (1-10): 0 Nausea: No Vomiting: No Complications No complication Patient Status: awake, patent, none Hydration Status: adequate Drug: Ancef 2 gm Given Within 1 Hr of Incision: Yes Time Given: 08:00 Chapito Pittman MD Feb 21, 2018 09:13
--- NOTE | 2018-02-21 09:53 | Diagnostic Imaging Report ---
INDICATION: Pain, intraoperative TECHNIQUE: Intraoperative imaging Fluoroscopy time: 29.5 seconds Total dose: 0.66751 mGym2 Total number of images: 2 COMPARISON: None FINDINGS: Intraoperative images demonstrate a facilities maintenance worker image, subsequently placement of a right jugular tunneled dialysis catheter IMPRESSION: Intraoperative imaging, as described
--- NOTE | 2018-02-21 10:55 | Nephrology Progress Note ---
Assessment/Plan Problem List: (1) ESRD on dialysis (2) Hyperkalemia, diminished renal excretion (3) Cardiomyopathy (4) Anemia in chronic kidney disease Assessment anemia worsened partly due to yesterdays ( 02/16/18) fistula bleed- (1) ESRD (end stage renal disease) on dialysis presents with high K (2) CAD (coronary artery disease) (3) DM hyperosmolarity type II (4) Acute systolic (congestive) heart failure (5) Anemia in chronic kidney disease (6) Diabetes type 2, controlled (7) Cardiomyopathy (8) Sepsis Plan Plan bleeding from fistula and IV site earlier 02/16/18 , stopped vascular surgical eval, due declotting 02/21 last HD 02/19 next 02/22 Kayexelate for high K now has right jugular dialysis cath Antibiotics after cultures Adjust BS and BP meds Gastric support optimize cardiac meds 2D echo Global LV hypokinesis. Anterior septum basal to distal hypokinesis . Left ventricular ejection fraction estimated to be 20-25 %. Subjective ROS Limited/Unobtainable: No Objective Objective Last 24 Hour Vital Signs Date Time Temp Pulse Resp B/P (MAP) Pulse Ox O2 Delivery O2 Flow Rate FiO2 02/21/18 08:00 Room Air 02/21/18 06:05 157/68 02/21/18 04:00 97.7 81 20 157/68 (97) 99 02/21/18 00:00 97.9 78 20 136/60 (85) 99 02/20/18 21:52 161/74 02/20/18 20:24 82 151/67 02/20/18 20:00 98.1 82 20 151/67 (95) 100 02/20/18 17:41 141/55 02/20/18 16:00 98.3 77 20 141/55 (83) 99 02/20/18 14:00 119/52 02/20/18 12:20 154/68 02/20/18 12:00 98.3 84 20 154/68 (96) 99 Intake and Output 02/20/18 02/21/18 19:00 07:00 Intake Total 1260 ml Balance 1260 ml Intake Oral 1260 ml # Voids 6 Laboratory Tests 02/21/18 04:35: White Blood Count 9.1, Red Blood Count 2.84L, Hemoglobin 8.7L, Hematocrit 28.0L , Mean Corpuscular Volume 99, Mean Corpuscular Hemoglobin 30.8, Mean Corpuscular Hemoglobin Concent 31.2L, Red Cell Distribution Width 17.0H, Platelet Count 174, Mean Platelet Volume 7.1, Neutrophils (%) (Auto) 66.0, Lymphocytes (%) (Auto) 14.3L, Monocytes (%) (Auto) 10.7H, Eosinophils (%) (Auto ) 6.9H, Basophils (%) (Auto) 2.1H, Prothrombin Time 10.7, Prothromb Time International Ratio 1.0, Activated Partial Thromboplast Time 27, Sodium Level 135L, Potassium Level 6.0*H, Chloride Level 99, Carbon Dioxide Level 25, Anion Gap 11, Blood Urea Nitrogen 70H, Creatinine 8.1H, Estimat Glomerular Filtration Rate 5.0, Glucose Level 152H, Calcium Level 8.0L, Phosphorus Level 2.6, Magnesium Level 2.1, Total Bilirubin 0.5, Direct Bilirubin 0.2, Aspartate Amino Transf (AST/SGOT) 29, Alanine Aminotransferase (ALT/SGPT) 69, Alkaline Phosphatase 116, Total Protein 6.7, Albumin 2.6L 02/21/18 08:44: Sodium Level 136, Potassium Level 5.5H, Chloride Level 99, Carbon Dioxide Level 29, Anion Gap 8, Blood Urea Nitrogen 71H, Creatinine 8.4H, Estimat Glomerular Filtration Rate 4.8, Glucose Level 187H, Calcium Level 7.9L Height (Feet): 5 Height (Inches): 0.00 Weight (Pounds): 113 General Appearance: no apparent distress Cardiovascular: normal rate Respiratory/Chest: lungs clear Objective no change - no further bleed Washington Pavon MD Feb 21, 2018 10:55
--- NOTE | 2018-02-21 10:59 | Operative Note - PDOC ---
Operative Note Operative Note Pre-op Diagnosis: ESRD need for access Malfunctioning av shunt with bleeding Procedure: Left arm av shunt revision (ligation of forearm shunt and new left upper basilic vein transposition avf) and dialysis cath replacement (new right ij permcath and removal of du cath) Post-op Diagnosis: same as pre-op Surgeon: Yung Ge Anesthesiologist: Emma Corrigan MD Anesthesia: regional, local, moderate sedation Specimen: none Complications: none Condition: stable Fluids: none Estimated Blood Loss: minimal Drains: none Implant(s) used?: Yes - Right jugular permcath 14.5 x23cm Castro Pyle MD Feb 21, 2018 10:59
[2018-02-21] MEDS ORDERED: Acetaminophen 500mg (ES) tab ORAL PRN (11:00)
--- NOTE | 2018-02-21 11:23 | General Progress Note ---
Assessment/Plan Status: stable Assessment/Plan #Shortness of breath due to fluid overload #Missed HD, noncompliance with dialysis #Hyperkalemia #Transaminitis #Elevated troponin in setting of ESRD #ESRD on HD #IDDM #Essential HTN #Facial Numbness - cont home antihypertensives - iss, resume insulin regiment, accuchecks - malfunction av shunt with clots, pending arm duplex, plan for revision av shunt and permcath today 02/21 - bleeding from fistula and IV site earlier 02/16/18 , stopped,HD from Right IJ cath - HD per nephro, next 02/22 - K noted to be elevated at 6, kayexelate given today - cont to monitor labs #Facial numbness - resolved -patient had a right neck IV access. -CT head negative -Will obtain MRI brain, neg -Patient already on DAPT #Abnormal EKG #Combined Chronic CHF Echo from previous visit reviewed LVEF 20% globally Repeat echo on this admission to re-evaluate Continue goal directed medical therapy No indication for cardiac cath or stress testing plan for outpt viability study to eval revasc if LV fxn remains low no heart block per ekg, tele strips showing nsr with PAC and diff P wave morph. appreciate cardiology recs recommend outpatient ziopatch Continue statin Continue hydralazine/imdur for heart failure Continue coreg at current dose Hold aldactone due to ESRD and hyperkalemia Aspirin/plavix Patient will need life vest and possible ICD in future - has been ordered and approved, awaiting delivery #Nausea, resolved - prn zofran diet: renal diet DVT Prophylaxis: SCD, HSQ Code Status: Full Hospital Classification Declaration: Based on this initial evaluation, and depending on the patient's clinical course, I anticipate that this patient will require hospitalization for 2-3 days for HD and cardiac workup and close respiratory/hemodynamic monitoring. Disposition: Once the patient is stable to leave the hospital, I anticipate the patient will likely be discharged to the following environment: home with HH vs SNF I spent over 43 minutes on this patient's case, and 25 minutes were dedicated to counseling and/or care coordination. Discussed with patient/family, nursing staff, SW/CM regarding clinical status, treatment course, and disposition planning. Time of note may not reflect time of encounter. Date of Discussion: 02/11/18 A [id number] discussion with the patient regarding the patient's advanced care planning took place during this hospitalization on the above date. The discussion included the explanation and discussion of advance directives and associated forms/documents, as well as the patient's current code status. We also discussed at length the patient's medical conditions (both acute and chronic), general prognosis, treatment options, and goals of care. The following summarizes the discussion: Advance Care Planning/Goals of Care: - Will attempt to fill out an AD and/or POLST with the patient prior to discharge, if not already completed - Continue current evaluation and management of any acute and chronic medical issues - Will continue to support the patient/family - Will continue to discuss both short- and long-term goals of care DPOA-HC/Surrogate Decision Maker: None currently appointed Code Status: Full Code AD Forms/Documents Completed: Deferred A total of 31 minutes was spent on this discussion, including counseling, answering questions, and completing, if any, pertinent advanced care planning forms/documents. ---- Subjective Date patient seen: Feb 21, 2018 Time patient seen: 06:40 Allergies: Coded Allergies: NO KNOWN DRUG ALLERGIES (Verified Allergy, Unknown, 01/29/18) Subjective f/u facial numbness, fluid overload due to missed HD, hyperkalemia cth neg mri reviewed, neg acute denies any facial numbness today denies any cp or sob states she feels generally weak denies fevers/chills states right IJ cath bothers her, but not too painful malfunction av shunt with clots, plan for revision av shunt and permcath today 02/21 bleeding from fistula and IV site earlier 02/16/18 , stopped, HD from Right IJ cath K noted to be elevated at 6, kayexelate given today ROS: 14 point ROS reviewed and negative except for the above subjective Objective Last 24 Hour Vital Signs Date Time Temp Pulse Resp B/P (MAP) Pulse Ox O2 Delivery O2 Flow Rate FiO2 02/21/18 11:10 97.8 81 19 123/61 100 Simple Mask 6 02/21/18 11:00 81 19 100 02/21/18 08:00 Room Air 02/21/18 06:05 157/68 02/21/18 04:00 97.7 81 20 157/68 (97) 99 02/21/18 00:00 97.9 78 20 136/60 (85) 99 02/20/18 21:52 161/74 02/20/18 20:24 82 151/67 02/20/18 20:00 98.1 82 20 151/67 (95) 100 02/20/18 17:41 141/55 02/20/18 16:00 98.3 77 20 141/55 (83) 99 02/20/18 14:00 119/52 02/20/18 12:20 154/68 02/20/18 12:00 98.3 84 20 154/68 (96) 99 Intake and Output 02/20/18 02/21/18 19:00 07:00 Intake Total 1260 ml Balance 1260 ml Intake Oral 1260 ml # Voids 6 Laboratory Tests 02/21/18 04:35: White Blood Count 9.1, Red Blood Count 2.84L, Hemoglobin 8.7L, Hematocrit 28.0L , Mean Corpuscular Volume 99, Mean Corpuscular Hemoglobin 30.8, Mean Corpuscular Hemoglobin Concent 31.2L, Red Cell Distribution Width 17.0H, Platelet Count 174, Mean Platelet Volume 7.1, Neutrophils (%) (Auto) 66.0, Lymphocytes (%) (Auto) 14.3L, Monocytes (%) (Auto) 10.7H, Eosinophils (%) (Auto ) 6.9H, Basophils (%) (Auto) 2.1H, Prothrombin Time 10.7, Prothromb Time International Ratio 1.0, Activated Partial Thromboplast Time 27, Sodium Level 135L, Potassium Level 6.0*H, Chloride Level 99, Carbon Dioxide Level 25, Anion Gap 11, Blood Urea Nitrogen 70H, Creatinine 8.1H, Estimat Glomerular Filtration Rate 5.0, Glucose Level 152H, Calcium Level 8.0L, Phosphorus Level 2.6, Magnesium Level 2.1, Total Bilirubin 0.5, Direct Bilirubin 0.2, Aspartate Amino Transf (AST/SGOT) 29, Alanine Aminotransferase (ALT/SGPT) 69, Alkaline Phosphatase 116, Total Protein 6.7, Albumin 2.6L 02/21/18 08:44: Sodium Level 136, Potassium Level 5.5H, Chloride Level 99, Carbon Dioxide Level 29, Anion Gap 8, Blood Urea Nitrogen 71H, Creatinine 8.4H, Estimat Glomerular Filtration Rate 4.8, Glucose Level 187H, Calcium Level 7.9L Height (Feet): 5 Height (Inches): 0.00 Weight (Pounds): 113 Objective General Appearance: no apparent distress, alert Lines, tubes and drains: peripheral HEENT: normocephalic, atraumatic, anicteric Neck: non-tender, normal alignment, supple, normal inspection Respiratory/Chest: chest wall non-tender, lungs clear, normal breath sounds, no respiratory distress, no accessory muscle use Cardiovascular/Chest: normal peripheral pulses, normal rate, regular rhythm Abdomen: normal bowel sounds, non tender, soft, no organomegaly, no mass Extremities: normal range of motion, non-tender, normal inspection, no calf tenderness Skin Exam: normal pigmentation, warm/dry Neurologic: plant etiologist II-XII grossly normal, no motor/sensory deficits, alert, oriented x 3, responsive, normal mood/affect Jesús Low MD Feb 21, 2018 11:23
--- NOTE | 2018-02-21 12:03 | Diagnostic Imaging Report ---
Indication: Post permacath placement Technique: One view of the chest Comparison: 02/14/2018 Findings: Removal of previously demonstrated temporary dialysis catheter, interim placement of a tunneled dialysis catheter, tip which projects deep in the right atrium. No pneumothorax. The lungs and pleural spaces are clear. Surgical jose j are seen in the left arm. The heart size is borderline enlarged Impression: No acute process Interim tunneled dialysis catheter placement, no radiographically evident complication Evidence of prior left arm surgery
--- NOTE | 2018-02-21 12:14 | NUR ---
NURSE NOTES: Received patient from surgery. asleep, easily arousable. with O2 at 2LPM. no sob. pt s/p AV shunt revision on Left arm and Dialysis cath replacement with Dry dressing intact noted.
[2018-02-21] MEDS: Hydromorphone 0.5mg/0.5ml inj IVP PRN (12:47)
--- NOTE | 2018-02-21 14:11 | NUR ---
INSTRUCTIONAL DESIGN CONSULTANTUPPER CUTTER OUT SI: MALFUNCTION LEFT ARM SHUNT, REVISION OF LEFT ARM SHUNT T. 98.0 HR 81 RR 21 B/P 149/69 3L NC O2 SAT @ 98% K 5.5 IS: CEFAZOLIN IV PROTONIX COREG PO HEPARIN SUBC MED/SURG STATUS
--- NOTE | 2018-02-21 15:15 | NUR ---
RD ASSESSMENT & RECOMMENDATIONS SEE CARE ACTIVITY FOR COMPLETE ASSESSMENT DAILY ESTIMATED NEEDS: Needs based on ESRD + HD, DM/ 55.5kg 30-35 kcals/kg 4177-5494 total kcals 1.2-1.8 g protein/kg 67-100 g total protein Fluid per MD/ on HD NUTRITION DIAGNOSIS: Altered nutrition related lab values R/T diabetes and ESRD dx as evidenced by elev POC glu (93-310), elev BNP (>12895), elev phos (5.3-> now wnl), elev K (5.5), elev creat (8.4) CURRENT DIET:RENAL, CCHO MED PO DIET RECOMMENDATIONS: RENAL + CCHO MED/ texture as tolerated + 1 carb/ high prot snacks TID ADDITIONAL RECOMMENDATIONS: * OBTAIN A STANDING WEIGHT POST HD -> Pt w/ conflicting weights * Monitor lytes and renal fxn- elev K at this time * Monitor BGs closely -consider long acting insulin for improved glycemic control
[2018-02-21] MEDS: ceFAZolin 1gm/50ml Premix 50 ML IV SCH (17:03)
[2018-02-21] MEDS: Artificial Tears 1.4% Op Soln BOTH EYES PRN (17:11)
--- NOTE | 2018-02-21 19:36 | NUR ---
HAND-OFF: Report given to MARCIN Deng.
[2018-02-22] VITALS: BP 137/63
[2018-02-22] MEDS: ceFAZolin 1gm/50ml Premix 50 ML IV SCH ×2 (03:37→16:00)
[2018-02-22 04:00] VITALS: BP 120/57
[2018-02-22] MEDS: NovoLOG Insulin Flexpen SUBQ SCH ×4 (05:52→21:16)
[2018-02-22] MEDS: HydrALAZINE 25mg tab ORAL SCH ×3 (05:53→22:12)
--- NOTE | 2018-02-22 07:10 | NUR ---
HAND-OFF: Report given to MARCIN Toledo.
--- NOTE | 2018-02-22 07:24 | 48 Hour Post Anesthesia Eval ---
Post Anesthesia Evaluation Procedure: A-V shunt revision left upper extremity, catheter exchange. Date of Evaluation: Feb 22, 2018 Time of Evaluation: 07:23 Blood Pressure Systolic: 120 0: 57 Pulse Rate: 70 Respiratory Rate: 18 Temperature (Fahrenheit): 97.8 O2 Sat by Pulse Oximetry: 99 Airway: patent Nausea: No Vomiting: No Pain Intensity: 2 Hydration Status: adequate Cardiopulmonary Status: Stable Mental Status/LOC: patient returned to baseline Follow-up Care/Observations: 0 Post-Anesthesia Complications: 0 Follow-up care needed: N/A Yovanny Crespo MD Feb 22, 2018 07:24
[2018-02-22 07:57] VITALS: BP 141/63
[2018-02-22] MEDS: Aspirin EC 81mg tab ORAL SCH (08:16)
[2018-02-22] MEDS: Hydromorphone 0.5mg/0.5ml inj IVP PRN (08:16)
[2018-02-22] MEDS: Docusate 100mg cap ORAL SCH ×3 (08:16→17:14)
[2018-02-22] MEDS: Heparin 5000 units/ml inj SUBQ SCH ×2 (08:17→21:17)
[2018-02-22] MEDS: Carvedilol 25mg Tab ORAL SCH ×2 (09:00→21:13)
--- NOTE | 2018-02-22 09:10 | NUR ---
NURSE NOTES: pt sleeping easily arousable, dilaudid prn efective in managing pain (generalized ; neck area, and left arm s/p procedure) left arm edematous. call light within reach. no distress. will monitor.
[2018-02-22] MEDS: DiphenhydrAMINE 50mg/ml Inj IVP PRN (11:16)
--- NOTE | 2018-02-22 12:37 | General Progress Note ---
Assessment/Plan Status: stable Assessment/Plan #Shortness of breath due to fluid overload #Missed HD, noncompliance with dialysis #Hyperkalemia #Transaminitis #Elevated troponin in setting of ESRD #ESRD on HD #IDDM #Essential HTN #Facial Numbness - cont home antihypertensives - iss, resume insulin regiment, accuchecks - Left arm av shunt revision (ligation of forearm shunt and new left upper basilic vein transposition avf) and dialysis cath replacement (new right ij permcath and removal of du cath) 02/21 - bleeding from fistula and IV site earlier 02/16/18 , stopped.. HD from Right IJ cath - HD per nephro, next 02/22 - K noted to be elevated at 6 02/21, kayexelate given and K improving slowly, K 5.5 today, HD planned today - cont to monitor labs #Facial numbness - resolved -patient had a right neck IV access. -CT head negative -Will obtain MRI brain, neg -Patient already on DAPT #Abnormal EKG #Combined Chronic CHF Echo from previous visit reviewed LVEF 20% globally Repeat echo on this admission to re-evaluate Continue goal directed medical therapy No indication for cardiac cath or stress testing plan for outpt viability study to eval revasc if LV fxn remains low no heart block per ekg, tele strips showing nsr with PAC and diff P wave morph. appreciate cardiology recs recommend outpatient ziopatch Continue statin Continue hydralazine/imdur for heart failure Continue coreg at current dose Hold aldactone due to ESRD and hyperkalemia Aspirin/plavix Patient will need life vest and possible ICD in future - has been ordered and approved, awaiting delivery #Nausea, resolved - prn zofran diet: renal diet DVT Prophylaxis: SCD, HSQ Code Status: Full Hospital Classification Declaration: Based on this initial evaluation, and depending on the patient's clinical course, I anticipate that this patient will require hospitalization for 2-3 days for HD and cardiac workup and close respiratory/hemodynamic monitoring. Disposition: Once the patient is stable to leave the hospital, I anticipate the patient will likely be discharged to the following environment: home with HH vs SNF I spent over 39 minutes on this patient's case, and 30 minutes were dedicated to counseling and/or care coordination. Discussed with patient/family, nursing staff, SW/CM regarding clinical status, treatment course, and disposition planning. Time of note may not reflect time of encounter. Date of Discussion: 02/11/18 A [id number] discussion with the patient regarding the patient's advanced care planning took place during this hospitalization on the above date. The discussion included the explanation and discussion of advance directives and associated forms/documents, as well as the patient's current code status. We also discussed at length the patient's medical conditions (both acute and chronic), general prognosis, treatment options, and goals of care. The following summarizes the discussion: Advance Care Planning/Goals of Care: - Will attempt to fill out an AD and/or POLST with the patient prior to discharge, if not already completed - Continue current evaluation and management of any acute and chronic medical issues - Will continue to support the patient/family - Will continue to discuss both short- and long-term goals of care DPOA-HC/Surrogate Decision Maker: None currently appointed Code Status: Full Code AD Forms/Documents Completed: Deferred A total of 31 minutes was spent on this discussion, including counseling, answering questions, and completing, if any, pertinent advanced care planning forms/documents. ---- Subjective Date patient seen: Feb 22, 2018 Time patient seen: 12:35 Allergies: Coded Allergies: NO KNOWN DRUG ALLERGIES (Verified Allergy, Unknown, 01/29/18) Subjective f/u facial numbness, fluid overload due to missed HD, hyperkalemia cth neg mri reviewed, neg acute denies any facial numbness today denies any cp or sob states she feels generally weak denies fevers/chills states right IJ cath bothers her, but not too painful malfunction av shunt with clots, revision of av shunt and permcath 02/21 bleeding from fistula and IV site earlier 02/16/18 , stopped HD from Right IJ cath K noted to be elevated at 6, kayexelate given today ROS: 14 point ROS reviewed and negative except for the above subjective Objective Last 24 Hour Vital Signs Date Time Temp Pulse Resp B/P (MAP) Pulse Ox O2 Delivery O2 Flow Rate FiO2 02/22/18 08:59 Room Air 02/22/18 08:46 97.8 02/22/18 07:57 97.8 71 18 141/63 (89) 99 02/22/18 07:24 70 18 99 02/22/18 05:53 120/57 02/22/18 04:00 97.8 70 18 120/57 (78) 99 02/22/18 00:00 98.7 87 18 137/63 (87) 100 02/21/18 23:07 137/63 02/21/18 21:56 88 137/67 02/21/18 21:00 Room Air 02/21/18 20:00 97.6 88 18 137/67 (90) 99 02/21/18 17:02 134/62 02/21/18 17:01 97.8 94 19 134/62 (86) 99 02/21/18 16:00 98.0 94 20 143/62 (89) 99 02/21/18 13:08 149/66 02/21/18 13:07 149/66 Intake and Output 02/21/18 02/22/18 19:00 07:00 Intake Total 900 ml 290 ml Output Total 50 ml Balance 850 ml 290 ml Intake Oral 600 ml 240 ml IV Total 300 ml 50 ml Estimated Blood Loss 50 ml # Voids 2 Height (Feet): 5 Height (Inches): 0.00 Weight (Pounds): 132 Objective General Appearance: no apparent distress, alert Lines, tubes and drains: peripheral HEENT: normocephalic, atraumatic, anicteric Neck: non-tender, normal alignment, supple, normal inspection Respiratory/Chest: chest wall non-tender, lungs clear, normal breath sounds, no respiratory distress, no accessory muscle use Cardiovascular/Chest: normal peripheral pulses, normal rate, regular rhythm Abdomen: normal bowel sounds, non tender, soft, no organomegaly, no mass Extremities: normal range of motion, non-tender, normal inspection, no calf tenderness Skin Exam: normal pigmentation, warm/dry Neurologic: election assistant II-XII grossly normal, no motor/sensory deficits, alert, oriented x 3, responsive, normal mood/affect Jesús Low MD Feb 22, 2018 12:37
--- NOTE | 2018-02-22 12:41 | NUR ---
NURSE NOTES: Dr Low verbally made aware of significant change in daily weight upon his rounds, no new orders were given by . Addendum: 02/23/18 at 1116 by LARS ENNIS RN weight corrected as recorded due to pt had surgery and the oxygen tank was left on the headboard of the bed
[2018-02-22 12:57] VITALS: BP 135/57
--- NOTE | 2018-02-22 13:23 | Nephrology Progress Note ---
Assessment/Plan Problem List: (1) ESRD on dialysis (2) Hyperkalemia, diminished renal excretion (3) Cardiomyopathy (4) Anemia in chronic kidney disease Assessment anemia worsened partly due to yesterdays ( 02/16/18) fistula bleed- (1) ESRD (end stage renal disease) on dialysis presents with high K (2) CAD (coronary artery disease) (3) DM hyperosmolarity type II (4) Acute systolic (congestive) heart failure (5) Anemia in chronic kidney disease (6) Diabetes type 2, controlled (7) Cardiomyopathy (8) Sepsis Plan Plan bleeding from fistula and IV site earlier 02/16/18 , stopped vascular surgical eval, due declotting 02/21 last HD 02/19 next 02/22 Kayexelate for high K now has right jugular dialysis cath Antibiotics after cultures Adjust BS and BP meds Gastric support optimize cardiac meds 2D echo Global LV hypokinesis. Anterior septum basal to distal hypokinesis . Left ventricular ejection fraction estimated to be 20-25 %. Subjective ROS Limited/Unobtainable: No Constitutional: Reports: malaise Objective Objective Last 24 Hour Vital Signs Date Time Temp Pulse Resp B/P (MAP) Pulse Ox O2 Delivery O2 Flow Rate FiO2 02/22/18 12:57 97.3 78 18 135/57 (83) 99 02/22/18 08:59 Room Air 02/22/18 08:46 97.8 02/22/18 07:57 97.8 71 18 141/63 (89) 99 02/22/18 07:24 70 18 99 02/22/18 05:53 120/57 02/22/18 04:00 97.8 70 18 120/57 (78) 99 02/22/18 00:00 98.7 87 18 137/63 (87) 100 02/21/18 23:07 137/63 02/21/18 21:56 88 137/67 02/21/18 21:00 Room Air 02/21/18 20:00 97.6 88 18 137/67 (90) 99 02/21/18 17:02 134/62 02/21/18 17:01 97.8 94 19 134/62 (86) 99 02/21/18 16:00 98.0 94 20 143/62 (89) 99 Intake and Output 02/21/18 02/22/18 19:00 07:00 Intake Total 900 ml 290 ml Output Total 50 ml Balance 850 ml 290 ml Intake Oral 600 ml 240 ml IV Total 300 ml 50 ml Estimated Blood Loss 50 ml # Voids 2 Height (Feet): 5 Height (Inches): 0.00 Weight (Pounds): 140 General Appearance: no apparent distress Objective no change - no further bleed Washington Pavon MD Feb 22, 2018 13:23
--- NOTE | 2018-02-22 14:40 | NUR ---
TAVERN KEEPERPHYSICIAN RECRUITER SI: S/P AV GRAFT REVISION, ANEMIA T. 97.3 HR 78 RR 18 B/P 135/57 RA 98% IS: CEFAZOLIN IV PROTONIX PO PLAVIX PO APRESOLINE PO MED/SURG STATUS
[2018-02-22 15:58] VITALS: BP 93/48
--- NOTE | 2018-02-22 16:55 | General Progress Note ---
Assessment/Plan Assessment/Plan # Anemia of chronic disease due to underlying chronic medical issues, esrd, multifactorial --> Anemia w/u has been ordered --> No evidence of hemolysis is noted, peripheral smear has been reviewed. --> Hgb goal >7. Transfuse prn. --> Epogen given esrd --> fistula bleeding also contributing 1/3, currently improved/resolved # Leukocytosis is due to Septic shock, high Lactic acid, has vre --> cultures are pending, sensitivities --> is s/p multiple antibiotics, in past seen by ID --> peripheral smear has been reviewed, neg for abnml --> imaging reviewed and shows anorectal thickening --> wbc trend 31k-->20k-->9.4 # Coagulopathy that has worsened with inr 2.9 --> current inr has improved markedly, likely med related # ESRD on HD for 2 years, has left arm fistula --> fistula revisted, --> epogen as per neprho --> HD as required # DM --> a1c goal <7 # CAD, elevated Troponin --> Patient will need life vest and possible ICD in future - has been ordered and approved, awaiting delivery --> May need ICD in future Greatly appreciate consultation! Subjective Constitutional: Denies: no symptoms, chills, diaphoresis, fever, malaise, weakness, other HEENT: Denies: no symptoms, eye pain, blurred vision, tearing, double vision, ear pain, ear discharge, nose pain, nose congestion, throat pain, throat swelling, mouth pain, mouth swelling, other Cardiovascular: Denies: no symptoms, chest pain, edema, irregular heart rate, lightheadedness, palpitations, syncope, other Respiratory: Denies: no symptoms, cough, orthopnea, shortness of breath, SOB with excertion, SOB at rest, sputum, stridor, wheezing, other Gastrointestinal/Abdominal: Denies: no symptoms, abdomen distended, abdominal pain, black stools, tarry stools, blood in stool, constipated, diarrhea, difficulty swallowing, nausea, poor appetite, poor fluid intake, rectal bleeding , vomiting, other Genitourinary: Denies: no symptoms, burning, discharge, frequency, flank pain, hematuria, incontinence, pain, urgency, other Neurologic/Psychiatric: Denies: no symptoms, anxiety, depressed, emotional problems, headache, numbness, paresthesia, pre-existing deficit, seizure, tingling, tremors, weakness, other Endocrine: Denies: no symptoms, excessive sweating, flushing, intolerance to cold, intolerance to heat, increased hunger, increased thirst, increased urine, unexplained weight gain, unexplained weight loss, other Hematologic/Lymphatic: Denies: no symptoms, anemia, easy bleeding, easy bruising, other Allergies: Coded Allergies: NO KNOWN DRUG ALLERGIES (Verified Allergy, Unknown, 01/29/18) Subjective 02/19/18 Pt is seen in the room, has a bleed from fistula and IV site, currently stopped, received HD today 02/20/18 Pt is awake and resting in bed, malfunction av shunt with clots, pending arm duplex, plan for revision av shunt and permcath in OR ,CT head negative, plt low, pending labs. 03/03/18: to have surgery this am, npo after mn, no events otherwise, plan for revision av shunt and permcath in OR once all cleared 02/22/18: S/P Left arm av shunt revision (ligation of forearm shunt and new left upper basilic vein transposition avf) and dialysis cath replacement (new right ij permcath and removal of du cath), hgb 8.7, HD planned today Objective Last 24 Hour Vital Signs Date Time Temp Pulse Resp B/P (MAP) Pulse Ox O2 Delivery O2 Flow Rate FiO2 02/22/18 15:58 97.0 80 18 93/48 (63) 99 02/22/18 15:44 Nasal Cannula 02/22/18 15:41 Nasal Cannula 02/22/18 12:57 97.3 78 18 135/57 (83) 99 02/22/18 08:59 Room Air 02/22/18 08:46 97.8 02/22/18 07:57 97.8 71 18 141/63 (89) 99 02/22/18 07:24 70 18 99 02/22/18 05:53 120/57 02/22/18 04:00 97.8 70 18 120/57 (78) 99 02/22/18 00:00 98.7 87 18 137/63 (87) 100 02/21/18 23:07 137/63 02/21/18 21:56 88 137/67 02/21/18 21:00 Room Air 02/21/18 20:00 97.6 88 18 137/67 (90) 99 02/21/18 17:02 134/62 02/21/18 17:01 97.8 94 19 134/62 (86) 99 Intake and Output 02/21/18 02/22/18 19:00 07:00 Intake Total 900 ml 290 ml Output Total 50 ml Balance 850 ml 290 ml Intake Oral 600 ml 240 ml IV Total 300 ml 50 ml Estimated Blood Loss 50 ml # Voids 2 Height (Feet): 5 Height (Inches): 0.00 Weight (Pounds): 140 Objective General Appearance: no apparent distress, alert HEENT: normocephalic, atraumatic, anicteric Neck: non-tender, normal alignment, supple, normal inspection Respiratory/Chest: chest wall non-tender, lungs clear, normal breath sounds, no respiratory distress, no accessory muscle use CV: normal peripheral pulses, normal rate, regular rhythm Abdomen: normal bowel sounds, non tender, soft, no organomegaly, no mass Extremities: normal range of motion, non-tender, normal inspection, no calf tenderness, plan for revision av shunt and permcath in OR once all cleared Skin Exam: normal pigmentation, warm/dry Neurologic: retirement benefits specialist II-XII grossly normal, no motor/sensory deficits, alert, oriented x 3, responsive, normal mood/affect Toribio Suárez MD Feb 22, 2018 16:55
[2018-02-22] MEDS ORDERED: ceFAZolin sod 1 GM in D5W 55 ML IVPB SCH (17:30)
--- NOTE | 2018-02-22 18:54 | NUR ---
HAND-OFF: Report given to TREVOR BURCH.
--- NOTE | 2018-02-22 18:55 | NUR ---
NURSE NOTES: PER HD NURSE GREGORIO PT POST HD WEIGHT IS 125 LBS
--- NOTE | 2018-02-22 19:00 | NUR ---
NURSE NOTES: Received a report from MARCIN [place]. Pt is in stable condition. AAOX4. Able to make needs known. No respiratory distress noted. Uses NC 2L/min. No c/o pain/discomfort. IV site is patent and intact. Pt has R upper chest permacath and L AV shunt. Bed in lowest position. Bed alarm is on. Call light within reach. Will continue to monitor.
[2018-02-22 20:00] VITALS: BP 130/46
[2018-02-23] VITALS: BP 108/52
[2018-02-23 04:00] VITALS: BP 134/61
[2018-02-23] MEDS: HydrALAZINE 25mg tab ORAL SCH ×3 (05:41→22:00)
[2018-02-23] MEDS: NovoLOG Insulin Flexpen SUBQ SCH ×4 (05:43→21:25)
--- NOTE | 2018-02-23 07:15 | NUR ---
HAND-OFF: Report given to MARCIN Toledo.
--- NOTE | 2018-02-23 07:27 | NUR ---
NURSE NOTES: pt awake alert, no distress. no sob. call light within reach. pt asking when she's gonna be going home. will monitor. still bue edema but more prominent on the left. Addendum: 02/23/18 at 0728 by LARS ENNIS RN no c/o pain at this time.
[2018-02-23 07:31] VITALS: BP 136/58
--- NOTE | 2018-02-23 07:54 | General Progress Note ---
Assessment/Plan Assessment/Plan # Anemia of chronic disease due to underlying chronic medical issues, esrd, multifactorial --> Anemia w/u has been reviewed and ferritin is 1269 --> No evidence of hemolysis is noted, peripheral smear has been reviewed. --> Hgb goal >7. Transfuse prn. --> Epogen given esrd --> fistula bleeding also contributing 1/3, currently improved/resolved # Leukocytosis is due to Septic shock, high Lactic acid, has vre --> cultures are pending, sensitivities --> is s/p multiple antibiotics, in past seen by ID --> peripheral smear has been reviewed, neg for abnml --> imaging reviewed and shows anorectal thickening --> wbc trend 31k-->20k-->9.4 # Coagulopathy that has worsened with inr 2.9-_>1-->1 --> current inr has improved markedly # ESRD on HD for 2 years, has left arm fistula --> fistula revisted, --> epogen as per neprho --> HD as required # DM --> a1c goal <7 # CAD, elevated Troponin --> Patient will need life vest and possible ICD in future - has been ordered and approved, awaiting delivery --> May need ICD in future Greatly appreciate consultation! Subjective Constitutional: Denies: no symptoms, chills, diaphoresis, fever, malaise, weakness, other HEENT: Denies: no symptoms, eye pain, blurred vision, tearing, double vision, ear pain, ear discharge, nose pain, nose congestion, throat pain, throat swelling, mouth pain, mouth swelling, other Respiratory: Denies: no symptoms, cough, orthopnea, shortness of breath, SOB with excertion, SOB at rest, sputum, stridor, wheezing, other Gastrointestinal/Abdominal: Denies: no symptoms, abdomen distended, abdominal pain, black stools, tarry stools, blood in stool, constipated, diarrhea, difficulty swallowing, nausea, poor appetite, poor fluid intake, rectal bleeding , vomiting, other Genitourinary: Denies: no symptoms, burning, discharge, frequency, flank pain, hematuria, incontinence, pain, urgency, other Neurologic/Psychiatric: Denies: no symptoms, anxiety, depressed, emotional problems, headache, numbness, paresthesia, pre-existing deficit, seizure, tingling, tremors, weakness, other Endocrine: Denies: no symptoms, excessive sweating, flushing, intolerance to cold, intolerance to heat, increased hunger, increased thirst, increased urine, unexplained weight gain, unexplained weight loss, other Hematologic/Lymphatic: Denies: no symptoms, anemia, easy bleeding, easy bruising, other Allergies: Coded Allergies: NO KNOWN DRUG ALLERGIES (Verified Allergy, Unknown, 01/29/18) Subjective 02/19/18 Pt is seen in the room, has a bleed from fistula and IV site, currently stopped, received HD today 02/20/18 Pt is awake and resting in bed, malfunction av shunt with clots, pending arm duplex, plan for revision av shunt and permcath in OR ,CT head negative, plt low, pending labs. 03/03/18: to have surgery this am, npo after mn, no events otherwise, plan for revision av shunt and permcath in OR once all cleared 02/22/18: S/P Left arm av shunt revision (ligation of forearm shunt and new left upper basilic vein transposition avf) and dialysis cath replacement (new right ij permcath and removal of du cath), hgb 8.7, HD planned today 02/23: pt awake alert, no distress. no sob. pt asking when she's gonna be going home still bue edema but more prominent on the left. Objective Last 24 Hour Vital Signs Date Time Temp Pulse Resp B/P (MAP) Pulse Ox O2 Delivery O2 Flow Rate FiO2 02/23/18 07:31 98.8 88 16 136/58 (84) 98 02/23/18 07:20 Room Air 02/23/18 05:41 134/61 02/23/18 04:00 98.8 90 16 134/61 (85) 98 02/23/18 00:00 98.2 79 16 108/52 (70) 97 02/22/18 22:12 141/55 02/22/18 21:13 97 130/46 02/22/18 21:00 Room Air 02/22/18 20:00 97.5 97 16 130/46 (74) 99 02/22/18 17:01 93/48 02/22/18 15:58 97.0 80 18 93/48 (63) 99 02/22/18 15:44 Nasal Cannula 02/22/18 15:41 Nasal Cannula 02/22/18 12:57 97.3 78 18 135/57 (83) 99 02/22/18 08:59 Room Air 02/22/18 08:46 97.8 02/22/18 07:57 97.8 71 18 141/63 (89) 99 Intake and Output 02/22/18 02/23/18 19:00 07:00 Intake Total 600 ml Balance 600 ml Intake Oral 600 ml Height (Feet): 5 Height (Inches): 0.00 Weight (Pounds): 125 Objective General Appearance: no apparent distress, alert HEENT: normocephalic, atraumatic, anicteric Neck: non-tender, normal alignment, supple, normal inspection Respiratory/Chest: chest wall non-tender, lungs clear, normal breath sounds CV: normal peripheral pulses, normal rate, regular rhythm Abdomen: normal bowel sounds, non tender, soft, no organomegaly, no mass Extremities: normal range of motion, non-tender, normal inspection, no calf tenderness, bue edeam Skin Exam: normal pigmentation, warm/dry Neurologic: head cager II-XII grossly normal, no motor/sensory deficits, alert, oriented x 3, responsive, normal mood/affect Toribio Suárez MD Feb 23, 2018 07:54
[2018-02-23] MEDS: Docusate 100mg cap ORAL SCH ×3 (08:09→17:03)
[2018-02-23] MEDS: Carvedilol 25mg Tab ORAL SCH ×2 (08:09→21:11)
[2018-02-23] MEDS: Aspirin EC 81mg tab ORAL SCH (08:09)
[2018-02-23] MEDS: Heparin 5000 units/ml inj SUBQ SCH ×2 (08:10→21:12)
--- NOTE | 2018-02-23 09:26 | NUR ---
NURSE NOTES: paged dr Ge,spoke w Carole , re dc clearance
[2018-02-23 10:15] LABS: HEMATOCRIT 23.5 % (37.0-47.0); HEMOGLOBIN 7.3 G/DL (12.0-16.0); MEAN CORPUSCULAR VOLUME 100 FL (80-99); PLATELET COUNT 185 K/UL (150-450); RED BLOOD COUNT 2.35 M/UL (4.20-5.40); RED CELL DISTRIBUTION WIDTH 16.8 % (11.6-14.8); WHITE BLOOD COUNT 8.7 K/UL (4.8-10.8)
[2018-02-23 10:24] LABS: ANION GAP 9 mmol/L (5-15); BLOOD UREA NITROGEN 38 mg/dL (7-18); CALCIUM 8.2 MG/DL (8.5-10.1); CARBON DIOXIDE 28 MMOL/L (21-32); CHLORIDE 98 MMOL/L (98-107); CREATININE 6.6 MG/DL (0.55-1.30); POTASSIUM 5.9 MMOL/L (3.5-5.1); SODIUM 135 MMOL/L (136-145)
--- NOTE | 2018-02-23 10:40 | NUR ---
NURSE NOTES: DC CANCELLED BY DR GEORGE DUE TO PENDING DELIVERY OF [facility]- PER DR CATHY NICHOLS IS REP TO CALL [phone] , RN LEFT A VOICEMAIL RE [facility]
--- NOTE | 2018-02-23 10:47 | NUR ---
NURSE NOTES: RELAYED HH AND K LEVEL TODAY TO DR GEORGE , PER MD REPEAT BMP, ORDERED
--- NOTE | 2018-02-23 11:48 | NUR ---
CHARGE NURSE NOTES: SPOKE WITH RUBY FROM [employer], , REGARDING NEED FOR NEW LIFE VEST. PER RUBY, LIFE VEST WAS SET UP WITH PATIENT 02/04. LIFE VEST NOT WITH PATIENT AT THIS TIME, NOTIFIED RUBY WHO STATED HE WILL INQUIRE IF INSURANCE WILL COVER NEW VEST. WILL CONTINUE TO MONITOR.
[2018-02-23 12:00] VITALS: BP 130/50
[2018-02-23 12:18] LABS: ANION GAP 9 mmol/L (5-15); BLOOD UREA NITROGEN 38 mg/dL (7-18); CALCIUM 7.8 MG/DL (8.5-10.1); CARBON DIOXIDE 27 MMOL/L (21-32); CHLORIDE 97 MMOL/L (98-107); CREATININE 6.9 MG/DL (0.55-1.30); POTASSIUM 5.1 MMOL/L (3.5-5.1); SODIUM 133 MMOL/L (136-145)
--- NOTE | 2018-02-23 12:50 | Diagnostic Imaging Report ---
APPROVED REPORT CPT Code: 68998 Present Symptoms Comments: Weakness Hx of Left arm Shunt LEFT UPPER EXTREMITY: Imaging reveals a patent arterio-venous fistula, the brachial artery to the basilic vein, at the left forearm level. Low amplitude of Doppler velocities noted in the anastomosis and inflow arteries, possible due to low cardiac output. The venous outflow is widely patent. Proximal brachial artery: 0.5 cm 137 cm/s Anastomosis: 0.7 cm, 121 cm/s Brachial artery: distal 125cm/s Radial artery 65 cm/s AV Shunt: Imaging reveals patency of the dialysis access graft at the forearm level. There is no evidence of pseudo-aneurysm or abscess around the graft.
--- NOTE | 2018-02-23 12:50 | Diagnostic Imaging Report ---
APPROVED REPORT CPT Code: 43682 Symptoms Weakness RIGHT UPPER EXTREMITY: Imaging of the axillary, brachial, radial and ulnar arteries is within normal limits. There is no evidence of stenosis or occlusions within these segments. The Doppler waveforms of the right upper extremity are multiphasic, consistent with normal inflow to the right upper extremity. The subclavian artery could not access due to PICC line bandage. LEFT UPPER EXTREMITY: Imaging of the subclavian, axillary, brachial, radial and ulnar arteries is within normal limits. There is no evidence of stenosis or occlusions within these segments. The Doppler waveforms of the subclavian to brachial arteries are monophasic due to the lower arm shunt. The remaining segments are multiphasic.
--- NOTE | 2018-02-23 12:51 | Diagnostic Imaging Report ---
APPROVED REPORT CPT Code: 32844 Present Symptoms Upper Extremity Pain: Comments: Weakness BILATERAL UPPER EXTREMITY: Imaging reveals patency of the internal jugular, subclavian, axillary and brachial veins. The cephalic and basilic veins are also patent. Doppler indicates normal spontaneous flow within these venous segments, bilaterally. Right Subclavian vein could not access due to PICC line bandage.
--- NOTE | 2018-02-23 14:51 | NUR ---
NURSE NOTES: no lifevest at bedside. home meds refilled and given to pt.
[2018-02-23 16:00] VITALS: BP 136/45
--- NOTE | 2018-02-23 16:05 | Nephrology Progress Note ---
Assessment/Plan Problem List: (1) ESRD on dialysis (2) Hyperkalemia, diminished renal excretion (3) Cardiomyopathy (4) Anemia in chronic kidney disease Assessment anemia worsened partly due to yesterdays ( 02/16/18) fistula bleed- (1) ESRD (end stage renal disease) on dialysis presents with high K (2) CAD (coronary artery disease) (3) DM hyperosmolarity type II (4) Acute systolic (congestive) heart failure (5) Anemia in chronic kidney disease (6) Diabetes type 2, controlled (7) Cardiomyopathy (8) Sepsis Plan Plan bleeding from fistula and IV site earlier 02/16/18 , stopped vascular surgical eval, due declotting 02/21 last 02/22 next 02/24 Kayexelate for high K now has right jugular dialysis cath Antibiotics after cultures Adjust BS and BP meds Gastric support optimize cardiac meds 2D echo Global LV hypokinesis. Anterior septum basal to distal hypokinesis . Left ventricular ejection fraction estimated to be 20-25 %. Subjective ROS Limited/Unobtainable: No Constitutional: Reports: malaise Objective Objective Last 24 Hour Vital Signs Date Time Temp Pulse Resp B/P (MAP) Pulse Ox O2 Delivery O2 Flow Rate FiO2 02/23/18 13:44 134/45 02/23/18 12:46 134/45 02/23/18 12:00 98.0 84 16 130/50 (76) 98 02/23/18 08:09 136/58 02/23/18 08:09 88 136/58 02/23/18 07:31 98.8 88 16 136/58 (84) 98 02/23/18 07:20 Room Air 02/23/18 05:41 134/61 02/23/18 04:00 98.8 90 16 134/61 (85) 98 02/23/18 00:00 98.2 79 16 108/52 (70) 97 02/22/18 22:12 141/55 02/22/18 21:13 97 130/46 02/22/18 21:00 Room Air 02/22/18 20:00 97.5 97 16 130/46 (74) 99 02/22/18 17:01 93/48 Intake and Output 02/22/18 02/23/18 19:00 07:00 Intake Total 600 ml Balance 600 ml Intake Oral 600 ml Current Medications Medications (Trade) Dose Ordered Sig/Juliocesar Route PRN Reason Start Time Stop Time Status Last Admin Dose Admin Acetaminophen (Tylenol) 500 mg Q4H PRN ORAL Mild Pain/Temp > 100.5 02/21/18 11:00 03/23/18 10:59 02/21/18 23:07 Allopurinol (Allopurinol) 300 mg DAILY ORAL 02/16/18 09:00 03/14/18 14:44 02/23/18 08:09 Artificial Tears (Akwa-Tears) 2 drop Q2H PRN BOTH EYES Dry Eyes 02/19/18 11:00 03/21/18 10:59 02/21/18 17:11 Aspirin (Ecotrin) 81 mg DAILY ORAL 02/14/18 09:00 03/14/18 08:59 02/23/18 08:09 Atorvastatin Calcium (Lipitor) 10 mg BEDTIME ORAL 02/13/18 21:00 03/13/18 20:59 02/22/18 21:13 Carvedilol (Coreg) 25 mg EVERY 12 HOURS ORAL 02/15/18 21:00 03/13/18 20:59 02/23/18 08:09 Clopidogrel Bisulfate (Plavix) 75 mg DAILY ORAL 02/14/18 09:00 03/14/18 08:59 02/23/18 08:09 Dextrose (Dextrose 50%) 25 ml Q30M PRN IV Hypoglycemia 02/13/18 17:00 03/13/18 16:29 Dextrose (Dextrose 50%) 50 ml Q30M PRN IV Hypoglycemia 02/13/18 17:00 03/13/18 16:29 Diphenhydramine HCl (Benadryl) 25 mg Q8H PRN IVP Itching 02/22/18 11:15 03/24/18 11:14 02/22/18 11:16 Docusate Sodium (Colace) 100 mg TID ORAL 02/13/18 18:00 03/13/18 17:59 02/23/18 12:44 Heparin Sodium (Porcine) (Heparin 5000 units/ml) 5,000 units EVERY 12 HOURS SUBQ 02/13/18 21:00 03/13/18 20:59 02/23/18 08:10 Hydralazine HCl (Apresoline) 25 mg Q4H PRN ORAL BP OVER 160 SYST 02/13/18 17:00 03/13/18 16:59 Hydralazine HCl (Apresoline) 75 mg Q8HR ORAL 02/13/18 22:00 03/13/18 21:59 02/23/18 13:44 Hydromorphone HCl (Dilaudid) 0.5 mg Q6H PRN IVP Pain Scale (6-10) 02/21/18 12:30 02/28/18 12:29 02/22/18 08:16 Insulin Aspart (NovoLOG) BEFORE MEALS AND HS SUBQ 02/13/18 18:04 03/15/18 18:03 02/23/18 11:22 Isosorbide Dinitrate (Isordil) 30 mg TID ORAL 02/15/18 18:00 03/13/18 17:59 02/23/18 12:46 Ondansetron HCl (Zofran) 4 mg Q6H PRN IVP Nausea & Vomiting 02/22/18 11:15 03/24/18 11:14 02/22/18 11:16 Pantoprazole (Protonix) 40 mg EVERY 12 HOURS ORAL 02/13/18 21:00 03/13/18 20:59 02/23/18 08:09 Sevelamer Carbonate (Renvela) 1,600 mg THREE TIMES A DAY ORAL 02/13/18 18:00 03/14/18 17:59 02/23/18 12:44 Laboratory Tests 02/23/18 09:27: White Blood Count 8.7, Red Blood Count 2.35L, Hemoglobin 7.3L, Hematocrit 23.5L , Mean Corpuscular Volume 100H, Mean Corpuscular Hemoglobin 31.2H, Mean Corpuscular Hemoglobin Concent 31.3L, Red Cell Distribution Width 16.8H, Platelet Count 185, Mean Platelet Volume 6.7, Neutrophils (%) (Auto) , Lymphocytes (%) (Auto) , Monocytes (%) (Auto) , Eosinophils (%) (Auto) , Basophils (%) (Auto) , Differential Total Cells Counted 100, Neutrophils % ( Manual) 82H, Lymphocytes % (Manual) 11L, Monocytes % (Manual) 3, Eosinophils % ( Manual) 3, Basophils % (Manual) 1, Band Neutrophils 0, Platelet Estimate Adequate, Platelet Morphology Normal, Hypochromasia 1+, Anisocytosis 1+, Sodium Level 135L, Potassium Level 5.9H, Chloride Level 98, Carbon Dioxide Level 28, Anion Gap 9, Blood Urea Nitrogen 38H, Creatinine 6.6H, Estimat Glomerular Filtration Rate 6.3, Glucose Level 144H, Calcium Level 8.2L 02/23/18 11:45: Sodium Level 133L, Potassium Level 5.1, Chloride Level 97L, Carbon Dioxide Level 27, Anion Gap 9, Blood Urea Nitrogen 38H, Creatinine 6.9H, Estimat Glomerular Filtration Rate 6.0, Glucose Level 294#H, Calcium Level 7.8L Height (Feet): 5 Height (Inches): 0.00 Weight (Pounds): 126 General Appearance: no apparent distress, alert Cardiovascular: normal rate Extremities: other - left UE dressed Objective no change - no further bleed Washington Pavon MD Feb 23, 2018 16:05
[2018-02-23 16:25] LABS: ALANINE AMINOTRANSFERASE 41 U/L (12-78); ALBUMIN 2.3 G/DL (3.4-5.0); ALKALINE PHOSPHATASE 87 U/L (46-116); ASPARTATE AMINO TRANSFERASE 21 U/L (15-37); BILIRUBIN,DIRECT 0.2 MG/DL (0.0-0.3); BILIRUBIN,TOTAL 0.3 MG/DL (0.2-1.0); PHOSPHORUS 2.9 MG/DL (2.5-4.9)
[2018-02-23] MEDS: Hydromorphone 0.5mg/0.5ml inj IVP PRN (18:49)
[2018-02-23] MEDS: DiphenhydrAMINE 50mg/ml Inj IVP PRN (18:50)
--- NOTE | 2018-02-23 19:04 | NUR ---
HAND-OFF: Report given to JUAN ALBERTO BURCH.
--- NOTE | 2018-02-23 19:06 | NUR ---
NURSE NOTES: pt states she had normal bm x1 today
--- NOTE | 2018-02-23 19:30 | NUR ---
NURSE NOTES: Recieved patient in bed, awake, alert, oriented, ambulatory, call light is within reach. Bed is locked, alarm is on, bed is in low position. Will continue to monitor for safety and comfort.
[2018-02-23 20:00] VITALS: BP 140/58
[2018-02-24] VITALS: BP 120/68
--- NOTE | 2018-02-24 02:00 | Consultation ---
DATE OF CONSULTATION: 02/17/2018 CONSULTING PHYSICIAN: Castro Ge M.D. REFERRING PHYSICIANS: 1. Washington Pavon M.D. 2. Jaime Levine M.D. REASON FOR EVALUATION: Left arm AV shunt evaluation with thrombosis and bleeding. HISTORY OF PRESENT COMPLAINT: This is a 62-year-old female who suffers from end-stage renal failure, on hemodialysis. The patient currently has a temporary IJ Tony catheter placed by Interventional Radiology. The patient reportedly had a left forearm AV shunt procedure, sternal revision done in another hospital by another physician, which is malfunctioning. The patient presented with clots and bleeding. Vascular Surgery is consulted for salvage and revision of the shunt. PAST MEDICAL HISTORY: As above. History of hypertension, end-stage renal failure, on hemodialysis, and multiple left forearm AV shunts placed by another physician. MEDICATIONS: See attached MAR. ALLERGIES: No known drug allergies. SOCIAL HISTORY: No history of smoking, drugs, or alcohol abuse. FAMILY HISTORY: Unremarkable. REVIEW OF SYSTEMS: CARDIOVASCULAR: No history of chest pain or palpitation. PULMONARY: No cough or hemoptysis. GASTROINTESTINAL: No history of abdominal pain, constipation, or diarrhea. GENITOURINARY: No dysuria, frequency, or urgency. NEUROLOGIC: No history of strokes or seizures. PHYSICAL EXAMINATION: VITAL SIGNS: The patient is afebrile at 97, heart rate 80, blood pressure 150/70, and respirations 16. GENERAL: The patient has a left forearm AV graft and a pulsatile thrill. There are multiple scars. There is some ecchymosis on the medial limb of the forearm loop graft. She has weak radial pulses. Right jugular Tony catheter is in place. LUNGS: Clear to auscultation. HEART: Regular rate. ABDOMEN: Soft and nontender. EXTREMITIES: She has palpable femoral pulses. Intact pedal Dopplers bilaterally. IMPRESSION: 1. End-stage renal failure, on hemodialysis, requiring permanent access with malfunctioning left forearm loop AV graft. 2. Cardiomyopathy, coronary artery disease, arterial occlusive disease, hypertension, and diabetes. PLAN AND RECOMMENDATIONS: Obtain arm duplex. Cardiology medical optimization progress to see if the patient will require a revision of the AV shunt and a permcatheter placement. The above was discussed at length with the patient and consent was obtained. Castro Ge M.D. DR: BINTA JOB#: [id number] CC: Jaime Levine M.D.; Fax#: [phone] Gera Perez
[2018-02-24 04:00] VITALS: BP 153/71
[2018-02-24] MEDS: HydrALAZINE 25mg tab ORAL SCH ×2 (05:14→14:00)
[2018-02-24] MEDS: NovoLOG Insulin Flexpen SUBQ SCH ×3 (07:00→16:45)
--- NOTE | 2018-02-24 07:00 | Operative Note - Dictated ---
DATE OF OPERATION: 02/21/2018 NOTE: POOR AUDIO SURGEON: Castro Ge M.D. ANESTHESIOLOGIST: Chapito Pittman M.D. PREOPERATIVE DIAGNOSES: 1. End-stage renal failure, on hemodialysis requiring permanent access. 2. Malfunctioning left forearm AV graft with bleeding clots. 3. History of hypertension and cardiomyopathy. POSTOPERATIVE DIAGNOSES: 1. End-stage renal failure, on hemodialysis requiring permanent access. 2. Malfunctioning left forearm AV graft with bleeding clots. 3. History of hypertension and cardiomyopathy. PROCEDURES: 1. Placement of left upper arm basilic vein transposition arteriovenous fistula. 2. Exploration and dilatation of left upper arm basilic vein. 3. Exploration and ligation of left forearm AV graft. 4. Removal of old right external jugular vein temporary dialysis Tony catheter. 5. Placement of right external jugular vein tunneled hemodialysis Perma catheter (14.5-[place] x23 cm [employer]). 6. Right internal jugular vein ultrasound sonography with intraoperative fluoroscopy with interpretation and supervision of the above. ANESTHESIA: Local sedation. COMPLICATIONS: None. TOTAL FLUOROSCOPY TIME: 29.5 seconds. FINDINGS: 1. Thrombosed right internal jugular vein. 2. The external jugular vein Tony catheter was removed. Over a 3.5 guidewire, this was exchanged for a Perma catheter with the tip in the atriocaval junction, which is ready for immediate access for dialysis use. 3. Left forearm AV graft with a pulsatile graft thrill. This was ligated above the anastomosis. The left basilic vein was suitable, measuring about 4 to 5 mm in size. This was exposed from the antecubital fossa to the basilic vein. All the branches were divided, and the vein was transposed subcutaneously to view brachial artery anastomosis, and the patient had a strongly palpable thrill and radial pulse. The patient will require 8 weeks of time for maturation of the AV shunt prior to access use. The patient tolerated the procedure very well. INDICATION FOR THE PROCEDURE: This is a 62-year-old female who presented for the above-mentioned procedure. Risks and benefits were discussed with the patient and consent was obtained. DESCRIPTION OF PROCEDURE: The patient was brought to the procedure room. After a dose of antibiotics and sedation by the anesthesiologist, neck, chest, and left arm were prepped and draped in the usual sterile manner. The right internal jugular and external jugular vein were visualized via ultrasonography. The external jugular vein Tony catheter was removed. Over a 3.5 guidewire, sequential dilation was carried out under local anesthesia was placed. The right chest was anesthetized. Tunnelled 14.5-[place] x23 cm Hemo[employer] Bard was placed subcutaneously towards the sheath. The sheath was peeled away with good cath tip placement and good venous flush. The Perma Cath was flushed with heparinized saline solution and secured to the skin using 2-0 and 3-0 nylon suture. The right neck wound was closed with 4-0 monocryl suture. Attention was made to the left arm and left forearm AV graft. Over the arterial anastomosis, a transverse skin incision was made. Subcutaneous tissue was divided. The loop AV graft was sequentially dissected and ligated using 0 silk suture. The wound was irrigated with antibiotic irrigation and closed using interrupted 3-0 Vicryl suture. The skin was closed using skin stapler. Attention was made to the left upper arm. The incision was made from the antecubital fossa up to the left axillary vein. The subcutaneous was divided and the left basilic vein was sharply dissected. All the branches were divided between 2-0 and 3-0 silk suture. The distal basilic vein was divided using a 2-0 silk suture. The proximal left basilic vein was flushed with heparinized saline solution. Coronary dilators were advanced without difficulty. The vein was marked anteriorly to avoid twisting. Left upper arm subcutaneous tunnel was created using a red rubber catheter. This was dilated. The vein was brought through the tunnel with careful attention not to twist the vein. The left basilic vein was sharply dissected. Proximal double loop control was obtained. Arteriotomy less than half a centimeter was carried out. The brachial artery was flushed with heparinized saline solution. The vein was spatulated and end to side anastomosis was carried out using a running 6-0 Prolene suture. Anastomosis was completed. Flow was restored with a strongly palpable thrill and radial pulse. Wounds were copiously irrigation and closed using interrupted 2-0 and 3-0 silk sutures. Skin was closed using a skin stapler. Sterile dressings were applied. The patient tolerated the procedure very well. Castro Ge M.D. DR: BINTA JOB#: [id number] CC: Gera Perez M.D. ; FAX#: [phone] MTDD
--- NOTE | 2018-02-24 07:23 | Discharge Summary ---
Discharge Summary Hospital Course Date of Admission Feb 11, 2018 at 10:50 Date of Discharge 02/24/18 Admitting Diagnosis ESRD,DYSPNEA HPI Donald Barrios is a 62 year old female who was admitted on Feb 11, 2018 at 10:50 for End Stage Renal Disease,Dyspena 2-year-old female with ESRD, on hemodialysis.Had temporary IJ Du catheter placed by Interventional Radiology. The patient reportedly had a left forearm AV shunt procedure, sternal revision done in another hospital by another physician, which is malfunctioning. The patient presented with clots and bleeding. Vascular Surgery is consulted for salvage and revision of the shunt. Left arm av shunt revision (ligation of forearm shunt and new left upper basilic vein transposition avf) and dialysis cath replacement (new right ij permcath and removal of du cath) 02/21. K improved. Patient stable for dc home. Physical Exam: General Appearance: no apparent distress, alert Lines, tubes and drains: peripheral HEENT: normocephalic, atraumatic, anicteric Neck: non-tender, normal alignment, supple, normal inspection Respiratory/Chest: chest wall non-tender, lungs clear, normal breath sounds, no respiratory distress, no accessory muscle use Cardiovascular/Chest: normal peripheral pulses, normal rate, regular rhythm Abdomen: normal bowel sounds, non tender, soft, no organomegaly, no mass Extremities: normal range of motion, non-tender, normal inspection, no calf tenderness Skin Exam: normal pigmentation, warm/dry Neurologic: end frazer II-XII grossly normal, no motor/sensory deficits, alert, oriented x 3, responsive, normal mood/affect Hospital Course #Shortness of breath due to fluid overload #Missed HD, noncompliance with dialysis #Hyperkalemia #Transaminitis #Elevated troponin in setting of ESRD #ESRD on HD #IDDM #Essential HTN #Facial Numbness - cont home antihypertensives - iss, resume insulin regiment, accuchecks - Left arm av shunt revision (ligation of forearm shunt and new left upper basilic vein transposition avf) and dialysis cath replacement (new right ij permcath and removal of du cath) 02/21 - bleeding from fistula and IV site earlier 02/16/18 , stopped.. HD from Right IJ cath - HD per nephro, next 02/22 - K noted to be elevated at 6 02/21, kayexelate given and K improving slowly, K 5.5 today, HD planned today - cont to monitor labs #Facial numbness - resolved -patient had a right neck IV access. -CT head negative -Will obtain MRI brain, neg -Patient already on DAPT #Abnormal EKG #Combined Chronic CHF Echo from previous visit reviewed LVEF 20% globally Repeat echo on this admission to re-evaluate Continue goal directed medical therapy No indication for cardiac cath or stress testing plan for outpt viability study to eval revasc if LV fxn remains low no heart block per ekg, tele strips showing nsr with PAC and diff P wave morph. appreciate cardiology recs recommend outpatient ziopatch Continue statin Continue hydralazine/imdur for heart failure Continue coreg at current dose Hold aldactone due to ESRD and hyperkalemia Aspirin/plavix lifevest #Nausea, resolved - prn zofran diet: renal diet DVT Prophylaxis: SCD, HSQ Code Status: Full Disposition: Once the patient is stable to leave the hospital, I anticipate the patient will likely be discharged to the following environment: home I spent over 40 minutes on this patient's case, and over 35 minutes were dedicated to counseling and/or care coordination and discharge/dispo planning. Discussed with patient/family, nursing staff, SW/CM regarding clinical status, treatment course, and disposition planning. Time of note may not reflect time of encounter. Date of Discussion: 02/11/18 A [id number] discussion with the patient regarding the patient's advanced care planning took place during this hospitalization on the above date. The discussion included the explanation and discussion of advance directives and associated forms/documents, as well as the patient's current code status. We also discussed at length the patient's medical conditions (both acute and chronic), general prognosis, treatment options, and goals of care. The following summarizes the discussion: Advance Care Planning/Goals of Care: - Will attempt to fill out an AD and/or POLST with the patient prior to discharge, if not already completed - Continue current evaluation and management of any acute and chronic medical issues - Will continue to support the patient/family - Will continue to discuss both short- and long-term goals of care DPOA-HC/Surrogate Decision Maker: None currently appointed Code Status: Full Code AD Forms/Documents Completed: Deferred A total of 31 minutes was spent on this discussion, including counseling, answering questions, and completing, if any, pertinent advanced care planning forms/documents. ---- Discharge Medications Continued Medications: Aspirin* (Aspir 81*) 81 Mg Tablet.dr 81 MG ORAL DAILY, TAB (This prescription has been renewed) Atorvastatin (Lipitor) 80 Mg Tablet 80 MG ORAL BEDTIME for 30 Days, #30 TAB Carvedilol (Coreg) 12.5 Mg Tablet 12.5 MG ORAL EVERY 12 HOURS for 30 Days, #60 TAB Cinacalcet* (Sensipar*) 30 Mg Tablet 30 MG ORAL DAILY, TAB (This prescription has been renewed) Clopidogrel* (Clopidogrel*) 75 Mg Tablet 75 MG ORAL DAILY, TAB (This prescription has been renewed) Docusate Sodium* (Docusate Sodium*) 100 Mg Capsule 100 MG ORAL TWICE A DAY, CAP (This prescription has been renewed) Famotidine (Famotidine) 20 Mg Tablet 20 MG ORAL DAILY, #30 TAB 0 Refills (This prescription has been renewed) Isosorbide Dinitrate* (Isordil*) 10 Mg Tablet 20 MG ORAL TID for 30 Days, #90 TAB Levofloxacin* (Levofloxacin*) 750 Mg Tablet 750 MG ORAL DAILY for 7 Days, #7 TAB Lisinopril (Lisinopril*) 5 Mg Tablet 5 MG ORAL Q12HR for 30 Days, #30 TAB Ondansetron* (Zofran*) 4 Mg Tablet 4 MG ORAL Q6H PRN for Nausea & Vomiting, TAB (This prescription has been renewed ) Discharge Condition Upon Discharge: stable Discharge Disposition Patient was discharged to Home (01) Discharge Diagnoses: (1) Dialysis AV fistula malfunction (2) Hyperkalemia, diminished renal excretion (3) ESRD on dialysis (4) CAD (coronary artery disease) (5) DM hyperosmolarity type II Jesús Low MD Feb 24, 2018 07:23
[2018-02-24 08:00] VITALS: BP 147/58
--- NOTE | 2018-02-24 08:13 | NUR ---
NURSE NOTES: Patient alert x4, in room air, no sign of distress and shortness of breath. No sign of distress. Fistula bleeding of left for arm, dressing dry and intact. Dialysis shunt on the right upper chest, dressing leackage on the shunt area. IV right hand, salen lock. Life vest for dysrhythmias, however its is not with us, according to the report the insurance will get it for patient before discharge. Call light within reach, will keep monitoring.
[2018-02-24 08:30] LABS: HEMATOCRIT 23.7 % (37.0-47.0); HEMOGLOBIN 7.3 G/DL (12.0-16.0); MEAN CORPUSCULAR VOLUME 99 FL (80-99); PLATELET COUNT 226 K/UL (150-450); RED BLOOD COUNT 2.39 M/UL (4.20-5.40); RED CELL DISTRIBUTION WIDTH 16.4 % (11.6-14.8); WHITE BLOOD COUNT 8.8 K/UL (4.8-10.8)
[2018-02-24 08:34] LABS: ANION GAP 11 mmol/L (5-15); BLOOD UREA NITROGEN 48 mg/dL (7-18); CALCIUM 8.3 MG/DL (8.5-10.1); CARBON DIOXIDE 26 MMOL/L (21-32); CHLORIDE 96 MMOL/L (98-107); CREATININE 8.7 MG/DL (0.55-1.30); POTASSIUM 5.3 MMOL/L (3.5-5.1); SODIUM 133 MMOL/L (136-145)
[2018-02-24] MEDS: Carvedilol 25mg Tab ORAL SCH (09:00)
[2018-02-24] MEDS: Aspirin EC 81mg tab ORAL SCH (09:03)
[2018-02-24] MEDS: Docusate 100mg cap ORAL SCH ×3 (09:04→17:58)
[2018-02-24] MEDS: Heparin 5000 units/ml inj SUBQ SCH (09:05)
--- NOTE | 2018-02-24 11:18 | NUR ---
[employer] NOTES SPOKE WITH PJ FROM [facility]. VERIFIED LIFE VE[facility] WAS DELIVERED TO PT ON January AT HER PLACE OF RESIDENT WITH FULL EDUCATION GIVEN. SPOKE WITH PT VERIFIED LIFE VEST WAS DELIVERED. PT HAS DIALYSIS AT [facility] ON [address], PT USES [employer]IVATE [employer] FOR TRANSPORTATION.CONFIRMED WITH CHRISTIAN. [facility] [phone] [facility] [phone]
--- NOTE | 2018-02-24 11:35 | Nephrology Progress Note ---
Assessment/Plan Problem List: (1) ESRD on dialysis (2) Hyperkalemia, diminished renal excretion (3) Cardiomyopathy (4) Anemia in chronic kidney disease Assessment anemia worsened partly due to yesterdays ( 02/16/18) fistula bleed- (1) ESRD (end stage renal disease) on dialysis presents with high K (2) CAD (coronary artery disease) (3) DM hyperosmolarity type II (4) Acute systolic (congestive) heart failure (5) Anemia in chronic kidney disease (6) Diabetes type 2, controlled (7) Cardiomyopathy (8) Sepsis Plan Plan bleeding from fistula and IV site earlier 02/16/18 , stopped vascular surgical eval, due declotting 02/21 last 02/22 next 02/24 Kayexelate for high K now has right jugular dialysis cath Antibiotics after cultures Adjust BS and BP meds Gastric support optimize cardiac meds 2D echo Global LV hypokinesis. Anterior septum basal to distal hypokinesis . Left ventricular ejection fraction estimated to be 20-25 %. Subjective ROS Limited/Unobtainable: No Constitutional: Reports: malaise Objective Objective Last 24 Hour Vital Signs Date Time Temp Pulse Resp B/P (MAP) Pulse Ox O2 Delivery O2 Flow Rate FiO2 02/24/18 08:00 Room Air 02/24/18 08:00 97.7 94 18 147/58 (87) 99 02/24/18 05:14 153/71 02/24/18 04:00 98.2 90 20 153/71 (98) 97 02/24/18 00:00 98.0 80 20 120/68 (85) 02/23/18 22:00 140/86 02/23/18 21:11 85 140/58 02/23/18 20:00 98.7 85 20 140/58 (85) 02/23/18 17:03 130/50 02/23/18 16:00 98.0 80 16 136/45 (75) 98 02/23/18 13:44 134/45 02/23/18 12:46 134/45 02/23/18 12:00 98.0 84 16 130/50 (76) 98 Intake and Output 02/23/18 02/24/18 18:59 06:59 Intake Total 600 ml Balance 600 ml Intake Oral 600 ml # Voids 1 # Bowel Movements 1 Laboratory Tests 02/23/18 11:45: Sodium Level 133L, Potassium Level 5.1, Chloride Level 97L, Carbon Dioxide Level 27, Anion Gap 9, Blood Urea Nitrogen 38H, Creatinine 6.9H, Estimat Glomerular Filtration Rate 6.0, Glucose Level 294#H, Calcium Level 7.8L 02/24/18 08:10: Sodium Level 133L, Potassium Level 5.3H, Chloride Level 96L, Carbon Dioxide Level 26, Anion Gap 11, Blood Urea Nitrogen 48H, Creatinine 8.7H, Estimat Glomerular Filtration Rate 4.6, Glucose Level 153#H, Calcium Level 8.3L, White Blood Count 8.8, Red Blood Count 2.39L, Hemoglobin 7.3L, Hematocrit 23.7L, Mean Corpuscular Volume 99, Mean Corpuscular Hemoglobin 30.8, Mean Corpuscular Hemoglobin Concent 31.0L, Red Cell Distribution Width 16.4H, Platelet Count 226 , Mean Platelet Volume 6.8, Neutrophils (%) (Auto) , Lymphocytes (%) (Auto) , Monocytes (%) (Auto) , Eosinophils (%) (Auto) , Basophils (%) (Auto) , Differential Total Cells Counted 100, Neutrophils % (Manual) 71, Lymphocytes % ( Manual) 15L, Monocytes % (Manual) 6, Eosinophils % (Manual) 6H, Basophils % ( Manual) 1, Band Neutrophils 1, Platelet Estimate Adequate, Platelet Morphology Normal, Hypochromasia 1+, Anisocytosis 1+ Height (Feet): 5 Height (Inches): 0.00 Weight (Pounds): 126 General Appearance: no apparent distress Objective no change - no further bleed Washington Pavon MD Feb 24, 2018 11:35
[2018-02-24 12:00] VITALS: BP 163/65
[2018-02-24] MEDS: Artificial Tears 1.4% Op Soln BOTH EYES PRN (12:16)
--- NOTE | 2018-02-24 14:26 | NUR ---
NURSE NOTES: Patient is getting dialysis.
--- NOTE | 2018-02-24 15:21 | NUR ---
NURSE NOTES: Dialysis nurse removed, 2.5 liter.
[2018-02-24 16:00] VITALS: BP 146/68
[2018-02-24 17:58] VITALS: BP 146/68
--- NOTE | 2018-02-24 19:24 | NUR ---
NURSE NOTES: Patient discharged around 1849, IV access removed, name tag removed. Patient's belongings given to patient, also the safe box money given by nursing supervisor photocomposition, Bonnie and the security office, the yellow receipt given to patient. Surgical dressing on the left upper are changed and picture taken upon discharge. The medication that patient to take home given to patient; belongings signed by discharging nurse and patient upon discharge. Patient is accompanied by family upon discharge. Patient is stable upon discharge. Patient is accompanied by RN and family to the lobby, pt taken by wheel chair. Swaps done for MRSA, since patient is dialysis patient.
--- NOTE | 2018-02-24 20:03 | NUR ---
NURSE NOTES: Swaps for MRSA nare for hemodialyis patient sent to lab.
--- NOTE | 2018-02-24 20:58 | General Progress Note ---
Assessment/Plan Assessment/Plan # Anemia of chronic disease due to underlying chronic medical issues, esrd, multifactorial --> Anemia w/u has been reviewed and ferritin is 1269 --> No evidence of hemolysis is noted, peripheral smear has been reviewed. --> Hgb goal >7. Transfuse prn. --> Epogen given esrd --> fistula bleeding also contributing 1/3, currently improved/resolved # Leukocytosis is due to Septic shock, high Lactic acid, has vre --> cultures are pending, sensitivities --> is s/p multiple antibiotics, in past seen by ID --> peripheral smear has been reviewed, neg for abnml --> imaging reviewed and shows anorectal thickening --> wbc trend 31k-->20k-->9.4 # Coagulopathy that has worsened with inr 2.9-_>1-->1 --> current inr has improved markedly # ESRD on HD for 2 years, has left arm fistula --> fistula revisted, --> epogen as per neprho --> HD as required # DM --> a1c goal <7 # CAD, elevated Troponin --> Patient will need life vest and possible ICD in future - has been ordered and approved, awaiting delivery --> May need ICD in future The timing of this note does not necessarily reflect the time of the patient was seen Greatly appreciate consultation! Subjective Constitutional: Denies: no symptoms, chills, diaphoresis, fever, malaise, weakness, other HEENT: Denies: no symptoms, eye pain, blurred vision, tearing, double vision, ear pain, ear discharge, nose pain, nose congestion, throat pain, throat swelling, mouth pain, mouth swelling, other Cardiovascular: Denies: no symptoms, chest pain, edema, irregular heart rate, lightheadedness, palpitations, syncope, other Respiratory: Denies: no symptoms, cough, orthopnea, shortness of breath, SOB with excertion, SOB at rest, sputum, stridor, wheezing, other Gastrointestinal/Abdominal: Denies: no symptoms, abdomen distended, abdominal pain, black stools, tarry stools, blood in stool, constipated, diarrhea, difficulty swallowing, nausea, poor appetite, poor fluid intake, rectal bleeding , vomiting, other Genitourinary: Denies: no symptoms, burning, discharge, frequency, flank pain, hematuria, incontinence, pain, urgency, other Neurologic/Psychiatric: Denies: no symptoms, anxiety, depressed, emotional problems, headache, numbness, paresthesia, pre-existing deficit, seizure, tingling, tremors, weakness, other Endocrine: Denies: no symptoms, excessive sweating, flushing, intolerance to cold, intolerance to heat, increased hunger, increased thirst, increased urine, unexplained weight gain, unexplained weight loss, other Hematologic/Lymphatic: Denies: no symptoms, anemia, easy bleeding, easy bruising, other Allergies: Coded Allergies: NO KNOWN DRUG ALLERGIES (Verified Allergy, Unknown, 01/29/18) Subjective 02/19/18 Pt is seen in the room, has a bleed from fistula and IV site, currently stopped, received HD today 02/20/18 Pt is awake and resting in bed, malfunction av shunt with clots, pending arm duplex, plan for revision av shunt and permcath in OR ,CT head negative, plt low, pending labs. 03/03/18: to have surgery this am, npo after mn, no events otherwise, plan for revision av shunt and permcath in OR once all cleared 02/22/18: S/P Left arm av shunt revision (ligation of forearm shunt and new left upper basilic vein transposition avf) and dialysis cath replacement (new right ij permcath and removal of du cath), hgb 8.7, HD planned today 02/23: pt awake alert, no distress. no sob. pt asking when she's gonna be going home still bue edema but more prominent on the left 02/24: Pt is awake and alert, resting and comfortable, no events reported. Objective Last 24 Hour Vital Signs Date Time Temp Pulse Resp B/P (MAP) Pulse Ox O2 Delivery O2 Flow Rate FiO2 02/24/18 17:58 146/68 02/24/18 16:00 99.0 93 18 146/68 (94) 98 02/24/18 12:00 97.8 96 18 163/65 (97) 99 02/24/18 08:00 Room Air 02/24/18 08:00 97.7 94 18 147/58 (87) 99 02/24/18 05:14 153/71 02/24/18 04:00 98.2 90 20 153/71 (98) 97 02/24/18 00:00 98.0 80 20 120/68 (85) 02/23/18 22:00 140/86 02/23/18 21:11 85 140/58 Intake and Output 02/23/18 02/24/18 19:00 07:00 Intake Total 600 ml Balance 600 ml Intake Oral 600 ml # Voids 1 # Bowel Movements 1 Laboratory Tests 02/24/18 08:10: White Blood Count 8.8, Red Blood Count 2.39L, Hemoglobin 7.3L, Hematocrit 23.7L , Mean Corpuscular Volume 99, Mean Corpuscular Hemoglobin 30.8, Mean Corpuscular Hemoglobin Concent 31.0L, Red Cell Distribution Width 16.4H, Platelet Count 226, Mean Platelet Volume 6.8, Neutrophils (%) (Auto) , Lymphocytes (%) (Auto) , Monocytes (%) (Auto) , Eosinophils (%) (Auto) , Basophils (%) (Auto) , Differential Total Cells Counted 100, Neutrophils % ( Manual) 71, Lymphocytes % (Manual) 15L, Monocytes % (Manual) 6, Eosinophils % ( Manual) 6H, Basophils % (Manual) 1, Band Neutrophils 1, Platelet Estimate Adequate, Platelet Morphology Normal, Hypochromasia 1+, Anisocytosis 1+, Sodium Level 133L, Potassium Level 5.3H, Chloride Level 96L, Carbon Dioxide Level 26, Anion Gap 11, Blood Urea Nitrogen 48H, Creatinine 8.7H, Estimat Glomerular Filtration Rate 4.6, Glucose Level 153#H, Calcium Level 8.3L Height (Feet): 5 Height (Inches): 0.00 Weight (Pounds): 126 Objective General Appearance: no apparent distress, alert HEENT: normocephalic, atraumatic, anicteric Neck: non-tender, normal alignment, supple, normal inspection Respiratory/Chest: chest wall non-tender, lungs clear, normal breath sounds CV: normal peripheral pulses, normal rate, regular rhythm Abdomen: normal bowel sounds, non tender, soft, no organomegaly, no mass Extremities: normal range of motion, non-tender, normal inspection, no calf tenderness, bue edeam Skin Exam: normal pigmentation, warm/dry Neurologic: instrument tech II-XII grossly normal, no motor/sensory deficits, alert, oriented x 3, responsive, normal mood/affect Toribio Suárez MD Feb 24, 2018 20:58
== END 2018-02-24 19:00 | disposition home or self-care (01) | DRG 405 ==
LOC: EMR 09:21 → EDBEDREQ 10:24 → EDBEDREQSVC 10:38 → EDBEDREQ 10:38 → 2E 10:50 → EDBEDREQ 10:52 → EDBEDREQSVC 10:52 → EDBEDREQ 11:02 → 2W 16:58 → 4E 02-13 16:30
PROC: 5A1D70Z Performance of Urinary Filtration, Intermittent, Less than 6 Hours Per Day (ICD-10-PCS; principal; 2018-02-11)
PROC: 03LY0ZZ Occlusion of Upper Artery, Open Approach (ICD-10-PCS; 2018-02-21)
PROC: 02HV33Z Insertion of Infusion Device into Superior Vena Cava, Percutaneous Approach (ICD-10-PCS; 2018-02-21)
PROC: 05PY33Z Removal of Infusion Device from Upper Vein, Percutaneous Approach (ICD-10-PCS; 2018-02-21)
PROC: 03180ZD Bypass Left Brachial Artery to Upper Arm Vein, Open Approach (ICD-10-PCS; 2018-02-21)
DX: E87.5 Hyperkalemia (principal); E11.00 Type 2 diabetes mellitus with hyperosmolarity without nonketotic hyperglycemic-hyperosmolar coma (NKHHC); I13.2 Hypertensive heart and chronic kidney disease with heart failure and with stage 5 chronic kidney disease, or end stage renal disease; A41.9 Sepsis, unspecified organism; N18.6 End stage renal disease; E11.22 Type 2 diabetes mellitus with diabetic chronic kidney disease; D68.9 Coagulation defect, unspecified; T82.318A Breakdown (mechanical) of other vascular grafts, initial encounter; I44.1 Atrioventricular block, second degree; I50.23 Acute on chronic systolic (congestive) heart failure; Z99.2 Dependence on renal dialysis; Z79.4 Long term (current) use of insulin; Z91.15 Patient's noncompliance with renal dialysis; I25.10 Atherosclerotic heart disease of native coronary artery without angina pectoris; E87.70 Fluid overload, unspecified; R11.0 Nausea; D63.1 Anemia in chronic kidney disease; R20.0 Anesthesia of skin; T82.838A Hemorrhage due to vascular prosthetic devices, implants and grafts, initial encounter
CPT/HCPCS: 36415; 36569; 70450; 70551; 71045; 76001; 76937; 80048; 80053; 80061; 80076; 80202; 82140; 82248; 82550; 82553; 82607; 82728; 82746; 82962; 82977; 83036; 83540; 83550; 83605; 83735; 83880; 84100; 84132; 84443; 84484; 84550; 85007; 85025; 85610; 85730; 86140; 86703; 86705; 86709; 86710; 86803; 86850; 86900; 86901; 87040; 87081; 87340; 93005; 93306; 93930; 93970; 93990; 94003; 94150; 96374; 96375; 99285; J1815; J2250; J2405

== ENCOUNTER 2018-02-27 16:22 | Emergency (ER) | payer MEDICAID ==
[~2018-02-27] VITALS: Ht 152.4 cm; Wt 52.2 kg
--- NOTE | 2018-02-27 16:35 | NUR ---
ED Nurse Note: pt from home c/o due to dialysis access bleeding and pain for 3 days. new access inserted last Wednesday from here
[2018-02-27 16:39] VITALS: BP 175/75
--- NOTE | 2018-02-27 17:14 | Emergency Room Report ---
History of Present Illness General Chief Complaint: General Complaint Source: Patient Present Illness HPI Patient is a 62-year-old female who presented after increased left upper extremity bleeding. Patient had recent surgical procedure to place dialysis access. Patient had dialysis yesterday. She reports having some continued bleeding from the wound. Patient had prior history of hypertension. She reportedly been taking multiple medications. She reportedly had been taking heparin during dialysis but denies other anticoagulation at this time.Patient denies any fever. She denies any discharge from the wound. She is been changing the dressings daily. Allergies: Coded Allergies: NO KNOWN DRUG ALLERGIES (Verified Allergy, Unknown, 01/29/18) Patient History Past Medical History: see triage record Reviewed Nursing Documentation: PMH: Agreed; PSxH: Agreed Nursing Documentation-PMH Hx Cardiac Problems: Yes Hx Hypertension: Yes Hx Pacemaker: No Hx Asthma: No Hx COPD: No Hx Diabetes: Yes Hx Cancer: No Hx Gastrointestinal Problems: Yes Hx Dialysis: Yes - tue, thur, sat Hx Neurological Problems: No Hx Cerebrovascular Accident: No Hx Seizures: No Review of Systems All Other Systems: negative except mentioned in HPI Physical Exam Vital Signs Date Time Temp Pulse Resp B/P (MAP) Pulse Ox O2 Delivery O2 Flow Rate FiO2 02/27/18 16:28 98.2 94 18 175/75 99 Sp02 EP Interpretation: reviewed, normal General Appearance: normal inspection, well appearing, no apparent distress, alert, Chronically Ill Head: atraumatic ENT: normal ENT inspection, hearing grossly normal, normal voice Neck: normal inspection, full range of motion, supple, no bony tend Respiratory: normal inspection, lungs clear, normal breath sounds, no respiratory distress, no retraction, no wheezing Cardiovascular #1: regular rate, rhythm, no edema Gastrointestinal: normal inspection, normal bowel sounds, non tender, soft, no guarding, no hernia Genitourinary: no CVA tenderness Musculoskeletal: normal inspection, back normal, normal range of motion Neurologic: normal inspection, alert, responsive, speech normal Psychiatric: normal inspection, judgement/insight normal, mood/affect normal Skin: normal color, no rash, other - some bruising to extremity, palpable thrill to left upper extremity, slight oozing from center of the incision. Motor intact Medical Decision Making Diagnostic Impression: Primary Impression: Postoperative bleeding from incision ER Course . Patient presented for bleeding from her surgical incision. Differential diagnosis include was not limited to anemia, coagulopathy, uncontrolled hypertension among others. Patient has a benign exam and does not appear to require any further imaging or laboratory testing at this time. Patient does not appear to have any evidence of significant bleeding from her surgical incision. Staple line appears to be clean and does not appear to be infected. There is a small area near the center of the wound with some slight increased bleeding. Direct pressure was held for approximately 5 minutes. Surgicel was applied. Bleeding was controlled with direct pressure and a sterile dressing was applied.Patient was advised to follow-up with Dr. Siu for recheck of her wound in 3 days.The patient is advised to follow up with primary care doctor in status that are concerning. This report is dictated with [employer] civilian [employer] officer software which may occasionally lead to discrepancies related to use of this software. EKG Diagnostic Results Rate: normal Rhythm: NSR ST Segments: no acute changes Last Vital Signs Date Time Temp Pulse Resp B/P (MAP) Pulse Ox O2 Delivery O2 Flow Rate FiO2 02/27/18 16:49 166/125 02/27/18 16:39 94 18 02/27/18 16:39 98.2 99 Status: improved Disposition: HOME, SELF-CARE Condition: Stable Cornel Salinas MD Feb 27, 2018 17:14
[2018-02-27] MEDS ORDERED: Surgicel 4in x 8in TOPIC ONE (17:15)
[2018-02-27 17:46] VITALS: BP 159/59
--- NOTE | 2018-02-27 17:54 | NUR ---
ED Nurse Note: Pt cleared DC by CHRIS. Pt is AO [id number], VSS, on room air no distress. ID band removed. Belongings given to Pt. patient ambulated out of ED with her family member steady gait with all belongings. Discharge instructions/ papers/ given to Pt, Pt verbalized understanding. pt's dresing changed as Dr. Salinas ordered, clean, dry, intact. patient has appt with surgeon to follow up
== END 2018-02-27 17:48 | disposition home or self-care (01) ==
LOC: EMR 16:50
DX: L76.22 Postprocedural hemorrhage of skin and subcutaneous tissue following other procedure (principal); E11.9 Type 2 diabetes mellitus without complications; I10 Essential (primary) hypertension; Z99.2 Dependence on renal dialysis
CPT/HCPCS: 99283

== ENCOUNTER 2018-03-04 21:36 | Inpatient (IN) | payer MEDICAID ==
[~2018-03-04] VITALS: Ht 152.4 cm; Wt 57.6 kg
[2018-03-04 22:20] VITALS: BP 152/66
--- NOTE | 2018-03-04 22:22 | NUR ---
ED Nurse Note: Patient presents to ED c/o abnormal labs. Patient states she has dialysis T-TH-S. Patient has dialysis shunt in upper left arm. Patient states [facility] called her at 1900 to go to the ED due to Hgb being 5.7. Patient states she feels dizzy. Patient has no other medical complaints at this time. Patient AOx4, VSS, ambulatory with steady gait, no s/s of acute distress noted at this time. Patient reports slight cough for 2x days. Patient last went to dialysis on 03/03/2018. Patient seen by CHRIS at bedside.
--- NOTE | 2018-03-04 22:28 | Diagnostic Imaging Report ---
EXAM: XR Chest, 1 View CLINICAL HISTORY: SOB TECHNIQUE: Frontal view of the chest. COMPARISON: No relevant prior studies available. FINDINGS: Lungs: Accentuation of bronchovascular markings. Pleural space: Unremarkable. No pneumothorax. Heart: Large cardiomediastinal silhouette. Mediastinum: See above. Bones/joints: No acute fracture. Soft tissues: Skin jose j in the left upper extremity. Tubes, lines and devices: Central line in the right atrium. IMPRESSION: Accentuation of bronchovascular markings. Presumably from vascular congestion and interstitial edema. There is a broader differential.
--- NOTE | 2018-03-04 23:00 | NUR ---
ED Nurse Note: Patient has jose j on left upper arm where dialysis shunt is placed. All other skin appears intact.
[2018-03-04 23:29] LABS: HEMATOCRIT 18.7 % (37.0-47.0); MEAN CORPUSCULAR VOLUME 98 FL (80-99); PLATELET COUNT 194 K/UL (150-450); RED CELL DISTRIBUTION WIDTH 18.6 % (11.6-14.8)
[2018-03-04 23:31] LABS: HEMOGLOBIN 6.1 G/DL (12.0-16.0)
[2018-03-04 23:44] LABS: INR 1.2 (0.9-1.1)
[2018-03-04 23:50] LABS: ANION GAP 10 mmol/L (5-15); BLOOD UREA NITROGEN 39 mg/dL (7-18); CALCIUM 8.4 MG/DL (8.5-10.1); CARBON DIOXIDE 31 MMOL/L (21-32); CHLORIDE 94 MMOL/L (98-107); CREATININE 6.3 MG/DL (0.55-1.30); POTASSIUM 4.4 MMOL/L (3.5-5.1); SODIUM 135 MMOL/L (136-145)
[2018-03-05] VITALS (7 sets, daily range): BP systolic 91–169; BP diastolic 54–85
[2018-03-05 00:03] LABS: ALANINE AMINOTRANSFERASE 33 U/L (12-78); ALBUMIN/GLOBULIN RATIO 0.7 (1.0-2.7); ALKALINE PHOSPHATASE 207 U/L (46-116); ASPARTATE AMINO TRANSFERASE 57 U/L (15-37); BILIRUBIN,TOTAL 0.6 MG/DL (0.2-1.0); CKMB 0.6 NG/ML (0.0-3.6); CREATINE KINASE 66 U/L (26-308)
[2018-03-05] MEDS ORDERED: Insulin Human Regular 100units/ml 3ml SUBQ ONE (00:15)
--- NOTE | 2018-03-05 01:13 | Emergency Room Report ---
History of Present Illness General Chief Complaint: Abnormal Labs Source: Patient Present Illness HPI 62-year-old female presents ED for evaluation. Patient states that she was told by her PMD to come in for low hemoglobin. States her hemoglobin was 5.5 on blood work done this week. History of end-stage renal disease on dialysis. States she is compliant with his dialysis. Denies any active bleeding. Denies any dizziness or weakness. Denies chest pain or shortness of breath. No other aggravating relieving factors. Denies any other associated symptoms Allergies: Coded Allergies: NO KNOWN DRUG ALLERGIES (Verified Allergy, Unknown, 01/29/18) Patient History Past Medical History: DM, HTN, renal disease, dialysis Past Surgical History: none Pertinent Family History: none Social History: Denies: smoking, alcohol use, drug use Last Menstrual Period: 2 decades ago Now: No Immunizations: UTD Reviewed Nursing Documentation: PMH: Agreed; PSxH: Agreed Nursing Documentation-PMH Hx Cardiac Problems: Yes Hx Hypertension: Yes Hx Pacemaker: No Hx Asthma: No Hx COPD: No Hx Diabetes: Yes Hx Cancer: No Hx Gastrointestinal Problems: Yes Hx Dialysis: Yes - tue, thur, sat Hx Neurological Problems: No Hx Cerebrovascular Accident: No Hx Seizures: No Review of Systems All Other Systems: negative except mentioned in HPI Physical Exam Vital Signs Date Time Temp Pulse Resp B/P (MAP) Pulse Ox O2 Delivery O2 Flow Rate FiO2 03/04/18 21:53 98.1 86 16 152/66 95 Room Air Sp02 EP Interpretation: reviewed, normal General Appearance: no apparent distress, alert, GCS 15, non-toxic Head: normocephalic, atraumatic Eyes: bilateral eye normal inspection, bilateral eye PERRL ENT: hearing grossly normal, normal pharynx, no angioedema, normal voice Neck: full range of motion, supple/symm/no masses Respiratory: chest non-tender, lungs clear, normal breath sounds, speaking full sentences Cardiovascular #1: regular rate, rhythm, no edema Cardiovascular #2: 2+ carotid (R), 2+ carotid (L), 2+ radial (R), 2+ radial (L) , 2+ dorsalis pedis (R), 2+ dorsalis pedis (L) Gastrointestinal: normal bowel sounds, non tender, soft, non-distended, no guarding, no rebound Rectal: deferred Genitourinary: normal inspection, no CVA tenderness Musculoskeletal: back normal, gait/station normal, normal range of motion, non- tender Neurologic: alert, oriented x3, responsive, motor strength/tone normal, sensory intact, speech normal Psychiatric: judgement/insight normal, memory normal, mood/affect normal, no suicidal/homicidal ideation Reflexes: 3+ bicep (R), 3+ bicep (L), 3+ tricep (R), 3+ tricep (L), 3+ knee (R) , 3+ knee (L) Skin: normal color, no rash, warm/dry, well hydrated Lymphatic: no adenopathy Medical Decision Making Diagnostic Impression: Primary Impression: Anemia in chronic kidney disease Qualified Codes: N18.9 - Chronic kidney disease, unspecified; D63.1 - Anemia in chronic kidney disease Additional Impression: ESRD on dialysis ER Course Hospital Course 62-year-old female presents to ED for evaluation of possible anemia, with possible transfusion Differential diagnoses include: anemia requiring transfusion, microcytic anemia , macrocytic anemia, heavy blood loss Clinical course Patient placed on stretcher. After initial history and physical I ordered labs , EKG, CXR Labs- hemoglobin/hematocrit 6.1/18.7. BUN/cr elevated, trop 0.205 EKG - NSR, twave inversions in lateral leads CXR - cardiomegaly, bilateral congestion Patient has no chest pain. Likely troponin leak because of ESRD PRBCs ordered Case discussed with PMD Dr. Warren who agreed that patient does not require transfusion at this time but should be admitted for repeat lab work. Diagnosis - anemia in CKD, ESRD on dialysis Admitted to telemetry in serious condition Labs Test 03/04/18 22:15 White Blood Count 6.0 K/UL (4.8-10.8) Red Blood Count 1.90 M/UL (4.20-5.40) Hemoglobin 6.1 G/DL (12.0-16.0) Hematocrit 18.7 % (37.0-47.0) Mean Corpuscular Volume 98 FL (80-99) Mean Corpuscular Hemoglobin 32.1 PG (27.0-31.0) Mean Corpuscular Hemoglobin Concent 32.6 G/DL (32.0-36.0) Red Cell Distribution Width 18.6 % (11.6-14.8) Platelet Count 194 K/UL (150-450) Mean Platelet Volume 6.8 FL (6.5-10.1) Neutrophils (%) (Auto) % (45.0-75.0) Lymphocytes (%) (Auto) % (20.0-45.0) Monocytes (%) (Auto) % (1.0-10.0) Eosinophils (%) (Auto) % (0.0-3.0) Basophils (%) (Auto) % (0.0-2.0) Differential Total Cells Counted 100 Neutrophils % (Manual) 65 % (45-75) Lymphocytes % (Manual) 26 % (20-45) Monocytes % (Manual) 7 % (1-10) Eosinophils % (Manual) 2 % (0-3) Basophils % (Manual) 0 % (0-2) Band Neutrophils 0 % (0-8) Platelet Estimate Adequate Platelet Morphology Normal Anisocytosis 1+ Prothrombin Time 12.1 SEC (9.30-11.50) Prothromb Time International Ratio 1.2 (0.9-1.1) Activated Partial Thromboplast Time 23 SEC (23-33) Sodium Level 135 MMOL/L (136-145) Potassium Level 4.4 MMOL/L (3.5-5.1) Chloride Level 94 MMOL/L (98-107) Carbon Dioxide Level 31 MMOL/L (21-32) Anion Gap 10 mmol/L (5-15) Blood Urea Nitrogen 39 mg/dL (7-18) Creatinine 6.3 MG/DL (0.55-1.30) Estimat Glomerular Filtration Rate 6.7 mL/min (>60) Glucose Level 216 MG/DL (74-106) Calcium Level 8.4 MG/DL (8.5-10.1) Total Bilirubin 0.6 MG/DL (0.2-1.0) Aspartate Amino Transf (AST/SGOT) 57 U/L (15-37) Alanine Aminotransferase (ALT/SGPT) 33 U/L (12-78) Alkaline Phosphatase 207 U/L (46-116) Total Creatine Kinase 66 U/L (26-308) Creatine Kinase MB 0.6 NG/ML (0.0-3.6) Creatine Kinase MB Relative Index 0.9 Troponin I 0.205 ng/mL (0.000-0.056) Pro-B-Type Natriuretic Peptide > 27905 pg/mL (0-125) Total Protein 7.2 G/DL (6.4-8.2) Albumin 3.0 G/DL (3.4-5.0) Globulin 4.2 g/dL Albumin/Globulin Ratio 0.7 (1.0-2.7) EKG Diagnostic Results Rate: normal Rhythm: NSR ST Segments: other - twave inversions in lateral leads ASA given to the pt in ED: No Rhythm Strip Diag. Results EP Interpretation: yes Rhythm: NSR, no PVC's, no ectopy Chest X-Ray Diagnostic Results Chest X-Ray Diagnostic Results : Chest X-Ray Ordered: Yes # of Views/Limited/Complete: 1 View Indication: Other EP Interpretation: Yes Interpretation: no consolidation, no pneumothorax, other - bialteral vascular congestion Impression: Other - chf Electronically Signed by: Electronically signed by Ricco Aquino MD Last Vital Signs Date Time Temp Pulse Resp B/P (MAP) Pulse Ox O2 Delivery O2 Flow Rate FiO2 03/04/18 21:53 98.1 86 16 152/66 95 Room Air Status: improved Disposition: ADMITTED INPATIENT Condition: Serious Referrals: Jaime Levine MD (PCP) Ricco Aquino MD Mar 05, 2018 01:13
--- NOTE | 2018-03-05 01:30 | NUR ---
ED Nurse Note: Patient signed consent form for blood transfusion.
--- NOTE | 2018-03-05 01:45 | NUR ---
ED Nurse Note: Patient requests zofran for nausea and cough medicine for her cough. ERMD aware and to order medication.
--- NOTE | 2018-03-05 02:00 | NUR ---
ED Nurse Note: Blood transfusion started.
[2018-03-05] MEDS ORDERED: Promethazine/Codeine 5ml UD ORAL ONE (02:15)
--- NOTE | 2018-03-05 02:45 | NUR ---
ED Nurse Note: Patient transferred to telemetry unit. Patient AOx4, VSS, ambulatory with steady gait, no s/s of acute distress noted at this time. patient sent with all personal belongings. Patient transferred on gurney, connected to air sampling and monitoring, by social staff worker and maintenance mechanic technician. Patient tolerated transfer well. Patient report given to Sana BURCH at bedside.
--- NOTE | 2018-03-05 03:00 | NUR ---
NURSE NOTES: Pt came to 2E vis roxana without incident. 1Unit of PRBC is running at 140ml/hr, no s/s of reaction noted. No respiratory distress in RA. cardiac monitor is applied and belongings checked. Safety measures are applied w/ bed alarm on, bed in lowest position w/ side rails up x2, and breaks are engaged. Call light and side table are w/in reach. Will call PCP for admission orders and continue to monitor pt. Addendum: 03/05/18 at 0355 by ODALYS CASTREJON RN Dr. Lala placed orders of Full nette, CCHO med. diet, SCDs, Insulin standard sliding scale TID AC, Zofran 4mg PO Q4R, Tylenol 650 mg Q4HR, post transfusion CBC. Doctor to place rest of the orders in the morning. Will carry out the orders. Addendum: 03/05/18 at 0447 by ODALYS CASTREJON RN Zofran 4mg IVP Q4HR, not PO.
--- NOTE | 2018-03-05 06:00 | NUR ---
NURSE NOTES: Called at and left message to PCP that BP is high, SBP 161, but med to be given in eMAR. Awaiting call back.
[2018-03-05] MEDS: NovoLOG Insulin Flexpen SUBQ SCH ×4 (06:15→21:00)
--- NOTE | 2018-03-05 07:30 | NUR ---
NURSE NOTES: Received bedside report from Sana Gómez RN. Pt. in bed, a/o x 4. No sign of distress. C/O mild back pain. Noted with right upper perm cath with dry dressing in placed. Also noted with left upper arm av shunt wrapped with kerlix. IV site at right FA #20g. in placed SL. Bed in low position, locked. Call light within reach. Will cont. to monitor.
--- NOTE | 2018-03-05 07:30 | NUR ---
HAND-OFF: Report given to MARCIN Monique.Pt is in 3L NC.
[2018-03-05 07:38] LABS: HEMATOCRIT 22.8 % (37.0-47.0); MEAN CORPUSCULAR VOLUME 97 FL (80-99); PLATELET COUNT 182 K/UL (150-450); RED BLOOD COUNT 2.35 M/UL (4.20-5.40); WHITE BLOOD COUNT 6.9 K/UL (4.8-10.8)
[2018-03-05 07:40] LABS: HEMOGLOBIN 7.4 G/DL (12.0-16.0)
--- NOTE | 2018-03-05 08:13 | NUR ---
CASE MANAGEMENT: INITIAL REVIEW 03/04/2018 62 YO F PRESENTED TO OUR ED FROM [facility]IAL[facility] CC: ABNORMAL LABS PMHx: ESRD. DM. HTN. HD TTHS. SI:ANEMIA. ESRD. T 98.1 HR 86 RR 16 B/P 152/66 SATS 95% ON RA HGB 6.1 HCT 18.7 NA 135 CL 94 BUN 39 CR 6.3 GLUCOSE 216 CA 8.4 AST 57 ALP 207 TROPONIN 0.205 BNP >35k IS: CXR IMPRESSION: Accentuation of bronchovascular markings. Presumably from vascular congestion and interstitial edema. There is a broader differential. PATIENT TO BE DISCHARGED TO TELE 03/04/2018 @ 2256 DCP: PATIENT TO BE DISCHARGED TO HOME ONCE MEDICALLY CLEARED. PLAN OF CARE: TRANSFUSE 1 UNIT PRBCs 03/05/2018 SI:ANEMIA. ESRD. T 97.4 HR 85 RR 16 B/P 150/74 SATS 100% ON RA HGB 7.4 HCT 22.8 IS: INSULIN ASPART SUBQ AC/HS TELE STATUS DCP: PATIENT TO BE DISCHARGED TO HOME ONCE MEDICALLY CLEARED. PLAN OF CARE: MONITOR H/H Addendum: 03/05/18 at 1419 by Anne Mcgill CM INTERQUAL MET FOR ACUTE
--- NOTE | 2018-03-05 10:59 | General Progress Note ---
Advance Care Planning Advance Care Planning Advance Care Planning [facility] An independent Hospitalist group, where every patient is our [facility] Internal Medicine Hospitalist Advanced Care Planning Note Please contact us at Date of Discussion: A [id number] discussion with the patient regarding the patient's advanced care planning took place during this hospitalization on the above date. The discussion included the explanation and discussion of advance directives and associated forms/documents, as well as the patient's current code status. We also discussed at length the patient's medical conditions (both acute and chronic), general prognosis, treatment options, and goals of care. The following summarizes the discussion: Advance Care Planning/Goals of Care: - Will attempt to fill out an AD and/or POLST with the patient prior to discharge, if not already completed - Continue current evaluation and management of any acute and chronic medical issues - Will continue to support the patient/family - Will continue to discuss both short- and long-term goals of care DPOA-HC/Surrogate Decision Maker: None currently appointed Code Status: Full Code Advanced Care Planning Forms/Documents Completed: Deferred until later encounter/visit A total of 35 minutes was spent on this discussion, including counseling, answering questions, and completing, if any, pertinent advanced care planning forms/documents. Time of note may not reflect time of encounter. Jesús Low MD Mar 05, 2018 10:59
--- NOTE | 2018-03-05 10:59 | History & Physical ---
History of Present Illness General Date patient seen: Mar 05, 2018 Time patient seen: 10:51 Reason for Hospitalization: Abnormal Labs Present Illness HPI 62 yo female with h/o esrd on HD, chf, presents due to concerns of anemia. Patient was noted to have hgb 5.5 outpatient and was sent by pcp to ED for transfusion and workup. Patient states she is compliant with HD. denies any active bleeding. denies any cp/sob, denies cp or sob. Does admit to feeling a bit weak but no dizziness. social hx reviewed, denies any smoking, drugs or alcohol use past fam hx reviewed, denies any sig past fam hx that she is aware of code status reviewed, full code. Allergies: Coded Allergies: NO KNOWN DRUG ALLERGIES (Verified Allergy, Unknown, 01/29/18) Medication History Scheduled Aspirin* (Aspir 81*), 81 MG ORAL DAILY, (Reported) Atorvastatin (Lipitor), 80 MG ORAL BEDTIME Bisacodyl* (Dulcolax*), 5 MG ORAL DAILY, (Reported) Carvedilol (Coreg), 12.5 MG ORAL EVERY 12 HOURS Cinacalcet* (Sensipar*), 30 MG ORAL DAILY, (Reported) Clopidogrel* (Clopidogrel*), 75 MG ORAL DAILY, (Reported) Docusate Sodium* (Docusate Sodium*), 100 MG ORAL TWICE A DAY, (Reported) Famotidine (Famotidine), 20 MG ORAL DAILY, (Reported) Glipizide* (Glipizide*), 5 MG ORAL BIDAC, (Reported) Hydralazine Hcl* (Hydralazine Hcl*), 75 MG ORAL Q8HR Insulin Glargine (Lantus), 0 SUBQ BEDTIME, (Reported) Isosorbide Dinitrate* (Isordil*), 20 MG ORAL TID Levofloxacin* (Levofloxacin*), 750 MG ORAL DAILY Lisinopril (Lisinopril*), 20 MG ORAL DAILY, (Reported) Lisinopril (Lisinopril*), 5 MG ORAL Q12HR Sevelamer Hcl (Renagel), 800 MG ORAL THREE TIMES A DAY, (Reported) Scheduled PRN Ondansetron* (Zofran*), 4 MG ORAL Q6H PRN for Nausea & Vomiting, (Reported) Patient History History Provided By: Patient, Medical Record Healthcare decision maker Resuscitation status Full Code Advanced Directive on File Review of Systems Review of Symptoms General ROS: no weight loss or fever Psychological ROS: no depression or mood changes, no memory loss Ophthalmic ROS: no visual changes or eye irritation ENT ROS: no nasal congestion, hearing loss, dizziness Allergy and Immunology ROS: no allergic symptoms or urticaria Hematological and Lymphatic ROS: no swollen glands, unusual bleeding or bruising Endocrine ROS: no polyuria, polydipsia, weight changes, temperature intolerance Respiratory ROS: no cough, shortness of breath, or wheezing Cardiovascular ROS: no chest pain or dyspnea on exertion Gastrointestinal ROS: denies abdominal pain, bright red blood in stool. Musculoskeletal ROS: no myalgias or arthralgias Neurological ROS: no TIA or stroke symptoms Dermatological ROS: no new or changing skin lesions, rashes or pruritis Physical Exam Physical Exam General appearance: alert, cooperative, no distress, appears stated age Head: Normocephalic, without obvious abnormality, atraumatic Eyes: conjunctivae/corneas clear. PERRL, EOM's intact. Fundi benign Throat: Lips, mucosa, and tongue normal. Teeth and gums normal Neck: supple, symmetrical, trachea midline, no adenopathy, thyroid: not enlarged, symmetric, no tenderness/mass/nodules, no carotid bruit and no JVD Lungs: clear to auscultation bilaterally Heart: regular rate and rhythm, S1, S2 normal, no murmur, click, rub or gallop Abdomen: soft, non-tender. Bowel sounds normal. No masses, no organomegaly Extremities: extremities normal, atraumatic, no cyanosis or edema Pulses: 2+ and symmetric Skin: Skin color, texture, turgor normal. No rashes or lesions Neurologic: Grossly normal Last 24 Hour Vital Signs Date Time Temp Pulse Resp B/P (MAP) Pulse Ox O2 Delivery O2 Flow Rate FiO2 03/05/18 08:00 98.0 90 21 169/85 (113) 99 03/05/18 05:07 Room Air 03/05/18 03:52 81 03/05/18 03:00 98.6 85 18 153/76 (101) 92 03/05/18 02:45 97.4 85 16 150/74 100 Room Air 03/05/18 02:45 97.4 85 16 150/74 100 Room Air 03/05/18 02:00 97.6 81 16 156/61 99 Room Air 03/05/18 02:00 97.6 81 16 03/04/18 22:20 98.1 86 16 152/66 95 Room Air 03/04/18 21:53 98.1 86 16 152/66 95 Room Air Intake and Output 03/04/18 03/05/18 19:00 07:00 Intake Total 250 ml Balance 250 ml Intake Oral 250 ml # Voids 3 Laboratory Tests Test 03/04/18 22:15 03/05/18 07:19 White Blood Count 6.0 K/UL (4.8-10.8) 6.9 K/UL (4.8-10.8) Red Blood Count 1.90 M/UL (4.20-5.40) L 2.35 M/UL (4.20-5.40) L Hemoglobin 6.1 G/DL (12.0-16.0) *L 7.4 G/DL (12.0-16.0) L Hematocrit 18.7 % (37.0-47.0) L 22.8 % (37.0-47.0) L Mean Corpuscular Volume 98 FL (80-99) 97 FL (80-99) Mean Corpuscular Hemoglobin 32.1 PG (27.0-31.0) H 31.6 PG (27.0-31.0) H Mean Corpuscular Hemoglobin Concent 32.6 G/DL (32.0-36.0) 32.5 G/DL (32.0-36.0) Red Cell Distribution Width 18.6 % (11.6-14.8) H 18.0 % (11.6-14.8) H Platelet Count 194 K/UL (150-450) 182 K/UL (150-450) Mean Platelet Volume 6.8 FL (6.5-10.1) 7.3 FL (6.5-10.1) Neutrophils (%) (Auto) % (45.0-75.0) % (45.0-75.0) Lymphocytes (%) (Auto) % (20.0-45.0) % (20.0-45.0) Monocytes (%) (Auto) % (1.0-10.0) % (1.0-10.0) Eosinophils (%) (Auto) % (0.0-3.0) % (0.0-3.0) Basophils (%) (Auto) % (0.0-2.0) % (0.0-2.0) Differential Total Cells Counted 100 Neutrophils % (Manual) 65 % (45-75) Pending Lymphocytes % (Manual) 26 % (20-45) Pending Monocytes % (Manual) 7 % (1-10) Eosinophils % (Manual) 2 % (0-3) Basophils % (Manual) 0 % (0-2) Band Neutrophils 0 % (0-8) Platelet Estimate Adequate Pending Platelet Morphology Normal Pending Anisocytosis 1+ Prothrombin Time 12.1 SEC (9.30-11.50) H Prothromb Time International Ratio 1.2 (0.9-1.1) H Activated Partial Thromboplast Time 23 SEC (23-33) Sodium Level 135 MMOL/L (136-145) L Potassium Level 4.4 MMOL/L (3.5-5.1) Chloride Level 94 MMOL/L (98-107) L Carbon Dioxide Level 31 MMOL/L (21-32) Anion Gap 10 mmol/L (5-15) Blood Urea Nitrogen 39 mg/dL (7-18) H Creatinine 6.3 MG/DL (0.55-1.30) H Estimat Glomerular Filtration Rate 6.7 mL/min (>60) Glucose Level 216 MG/DL (74-106) H Calcium Level 8.4 MG/DL (8.5-10.1) L Total Bilirubin 0.6 MG/DL (0.2-1.0) Aspartate Amino Transf (AST/SGOT) 57 U/L (15-37) H Alanine Aminotransferase (ALT/SGPT) 33 U/L (12-78) Alkaline Phosphatase 207 U/L (46-116) H Total Creatine Kinase 66 U/L (26-308) Creatine Kinase MB 0.6 NG/ML (0.0-3.6) Creatine Kinase MB Relative Index 0.9 Troponin I 0.205 ng/mL (0.000-0.056) Pro-B-Type Natriuretic Peptide > 85290 pg/mL (0-125) H Total Protein 7.2 G/DL (6.4-8.2) Albumin 3.0 G/DL (3.4-5.0) L Globulin 4.2 g/dL Albumin/Globulin Ratio 0.7 (1.0-2.7) L Hemoglobin A1c 5.5 % (4.3-6.0) Height (Feet): 5 Height (Inches): 0.00 Weight (Pounds): 120 Medications Current Medications Medications (Trade) Dose Ordered Sig/Juliocesar Route PRN Reason Start Time Stop Time Status Last Admin Dose Admin Acetaminophen (Tylenol) 650 mg Q4H PRN ORAL Mild Pain (Pain Scale 1-3) 03/05/18 04:00 04/04/18 03:59 03/05/18 10:44 Dextrose (Dextrose 50%) 25 ml Q30M PRN IV Hypoglycemia 03/05/18 05:30 04/04/18 05:29 Dextrose (Dextrose 50%) 50 ml Q30M PRN IV Hypoglycemia 03/05/18 05:30 04/04/18 05:29 Insulin Aspart (NovoLOG) BEFORE MEALS AND HS SUBQ 03/05/18 06:30 04/04/18 06:29 Ondansetron HCl (Zofran) 4 mg EVERY 4 HOURS PRN IVP Nausea & Vomiting 03/05/18 04:00 04/04/18 03:59 03/05/18 07:02 Assessment/Plan Status: stable Assessment/Plan #Anemia of chronic disease requiring transfusion - hgb 6.1 to 7.4 s/p transfusion - hematology consult #ESRD ON HD - hd per nephro - nephro consult #Combined Chronic CHF - Echo from previous visit reviewed LVEF 20% globally - resume home meds - stable DVT Prophylaxis: SCD, avoid ac Code Status: Full Hospital Classification Declaration: Based on this initial evaluation, and depending on the patient's clinical course, I anticipate that this patient will require hospitalization for 2-3 days for anemia eval and hd, hematology consult and close respiratory/hemodynamic monitoring. Disposition: Once the patient is stable to leave the hospital, I anticipate the patient will likely be discharged to the following environment: home I spent 71 minutes on this patient's case, and 41 minutes were dedicated to counseling and/or care coordination. Discussed with patient/family, nursing staff, SW/CM, [] regarding clinical status, treatment course, and disposition planning. Time of note may not reflect time of encounter. MIPS Hospital declaration INPATIENT level of care is warranted for this patient because patient is a 89 year old with who presents with suspicion of . I have a high level of concern because . Patient is at high risk for . Plan of care/treatment include . Patient care is expected to be greater than 2 midnights. OBSERVATION level of care is warranted for this patient. Patient is a 89 year old with who presents with . Patient will be admitted for 1 midnight, but if additional night(s) is/are necessary, patient will be converted to inpatient status for the entire hospitalization Disposition: Once the patient is stable to leave the hospital, I anticipate the patient will likely be discharged to the following environment: Estimated discharge date: I spent 70 minutes on this patient's case, and minutes was dedicated to counseling and/or care coordination. MIPS ([employer]-based Incentive Payment System) Applicable CPT: 52471, 65714 CHECK ALL THAT ARE MET: Measure #5 (CHF): All ages. Prescribe ANTHONY/ARB upon discharge for patients with left ventricular systolic dysfunction. If not, the reason is clearly documented in the medical chart. Measure #8 (CHF): All ages. Prescribe a beta alicja upon discharge for patients with left ventricular systolic dysfunction. If not, the reason is clearly documented in the medical chart. Measure #47 Advance care plan or surrogate decision maker documented in the medical record. Measure #130 The provider has documented, updated, or reviewed the patients current medication list and has documented it in the patients note. Measure #374 (All): Send report to referring provider. Measure #407(Sepsis due to MSSA bacteremia): Age 18+ Patient treated with a beta-lactam antibiotic (Nafcillin, Oxacillin or Cefazolin) as definitive therapy. MEDICAL COMPLEXITY High complexity medical decision making (need 2/3 categories) Problem - need 4 points Acute/new problem with new plan for workup (4 points, 1 max) Acute/new problem without additional workup (3 points, 1 max) Unstable chronic problem actively being managed (2 point each, 2 max) Stable chronic problem actively being managed (1 point each, 2 max) Self-limited/transient process (constipation, muscle ache, etc) (1 point each , 2 max) Data - need 4 points Reviewed labs/imaging studies (1 points, 2 max) Independent review of imaging (EKG, xrays, etc) (2 points, 2 max) Discussed case with consult/other MD/RN (2 points, 2 max) High Risk - qualify if have one of the following: Severe exacerbation of acute problem, acute mental status change, IV narcotics , monitoring drug levels (vancomycin, INR, tacrolimus etc) Jesús Low MD Mar 05, 2018 10:59
--- NOTE | 2018-03-05 12:01 | Consultation ---
Consult Note Consult Note asked to elda nelson dialysis management know to me from her recent 2 admissions 62-year-old female presents ED for evaluation. Patient states that she was told by her PMD to come in for low hemoglobin. States her hemoglobin was 5.5 on blood work done this week. History of end-stage renal disease on dialysis. States she is compliant with his dialysis. Denies any active bleeding. Denies any dizziness or weakness. Denies chest pain or shortness of breath. No other aggravating relieving factors. Denies any other associated symptoms Allergies: Coded Allergies: NO KNOWN DRUG ALLERGIES (Verified Allergy, Unknown, 01/29/18) Assessment/Plan (1) ESRD (end stage renal disease) on dialysis (2) CAD (coronary artery disease) (3) DM hyperosmolarity type II (4) Acute systolic (congestive) heart failure (5) Anemia in chronic kidney disease (6) Diabetes type 2, controlled (7) Cardiomyopathy continue meds anemia quinonez adjust BP and BS meds HD as needed per orders [place] Pavon MD Mar 05, 2018 12:01
[2018-03-05] MEDS: Docusate 100mg cap ORAL SCH ×2 (13:13→18:15)
[2018-03-05] MEDS: HydrALAZINE 25mg tab ORAL SCH ×2 (13:13→21:12)
--- NOTE | 2018-03-05 13:21 | Cardiology Report ---
APPROVED REPORT EKG Measurement Heart [id number] Normal sinus rhythm Anterior infarct, age undetermined Abnormal ECG
[2018-03-05] MEDS ORDERED: Polyethylene Glycol 238gm bottle ORAL SCH (14:00)
[2018-03-05] MEDS ORDERED: Bisacodyl EC 5mg tab ORAL PRN (18:00)
--- NOTE | 2018-03-05 19:37 | NUR ---
HAND-OFF: Report given to Chandler BURCH. Pt. remain stable.
--- NOTE | 2018-03-05 19:38 | NUR ---
NURSE NOTES: Got report from Kayden RN. Pt in stable condition. Denies any pain or discomfort. Pt resting in bed comfortably. No s/s of distress or discomfort noted. Call light within reach, bedside table within reach, bed in low and locked position. Continue to monitor.
[2018-03-05] MEDS: Carvedilol 25mg Tab ORAL SCH (21:12)
[2018-03-06] VITALS: BP 115/51
[2018-03-06 04:00] VITALS: BP 121/54
[2018-03-06 05:48] LABS: HEMATOCRIT 21.9 % (37.0-47.0); HEMOGLOBIN 7.1 G/DL (12.0-16.0); MEAN CORPUSCULAR VOLUME 98 FL (80-99); PLATELET COUNT 168 K/UL (150-450); RED BLOOD COUNT 2.24 M/UL (4.20-5.40); RED CELL DISTRIBUTION WIDTH 18.8 % (11.6-14.8); WHITE BLOOD COUNT 5.5 K/UL (4.8-10.8)
[2018-03-06 05:59] LABS: ALANINE AMINOTRANSFERASE 26 U/L (12-78); ALBUMIN 2.6 G/DL (3.4-5.0); ALBUMIN/GLOBULIN RATIO 0.7 (1.0-2.7); ALKALINE PHOSPHATASE 153 U/L (46-116); ANION GAP 11 mmol/L (5-15); ASPARTATE AMINO TRANSFERASE 39 U/L (15-37); BILIRUBIN,TOTAL 0.6 MG/DL (0.2-1.0); BLOOD UREA NITROGEN 52 mg/dL (7-18); CALCIUM 8.4 MG/DL (8.5-10.1); CARBON DIOXIDE 28 MMOL/L (21-32); CHLORIDE 97 MMOL/L (98-107); CHOLESTEROL 101 MG/DL (< 200); CREATININE 8.3 MG/DL (0.55-1.30); HDL CHOLESTEROL 46 MG/DL (40-60); PHOSPHORUS 4.9 MG/DL (2.5-4.9); POTASSIUM 4.5 MMOL/L (3.5-5.1); SODIUM 136 MMOL/L (136-145); TRIGLYCERIDES 60 MG/DL (30-150)
[2018-03-06 06:10] LABS: % IRON SATURATION 18 % (15-50); IRON 35 ug/dL (50-175); TOTAL IRON BINDING CAPACITY 191 ug/dL (250-450)
[2018-03-06] MEDS: HydrALAZINE 25mg tab ORAL SCH ×3 (06:24→21:21)
[2018-03-06 06:28] LABS: FERRITIN > 2000 NG/ML (8-388)
[2018-03-06] MEDS: NovoLOG Insulin Flexpen SUBQ SCH ×4 (06:30→21:00)
--- NOTE | 2018-03-06 07:20 | NUR ---
HAND-OFF: Report given to Kayden Rn. endorsed plan of care.
--- NOTE | 2018-03-06 07:21 | NUR ---
NURSE NOTES: Received update bedside report from Petrona BURCH. Pt. in bed, awake, a/o x 4. No sign of distress. On O2 at 2LPM via NC for comfort. O2 sat at 96-97%. C/O mild generalized body aches. IV at right FA #20g. in placed SL. AV shunt at VANESSA wrapped in kerlix dressing dry and intact. Right upper chest perma cath in placed. Pleasant and cooperative with care. Will cont. to monitor. Addendum: 03/06/18 at 0736 by VIVIANA MURRAY RN, RN Received update report from Chandler BURCH.
[2018-03-06 08:00] VITALS: BP 108/45
--- NOTE | 2018-03-06 08:09 | NUR ---
CASE MANAGEMENT: REVIEW 03/06/2018 SI:ANEMIA. ESRD. T 98.8 HR 74 RR 18 B/P 121/54 SATS 96% ON 2L/NC HGB 7.1 HCT 21.9 CL 97 BUN 52 CR 8.3 GLU 113 AST 39 ALP 153 TROPONIN 0.174 BNP >66375 IS: INSULIN ASPART SUBQ AC/HS COREG PO Q12H LIPITOR PO QHS ASA PO QD PLAVIX PO QD SENSIPAR PO QD GLUCOTROL PO QD LISINOPRIL PO QD HYDRALAZINE PO Q8H ISORDIL PO Q8H RENVELA PO TID COLACE PO TID TELE STATUS DCP: PATIENT TO BE DISCHARGED TO HOME ONCE MEDICALLY CLEARED. PLAN OF CARE: MONITOR H/H
[2018-03-06] MEDS: Aspirin EC 81mg tab ORAL SCH ×2 (08:47→09:43)
[2018-03-06] MEDS: Carvedilol 25mg Tab ORAL SCH (08:47)
[2018-03-06] MEDS: Docusate 100mg cap ORAL SCH ×4 (08:47→18:01)
[2018-03-06] MEDS: GlipiZIDE 5mg tab ORAL SCH ×2 (08:48→09:43)
[2018-03-06] MEDS: Sensipar 30mg Tab ORAL SCH ×2 (08:49→09:44)
--- NOTE | 2018-03-06 08:52 | NUR ---
NURSE NOTES: Pt. refused all her morning medications. Told RN reason she's refusing her meds she might have dialysis later part of the day.
[2018-03-06] MEDS ORDERED: Lisinopril 20mg tab ORAL SCH (09:00)
--- NOTE | 2018-03-06 09:44 | General Progress Note ---
Assessment/Plan Status: stable Assessment/Plan #Anemia of chronic disease requiring transfusion - hgb 6.1 to 7.4 s/p transfusion yesterday, now 7.1 - hematology consult - anemia work up - no acute bleeding #ESRD ON HD - hd per nephro - nephro consult #Combined Chronic CHF - Echo from previous visit reviewed LVEF 20% globally - resume home meds - stable DVT Prophylaxis: SCD, avoid ac Code Status: Full Hospital Classification Declaration: Based on this initial evaluation, and depending on the patient's clinical course, I anticipate that this patient will require hospitalization for 2-3 days for anemia eval and hd, hematology consult and close respiratory/hemodynamic monitoring. Disposition: Once the patient is stable to leave the hospital, I anticipate the patient will likely be discharged to the following environment: home i have reviewed all imaging, labs and medications I spent 55 minutes on this patient's case, and 41 minutes were dedicated to counseling and/or care coordination. Discussed with patient/family, nursing staff, SW/CM, and consultants regarding clinical status, treatment course, and disposition planning. Time of note may not reflect time of encounter. Subjective Date patient seen: Mar 06, 2018 Time patient seen: 09:40 Allergies: Coded Allergies: NO KNOWN DRUG ALLERGIES (Verified Allergy, Unknown, 01/29/18) Subjective f/u anemia, esrd on hd patient on home meds renal following hd per nephro s/p transfusion yesterday, hgb 7.1 no signs of acute bleeding hematology also consulted, pending further recs, anemia workup denies any complaints no acute events overnight ROS: 14 point ros reviewed and negative except per above subjective/interval events Objective Last 24 Hour Vital Signs Date Time Temp Pulse Resp B/P (MAP) Pulse Ox O2 Delivery O2 Flow Rate FiO2 03/06/18 08:00 97.3 78 20 108/45 (66) 99 03/06/18 06:24 121/54 03/06/18 06:23 121/54 03/06/18 04:00 70 03/06/18 04:00 98.8 74 18 121/54 (76) 96 03/06/18 00:00 97.7 72 18 115/51 (72) 100 03/06/18 00:00 70 03/05/18 22:20 97.7 03/05/18 21:12 140/70 03/05/18 21:12 82 140/70 03/05/18 21:11 140/70 03/05/18 21:00 Nasal Cannula 2.0 03/05/18 20:00 97.7 82 19 140/70 (93) 100 03/05/18 20:00 86 03/05/18 16:00 97.7 84 22 151/73 (99) 98 03/05/18 15:49 84 03/05/18 13:13 169/85 03/05/18 13:13 169/85 03/05/18 12:02 84 03/05/18 12:00 97.5 85 20 146/75 (98) 99 Intake and Output 03/05/18 03/06/18 19:00 07:00 Intake Total 1050 ml 120 ml Balance 1050 ml 120 ml Intake Oral 1050 ml Other 120 ml # Voids 4 4 # Bowel Movements 1 Laboratory Tests 03/06/18 04:45: White Blood Count 5.5, Red Blood Count 2.24L, Hemoglobin 7.1L, Hematocrit 21.9L , Mean Corpuscular Volume 98, Mean Corpuscular Hemoglobin 31.4H, Mean Corpuscular Hemoglobin Concent 32.2, Red Cell Distribution Width 18.8H, Platelet Count 168, Mean Platelet Volume 7.2, Neutrophils (%) (Auto) , Lymphocytes (%) (Auto) , Monocytes (%) (Auto) , Eosinophils (%) (Auto) , Basophils (%) (Auto) , Differential Total Cells Counted 100, Neutrophils % ( Manual) 61, Lymphocytes % (Manual) 31, Monocytes % (Manual) 7, Eosinophils % ( Manual) 1, Basophils % (Manual) 0, Band Neutrophils 0, Platelet Estimate Adequate, Platelet Morphology Normal, Hypochromasia 3+, Anisocytosis 2+, Spherocytes 1+, Sodium Level 136, Potassium Level 4.5, Chloride Level 97L, Carbon Dioxide Level 28, Anion Gap 11, Blood Urea Nitrogen 52H, Creatinine 8.3H , Estimat Glomerular Filtration Rate 4.8, Glucose Level 113#H, Uric Acid 7.8H, Calcium Level 8.4L, Phosphorus Level 4.9, Magnesium Level 2.3, Iron Level 35L, Total Iron Binding Capacity 191L, Percent Iron Saturation 18, Unsaturated Iron Binding 156, Ferritin > 2000H, Total Bilirubin 0.6, Aspartate Amino Transf (AST/ SGOT) 39H, Alanine Aminotransferase (ALT/SGPT) 26, Alkaline Phosphatase 153H, Troponin I 0.174H, Pro-B-Type Natriuretic Peptide > 23400O, Total Protein 6.4, Albumin 2.6L, Globulin 3.8, Albumin/Globulin Ratio 0.7L, Triglycerides Level 60 , Cholesterol Level 101, LDL Cholesterol 42, HDL Cholesterol 46, Cholesterol/ HDL Ratio 2.2L, Vitamin B12 Level 714, Folate 19.6 Height (Feet): 5 Height (Inches): 0.00 Weight (Pounds): 127 Objective General appearance: alert, cooperative, no distress, appears stated age Head: Normocephalic, without obvious abnormality, atraumatic Eyes: conjunctivae/corneas clear. PERRL, EOM's intact. Fundi benign Throat: Lips, mucosa, and tongue normal. Teeth and gums normal Neck: supple, symmetrical, trachea midline, no adenopathy, thyroid: not enlarged, symmetric, no tenderness/mass/nodules, no carotid bruit and no JVD Lungs: clear to auscultation bilaterally Heart: regular rate and rhythm, S1, S2 normal, no murmur, click, rub or gallop Abdomen: soft, non-tender. Bowel sounds normal. No masses, no organomegaly Extremities: extremities normal, atraumatic, no cyanosis or edema Pulses: 2+ and symmetric Skin: Skin color, texture, turgor normal. No rashes or lesions Neurologic: Grossly normal Jesús Low MD Mar 06, 2018 09:44
--- NOTE | 2018-03-06 10:14 | Nephrology Progress Note ---
Assessment/Plan Problem List: (1) ESRD on dialysis (2) CAD (coronary artery disease) (3) Cardiomyopathy (4) Anemia in chronic kidney disease Assessment (1) ESRD (end stage renal disease) on dialysis (2) CAD (coronary artery disease) (3) DM hyperosmolarity type II (4) Acute systolic (congestive) heart failure (5) Anemia in chronic kidney disease (6) Diabetes type 2, controlled (7) Cardiomyopathy Plan continue meds adjust bp meds as bp low dialysis in am 03/07 transfuse one unit per PMD per orders Subjective ROS Limited/Unobtainable: No Constitutional: Reports: malaise Objective Objective Last 24 Hour Vital Signs Date Time Temp Pulse Resp B/P (MAP) Pulse Ox O2 Delivery O2 Flow Rate FiO2 03/06/18 08:00 97.3 78 20 108/45 (66) 99 03/06/18 06:24 121/54 03/06/18 06:23 121/54 03/06/18 04:00 70 03/06/18 04:00 98.8 74 18 121/54 (76) 96 03/06/18 00:00 97.7 72 18 115/51 (72) 100 03/06/18 00:00 70 03/05/18 22:20 97.7 03/05/18 21:12 140/70 03/05/18 21:12 82 140/70 03/05/18 21:11 140/70 03/05/18 21:00 Nasal Cannula 2.0 03/05/18 20:00 97.7 82 19 140/70 (93) 100 03/05/18 20:00 86 03/05/18 16:00 97.7 84 22 151/73 (99) 98 03/05/18 15:49 84 03/05/18 13:13 169/85 03/05/18 13:13 169/85 03/05/18 12:02 84 03/05/18 12:00 97.5 85 20 146/75 (98) 99 Intake and Output 03/05/18 03/06/18 19:00 07:00 Intake Total 1050 ml 120 ml Balance 1050 ml 120 ml Intake Oral 1050 ml Other 120 ml # Voids 4 4 # Bowel Movements 1 Laboratory Tests 03/06/18 04:45: White Blood Count 5.5, Red Blood Count 2.24L, Hemoglobin 7.1L, Hematocrit 21.9L , Mean Corpuscular Volume 98, Mean Corpuscular Hemoglobin 31.4H, Mean Corpuscular Hemoglobin Concent 32.2, Red Cell Distribution Width 18.8H, Platelet Count 168, Mean Platelet Volume 7.2, Neutrophils (%) (Auto) , Lymphocytes (%) (Auto) , Monocytes (%) (Auto) , Eosinophils (%) (Auto) , Basophils (%) (Auto) , Differential Total Cells Counted 100, Neutrophils % ( Manual) 61, Lymphocytes % (Manual) 31, Monocytes % (Manual) 7, Eosinophils % ( Manual) 1, Basophils % (Manual) 0, Band Neutrophils 0, Platelet Estimate Adequate, Platelet Morphology Normal, Hypochromasia 3+, Anisocytosis 2+, Spherocytes 1+, Sodium Level 136, Potassium Level 4.5, Chloride Level 97L, Carbon Dioxide Level 28, Anion Gap 11, Blood Urea Nitrogen 52H, Creatinine 8.3H , Estimat Glomerular Filtration Rate 4.8, Glucose Level 113#H, Uric Acid 7.8H, Calcium Level 8.4L, Phosphorus Level 4.9, Magnesium Level 2.3, Iron Level 35L, Total Iron Binding Capacity 191L, Percent Iron Saturation 18, Unsaturated Iron Binding 156, Ferritin > 2000H, Total Bilirubin 0.6, Aspartate Amino Transf (AST/ SGOT) 39H, Alanine Aminotransferase (ALT/SGPT) 26, Alkaline Phosphatase 153H, Troponin I 0.174H, Pro-B-Type Natriuretic Peptide > 24148G, Total Protein 6.4, Albumin 2.6L, Globulin 3.8, Albumin/Globulin Ratio 0.7L, Triglycerides Level 60 , Cholesterol Level 101, LDL Cholesterol 42, HDL Cholesterol 46, Cholesterol/ HDL Ratio 2.2L, Vitamin B12 Level 714, Folate 19.6 Height (Feet): 5 Height (Inches): 0.00 Weight (Pounds): 127 General Appearance: no apparent distress Cardiovascular: normal rate Respiratory/Chest: other - right chest permacath Objective no change Washington Pavon MD Mar 06, 2018 10:14
[2018-03-06] MEDS: Nitroglycerin Patch 0.4mg TDERMAL SCH (10:15)
[2018-03-06 12:00] VITALS: BP 150/68
--- NOTE | 2018-03-06 15:00 | NUR ---
NURSE NOTES: Pt. s/p 1 PRBC blood transfusion. No a/r noted. Tolerated well the procedure.
[2018-03-06 16:00] VITALS: BP 130/58
--- NOTE | 2018-03-06 19:07 | NUR ---
HAND-OFF: Report given to Chandler BURCH. Pt. remain stable. Notify Chandler BURCH regarding dialysis tomorrow.
--- NOTE | 2018-03-06 19:13 | NUR ---
NURSE NOTES: Got report from Kayden Rn. Pt in stable condition. Denies any pain or discomfort. No s/s of distress or discomfort noted. Pt resting in bed comfortably. Bed in low and locked position, call light within reach, bedside table within reach. Continue to monitor.
[2018-03-06 20:00] VITALS: BP 123/69
[2018-03-06] MEDS: Carvedilol 12.5mg tab ORAL SCH (21:21)
[2018-03-07 00:43] VITALS: BP 149/68
[2018-03-07 04:51] VITALS: BP 146/71
[2018-03-07] MEDS: HydrALAZINE 25mg tab ORAL SCH ×3 (05:16→22:23)
--- NOTE | 2018-03-07 06:00 | NUR ---
NURSE NOTES: Called [facility] about dialysis today. I informed them of the hospital, pt room #, patients name and left them a call back # to the unit. they said will call back at the call back # I provided to confirm everything.
[2018-03-07] MEDS: NovoLOG Insulin Flexpen SUBQ SCH ×4 (06:08→21:19)
--- NOTE | 2018-03-07 07:24 | NUR ---
HAND-OFF: Report given to charles guajardo.endorsed plan of care.
--- NOTE | 2018-03-07 07:41 | NUR ---
NURSE NOTES: Pt received from Tyrese Nuñez RN alert and oriented x4 with no complaints or s/s of pain, SOB, or n/v. IV site asymptomatic and patent, on saline lock. Bed in lowest position, call light and belongings within reach.
[2018-03-07 08:00] VITALS: BP 140/70
[2018-03-07] MEDS: Carvedilol 12.5mg tab ORAL SCH ×2 (09:00→21:18)
[2018-03-07] MEDS: Lisinopril 2.5mg tab ORAL SCH (09:00)
[2018-03-07] MEDS: GlipiZIDE 5mg tab ORAL SCH (09:09)
[2018-03-07] MEDS: Aspirin EC 81mg tab ORAL SCH (09:09)
[2018-03-07] MEDS: Docusate 100mg cap ORAL SCH ×3 (09:09→17:45)
[2018-03-07] MEDS: Nitroglycerin Patch 0.4mg TDERMAL SCH (10:15)
--- NOTE | 2018-03-07 10:47 | General Progress Note ---
Assessment/Plan Assessment/Plan #Anemia of chronic disease requiring transfusion - s/p multiple transfusions since admit, pending repeat AM labs today - hematology consult - anemia work up - no acute bleeding #ESRD ON HD - hd per nephro - nephro consult #Combined Chronic CHF - Echo from previous visit reviewed LVEF 20% globally - resume home meds - stable DVT Prophylaxis: SCD, avoid ac Code Status: Full Hospital Classification Declaration: Based on this initial evaluation, and depending on the patient's clinical course, I anticipate that this patient will require hospitalization for 2-3 days for anemia eval and hd, hematology consult and close respiratory/hemodynamic monitoring. Disposition: Once the patient is stable to leave the hospital, I anticipate the patient will likely be discharged to the following environment: home i have reviewed all imaging, labs and medications I spent 55 minutes on this patient's case, and 41 minutes were dedicated to counseling and/or care coordination. Discussed with patient/family, nursing staff, SW/CM, and consultants regarding clinical status, treatment course, and disposition planning. Time of note may not reflect time of encounter. Subjective Date patient seen: Mar 07, 2018 Time patient seen: 10:46 Allergies: Coded Allergies: NO KNOWN DRUG ALLERGIES (Verified Allergy, Unknown, 01/29/18) Subjective f/u anemia, esrd on hd patient on home meds renal following hd per nephro s/p transfusion yesterday again, pending AM labs no signs of acute bleedingdenies any complaints no acute events overnight ROS: 14 point ros reviewed and negative except per above subjective/interval events Objective Last 24 Hour Vital Signs Date Time Temp Pulse Resp B/P (MAP) Pulse Ox O2 Delivery O2 Flow Rate FiO2 03/07/18 10:15 110/62 03/07/18 09:00 145/70 03/07/18 09:00 77 145/70 03/07/18 09:00 Nasal Cannula 2.0 03/07/18 08:00 98.7 88 19 140/70 (93) 100 03/07/18 05:16 146/71 03/07/18 05:15 146/71 03/07/18 04:57 77 03/07/18 04:51 97.0 76 20 146/71 (96) 99 03/07/18 00:43 98.2 78 20 149/68 (95) 99 03/07/18 00:00 79 03/06/18 21:22 123/69 03/06/18 21:21 81 123/69 03/06/18 21:21 123/69 03/06/18 21:00 Nasal Cannula 2.0 03/06/18 20:00 98.0 81 20 123/69 (87) 97 03/06/18 20:00 79 03/06/18 16:00 97.9 82 20 130/58 (82) 96 03/06/18 15:41 76 03/06/18 13:52 150/68 03/06/18 13:52 150/68 03/06/18 12:00 97.4 82 21 150/68 (95) 96 03/06/18 11:48 79 Intake and Output 03/06/18 03/07/18 19:00 07:00 Intake Total 600 ml 60 ml Balance 600 ml 60 ml Intake Oral 600 ml 60 ml # Voids 3 2 Height (Feet): 5 Height (Inches): 0.00 Weight (Pounds): 127 Objective General appearance: alert, cooperative, no distress, appears stated age Head: Normocephalic, without obvious abnormality, atraumatic Eyes: conjunctivae/corneas clear. PERRL, EOM's intact. Fundi benign Throat: Lips, mucosa, and tongue normal. Teeth and gums normal Neck: supple, symmetrical, trachea midline, no adenopathy, thyroid: not enlarged, symmetric, no tenderness/mass/nodules, no carotid bruit and no JVD Lungs: clear to auscultation bilaterally Heart: regular rate and rhythm, S1, S2 normal, no murmur, click, rub or gallop Abdomen: soft, non-tender. Bowel sounds normal. No masses, no organomegaly Extremities: extremities normal, atraumatic, no cyanosis or edema Pulses: 2+ and symmetric Skin: Skin color, texture, turgor normal. No rashes or lesions Neurologic: Grossly normal Jesús Low MD Mar 07, 2018 10:47
--- NOTE | 2018-03-07 11:51 | Nephrology Progress Note ---
Assessment/Plan Problem List: (1) ESRD on dialysis (2) CAD (coronary artery disease) (3) Cardiomyopathy (4) Anemia in chronic kidney disease Assessment (1) ESRD (end stage renal disease) on dialysis (2) CAD (coronary artery disease) (3) DM hyperosmolarity type II (4) Acute systolic (congestive) heart failure (5) Anemia in chronic kidney disease (6) Diabetes type 2, controlled (7) Cardiomyopathy Plan continue meds adjust bp meds as bp low dialysis in am 03/07 transfuse one unit per PMD per orders Subjective ROS Limited/Unobtainable: No Constitutional: Reports: malaise Objective Objective Last 24 Hour Vital Signs Date Time Temp Pulse Resp B/P (MAP) Pulse Ox O2 Delivery O2 Flow Rate FiO2 03/07/18 10:15 110/62 03/07/18 09:00 145/70 03/07/18 09:00 77 145/70 03/07/18 09:00 Nasal Cannula 2.0 03/07/18 08:00 98.7 88 19 140/70 (93) 100 03/07/18 05:16 146/71 03/07/18 05:15 146/71 03/07/18 04:57 77 03/07/18 04:51 97.0 76 20 146/71 (96) 99 03/07/18 00:43 98.2 78 20 149/68 (95) 99 03/07/18 00:00 79 03/06/18 21:22 123/69 03/06/18 21:21 81 123/69 03/06/18 21:21 123/69 03/06/18 21:00 Nasal Cannula 2.0 03/06/18 20:00 98.0 81 20 123/69 (87) 97 03/06/18 20:00 79 03/06/18 16:00 97.9 82 20 130/58 (82) 96 03/06/18 15:41 76 03/06/18 13:52 150/68 03/06/18 13:52 150/68 03/06/18 12:00 97.4 82 21 150/68 (95) 96 Intake and Output 03/06/18 03/07/18 19:00 07:00 Intake Total 600 ml 60 ml Balance 600 ml 60 ml Intake Oral 600 ml 60 ml # Voids 3 2 Height (Feet): 5 Height (Inches): 0.00 Weight (Pounds): 127 General Appearance: no apparent distress Objective no change Washington Pavon MD Mar 07, 2018 11:51
[2018-03-07 12:00] VITALS: BP 147/67
[2018-03-07 12:22] LABS: BASOPHILS % (AUTO) 1.5 % (0.0-2.0); EOSINOPHILS % (AUTO) 4.3 % (0.0-3.0); HEMATOCRIT 28.4 % (37.0-47.0); HEMOGLOBIN 9.1 G/DL (12.0-16.0); MEAN CORPUSCULAR VOLUME 97 FL (80-99); MONOCYTES % (AUTO) 8.3 % (1.0-10.0); NEUTROPHILS % (AUTO) 70.9 % (45.0-75.0); PLATELET COUNT 172 K/UL (150-450); RED BLOOD COUNT 2.93 M/UL (4.20-5.40); RED CELL DISTRIBUTION WIDTH 17.3 % (11.6-14.8); WHITE BLOOD COUNT 6.2 K/UL (4.8-10.8)
[2018-03-07 12:31] LABS: ANION GAP 11 mmol/L (5-15); BLOOD UREA NITROGEN 66 mg/dL (7-18); CALCIUM 7.8 MG/DL (8.5-10.1); CARBON DIOXIDE 26 MMOL/L (21-32); CHLORIDE 95 MMOL/L (98-107); CREATININE 10.3 MG/DL (0.55-1.30); POTASSIUM 5.5 MMOL/L (3.5-5.1); SODIUM 132 MMOL/L (136-145)
--- NOTE | 2018-03-07 13:59 | NUR ---
RD ASSESSMENT & RECOMMENDATIONS SEE CARE ACTIVITY FOR COMPLETE ASSESSMENT DAILY ESTIMATED NEEDS: Needs based on ESRD + HD, DM/ 53kg 30-35 kcals/kg 9274-7246 total kcals 1.2-1.8 g protein/kg 64-95 g total protein Fluid per MD/ on HD NUTRITION DIAGNOSIS: Altered nutrition related lab values R/T diabetes and ESRD dx as evidenced by elev glu (113-206), elev BNP (>65505), elev K (5.5), elev creat (10.3) CURRENT DIET: RENAL, CCHO MED PO DIET RECOMMENDATIONS: RENAL + CCHO low/ texture as tolerated + 1 carb/ high prot snacks TID ADDITIONAL RECOMMENDATIONS: * OBTAIN A STANDING WEIGHT POST HD -> Pt w/ conflicting weights * Monitor lytes and renal fxn- elev K at this time * Monitor BGs closely .
--- NOTE | 2018-03-07 15:30 | NUR ---
NURSE NOTES: RN endorsed Sodium of [address] Dr. Low, no new orders.
[2018-03-07 16:00] VITALS: BP 146/63
--- NOTE | 2018-03-07 16:21 | NUR ---
RESIDENT CARE TECHNICIANELECTRICAL CONTACTS ADJUSTER SI: ANEMIA,ESRD T. 97.0 HR 76 RR 20 B/P 147/67 NC 2L NA 132 K 5.5 IS: COREG PO ZESTRIL PO ASA PO PROTONIX PO TELE STATUS
--- NOTE | 2018-03-07 19:25 | NUR ---
HAND-OFF: Report given to MARCIN Langston.
--- NOTE | 2018-03-07 19:30 | NUR ---
NURSE NOTES: Received report from MARCIN Acevedo. Patient awake, alert and verbally responsive. No SOB, no acute distress, denies any pain nor any discomfort at this time. IV site on R FA #20, patent and intact. Permacath on R subclavian with dry and intact dressing. Also with AV shunt on L upper arm, with dry and intact dressing. HD today, 3 L out per MARCIN Acevedo. Bed at lowest position, call light wihtin reach. Will continue plan of care.
[2018-03-07 20:00] VITALS: BP 144/78
[2018-03-07] MEDS ORDERED: Epogen (for ESRD on dialysis) SUBQ SCH (21:00)
[2018-03-08] VITALS: BP 161/78
--- NOTE | 2018-03-08 03:50 | NUR ---
NURSE NOTES: Patient asleep, breathing even and unlabored, no s/sx of pain nor any discomfort at this time. Bed at lowest position, call light within reach. Will continue to monitor.
[2018-03-08 04:00] VITALS: BP 157/71
[2018-03-08] MEDS: HydrALAZINE 25mg tab ORAL SCH (05:45)
[2018-03-08] MEDS: NovoLOG Insulin Flexpen SUBQ SCH (06:22)
[2018-03-08 07:23] LABS: BASOPHILS % (AUTO) 1.3 % (0.0-2.0); EOSINOPHILS % (AUTO) 4.8 % (0.0-3.0); HEMATOCRIT 26.8 % (37.0-47.0); HEMOGLOBIN 8.7 G/DL (12.0-16.0); LYMPHOCYTES % (AUTO) 18.6 % (20.0-45.0); MEAN CORPUSCULAR VOLUME 97 FL (80-99); MONOCYTES % (AUTO) 8.5 % (1.0-10.0); NEUTROPHILS % (AUTO) 66.8 % (45.0-75.0); PLATELET COUNT 147 K/UL (150-450); RED BLOOD COUNT 2.77 M/UL (4.20-5.40); RED CELL DISTRIBUTION WIDTH 17.7 % (11.6-14.8); WHITE BLOOD COUNT 5.3 K/UL (4.8-10.8)
--- NOTE | 2018-03-08 07:23 | NUR ---
HAND-OFF: Report given to MARCIN Hummel. Endorsed plan of care.
--- NOTE | 2018-03-08 07:23 | NUR ---
NURSE NOTES: received patient report from burke guajardo.patient is on bed awake.no acute distress noted. bed is low and locked. will continue plan of care.
[2018-03-08 07:35] LABS: ALANINE AMINOTRANSFERASE 36 U/L (12-78); ALBUMIN 2.6 G/DL (3.4-5.0); ALBUMIN/GLOBULIN RATIO 0.7 (1.0-2.7); ALKALINE PHOSPHATASE 150 U/L (46-116); ANION GAP 10 mmol/L (5-15); ASPARTATE AMINO TRANSFERASE 30 U/L (15-37); BILIRUBIN,TOTAL 0.5 MG/DL (0.2-1.0); BLOOD UREA NITROGEN 32 mg/dL (7-18); CALCIUM 7.8 MG/DL (8.5-10.1); CARBON DIOXIDE 29 MMOL/L (21-32); CHLORIDE 98 MMOL/L (98-107); CREATININE 6.2 MG/DL (0.55-1.30); GAMMA GLUTAMYL TRANSPEPTIDASE 183 U/L (5-85); PHOSPHORUS 3.1 MG/DL (2.5-4.9); POTASSIUM 4.6 MMOL/L (3.5-5.1); SODIUM 137 MMOL/L (136-145)
--- NOTE | 2018-03-08 07:44 | Discharge Summary ---
Discharge Summary Hospital Course Date of Admission Mar 04, 2018 at 22:55 Date of Discharge 03/08/18 Admitting Diagnosis ANEMIA,ESRD HPI Donald Barrios is a 62 year old female who was admitted on Mar 04, 2018 at 22:55 for Anemia,End Stage Renal Disease hgb improved s/p transfusions no acute bleeding noted h/h stable today anemia due to chronic disease, esrd dc home outpt f/u with nephro and pcp stable feeling much better no acute events overnight last HD yesterday, tolerated well Physical Exam: General appearance: alert, cooperative, no distress, appears stated age Head: Normocephalic, without obvious abnormality, atraumatic Eyes: conjunctivae/corneas clear. PERRL, EOM's intact. Fundi benign Throat: Lips, mucosa, and tongue normal. Teeth and gums normal Neck: supple, symmetrical, trachea midline, no adenopathy, thyroid: not enlarged, symmetric, no tenderness/mass/nodules, no carotid bruit and no JVD Lungs: clear to auscultation bilaterally Heart: regular rate and rhythm, S1, S2 normal, no murmur, click, rub or gallop Abdomen: soft, non-tender. Bowel sounds normal. No masses, no organomegaly Extremities: extremities normal, atraumatic, no cyanosis or edema Pulses: 2+ and symmetric Skin: Skin color, texture, turgor normal. No rashes or lesions Neurologic: Grossly normal Hospital Course #Anemia of chronic disease requiring transfusion - s/p multiple transfusions since admit - stable, h/h stable s/p transfusions - no acute bleeding #ESRD ON HD - hd per nephro - nephro consulted, appreciate recs #Combined Chronic CHF - Echo from previous visit reviewed LVEF 20% globally - resume home meds - stable DVT Prophylaxis: SCD, avoid ac Code Status: Full Hospital Classification Declaration: Based on this initial evaluation, and depending on the patient's clinical course, I anticipate that this patient will require hospitalization for 2-3 days for anemia eval and hd, hematology consult and close respiratory/hemodynamic monitoring. Disposition: Once the patient is stable to leave the hospital, I anticipate the patient will likely be discharged to the following environment: home i have reviewed all imaging, labs and medications I spent 55 minutes on this patient's case, dedicated to counseling and/or care coordination and discharge/dispo planning. Discussed with patient/family, nursing staff, SW/ANDRÉS, and consultants regarding clinical status, treatment course, and disposition planning. Time of note may not reflect time of encounter. Discharge Discharge Disposition Patient was discharged to Jesús Low MD Mar 08, 2018 07:44
[2018-03-08 08:00] VITALS: BP 140/67
[2018-03-08] MEDS: Aspirin EC 81mg tab ORAL SCH (08:51)
[2018-03-08] MEDS: GlipiZIDE 5mg tab ORAL SCH (08:51)
[2018-03-08] MEDS: Docusate 100mg cap ORAL SCH (08:51)
[2018-03-08 08:52] VITALS: BP 140/67
[2018-03-08] MEDS: Lisinopril 2.5mg tab ORAL SCH (08:52)
[2018-03-08] MEDS: Carvedilol 12.5mg tab ORAL SCH (08:52)
--- NOTE | 2018-03-08 09:28 | NUR ---
NURSE NOTES: patient was discharged to home per dr panda order. to resume home meds. cafeteria monitor removed and endorse to MT. IV line removed and bleeding was stopped. mrsa nares collected for HD patient per protocol. belongings signed by the patient. patient stated that, everything is accounted for and no need to checked, patient stated that "ill just sign it.picked by friend pinky via [employer]. patient is stable.
--- NOTE | 2018-03-08 13:45 | General Progress Note ---
Progress Note Progress Note Patient seen and examined She missed her post op office visit s/p left arm basilic vein transposition avf 2+ thrill 2 wks ago HD via right new permcath Ok for d/c and see me in office next wk d/w pt and nurse Castro Ge MD Mar 08, 2018 13:45
--- NOTE | 2018-03-08 16:48 | NUR ---
*-* NO INSURANCE INFORMATION TO SEND CLINICALS OR REVIEWS IN THE BAR
[2018-03-08] MEDS ORDERED: Dyna-Hex 2% Top Sol 2oz TOPIC SCH (20:00)
--- NOTE | 2018-03-09 20:21 | Consultation ---
History of Present Illness General Date patient seen: Mar 09, 2018 Chief Complaint: Abnormal Labs Present Illness Allergies: Coded Allergies: NO KNOWN DRUG ALLERGIES (Verified Allergy, Unknown, 01/29/18) Medication History Scheduled Aspirin* (Aspir 81*), 81 MG ORAL DAILY, (Reported) Atorvastatin (Lipitor), 80 MG ORAL BEDTIME Bisacodyl* (Dulcolax*), 5 MG ORAL DAILY, (Reported) Carvedilol (Coreg), 12.5 MG ORAL EVERY 12 HOURS Cinacalcet* (Sensipar*), 30 MG ORAL DAILY, (Reported) Clopidogrel* (Clopidogrel*), 75 MG ORAL DAILY, (Reported) Docusate Sodium* (Docusate Sodium*), 100 MG ORAL TWICE A DAY, (Reported) Famotidine (Famotidine), 20 MG ORAL DAILY, (Reported) Glipizide* (Glipizide*), 5 MG ORAL BIDAC, (Reported) Hydralazine Hcl* (Hydralazine Hcl*), 75 MG ORAL Q8HR Insulin Glargine (Lantus), 0 SUBQ BEDTIME, (Reported) Isosorbide Dinitrate* (Isordil*), 20 MG ORAL TID Levofloxacin* (Levofloxacin*), 750 MG ORAL DAILY Lisinopril (Lisinopril*), 20 MG ORAL DAILY, (Reported) Lisinopril (Lisinopril*), 5 MG ORAL Q12HR Sevelamer Hcl (Renagel), 800 MG ORAL THREE TIMES A DAY, (Reported) Scheduled PRN Ondansetron* (Zofran*), 4 MG ORAL Q6H PRN for Nausea & Vomiting, (Reported) Patient History Healthcare decision maker Resuscitation status Full Code Advanced Directive on File Physical Exam Intake and Output 03/08/18 03/09/18 19:00 07:00 Intake Total 420 ml Output Total 3000 ml Balance -2580 ml Intake Oral 300 ml Other 120 ml Output Urine Total 0 ml Hemodialysis UF 3000 ml # Voids 3 # Bowel Movements 1 Height (Feet): 5 Height (Inches): 0.00 Weight (Pounds): 127 Assessment/Plan Assessment/Plan Hematology Consult REQ MD: Maranda Levine RFC: Leukocytosis and Anemia DOS: 03/08/18 HPI 62-year-old female presents ED for evaluation for sob and anemia. Patient is tremulous. Patient denies cough. Denies sore throat or earache. She was recently discharged from [facility] for treatment of a infection. Patient is unclear where the infection was. history of end-stage renal disease gets dialysis Wednesday. Got dialysis on . Denies chest pain or shortness of breath. No other aggravating relieving factors. Denies any other associated symptoms. Leukocytosis was noted, is on abx and hematology was consulted to r/o leukemia/lymphoma and noted to have anameia as well. Coded Allergies: NO KNOWN DRUG ALLERGIES (Verified Allergy, Unknown, 01/29/18) Past Medical History: DM, HTN, renal disease, dialysis Past Surgical History: none Pertinent Family History: none Social History: Denies: smoking, alcohol use, drug use Last Menstrual Period: 2 decades ago Now: No Immunizations: UTD Hx Cardiac Problems: No Hx Hypertension: Yes Hx Pacemaker: No Hx Asthma: No Hx COPD: No Hx Diabetes: Yes Hx Cancer: No Hx Gastrointestinal Problems: No Hx Dialysis: Yes - wed, , wed Hx Neurological Problems: No Hx Cerebrovascular Accident: No Hx Seizures: No Review of Systems: negative except mentioned in HPI PE: Gen: NAd Pulm: CTAB, no cwr CV: RRR Abd: soft, nt, nd Ext: no cce Labs reviewed Assessment/Plan # Anemia of chronic disease due to underlying chronic medical issues, esrd, multifactorial --> Anemia w/u has been ordered --> No evidence of hemolysis is noted, peripheral smear has been reviewed. --> Hgb goal >7. Transfuse prn. --> Epogen given esrd --> fistula bleeding also contributing 1/3 # Leukocytosis is due to Septic shock, high Lactic acid, has vre --> cultures are pending, sensitivities --> is s/p multiple antibiotics, in past seen by ID --> have ordered for a peripheral flow cytometry r/o leukemia --> peripheral smear has been ordered --> imaging reviewed and shows anorectal thickening --> wbc trend 31k-->20k-->9.4 # Coagulopathy that has worsened with inr 2.9 --> mixing study ordered --> rule out dic # ESRD on HD for 2 years, has left arm fistula --> fistula to be revisted --> epogen as per neprho --> HD as required # DM --> a1c goal <7 # CAD, elevated Troponin --> Patient will need life vest and possible ICD in future - has been ordered and approved, awaiting delivery --> May need ICD in future Greatly appreciate consultation! Toribio Suárez MD Mar 09, 2018 20:21
--- NOTE | 2018-03-14 01:00 | Consultation ---
DATE OF CONSULTATION: 03/08/2018 VASCULAR SURGERY CONSULTATION CONSULTING PHYSICIAN: Castro Ge M.D. REFERRING PHYSICIAN: Jaime Levine M.D. REASON FOR CONSULTATION: Left arm AV shunt evaluation. HISTORY OF PRESENT ILLNESS: This is a 62-year-old female who is well known to our vascular service. The patient had a left upper arm basilic vein transposition AV fistula. The patient presented to the hospital with anemia. The patient has no complaints. She is awaiting discharge today. PAST MEDICAL HISTORY: As above. End-stage renal failure, on hemodialysis; right chest Perma catheter; left upper arm AV shunt basilic vein transposition; heart failure, EF of 20%; hypertension; and multiple forearm AV shunt placement revision by other physician. MEDICATIONS: See attached MAR. ALLERGIES: No known drug allergies. SOCIAL HISTORY: No history of smoking, drugs, or alcohol abuse. FAMILY HISTORY: Unremarkable. SYSTEM REVIEW: CARDIOVASCULAR: No history of chest pain or palpitation. PULMONARY: No cough or hemoptysis. GASTROINTESTINAL: none. NEUROLOGIC: No history of strokes or seizures. PHYSICAL EXAMINATION: VITAL SIGNS: The patient is afebrile, 98.7, heart rate 77, blood pressure 110/60, respirations 20, and saturation 100%. GENERAL: She has palpable left upper arm AV shunt thrill. SKIN: Leslee are intact. Incision is clean, dry, and intact. No edema. Right chest Perma catheter is clear, dry, and intact. LUNGS: Clear to auscultation. HEART: Regular rate and rhythm. ABDOMEN: Soft and nontender. EXTREMITIES: Feet are warm and intact pedal Dopplers bilaterally. IMPRESSION: 1. End-stage renal failure, on hemodialysis with maturing left upper arm basilic vein transposition arteriovenous fistula. 2. Functional right chest tunneled Perma catheter. 3. Heart failure with ejection fraction of 20%. 4. History of anemia. PLAN AND RECOMMENDATIONS: 1. Anemia, workup per Hematology Service and transfusion of EPO per Renal and Hematology. 2. See me in the office next week for left arm AV shunt staple removal. We will wait for about six weeks for AVF maturation prior to left arm AV shunt access use. Continue dialysis through the right chest tunneled Perma catheter. The above was discussed at length with the patient and the nurse at bedside. Castro Ge M.D. DR: EVA JOB#: [id number] CC: Gera Perez M.D. ; FAX#: [phone] [facility]PITALBrad
== END 2018-03-08 09:20 | disposition home or self-care (01) | DRG 468 ==
LOC: EMR 22:13 → 2E 22:55 → EDBEDREQSVC 23:58 → EDBEDREQ 03-05 00:44 → 2E 03-06 13:01
PROC: 30233N1 Transfusion of Nonautologous Red Blood Cells into Peripheral Vein, Percutaneous Approach (ICD-10-PCS; principal; 2018-03-06)
PROC: 5A1D70Z Performance of Urinary Filtration, Intermittent, Less than 6 Hours Per Day (ICD-10-PCS; 2018-03-07)
DX: E11.22 Type 2 diabetes mellitus with diabetic chronic kidney disease (principal); I42.9 Cardiomyopathy, unspecified; I50.42 Chronic combined systolic (congestive) and diastolic (congestive) heart failure; N18.6 End stage renal disease; E11.00 Type 2 diabetes mellitus with hyperosmolarity without nonketotic hyperglycemic-hyperosmolar coma (NKHHC); D63.1 Anemia in chronic kidney disease; Z99.2 Dependence on renal dialysis; I25.10 Atherosclerotic heart disease of native coronary artery without angina pectoris; Z79.82 Long term (current) use of aspirin; Z79.4 Long term (current) use of insulin
CPT/HCPCS: 36415; 71045; 80048; 80053; 80061; 82550; 82553; 82607; 82728; 82746; 82962; 82977; 83036; 83540; 83550; 83735; 83880; 84100; 84484; 84550; 85007; 85025; 85610; 85730; 86140; 86850; 86900; 86901; 86920; 87081; 93005; 99285; J2405

== ENCOUNTER 2018-04-05 12:56 | Emergency (ER) | payer MEDICAID ==
[~2018-04-05] VITALS: Ht 154.9 cm; Wt 59.0 kg
--- NOTE | 2018-04-05 13:00 | NUR ---
ED Nurse Note: Pt came into the ER w/ complaints of left rib pain since this morning. Pt is rating the pain a 9/10. Non radiating. A + O x4. Ambulatory. Skin warm to touch. Pt attends dialysis T, , Sat. Pt attended dialysis today. Pt has a right upper chest port-a-cath for her site.
[2018-04-05] MEDS ORDERED: UNOBMED (13:04)
--- NOTE | 2018-04-05 13:39 | NUR ---
ED Nurse Note: Xray at the bedside.
--- NOTE | 2018-04-05 13:44 | Emergency Room Report ---
History of Present Illness General Chief Complaint: Pain Source: Patient Present Illness HPI Patient presents with complaints of left flank pain reports that she has had some mild cough and the pleuritic discomfort in that area patient just received her dialysis today Denies any vomiting or diarrhea denies any other chest pain denies sensation of shortness of breath pain is worse with touch as well patient reports that she had taken a Tylenol with Minimal improvement Denies any other fall or trauma patient receives dialysis Wednesday and Saturdays denies any fevers or chills Allergies: Coded Allergies: NO KNOWN DRUG ALLERGIES (Verified Allergy, Unknown, 04/05/18) Patient History Past Medical History: see triage record Pertinent Family History: none Last Menstrual Period: 20 YEARS AGO Now: No Reviewed Nursing Documentation: PMH: Agreed; PSxH: Agreed Nursing Documentation-PMH Past Medical History: No History, Except For Hx Cardiac Problems: Yes Hx Hypertension: Yes Hx Pacemaker: No Hx Asthma: No Hx COPD: No Hx Diabetes: Yes Hx Cancer: No Hx Gastrointestinal Problems: Yes Hx Dialysis: Yes - WEDNESDAY, WEDNESDAY, WEDNESDAY Hx Neurological Problems: No Hx Cerebrovascular Accident: No Hx Seizures: No Review of Systems All Other Systems: negative except mentioned in HPI Physical Exam Vital Signs Date Time Temp Pulse Resp B/P (MAP) Pulse Ox O2 Delivery O2 Flow Rate FiO2 04/05/18 13:00 98.1 85 16 95 Room Air Sp02 EP Interpretation: reviewed, normal General Appearance: well appearing, no apparent distress Head: normocephalic, atraumatic Eyes: bilateral eye PERRL, bilateral eye EOMI ENT: hearing grossly normal, normal pharynx, TMs + canals normal, uvula midline Neck: full range of motion, supple, no meningismus, no bony tend Respiratory: lungs clear, normal breath sounds, no rhonchi, no respiratory distress, no retraction, no accessory muscle use Cardiovascular #1: normal peripheral pulses, regular rate, rhythm, no edema, no gallop, no JVD, no murmur Gastrointestinal: normal bowel sounds, non tender, soft, no mass, no organomegaly, non-distended, no guarding, no hernia, no pulsatile mass, no rebound Genitourinary: no CVA tenderness Musculoskeletal: normal inspection Neurologic: oriented x3, responsive, raw material handler III-XII 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 as tested, motor strength/ tone normal, sensory intact Psychiatric: mood/affect normal Skin: normal color, no rash, warm/dry, palpation normal Lymphatic: normal inspection, no adenopathy Medical Decision Making Diagnostic Impression: Primary Impression: Flank pain ER Course With the history exam and presentation, multiple differentials considered, including but not limited to appendicitis, gastritis, cholecystitis, diverticulitis Patient's blood work is at baseline levels Patient's x-ray does not show any acute disease Patient has rested comfortably and requires appropriate outpatient follow-up Labs Test 04/05/18 13:45 White Blood Count 8.5 K/UL (4.8-10.8) Red Blood Count 3.56 M/UL (4.20-5.40) Hemoglobin 10.9 G/DL (12.0-16.0) Hematocrit 35.6 % (37.0-47.0) Mean Corpuscular Volume 100 FL (80-99) Mean Corpuscular Hemoglobin 30.5 PG (27.0-31.0) Mean Corpuscular Hemoglobin Concent 30.5 G/DL (32.0-36.0) Red Cell Distribution Width 17.8 % (11.6-14.8) Platelet Count 168 K/UL (150-450) Mean Platelet Volume 8.0 FL (6.5-10.1) Neutrophils (%) (Auto) 72.1 % (45.0-75.0) Lymphocytes (%) (Auto) 21.0 % (20.0-45.0) Monocytes (%) (Auto) 4.7 % (1.0-10.0) Eosinophils (%) (Auto) 1.1 % (0.0-3.0) Basophils (%) (Auto) 1.1 % (0.0-2.0) Sodium Level 140 MMOL/L (136-145) Potassium Level 3.9 MMOL/L (3.5-5.1) Chloride Level 98 MMOL/L (98-107) Carbon Dioxide Level 33 MMOL/L (21-32) Anion Gap 10 mmol/L (5-15) Blood Urea Nitrogen 13 mg/dL (7-18) Creatinine 3.2 MG/DL (0.55-1.30) Estimat Glomerular Filtration Rate 14.6 mL/min (>60) Glucose Level 164 MG/DL (74-106) Calcium Level 8.3 MG/DL (8.5-10.1) Total Bilirubin 0.8 MG/DL (0.2-1.0) Aspartate Amino Transf (AST/SGOT) 30 U/L (15-37) Alanine Aminotransferase (ALT/SGPT) 19 U/L (12-78) Alkaline Phosphatase 146 U/L (46-116) Total Creatine Kinase 89 U/L (26-308) Creatine Kinase MB 1.2 NG/ML (0.0-3.6) Creatine Kinase MB Relative Index 1.3 Total Protein 7.7 G/DL (6.4-8.2) Albumin 3.4 G/DL (3.4-5.0) Globulin 4.3 g/dL Albumin/Globulin Ratio 0.8 (1.0-2.7) Lipase 197 U/L (73-393) EKG Diagnostic Results Rate: normal Rhythm: NSR ST Segments: no acute changes Rhythm Strip Diag. Results EP Interpretation: yes Rate: 70 Rhythm: NSR, no PVC's, no ectopy Chest X-Ray Diagnostic Results Chest X-Ray Diagnostic Results : Chest X-Ray Ordered: Yes # of Views/Limited/Complete: 1 View Indication: Chest Pain EP Interpretation: Yes Interpretation: no consolidation, no effusion, no pneumothorax Impression: No acute disease Electronically Signed by: Glory Ortiz DO Last Vital Signs Date Time Temp Pulse Resp B/P (MAP) Pulse Ox O2 Delivery O2 Flow Rate FiO2 04/05/18 13:00 98.1 85 16 95 Room Air Status: improved Disposition: HOME, SELF-CARE Condition: Improved Scripts Acetaminophen With Codeine (T#3) (TYLENOL #3 TAB*) Y Tab 1 TAB ORAL Q8H PRN for For Pain, #10 TAB Prov: Glory Ortiz DO 04/05/18 Additional Instructions: Patient is provided with the discharge instructions notified to follow up with primary doctor in the next 2-3 days otherwise return to the er with any worsening symptoms. Please note that this report is being documented using [employer] technology. This can lead to erroneous entry secondary to incorrect interpretation by the dictating instrument. Glory Ortiz DO Apr 05, 2018 13:44
[2018-04-05] MEDS ORDERED: HYDROcodone/Acetamin 10/325 tab ORAL ONE (13:45)
--- NOTE | 2018-04-05 13:55 | NUR ---
ED Nurse Note: Blood has been collected and sent to lab.
[2018-04-05 13:57] VITALS: BP 185/79
[2018-04-05 13:58] LABS: BASOPHILS % (AUTO) 1.1 % (0.0-2.0); EOSINOPHILS % (AUTO) 1.1 % (0.0-3.0); HEMATOCRIT 35.6 % (37.0-47.0); HEMOGLOBIN 10.9 G/DL (12.0-16.0); MEAN CORPUSCULAR VOLUME 100 FL (80-99); MONOCYTES % (AUTO) 4.7 % (1.0-10.0); NEUTROPHILS % (AUTO) 72.1 % (45.0-75.0); PLATELET COUNT 168 K/UL (150-450); RED BLOOD COUNT 3.56 M/UL (4.20-5.40); RED CELL DISTRIBUTION WIDTH 17.8 % (11.6-14.8); WHITE BLOOD COUNT 8.5 K/UL (4.8-10.8)
[2018-04-05 14:10] LABS: ANION GAP 10 mmol/L (5-15); BLOOD UREA NITROGEN 13 mg/dL (7-18); CALCIUM 8.3 MG/DL (8.5-10.1); CARBON DIOXIDE 33 MMOL/L (21-32); CHLORIDE 98 MMOL/L (98-107); CREATININE 3.2 MG/DL (0.55-1.30); POTASSIUM 3.9 MMOL/L (3.5-5.1); SODIUM 140 MMOL/L (136-145)
--- NOTE | 2018-04-05 14:14 | NUR ---
ED Nurse Note: Pt noted to have a new fistula site on the left forearm.
[2018-04-05 14:22] LABS: ALANINE AMINOTRANSFERASE 19 U/L (12-78); ALBUMIN 3.4 G/DL (3.4-5.0); ALBUMIN/GLOBULIN RATIO 0.8 (1.0-2.7); ALKALINE PHOSPHATASE 146 U/L (46-116); ASPARTATE AMINO TRANSFERASE 30 U/L (15-37); BILIRUBIN,TOTAL 0.8 MG/DL (0.2-1.0); CKMB 1.2 NG/ML (0.0-3.6); CREATINE KINASE 89 U/L (26-308)
[2018-04-05] MEDS ORDERED: ACETAMINOPHEN-1 EAC1 ORAL (14:29)
--- NOTE | 2018-04-05 15:15 | Diagnostic Imaging Report ---
Indication: Chest pain Technique: One view of the chest Comparison: 03/04/2018 Findings: The heart is enlarged. There are bilateral pleural effusions. Right jugular tunneled dialysis catheter is again demonstrated. There is only minimal if any interstitial edema, less than on the prior study Impression: Bilateral pleural effusions Cardiomegaly Minimal if any interstitial edema; improved from prior exam of 03/04/2018 Dialysis catheter again noted
[2018-04-05 15:41] VITALS: BP 188/76
--- NOTE | 2018-04-05 15:42 | NUR ---
ER DISCHARGE NOTE: Patient is cleared to be discharged per ERMD, pt is aox4, on room air, with stable vital signs. pt was given dc and prescription instructions, pt was able to verbalize understanding, pt id band removed without complications. pt is able to ambulate with steady gait. pt took all belongings.
--- NOTE | 2018-04-06 16:01 | Cardiology Report ---
APPROVED REPORT EKG Measurement Heart [id number] Normal sinus rhythm Cannot rule out Anterior infarct, age undetermined Abnormal ECG
== END 2018-04-05 15:42 | disposition home or self-care (01) ==
LOC: EMR 13:38
DX: R10.9 Unspecified abdominal pain (principal); E11.9 Type 2 diabetes mellitus without complications; I10 Essential (primary) hypertension; Z99.2 Dependence on renal dialysis; J90 Pleural effusion, not elsewhere classified; I51.7 Cardiomegaly
CPT/HCPCS: 36415; 71045; 80053; 82550; 82553; 83690; 85025; 93005; 99283

== ENCOUNTER 2018-06-23 12:07 | Emergency (ER) | payer MEDICAID ==
[~2018-06-23] VITALS: Ht 152.4 cm; Wt 59.0 kg
[~2018-06-23 12:07] MED LIST changes: +ACETAMINOPHEN-1 EAC1 ORAL; +UNOBMED
--- NOTE | 2018-06-23 12:20 | NUR ---
ED Nurse Note: PT WALKED IN TO ER TODAY FROM HOME. AOX4. PT C/O MEDIAL, NONRADIATING CHEST PAIN, 6/10 X A "FEW DAYS AGO." PT DENIES CHEST PAIN AT THIS TIME. PT DENIES DIZZINESS, NAUSEA, OR VOMITING. PT STATES SHE IS A DIALYSIS PT AND GOES EVERY WEDNESDAY, WEDNESDAY, WEDNESDAY. PT STATES SHE WENT TO DIALYSIS TODAY PRIOR TO COMING TO ER. PT PRESENTS WITH LEFT UPPER ARM FISTULA THAT PT STATES IS NOT BEING ACCESSED DUE TO MALFUNCTION. PT ALSO HAS A QUANTUM CATHETER TO LEFT UPPER CHEST WHICH WAS ACCESSED TODAY FOR DIALYSIS. BP ELEVATED AT BEDSIDE: 162/79 BUT NORMAL SINUS RHYTHM ON MONITOR. DR PANIAGUA NOTIFIED.
[2018-06-23 12:23] VITALS: BP 162/79
--- NOTE | 2018-06-23 12:30 | NUR ---
ED Nurse Note: XRAY AT BEDSIDE.
--- NOTE | 2018-06-23 12:38 | Emergency Room Report ---
History of Present Illness General Chief Complaint: Chest Pain Source: Patient, Medical Record Present Illness HPI This patient states for the past week she has had chest pain. She states that the symptoms wax and wane in severity. She has a history of end-stage renal disease and is dialysis dependent. She had dialysis today. She states that before the dialysis started today she was feeling some chest pain and then during dialysis her symptoms worsened. She denies recent illness. She denies cough or congestion. She denies fever or chills. She denies nausea or vomiting. She denies abdominal pain. She has no other complaints. Allergies: Coded Allergies: NO KNOWN DRUG ALLERGIES (Verified Allergy, Unknown, 04/05/18) Patient History Past Medical History: see triage record, DM, HTN, GERD, renal disease, dialysis Past Surgical History: other - AV fistula, R. chest dialysis catheter Social History: Denies: smoking, alcohol use, drug use Reviewed Nursing Documentation: PMH: Agreed; PSxH: Agreed Nursing Documentation-PMH Past Medical History: No History, Except For Hx Cardiac Problems: Yes Hx Hypertension: Yes Hx Pacemaker: No Hx Asthma: No Hx COPD: No Hx Diabetes: Yes Hx Cancer: No Hx Gastrointestinal Problems: Yes Hx Dialysis: Yes - WEDNESDAY, WEDNESDAY, WEDNESDAY Hx Neurological Problems: No Hx Cerebrovascular Accident: No Hx Seizures: No Review of Systems All Other Systems: negative except mentioned in HPI Physical Exam Vital Signs Date Time Temp Pulse Resp B/P (MAP) Pulse Ox O2 Delivery O2 Flow Rate FiO2 06/23/18 12:11 98.1 85 18 98 Room Air Sp02 EP Interpretation: reviewed, normal General Appearance: no apparent distress, alert, GCS 15, non-toxic Head: normocephalic, atraumatic Eyes: bilateral eye normal inspection, bilateral eye PERRL ENT: hearing grossly normal, normal pharynx, no angioedema, normal voice Neck: full range of motion, supple/symm/no masses Respiratory: chest non-tender, lungs clear, normal breath sounds, no respiratory distress, no retraction, no accessory muscle use, speaking full sentences Cardiovascular #1: regular rate, rhythm, no edema Gastrointestinal: normal bowel sounds, non tender, soft, non-distended, no guarding, no rebound Rectal: deferred Musculoskeletal: back normal, gait/station normal, normal range of motion, non- tender Neurologic: alert, oriented x3, responsive, motor strength/tone normal, sensory intact, speech normal Psychiatric: judgement/insight normal, memory normal, mood/affect normal, no suicidal/homicidal ideation Skin: normal color, no rash, warm/dry, well hydrated Medical Decision Making Diagnostic Impression: Primary Impression: Chest pain ER Course The patient is low risk chest pain given the length of symptoms and negative w/ u. I considered PE, PTX, acute coronary syndrome, aortic dissection, pneumonia which is unlikely given hx, CE, CXR. Negative work-up to include Cardiac enzymes, CXR, EKG. Given history and PE I do not feel that this patient needs further evaluation at this time. Given the patient's age and chronic medical problems, I did offer this patient admitted patient to the hospital overnight, however, she adamantly declined this stating that she will not be admitted and that she would like to go home. Given the negative workup and length of symptoms which is reassuring I agreed to discharge this patient, despite recommending to her that she should be monitored overnight. The patient was instructed to follow-up closely with their PCP and close return precautions were given. The patient indicated understanding and intention to do so. Laboratory Tests Test 06/23/18 12:34 06/23/18 12:35 Prothrombin Time 10.0 SEC (9.30-11.50) Prothrombin Time INR 0.9 (0.9-1.1) PTT 48 SEC (23-33) H Sodium Level 138 MMOL/L (136-145) Potassium Level 4.3 MMOL/L (3.5-5.1) Chloride Level 97 MMOL/L (98-107) L Carbon Dioxide Level 35 MMOL/L (21-32) H Anion Gap 6 mmol/L (5-15) Blood Urea Nitrogen 14 mg/dL (7-18) Creatinine 3.4 MG/DL (0.55-1.30) H Estimate Glomerular Filtration Rate 13.6 mL/min (>60) Glucose Level 116 MG/DL (74-106) H Calcium Level 9.2 MG/DL (8.5-10.1) Total Bilirubin 0.5 MG/DL (0.2-1.0) Aspartate Amino Transferase (AST) 16 U/L (15-37) Alanine Aminotransferase (ALT) 12 U/L (12-78) Alkaline Phosphatase 138 U/L (46-116) H Total Creatine Kinase 47 U/L (26-308) Creatine Kinase MB 1.6 NG/ML (0.0-3.6) Creatine Kinase MB Relative Index 3.4 Troponin I 0.047 ng/mL (0.000-0.056) Total Protein 8.5 G/DL (6.4-8.2) H Albumin 3.5 G/DL (3.4-5.0) Globulin 5.0 g/dL Albumin/Globulin Ratio 0.7 (1.0-2.7) L White Blood Count 9.5 K/UL (4.8-10.8) Red Blood Count 4.26 M/UL (4.20-5.40) Hemoglobin 12.6 G/DL (12.0-16.0) Hematocrit 41.2 % (37.0-47.0) Mean Corpuscular Volume 97 FL (80-99) Mean Corpuscular Hemoglobin 29.6 PG (27.0-31.0) Mean Corpuscular Hemoglobin Concent 30.6 G/DL (32.0-36.0) L Red Cell Distribution Width 15.5 % (11.6-14.8) H Platelet Count 243 K/UL (150-450) Mean Platelet Volume 7.0 FL (6.5-10.1) Neutrophils (%) (Auto) 61.5 % (45.0-75.0) Lymphocytes (%) (Auto) 17.4 % (20.0-45.0) L Monocytes (%) (Auto) 10.3 % (1.0-10.0) H Eosinophils (%) (Auto) 8.9 % (0.0-3.0) H Basophils (%) (Auto) 1.9 % (0.0-2.0) EKG Diagnostic Results Rate: normal Rhythm: NSR ST Segments: no acute changes Rhythm Strip Diag. Results EP Interpretation: yes Rate: 80's Rhythm: NSR, no PVC's, no ectopy Chest X-Ray Diagnostic Results Chest X-Ray Diagnostic Results : Chest X-Ray Ordered: Yes # of Views/Limited/Complete: 1 View Indication: Chest Pain EP Interpretation: Yes Interpretation: other - Cardiomegaly, unchanged from comparison CXR. Impression: No acute disease Electronically Signed by: Vivian Colianno, DO Last Vital Signs Date Time Temp Pulse Resp B/P (MAP) Pulse Ox O2 Delivery O2 Flow Rate FiO2 06/23/18 12:11 98.1 85 18 98 Room Air Status: improved Disposition: HOME, SELF-CARE Condition: Improved Patient Instructions: Nonspecific Chest Pain Vivian Sanz DO June 23, 2018 12:38
[2018-06-23 12:58] LABS: BASOPHILS % (AUTO) 1.9 % (0.0-2.0); EOSINOPHILS % (AUTO) 8.9 % (0.0-3.0); HEMATOCRIT 41.2 % (37.0-47.0); HEMOGLOBIN 12.6 G/DL (12.0-16.0); LYMPHOCYTES % (AUTO) 17.4 % (20.0-45.0); MEAN CORPUSCULAR VOLUME 97 FL (80-99); MONOCYTES % (AUTO) 10.3 % (1.0-10.0); NEUTROPHILS % (AUTO) 61.5 % (45.0-75.0); PLATELET COUNT 243 K/UL (150-450); RED BLOOD COUNT 4.26 M/UL (4.20-5.40); RED CELL DISTRIBUTION WIDTH 15.5 % (11.6-14.8); WHITE BLOOD COUNT 9.5 K/UL (4.8-10.8)
[2018-06-23 13:08] LABS: INR 0.9 (0.9-1.1)
[2018-06-23 13:10] LABS: ANION GAP 6 mmol/L (5-15); BLOOD UREA NITROGEN 14 mg/dL (7-18); CALCIUM 9.2 MG/DL (8.5-10.1); CARBON DIOXIDE 35 MMOL/L (21-32); CHLORIDE 97 MMOL/L (98-107); CREATININE 3.4 MG/DL (0.55-1.30); POTASSIUM 4.3 MMOL/L (3.5-5.1); SODIUM 138 MMOL/L (136-145)
[2018-06-23 13:21] LABS: ALANINE AMINOTRANSFERASE 12 U/L (12-78); ALBUMIN 3.5 G/DL (3.4-5.0); ALBUMIN/GLOBULIN RATIO 0.7 (1.0-2.7); ALKALINE PHOSPHATASE 138 U/L (46-116); ASPARTATE AMINO TRANSFERASE 16 U/L (15-37); BILIRUBIN,TOTAL 0.5 MG/DL (0.2-1.0); CKMB 1.6 NG/ML (0.0-3.6); CREATINE KINASE 47 U/L (26-308)
--- NOTE | 2018-06-23 13:50 | Diagnostic Imaging Report ---
Indication: Chest pain Comparison: 04/05/2018 A single view chest radiograph was obtained. Findings: Cardiomegaly is present and stable. Right permacath noted. Lungs remain clear. IMPRESSION: No acute findings.
[2018-06-23 14:34] VITALS: BP 156/78
--- NOTE | 2018-06-23 14:34 | NUR ---
ED Nurse Note: PT LAYING PEACEFULLY IN BED IN NAD. AOX4. DISCHARGE PAPERWORK EXPLAINED TO PT. PT VERBALIZES UNDERSTANDING AND ALL QUESTIONS ANSWERED. DISCHARGE PAPERWORK GIVEN TO PT, IV AND ID WRISTBAND REMOVED. PT WALKED OUT OF ER WITH STEADY GAIT AND ALL BELONGINGS.
--- NOTE | 2018-06-24 14:28 | Cardiology Report ---
APPROVED REPORT EKG Measurement Heart [id number] Normal sinus rhythm Possible Left atrial enlargement Left ventricular hypertrophy Nonspecific T wave abnormality Abnormal ECG
== END 2018-06-23 14:35 | disposition home or self-care (01) ==
LOC: EMR 13:44 → EDBEDREQ 14:05 → CANBEDREQ 14:30 → EMR 14:35
DX: R07.9 Chest pain, unspecified (principal); I10 Essential (primary) hypertension; E11.9 Type 2 diabetes mellitus without complications; N28.9 Disorder of kidney and ureter, unspecified; Z99.2 Dependence on renal dialysis; K21.9 Gastro-esophageal reflux disease without esophagitis
CPT/HCPCS: 36415; 71045; 80053; 82550; 82553; 84484; 85025; 85610; 85730; 93005; 99283